=== PATIENT | male | born 1950 | race Caucasian/White ===

== ENCOUNTER 2016-10-10 10:31 | Observation (INO) ==
[2016-10-10] MEDS ORDERED: Aspirin 81 MG TAB.CHEW PO ONE (10:38)
--- NOTE | 2016-10-10 10:44 | Emergency Department Note ---
Disposition Clinical Impression: Chest pain Qualifiers: Chest pain type: unspecified Qualified Code(s): R07.9 - Chest pain, unspecified Disposition: Admitted As Inpatient Condition: Fair Referrals: Naresh Webb MD [Primary Care Provider] - Forms: ED Satisfaction Letter Time of Disposition: 11:38 Chest Pain HPI - General Chief Complaint: ED Chest Pain Stated Complaint: chest pain, dizziness Time Seen by Provider: 10/10/16 10:38 Source: patient, family Mode of arrival: ambulatory Limitations: no limitations Vital Signs Reviewed: Yes Nursing Notes Reviewed: Yes - History of Present Illness HPI Narrative: 66-year-old with a history of peripheral vascular disease who comes in complaining of chest pain began last night. Describes it as substernal with some radiation of the arm with some associated dizziness. Patient does have a history of cigarette smoking, positive family history, positive history of hypercholesterolemia. Pt complaint: chest pain Onset (ago): day(s) (12) Duration: constant Onset: during rest Pain Location: substernal, left chest Severity scale (1-10): 10 Quality: tightness, aching Pain Radiation: none Improves with: nothing Worsens with: nothing Associated symptoms: Denies: nausea, vomiting Treatments prior to arrival chest pain: none - Related Data Home Medications Medication Instructions Recorded Confirmed Albuterol Sulfate [Proair HFA] 2 puff IH Q6HR 04/08/15 07/01/16 Aspirin/Calcium Carbonate/Mag 325 mg PO DAILY 04/08/15 07/01/16 [Aspirin Buffered 325 mg Tab] Loratadine [Claritin] 10 mg PO DAILY 04/08/15 07/01/16 Simvastatin [Zocor] 40 mg PO HS 04/08/15 07/01/16 Percocet 10-325 mg Tablet 1 tab PO QID 10/07/15 07/01/16 BuPROPion SR (12 HR) [Wellbutrin 150 mg PO BID 07/01/16 07/01/16 SR] Naproxen [Naprosyn] 500 mg PO BID 07/01/16 07/01/16 Oxycodone HCl 15 mg PO QID 07/01/16 07/01/16 Potassium Chloride [K-Tab ER] 20 meq PO DAILY 07/01/16 07/01/16 Previous Rx's Medication Instructions Recorded Omeprazole [PriLOSEC] 20 mg PO DAILY #30 capsule. 07/01/16 Polyethylene Glycol 3350 [MiraLAX] 17 gm PO DAILY 14 Days 07/01/16 Allergies Allergy/AdvReac Type Severity Reaction Status Date / Time morphine Allergy See Verified 07/02/16 13:32 Comments duloxetine [From Cymbalta] AdvReac Hives Verified 04/08/15 21:13 Oxycodone [From OxyContin] AdvReac Itching Verified 04/08/15 21:13 tapentadol [From Nucynta] AdvReac Weakness Verified 04/08/15 21:13 Constitutional: Denies: fever, chills, weakness, weight change Eyes: Denies: eye pain, eye discharge, vision change ENT ED: Denies: ear pain, throat pain, dental pain, hearing loss, epistaxis, congestion, dysphagia Cardiovascular: Reports: chest pain. Denies: palpitations, dyspnea on exertion , edema, syncope Respiratory: Denies: cough, dyspnea, wheezes, hemoptysis, stridor Gastrointestinal: Denies: abdominal pain, nausea, vomiting, diarrhea, constipation, hematemesis, melena, hematochezia Genitourinary: Denies: urgency, dysuria, frequency, hematuria Musculoskeletal: Denies: back pain, neck pain, arthralgia, myalgia Integumentary: Denies: rash, abrasion, lesions Neurological: Reports: other (Dizziness). Denies: headache, weakness, numbness , paresthesias, confusion, abnormal gait, vertigo Psychiatric: Denies: anxiety, depression, suicidal thoughts, homicidal thoughts , auditory hallucinations, visual hallucinations Endocrine: Denies: fatigue Hematological/Lymphatic: Denies: easy bleeding, easy bruising Allergic/Immunologic: Denies: facial swelling, urticaria Chest Pain PMH - Past Medical History Medical history: Reports: asthma, COPD, hyperlipidemia, hypertension, other Surgical history: Reports: orthopedic, other Psychiatric history: Reports: depression - Social History Smoking Status: Current every day smoker Alcohol use: Reports: occasionally Drug use: Reports: none Physical Exam - General Limitations: no limitations General appearance: alert, in no apparent distress - Head Head exam: atraumatic, normocephalic, normal inspection - Eye Eye exam: Present: normal appearance, PERRL, EOMI - ENT ENT exam: normal exam, normal oropharynx, mucous membranes moist - Neck Neck exam: Present: normal inspection, full ROM, trachea midline - Chest Chest inspection: Present: normal inspection, symmetric chest wall rise - Respiratory Respiratory exam: Present: normal lung sounds bilaterally - Cardiovascular Cardiovascular exam: Present: regular rate, normal rhythm, normal heart sounds - Abdominal Exam Abdominal exam: Present: soft, Non-Tender. Absent: tenderness, distention, guarding, rebound, rigidity - Extremities Exam Extremities exam: Present: normal inspection, full ROM. Absent: tenderness, pedal edema - Expanded Lower Extremity Exam Neurovascular/Tendon exam: Absent: motor deficit, sensory deficit, tendon deficit Gait: not tested/not observed - Back Exam Back exam: Present: normal inspection, full ROM. Absent: tenderness - Neurological Exam Neurological exam: Present: alert, oriented X3 - Psychiatric Psychiatric exam: Present: normal affect, normal mood - Skin Skin exam: Present: warm, dry, intact, normal color Course - Reevaluation(s) Reevaluation #1: 66-year-old comes in complaining of chest pain with multiple risk factors and no recent workup. Workup here is negative will admit for rule out. Time: 14:28 - Consultations Consultation #1: Discussed with , admit. Time: 14:27 Vital Signs Temperature 97.5 F L 10/10/16 10:37 Pulse Rate 76 10/10/16 10:37 Respiratory Rate 22 10/10/16 10:37 Blood Pressure 157/98 10/10/16 10:37 O2 Sat by Pulse Oximetry 98 10/10/16 10:37 Temperature 97.5 F L 10/10/16 10:37 Pulse Rate 74 10/10/16 14:13 Respiratory Rate 18 10/10/16 14:13 Blood Pressure 130/79 10/10/16 14:13 O2 Sat by Pulse Oximetry 98 10/10/16 14:13 Oxygen Delivery Oxygen Delivery Room Air Chest Pain - Lab Data Lab results reviewed: Yes I reviewed the patient's lab results. Result diagrams: 10/10/16 10:42 10/10/16 10:42 Lab Results 10/10/16 10/10/16 10/10/16 Range/Units 10:42 10:42 10:42 WBC 6.7 (4.3-11.1) K/mcL RBC 4.57 (4.19-5.50) M/mcL Hgb 14.7 (12.9-16.9) g/dL Hct 43.5 (37.5-50.1) % MCV 95.2 (83.0-100.0) fL MCH 32.2 (28.0-33.3) pg MCHC 33.8 (31.6-35.5) g/dL RDW 13.1 (11.5-14.5) % Plt Count 229 (140-400) K/mcL MPV 9.6 (9.4-12.4) fL Immature Gran % 0.6 (0-4) % Seg Neutrophils % 57.5 % Lymphocytes % 26.8 % Monocytes % 9.9 % Eosinophils % 4.0 % Basophils % 1.2 % Neutrophils # 3.8 (1.6-8.9) K/mcL Lymphocytes # 1.8 (0.6-4.6) K/mcL Monocytes # 0.7 (0.0-1.3) K/mcL Eosinophils # 0.3 (0.0-0.6) K/mcL Basophils # 0.1 (0.0-0.2) K/mcL PT 11.0 (9.4-12.1) Seconds INR 1.0 APTT 30.7 (26.0-36.0) Seconds Sodium (136-145) mEq/L Potassium (3.5-4.5) mEq/L Chloride (98-109) mEq/L Carbon Dioxide (19-29) mEq/L BUN (8-26) mg/dL Creatinine (0.72-1.25) mg/dL Est GFR ( Amer) (> 60) Est GFR (Non-Af Amer) (> 60) BUN/Creatinine Ratio (6-26) Glucose (70-99) mg/dL Calculated Osmolality (280-300) Calcium (8.6-10.8) mg/dL Troponin I (0-0.03) ng/mL B-Natriuretic Peptide 34 (0-100) pg/mL 10/10/16 10/10/16 Range/Units 10:42 10:42 WBC (4.3-11.1) K/mcL RBC (4.19-5.50) M/mcL Hgb (12.9-16.9) g/dL Hct (37.5-50.1) % MCV (83.0-100.0) fL MCH (28.0-33.3) pg MCHC (31.6-35.5) g/dL RDW (11.5-14.5) % Plt Count (140-400) K/mcL MPV (9.4-12.4) fL Immature Gran % (0-4) % Seg Neutrophils % % Lymphocytes % % Monocytes % % Eosinophils % % Basophils % % Neutrophils # (1.6-8.9) K/mcL Lymphocytes # (0.6-4.6) K/mcL Monocytes # (0.0-1.3) K/mcL Eosinophils # (0.0-0.6) K/mcL Basophils # (0.0-0.2) K/mcL PT (9.4-12.1) Seconds INR APTT (26.0-36.0) Seconds Sodium 141 (136-145) mEq/L Potassium 4.5 (3.5-4.5) mEq/L Chloride 106 (98-109) mEq/L Carbon Dioxide 26 (19-29) mEq/L BUN 12 (8-26) mg/dL Creatinine 1.07 (0.72-1.25) mg/dL Est GFR ( Amer) > 60 (> 60) Est GFR (Non-Af Amer) > 60 (> 60) BUN/Creatinine Ratio 11 (6-26) Glucose 84 (70-99) mg/dL Calculated Osmolality 291 (280-300) Calcium 9.1 (8.6-10.8) mg/dL Troponin I 0.00 (0-0.03) ng/mL B-Natriuretic Peptide (0-100) pg/mL - Radiology Data Radiology results reviewed: Yes I reviewed the patient's radiology results. Chest X-Ray 10/10/16 10:38 IMPRESSION: 1. No active pulmonary disease. D/ / Tony Drummond MD / Tony Drummond MD Interpreting Provider: Tony Drummond MD - EKG Data EKG attestation: Yes I reviewed and interpreted this EKG. EKG shows normal: sinus rhythm Rate: normal Rhythm: NSR Interpretation: no acute changes Heart Score - Score History: Moderately Suspicious EKG: Normal Age: 45-65 Risk Factors: Equal/Greater than 3 risk factor or history of atherosclerotic disease Troponin: Less than normal limit HEART Score Total: 4
[2016-10-10 10:56] LABS: Basophils # 0.1 K/mcL (0.0-0.2); Basophils % 1.2 %; Eosinophils # 0.3 K/mcL (0.0-0.6); Hematocrit 43.5 % (37.5-50.1); Hemoglobin 14.7 g/dL (12.9-16.9); Immature Granulocytes % 0.6 % (0-4); Lymphocytes # 1.8 K/mcL (0.6-4.6); Lymphocytes % 26.8 %; Mean Corpuscular HGB Conc 33.8 g/dL (31.6-35.5); Mean Corpuscular Hemoglobin 32.2 pg (28.0-33.3); Mean Corpuscular Volume 95.2 fL (83.0-100.0); Mean Platelet Volume 9.6 fL (9.4-12.4); Monocytes # 0.7 K/mcL (0.0-1.3); Monocytes % 9.9 %; Neutrophils # 3.8 K/mcL (1.6-8.9); Platelet Count 229 K/mcL (140-400); Red Blood Count 4.57 M/mcL (4.19-5.50); Red Cell Distribution Width 13.1 % (11.5-14.5); Segmented Neutrophils % 57.5 %
[2016-10-10 11:06] LABS: Activated Partial Thrombo Time 30.7 Seconds (26.0-36.0)
[2016-10-10 11:07] LABS: BUN/Creatinine Ratio 11 (6-26); Blood Urea Nitrogen 12 mg/dL (8-26); Calcium 9.1 mg/dL (8.6-10.8); Carbon Dioxide 26 mEq/L (19-29); Chloride 106 mEq/L (98-109); Glucose 84 mg/dL (70-99); Osmolality,Calculated 291 (280-300); Potassium 4.5 mEq/L (3.5-4.5); Sodium 141 mEq/L (136-145); eGFR For African Americans > 60 (> 60); eGFR For Non-African Americans > 60 (> 60)
[2016-10-10] MEDS ORDERED: *HR* HYDROmorphone (PF) 1 MG/ML SYRINGE IVP ONE (12:10)
[2016-10-10] MEDS ORDERED: Ondansetron 4 MG/2 ML VIAL IVP ONE (12:11)
[2016-10-10] MEDS ORDERED: *HR* OxyCODONE Immed Rel 15 MG TABLET PO PRN (15:39)
[2016-10-10] MEDS ORDERED: Acetaminophen 325 MG TABLET PO PRN (15:52)
[2016-10-10] MEDS ORDERED: Naloxone 0.4 MG/ML INJ IVP PRN (15:52)
[2016-10-10] MEDS ORDERED: *HR* Morphine 2 MG/ML SYRINGE IVP PRN (15:52)
[2016-10-10] MEDS ORDERED: Ondansetron 4 MG/2 ML VIAL IVP PRN (15:52)
[2016-10-10] MEDS ORDERED: Albuterol 2.5 MG/3 ML NEBULIZER IH PRN (16:05)
[2016-10-10] MEDS ORDERED: Nitroglycerin 0.4 MG TAB.SUBL SL PRN (16:11)
--- NOTE | 2016-10-10 16:14 | Internal Med History&Physical ---
Date of Encounter: 10/10/16 Time of Encounter: 15:30 Internal Medicine - H&P: HPI Chief complaint: Chest pain, arm and neck pain x 2 days Admitted From: Emergency Dept Plans for Post Hospital Care: Home History of present illness: Mr. Jackson is a 66 year old male with a history of peripheral vascular disease, continuing tobacco abuse presents with substernal chest pain with radiation to the left side of neck, associated with numbness in the left upper arm that started yesternight. He reports associated dizziness. He has no prior cardiac history. He reports his last stress test was negative (10 years), and LHC was completed 2-3 years at [facility], he report it has showing singes single vessel disease (10%). No fever, chills or rigors. He reports worsening of chronic intermittent abdominal pain. He reports no other symptoms. He is FULL CODE as per discussion. He nominates his girlfriend as his NOK/POA, Mahsa Mayes. Family hx: mother DM, CAD, father: HTN, CAD. Vital Signs Temperature 97.5 F L 10/10/16 10:37 Pulse Rate 76 10/10/16 10:37 Respiratory Rate 22 10/10/16 10:37 Blood Pressure 157/98 10/10/16 10:37 O2 Sat by Pulse Oximetry 98 10/10/16 10:37 Temperature 97.5 F L 10/10/16 10:37 Pulse Rate 74 10/10/16 14:13 Respiratory Rate 18 10/10/16 14:13 Blood Pressure 130/79 10/10/16 14:13 O2 Sat by Pulse Oximetry 98 10/10/16 14:13 Not in distress, not ill, non-toxic looking, motor tics present Not pale, anicteric, afebrile, acyanotic. Moist mucosa. HEENT: No JVD, no cervical lymphadenopathy, Chest : CTAB, diminished generally, especially in the bases. Heart: RRR, HS1/2, no m/r/g. 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 Skin: No active skin lesion Extremities: No pedal edema, normal pedal pulses, no calf tenderness Lab Results 10/10/16 10/10/16 10/10/16 Range/Units 10:42 10:42 10:42 WBC 6.7 (4.3-11.1) K/mcL RBC 4.57 (4.19-5.50) M/mcL Hgb 14.7 (12.9-16.9) g/dL Hct 43.5 (37.5-50.1) % MCV 95.2 (83.0-100.0) fL MCH 32.2 (28.0-33.3) pg MCHC 33.8 (31.6-35.5) g/dL RDW 13.1 (11.5-14.5) % Plt Count 229 (140-400) K/mcL MPV 9.6 (9.4-12.4) fL Immature Gran % 0.6 (0-4) % Seg Neutrophils % 57.5 % Lymphocytes % 26.8 % Monocytes % 9.9 % Eosinophils % 4.0 % Basophils % 1.2 % Neutrophils # 3.8 (1.6-8.9) K/mcL Lymphocytes # 1.8 (0.6-4.6) K/mcL Monocytes # 0.7 (0.0-1.3) K/mcL Eosinophils # 0.3 (0.0-0.6) K/mcL Basophils # 0.1 (0.0-0.2) K/mcL PT 11.0 (9.4-12.1) Seconds INR 1.0 APTT 30.7 (26.0-36.0) Seconds Sodium (136-145) mEq/L Potassium (3.5-4.5) mEq/L Chloride (98-109) mEq/L Carbon Dioxide (19-29) mEq/L BUN (8-26) mg/dL Creatinine (0.72-1.25) mg/dL Est GFR ( Amer) (> 60) Est GFR (Non-Af Amer) (> 60) BUN/Creatinine Ratio (6-26) Glucose (70-99) mg/dL Calculated Osmolality (280-300) Calcium (8.6-10.8) mg/dL Troponin I (0-0.03) ng/mL B-Natriuretic Peptide 34 (0-100) pg/mL 10/10/16 10/10/16 Range/Units 10:42 10:42 WBC (4.3-11.1) K/mcL RBC (4.19-5.50) M/mcL Hgb (12.9-16.9) g/dL Hct (37.5-50.1) % MCV (83.0-100.0) fL MCH (28.0-33.3) pg MCHC (31.6-35.5) g/dL RDW (11.5-14.5) % Plt Count (140-400) K/mcL MPV (9.4-12.4) fL Immature Gran % (0-4) % Seg Neutrophils % % Lymphocytes % % Monocytes % % Eosinophils % % Basophils % % Neutrophils # (1.6-8.9) K/mcL Lymphocytes # (0.6-4.6) K/mcL Monocytes # (0.0-1.3) K/mcL Eosinophils # (0.0-0.6) K/mcL Basophils # (0.0-0.2) K/mcL PT (9.4-12.1) Seconds INR APTT (26.0-36.0) Seconds Sodium 141 (136-145) mEq/L Potassium 4.5 (3.5-4.5) mEq/L Chloride 106 (98-109) mEq/L Carbon Dioxide 26 (19-29) mEq/L BUN 12 (8-26) mg/dL Creatinine 1.07 (0.72-1.25) mg/dL Est GFR ( Amer) > 60 (> 60) Est GFR (Non-Af Amer) > 60 (> 60) BUN/Creatinine Ratio 11 (6-26) Glucose 84 (70-99) mg/dL Calculated Osmolality 291 (280-300) Calcium 9.1 (8.6-10.8) mg/dL Troponin I 0.00 (0-0.03) ng/mL B-Natriuretic Peptide (0-100) pg/mL Chest X-Ray 10/10/16 10:38 No active pulmonary disease. EKG: NSR. IMP Atypical chest pain Abdominal wall pain, non-specific, chronic. Chronic morbidities COPD HTN Degenerative spine disease PLAN Admit for chest pain rule out due to risk factor Stress test in the AM Morphine and Nitroglycerine for chest pain Serial EKG, cycle troponins. No indication for DVT prophylaxis. Smoking cessation discussed. I discussed my assessment with the patient, he verbalized understanding and is agreeable to admission. He is admitted for evaluation of chest pain considering his risk factors. Past Med Surg Social Fam HX - Past Medical History Medical history: asthma, COPD, hyperlipidemia, hypertension, other Psychiatric history: depression - Past Surgical History Surgical History: orthopedic, other - Social History Smoking Status: Current every day smoker Smokeless Tobacco Status: No Alcohol use: occasionally Drug use: none Internal Medicine - H&P: Meds Albuterol Sulfate [Proair HFA] 2 puff IH Q6HR 04/08/15 [History] Aspirin/Calcium Carbonate/Mag [Aspirin Buffered 325 mg Tab] 325 mg PO DAILY 05/15 [History] Loratadine [Claritin] 10 mg PO DAILY 04/08/15 [History] Simvastatin [Zocor] 40 mg PO HS 04/08/15 [History] BuPROPion SR (12 HR) [Wellbutrin SR] 150 mg PO BID 07/01/16 [History] Naproxen [Naprosyn] 500 mg PO BID 07/01/16 [History] Omeprazole [PriLOSEC] 20 mg PO DAILY #30 capsule. 07/01/16 [Rx] Oxycodone HCl 15 mg PO QID 07/01/16 [History] Polyethylene Glycol 3350 [MiraLAX] 17 gm PO DAILY 14 Days 07/01/16 [Rx] Potassium Chloride [K-Tab ER] 20 meq PO DAILY 07/01/16 [History] Allergies duloxetine [From Cymbalta] Allergy (Verified 10/10/16 14:48) Hives morphine Allergy (Verified 10/10/16 14:48) See Comments UNKNOWN REACTION- PATIENT UNSURE Oxycodone [From OxyContin] Allergy (Verified 10/10/16 14:48) Itching tapentadol [From Nucynta] Adverse Reaction (Verified 04/08/15 21:13) Weakness All Systems PM: A 10-system review of systems was performed and is negative for pertinent findings except as documented above in the HPI. - Constitutional Vitals: Temp Pulse Resp BP Pulse Ox 98.0 F 71 16 164/73 97 10/10/16 15:57 10/10/16 15:57 10/10/16 15:57 10/10/16 15:57 10/10/16 15:57 Internal Med - H&P Results - Labs CBC & Chem 7: 10/10/16 10:42 10/10/16 10:42
[2016-10-10] MEDS: BuPROPion SR (12 HR) 150 MG TABLET PO SCH (21:59)
[2016-10-11 05:19] LABS: Chol/HDL Ratio 3.8 (0-4.9)
[2016-10-11] MEDS ORDERED: Regadenoson 0.4 MG/5 ML SYRINGE IVP ONE (07:58)
[2016-10-11] MEDS ORDERED: Aspirin Enteric Coated 325 MG Tablet PO SCH (09:00)
[2016-10-11] MEDS ORDERED: Loratadine 10 MG TABLET PO SCH (09:00)
[2016-10-11] MEDS: BuPROPion SR (12 HR) 150 MG TABLET PO SCH (10:26)
--- NOTE | 2016-10-11 11:10 | Nuclear Medicine Stress Report ---
Regadenoson Nuclear Stress Name: MONIE CAMACHO Date of Study: 10/11/2016 Date: 1950 Ht: 70.0 in Medical Record#: [id number] Age: 66 Wt: 180.0 lb Gender: Male Order #: [id number] Location: [facility] Room: [facility] Supervising Provider: Renan Covarrubias CNP Reading Physician: Nyla Bui DO Ordering Physician: Zoë Bo CNP Primary Care Physician: Naresh Webb MD Stress Technologist: Yusra Roland, ORTHOTICS ASSISTANT, CCT, CPFT Stroke Coordinator: José Miguel Lewis Indications: Chest Pain Impression: Perfusion imaging was negative for ischemia or infarct. Inferior wall artifact. Pharmacologic ECG was negative for ischemia at the level of heart rate achieved. Patient described 8/10 chest burning prior to start of study, persisting unchanged during testing. Gated EF = 65%. History: Hypercholesteremia History of Smoking Stress Test Summary: Stress Test Type: Pharmacologic Regadenoson 0.4mg/5ml given IV Baseline Information: Initial Heart Rate: 74 Blood Pressure: 126/78 Stress Information: Stress Time: 4 min sec Test Terminated Due to (primary): As per protocol Maximum Blood Pressure: 114/60 Maximum Heart Rate: 109 Percent Maximum Heart Rate Achieved: 70 Double Product: [id number] METS Reached: 1 Symptoms: Shortness of breath Nuclear Summary: SPECT myocardial perfusion imaging using Tc99m Sestamibi given intravenously was performed at rest and following cardiac stress testing. The resting images were obtained following initial dose of 11.1 mCi. Following stress an additional dose of 35.9 mCi was given at peak exercise or 30 seconds post regadenoson infusion. Medication Given: Time Medication Dose Units Route Findings: Stress Note * Resting ECG demonstrated normal sinus rhythm with normal ECG findings. * Pharmacologic stress ECG is negative for ischemia at level of heart rate achieved. * No arrhythmias were noted during stress. * Patient described 8/10 chest burning prior to start of study. Symptoms persisted without change during the study. Hemodynamic responses * Normal hemodynamic responses to pharmacologic stress. Study Quality * Study quality was fair. Gated EF % * Gated EF = 65%. Left Ventricle * The left ventricle is not dilated. TID * No evidence of transient ischemic dilatation. Lung Uptake * There is no evidence of increase lung uptake. NORMALS * Normal wall motion. PERFUSION * There is a medium sized, mild-moderate fixed intensity perfusion defect involving the inferior wall. Wall motion is normal in this area. Findings are consistent with artifact. * Other segments demonstrate demonstrate normal rest and stress perfusion. Updated by Nyla Bui on 10/11/2016 11:03:46 AM electronically signed on 10/11/2016 11:05:55 AM with status of Final
[2016-10-11 12:36] VITALS: BP 138/77
--- NOTE | 2016-10-11 15:03 | Discharge Summary ---
Date of Encounter: 10/11/16 Time of Encounter: 13:30 - Discharge Diagnosis (1) Chest pain Priority: Primary Status: Acute Qualifiers: Chest pain type: other chest pain Qualified Code(s): R07.89 - Other chest pain; R07.8 - Other chest pain - Discharge Medications Home Medications: Albuterol Sulfate [Albuterol Inhaler] 2 puff IH Q6HR 04/08/15 [History] Aspirin/Calcium Carbonate/Mag [Aspirin Buffered 325 mg Tab] 325 mg PO DAILY 05/15 [History] Loratadine [Claritin] 10 mg PO DAILY 04/08/15 [History] Simvastatin [Zocor] 40 mg PO HS 04/08/15 [History] BuPROPion SR (12 HR) [Wellbutrin SR] 150 mg PO BID 07/01/16 [History] Naproxen [Naprosyn] 500 mg PO BID 07/01/16 [History] Omeprazole [PriLOSEC] 20 mg PO DAILY #30 capsule. 07/01/16 [Rx] Oxycodone HCl 15 mg PO QID 07/01/16 [History] Polyethylene Glycol 3350 [MiraLAX] 17 gm PO DAILY 14 Days 07/01/16 [Rx] Potassium Chloride [K-Tab ER] 20 meq PO DAILY 07/01/16 [History] GuaiFENesin Liq [Robitussin Liq] 200 mg GTUBE Q6HR 7 Days 10/11/16 [Rx] Allergies/Adverse Reactions: Allergies duloxetine [From Cymbalta] Allergy (Verified 10/10/16 14:48) Hives morphine Allergy (Verified 10/10/16 14:48) See Comments UNKNOWN REACTION- PATIENT UNSURE Oxycodone [From OxyContin] Allergy (Verified 10/10/16 14:48) Itching tapentadol [From Nucynta] Adverse Reaction (Verified 04/08/15 21:13) Weakness Procedures/tests Complete & Pending: Procedures Performed prior 72 hours Category Date Time Status NM rupesh perf SPECT multi [NM] Routine Exams 10/10/16 15:52 Taken ECG 12 lead ECG [ECG] AM 0600 Y 10/11/16 06:00 Ordered SP pharm nuclear stress Routine Y 10/10/16 15:51 Completed Date of admission: 10/10/16 14:45 Primary care physician: Naresh Webb MD Discharging clinician: Kasey Thomas Anticipated date of discharge: 10/11/16 - Patient Status Disposition: Home, Self-Care Condition: Fair Functional capacity at discharge: uses cane/walker - Discharge Instructions Follow Up With: Naresh Webb MD [Primary Care Provider] - - Diet and Activity Activity: increase activity as tolerated Diet: advance to your usual diet Interval History: Mr. Jackson is a 66 year old male with a history of peripheral vascular disease, continuing tobacco abuse presents with substernal chest pain with radiation to the left side of neck, associated with numbness in the left upper arm that started yesternight. He reports associated dizziness. He has no prior cardiac history. He reports his last stress test was negative (10 years), and LHC was completed 2-3 years at [facility], he report it has showing singes single vessel disease (10%). No fever, chills or rigors. He reports worsening of chronic intermittent abdominal pain. He reports no other symptoms. He is FULL CODE as per discussion. He nominates his girlfriend as his NOK/POA, Mahsa Mayes. Hospital course: Mr. Jackson is a 66 year old male admitted as chest pain. He was placed on cardiac monitoring. 3 sets of troponin negative, EKG unremarkable, chest x-ray unremarkable. Patient had stress test today which was negative, EF 65%. Today he has only minimal pain which is related to movement of his shoulder. He also has chest wall tenderness. Consider the chest pain is skeletomuscular pain. Pt will discharge home today. I saw and examined the patient today. He is awake, alert and oriented 3. Said that the pain is much less. Pain is related to the right shoulder movement. Patient has cervical spine surgery with limited mobility activity. On exam, he has tenderness on the front chest wall. Chest x-ray, EKG reviewed, unremarkable. His vitals are stable. Patient also has mild cough, will give him cough syrup. Patient is stable to discharge home and continue home medication. He will follow-up with PCP as outpatient. Time spent discussing smoking cessation with patient: 3 to 10 minutes - Time Spent with Patient Total time spent providing and/or coordinating discharge services: 40 minutes Greater than 30 minutes - Constitutional Vitals: Temp Pulse Resp BP Pulse Ox 97.3 F L 75 16 138/77 93 L 10/11/16 12:34 10/11/16 12:34 10/11/16 12:34 10/11/16 12:34 10/11/16 12:34 - Head Head exam: Present: atraumatic, normocephalic - Eye Eye exam: Present: PERRL, conjuntiva pink, sclera anicteric Pupils: Present: PERRL - Neck Neck exam general surgery: Present: supple, trachea midline. Absent: lymphadenopathy - Respiratory Respiratory exam: Present: chest wall tenderness, CTAB. Absent: accessory muscle use, rales, rhonchi, wheezes - Cardiovascular Cardiovascular exam: Present: RRR, +S1, +S2. Absent: diastolic murmur, gallop, rubs, systolic murmur - GI/Abdominal GI/Abdominal exam: Present: normal bowel sounds, soft, no peritoneal signs. Absent: distended, tenderness - Extremities Exam Extremities exam: Present: warm, radial pulses palpable and symetrical. Absent : calf tenderness, cyanotic, pedal edema - Neurological Exam Neurological exam: Present: CN II-XII intact, oriented X3. Absent: pronater drift, facial droop, speech deficit - Skin Skin exam: Present: dry, intact
--- NOTE | 2016-10-12 13:22 | Electrocardiograph Report ---
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
== END 2016-10-11 15:30 | disposition home or self-care (01) ==
LOC: 3BNU 10:31 → EMEROO 10:31 → SUATTDRO 14:45 → 3BNU 15:46
PROVIDERS: ADMIT Family Medicine; ATTEND Internal Medicine

== ENCOUNTER 2016-11-10 10:17 | Inpatient (IN) ==
[2016-11-10 11:01] LABS: Bilirubin,Urine Negative (Negative); Blood,Urine Negative (Negative); Clarity,Urine Clear (Clear); Color,Urine Yellow (Yellow); Glucose,Urine (UA) Normal (Normal); Ketones,Urine Negative (Negative); Leukocyte Esterase,Urine Negative (Negative); Nitrite,Urine Negative (Negative); Protein,Urine Negative (Neg-Trace); Specific Gravity,Urine 1.014 (1.010-1.025); Urobilinogen,Urine Normal (Normal)
[2016-11-10] MEDS ORDERED: *HR* FentaNYL (PF) 100 MCG/2 ML VIAL IVP ONE ×2 (11:36→14:21)
[2016-11-10] MEDS ORDERED: 0.9 % Sodium Chloride 1,000 ML IV SCH (11:45)
--- NOTE | 2016-11-10 11:46 | Emergency Department Note ---
Disposition Clinical Impression: Discitis of lumbar region Back pain Qualifiers: Back pain location: low back pain Chronicity: chronic Back pain laterality: unspecified Sciatica presence: with sciatica Sciatica laterality: sciatica of right side Qualified Code(s): M54.41 - Lumbago with sciatica, right side Disposition: Admitted As Inpatient Condition: Fair Time of Disposition: 15:21 Back Pain HPI - General Chief Complaint: ED Back Pain/Injury Stated Complaint: back pain, R side pain since yesterday Time Seen by Provider: 11/10/16 11:15 Source: patient Limitations: no limitations Nursing Notes Reviewed: Yes Vital Signs Reviewed: Yes - History of Present Illness HPI Narrative: Mr. Jackson is a 66-year-old male with a past medical history of chronic back pain, hypertension, and hyperlipidemia who presents with a 24-hour history of worsening low back pain. She states that the pain started while he was walking on Thursday. He describes the pain is predominantly located in the midline of his lumbar spine as well as his right flank. He describes the pain as "sharp" in nature that radiates down his right leg into his foot. He also admits to occasional radiation up into his thoracic spine and left shoulder blade. The pain is a 10/10. Nothing appears to help the pain as he takes oxycodone 15 mg QID for chronic pain, but this does not seem to help with this current episode. He states that walking exacerbates this back pain and causes the pain to radiate into his left foot. She denies any new numbness and tingling, any new bowel changes, fever, or chills. He does admit to burning with urination and he admits to numbness in his groin that has been going on for the past month. He also admits to weakness of his bilateral lower extremities. Pt Subjective Complaint: back pain Onset (ago): day(s) Duration: gradually worsening Similar Symptoms Previously: Yes Location: lumbar spine Pain Severity: severe Pain Scale: 10 Quality: sharp, aching Radiation: right leg Improves with: none Worsens with: none Associated symptoms: Reports: numbness, weakness, difficulty walking. Denies: abdominal pain - Related Data Home Medications Medication Instructions Recorded Confirmed Albuterol Sulfate [Albuterol 2 puff IH Q6HR PRN 04/08/15 11/10/16 Inhaler] Loratadine [Claritin] 10 mg PO DAILY 04/08/15 11/10/16 Simvastatin [Zocor] 40 mg PO HS 04/08/15 11/10/16 BuPROPion SR (12 HR) [Wellbutrin 150 mg PO BID 07/01/16 11/10/16 SR] Oxycodone HCl 15 mg PO QID PRN 07/01/16 11/10/16 Aspirin Enteric Coated [Aspirin EC] 325 mg PO DAILY 11/10/16 11/10/16 Furosemide [Lasix] 40 mg PO DAILY 11/10/16 11/10/16 Potassium Chloride [K-Tab ER] 20 meq PO DAILY 11/10/16 11/10/16 Previous Rx's Medication Instructions Recorded Omeprazole [PriLOSEC] 20 mg PO DAILY #30 capsule. 07/01/16 Allergies Allergy/AdvReac Type Severity Reaction Status Date / Time duloxetine [From Cymbalta] Allergy Hives Verified 11/10/16 10:20 morphine Allergy See Verified 11/10/16 10:20 Comments Oxycodone [From OxyContin] Allergy Itching Verified 11/10/16 10:20 tapentadol [From Nucynta] AdvReac Weakness Verified 11/10/16 10:20 All systems ED: reviewed and negative except as stated. Past Medical History - Past Medical History Attestation: Yes The following information was validated with the patient. Source: patient Medical history: Reports: asthma, COPD, hyperlipidemia, hypertension, other Surgical history: Reports: orthopedic, other Psychiatric history: Reports: depression - Social History Smoking Status: Current every day smoker Smokeless Tobacco Status: No Alcohol use: Reports: occasionally Drug use: Reports: none Physical Exam - General Limitations: no limitations General appearance: alert, in no apparent distress - Head Head exam: atraumatic, normocephalic, normal inspection - Eye Eye exam: Present: normal appearance, PERRL, EOMI - ENT ENT exam: normal exam, normal oropharynx, mucous membranes moist - Neck Neck exam: Present: normal inspection, full ROM, trachea midline - Chest Chest inspection: Present: normal inspection, symmetric chest wall rise - Respiratory Respiratory exam: Present: normal lung sounds bilaterally - Cardiovascular Cardiovascular exam: Present: regular rate, normal rhythm, normal heart sounds - Abdominal Exam Abdominal exam: Present: soft, Non-Tender. Absent: tenderness, distention, guarding, rebound, rigidity - Rectal Exam Rectal exam: Present: normal rectal tone - Extremities Exam Extremities exam: Present: normal inspection, full ROM. Absent: tenderness, pedal edema - Neurological Exam Neurological exam: Present: alert, oriented X3 - Psychiatric Psychiatric exam: Present: normal affect, normal mood - Skin Skin exam: Present: warm, dry, intact, normal color Course Course Narrative: Patient seen and examined. Severe back pain last night into today. New numbness in the genital region as well as weakness in his lower extremities. Also some pain that radiates into his chest. Cardiac workup initiated as well as MRI of the lumbar spine. - Reevaluation(s) Reevaluation #1: Patient's MRI shows possible discitis or osteomyelitis versus just severe degenerative disc disease. A CRP and sedimentation rate were ordered. These were also high. We will go ahead and start prophylactically treating with vancomycin and gentamicin. I spoke with spine surgeon Dr. Lam who states he will consult on the patient. I spoke with hospitalist Dr. Cline who has accepted patient for admission. Time: 15:20 Vital Signs Temperature 98.3 F 11/10/16 10:20 Pulse Rate 78 11/10/16 10:20 Respiratory Rate 15 11/10/16 10:20 Blood Pressure 137/66 11/10/16 10:20 O2 Sat by Pulse Oximetry 98 11/10/16 10:20 Temperature 98.0 F 11/10/16 17:34 Pulse Rate 75 11/10/16 17:34 Respiratory Rate 18 11/10/16 17:34 Blood Pressure 150/87 11/10/16 17:34 O2 Sat by Pulse Oximetry 97 11/10/16 17:34 Oxygen Delivery Oxygen Delivery Room Air Back Pain/Injury - Medical Records Medical records reviewed: Yes I reviewed the patient's medical records. - Lab Data Lab results reviewed: Yes I reviewed the patient's lab results. Result diagrams: 11/10/16 13:56 11/10/16 13:56 Lab Results 11/10/16 11/10/16 11/10/16 Range/Units 10:50 13:56 13:56 WBC 7.1 (4.3-11.1) K/mcL RBC 3.86 L (4.19-5.50) M/mcL Hgb 12.4 L D (12.9-16.9) g/dL Hct 36.4 L (37.5-50.1) % MCV 94.3 (83.0-100.0) fL MCH 32.1 (28.0-33.3) pg MCHC 34.1 (31.6-35.5) g/dL RDW 12.7 (11.5-14.5) % Plt Count 239 (140-400) K/mcL MPV 9.3 L (9.4-12.4) fL Immature Gran % 0.4 (0-4) % Seg Neutrophils % 61.8 % Lymphocytes % 24.5 % Monocytes % 10.1 % Eosinophils % 2.4 % Basophils % 0.8 % Neutrophils # 4.4 (1.6-8.9) K/mcL Lymphocytes # 1.7 (0.6-4.6) K/mcL Monocytes # 0.7 (0.0-1.3) K/mcL Eosinophils # 0.2 (0.0-0.6) K/mcL Basophils # 0.1 (0.0-0.2) K/mcL Immature Plt Fraction 2.7 (1.1-6.1) % ESR (0-10) mm/hr Sodium 139 (136-145) mEq/L Potassium 4.0 (3.5-4.5) mEq/L Chloride 110 H (98-109) mEq/L Carbon Dioxide 25 (19-29) mEq/L BUN 13 (8-26) mg/dL Creatinine 0.87 (0.72-1.25) mg/dL Est GFR ( Amer) > 60 (> 60) Est GFR (Non-Af Amer) > 60 (> 60) BUN/Creatinine Ratio 15 (6-26) Glucose 74 (70-99) mg/dL Calculated Osmolality 287 (280-300) Calcium 8.2 L (8.6-10.8) mg/dL Total Bilirubin 0.4 (0.2-1.2) mg/dL AST 16 (5-34) Units/L ALT 19 (0-55) Units/L Alkaline Phosphatase 87 (38-126) Units/L Troponin I (0-0.03) ng/mL C-Reactive Protein 17 H (Less than 5) mg/L Serum Total Protein 6.4 (6.0-8.3) g/dL Albumin 3.1 L (3.5-5.0) g/dL Globulin 3.3 (2.4-3.5) g/dL Albumin/Globulin Ratio 0.9 L (1.1-2.2) Urine Color Yellow (Yellow) Urine Clarity Clear (Clear) Urine pH 6.0 (5.0-8.0) pH Units Ur Specific [place] 1.014 (1.010-1.025) Urine Protein Negative (Neg-Trace) mg/dL Urine Glucose (UA) Normal (Normal) mg/dL Urine Ketones Negative (Negative) mg/dL Urine Blood Negative (Negative) Urine Nitrite Negative (Negative) Urine Bilirubin Negative (Negative) Urine Urobilinogen Normal (Normal) mg/dL Ur Leukocyte Esterase Negative (Negative) 11/10/16 11/10/16 Range/Units 13:56 13:56 WBC (4.3-11.1) K/mcL RBC (4.19-5.50) M/mcL Hgb (12.9-16.9) g/dL Hct (37.5-50.1) % MCV (83.0-100.0) fL MCH (28.0-33.3) pg MCHC (31.6-35.5) g/dL RDW (11.5-14.5) % Plt Count (140-400) K/mcL MPV (9.4-12.4) fL Immature Gran % (0-4) % Seg Neutrophils % % Lymphocytes % % Monocytes % % Eosinophils % % Basophils % % Neutrophils # (1.6-8.9) K/mcL Lymphocytes # (0.6-4.6) K/mcL Monocytes # (0.0-1.3) K/mcL Eosinophils # (0.0-0.6) K/mcL Basophils # (0.0-0.2) K/mcL Immature Plt Fraction (1.1-6.1) % ESR 30 H (0-10) mm/hr Sodium (136-145) mEq/L Potassium (3.5-4.5) mEq/L Chloride (98-109) mEq/L Carbon Dioxide (19-29) mEq/L BUN (8-26) mg/dL Creatinine (0.72-1.25) mg/dL Est GFR ( Amer) (> 60) Est GFR (Non-Af Amer) (> 60) BUN/Creatinine Ratio (6-26) Glucose (70-99) mg/dL Calculated Osmolality (280-300) Calcium (8.6-10.8) mg/dL Total Bilirubin (0.2-1.2) mg/dL AST (5-34) Units/L ALT (0-55) Units/L Alkaline Phosphatase (38-126) Units/L Troponin I 0.00 (0-0.03) ng/mL C-Reactive Protein (Less than 5) mg/L Serum Total Protein (6.0-8.3) g/dL Albumin (3.5-5.0) g/dL Globulin (2.4-3.5) g/dL Albumin/Globulin Ratio (1.1-2.2) Urine Color (Yellow) Urine Clarity (Clear) Urine pH (5.0-8.0) pH Units Ur Specific [place] (1.010-1.025) Urine Protein (Neg-Trace) mg/dL Urine Glucose (UA) (Normal) mg/dL Urine Ketones (Negative) mg/dL Urine Blood (Negative) Urine Nitrite (Negative) Urine Bilirubin (Negative) Urine Urobilinogen (Normal) mg/dL Ur Leukocyte Esterase (Negative) - Radiology Data Radiology results reviewed: Yes I reviewed the patient's radiology results. Lumbar Spine MRI 11/10/16 11:37 IMPRESSION: 1. There is fluid signal within the L1-L2 disc space with surrounding bone marrow edema along the inferior aspect of L1 and superior endplate of L2. There is relative preservation of the endplates. Overall, the findings are favored to represent advanced degenerative disease, however, early discitis, osteomyelitis could have a similar appearance. Correlation with inflammatory markers (ESR and CRP) may be helpful. 2. At L5-S1, there is diffuse disc bulge with superimposed left paracentral disc protrusion which impinges on the descending left S1 nerve root in the lateral recess. Disc bulge contactes the descending right S1 nerve root in the lateral recess. 3. At L4-5, there is severe bilateral neural foraminal stenosis with compression of the exiting L4 nerve roots. 4. Moderate bilateral L3-L4 and L5-S1 neural foraminal stenosis. D/ / 11/10/2016 14:06:30 Josselin Lezama MD / Belia Zapata Interpreting Provider: Josselin Lezama MD
--- NOTE | 2016-11-10 11:53 | Emergency Department Note ---
Disposition Clinical Impression: Discitis of lumbar region, Back pain Disposition: Admitted As Inpatient Condition: Fair Referrals: Naresh Webb MD [Primary Care Provider] - Forms: ED Satisfaction Letter General Adult HPI - General Chief complaint: ED Back Pain/Injury Stated complaint: back pain, R side pain since yesterday Time Seen by Provider: 11/10/16 11:15 Source: patient Limitations: no limitations Nursing Notes Reviewed: Yes Vital Signs Reviewed: Yes - History of Present Illness Pain Scale: 10 - Related Data Home Medications Medication Instructions Recorded Confirmed Albuterol Sulfate [Albuterol 2 puff IH Q6HR PRN 04/08/15 11/10/16 Inhaler] Loratadine [Claritin] 10 mg PO DAILY 04/08/15 11/10/16 Simvastatin [Zocor] 40 mg PO HS 04/08/15 11/10/16 BuPROPion SR (12 HR) [Wellbutrin 150 mg PO BID 07/01/16 11/10/16 SR] Oxycodone HCl 15 mg PO QID PRN 07/01/16 11/10/16 Aspirin Enteric Coated [Aspirin EC] 325 mg PO DAILY 11/10/16 11/10/16 Furosemide [Lasix] 40 mg PO DAILY 11/10/16 11/10/16 Potassium Chloride [K-Tab ER] 20 meq PO DAILY 11/10/16 11/10/16 Previous Rx's Medication Instructions Recorded Omeprazole [PriLOSEC] 20 mg PO DAILY #30 capsule. 07/01/16 Allergies Allergy/AdvReac Type Severity Reaction Status Date / Time duloxetine [From Cymbalta] Allergy Hives Verified 11/10/16 10:20 morphine Allergy See Verified 11/10/16 10:20 Comments Oxycodone [From OxyContin] Allergy Itching Verified 11/10/16 10:20 tapentadol [From Nucynta] AdvReac Weakness Verified 11/10/16 10:20 Past Medical History - Past Medical History Medical history: Reports: asthma, COPD, hyperlipidemia, hypertension, other Surgical history: Reports: orthopedic, other Psychiatric history: Reports: depression - Social History Smoking Status: Current every day smoker Smokeless Tobacco Status: No Alcohol use: Reports: occasionally Drug use: Reports: none Physical Exam - General Limitations: no limitations General appearance: alert, in no apparent distress Course Vital Signs Temperature 98.3 F 11/10/16 10:20 Pulse Rate 78 11/10/16 10:20 Respiratory Rate 15 11/10/16 10:20 Blood Pressure 137/66 11/10/16 10:20 O2 Sat by Pulse Oximetry 98 11/10/16 10:20 Temperature 98.3 F 11/10/16 10:20 Pulse Rate 75 11/10/16 13:47 Respiratory Rate 16 11/10/16 13:47 Blood Pressure 128/80 11/10/16 13:47 O2 Sat by Pulse Oximetry 99 11/10/16 13:47 Oxygen Delivery Oxygen Delivery Room Air Medical Decision Making - MDM Narrative Medical decision making narrative: I examined this patient and my medical decision-making was reviewed with the DIRECTOR PART/PA/Advanced Practice Nurse/Resident Physician. I agree with the documented findings, disposition and treatment plan as described except to the extent set forth below. Patient presents today and was seen by Dr. Parr and myself, I agree with her evaluation and management plan, supervised the care of the patient that stay. Patient presents today with worsening back pain he says had chronic history of low back pain with radiation down into his right leg. He said this seemed to get worse when he was ambulating and had a "" pop in his back . He has had no change in bowel or bladder habits but he says he has this chronic numbness in his groin area. He has had no problems of the aorta in the past to the CT and July which showed a normal abdomen. With no signs of aortic aneurysm or dissection. He has had good pulses in his groin behind his knees and his feet. He has no signs of cold foot or extremity. He does have a positive straight leg raise on the right side. We reviewed his CT scan from past and shows that he has multiple disc disease. We are going to do an MRI of his low back. He had a bedside ultrasound here which was done by Dr. Parr my supervision shows no signs of an aneurysm in his abdomen. We will try to make him comfortable, get an MRI, reassess and the disposition. He is in agreement with this plan. 1154 hrs.: Patient has good rectal tone here in the department. Waiting on his MRI and labs. Lumbar Spine MRI 11/10/16 11:37 IMPRESSION: 1. There is fluid signal within the L1-L2 disc space with surrounding bone marrow edema along the inferior aspect of L1 and superior endplate of L2. There is relative preservation of the endplates. Overall, the findings are favored to represent advanced degenerative disease, however, early discitis, osteomyelitis could have a similar appearance. Correlation with inflammatory markers (ESR and CRP) may be helpful. 2. At L5-S1, there is diffuse disc bulge with superimposed left paracentral disc protrusion which impinges on the descending left S1 nerve root in the lateral recess. Disc bulge contactes the descending right S1 nerve root in the lateral recess. 3. At L4-5, there is severe bilateral neural foraminal stenosis with compression of the exiting L4 nerve roots. 4. Moderate bilateral L3-L4 and L5-S1 neural foraminal stenosis. D/ / 11/10/2016 14:06:30 Josselin Lezama MD / Belia Zapata Interpreting Provider: Josselin Lezama MD 1430 hrs.: Speaking with spine surgery about the findings on his MRI and then waiting for his sedimentation rate and CRP to return. Blood cultures were added on also. Patient has no fever here and is more comfortable after pain medications. 1500 hrs.: Patient's CRP and sedimentation rate are both elevated. This could be just inflammation but it is concerning for discitis which was a possibility on the MRI. We have spoken to Dr. Lam about this he said he would see the patient and the hospital. Patient's pain is better here but still not resolved. They started him on IV antibiotics to cover discitis spoke with hospitalist and the spine surgery they will see the patient in the hospital. Patient's critical care time excluding any separately billable procedures is 40 minutes. - Lab Data Result diagrams: 11/10/16 13:56 11/10/16 13:56 Lab Results 11/10/16 11/10/16 11/10/16 Range/Units 10:50 13:56 13:56 WBC 7.1 (4.3-11.1) K/mcL RBC 3.86 L (4.19-5.50) M/mcL Hgb 12.4 L D (12.9-16.9) g/dL Hct 36.4 L (37.5-50.1) % MCV 94.3 (83.0-100.0) fL MCH 32.1 (28.0-33.3) pg MCHC 34.1 (31.6-35.5) g/dL RDW 12.7 (11.5-14.5) % Plt Count 239 (140-400) K/mcL MPV 9.3 L (9.4-12.4) fL Immature Gran % 0.4 (0-4) % Seg Neutrophils % 61.8 % Lymphocytes % 24.5 % Monocytes % 10.1 % Eosinophils % 2.4 % Basophils % 0.8 % Neutrophils # 4.4 (1.6-8.9) K/mcL Lymphocytes # 1.7 (0.6-4.6) K/mcL Monocytes # 0.7 (0.0-1.3) K/mcL Eosinophils # 0.2 (0.0-0.6) K/mcL Basophils # 0.1 (0.0-0.2) K/mcL Immature Plt Fraction 2.7 (1.1-6.1) % ESR (0-10) mm/hr Sodium 139 (136-145) mEq/L Potassium 4.0 (3.5-4.5) mEq/L Chloride 110 H (98-109) mEq/L Carbon Dioxide 25 (19-29) mEq/L BUN 13 (8-26) mg/dL Creatinine 0.87 (0.72-1.25) mg/dL Est GFR ( Amer) > 60 (> 60) Est GFR (Non-Af Amer) > 60 (> 60) BUN/Creatinine Ratio 15 (6-26) Glucose 74 (70-99) mg/dL Calculated Osmolality 287 (280-300) Calcium 8.2 L (8.6-10.8) mg/dL Total Bilirubin 0.4 (0.2-1.2) mg/dL AST 16 (5-34) Units/L ALT 19 (0-55) Units/L Alkaline Phosphatase 87 (38-126) Units/L Troponin I (0-0.03) ng/mL C-Reactive Protein 17 H (Less than 5) mg/L Serum Total Protein 6.4 (6.0-8.3) g/dL Albumin 3.1 L (3.5-5.0) g/dL Globulin 3.3 (2.4-3.5) g/dL Albumin/Globulin Ratio 0.9 L (1.1-2.2) Urine Color Yellow (Yellow) Urine Clarity Clear (Clear) Urine pH 6.0 (5.0-8.0) pH Units Ur Specific [place] 1.014 (1.010-1.025) Urine Protein Negative (Neg-Trace) mg/dL Urine Glucose (UA) Normal (Normal) mg/dL Urine Ketones Negative (Negative) mg/dL Urine Blood Negative (Negative) Urine Nitrite Negative (Negative) Urine Bilirubin Negative (Negative) Urine Urobilinogen Normal (Normal) mg/dL Ur Leukocyte Esterase Negative (Negative) 11/10/16 11/10/16 Range/Units 13:56 13:56 WBC (4.3-11.1) K/mcL RBC (4.19-5.50) M/mcL Hgb (12.9-16.9) g/dL Hct (37.5-50.1) % MCV (83.0-100.0) fL MCH (28.0-33.3) pg MCHC (31.6-35.5) g/dL RDW (11.5-14.5) % Plt Count (140-400) K/mcL MPV (9.4-12.4) fL Immature Gran % (0-4) % Seg Neutrophils % % Lymphocytes % % Monocytes % % Eosinophils % % Basophils % % Neutrophils # (1.6-8.9) K/mcL Lymphocytes # (0.6-4.6) K/mcL Monocytes # (0.0-1.3) K/mcL Eosinophils # (0.0-0.6) K/mcL Basophils # (0.0-0.2) K/mcL Immature Plt Fraction (1.1-6.1) % ESR 30 H (0-10) mm/hr Sodium (136-145) mEq/L Potassium (3.5-4.5) mEq/L Chloride (98-109) mEq/L Carbon Dioxide (19-29) mEq/L BUN (8-26) mg/dL Creatinine (0.72-1.25) mg/dL Est GFR ( Amer) (> 60) Est GFR (Non-Af Amer) (> 60) BUN/Creatinine Ratio (6-26) Glucose (70-99) mg/dL Calculated Osmolality (280-300) Calcium (8.6-10.8) mg/dL Total Bilirubin (0.2-1.2) mg/dL AST (5-34) Units/L ALT (0-55) Units/L Alkaline Phosphatase (38-126) Units/L Troponin I 0.00 (0-0.03) ng/mL C-Reactive Protein (Less than 5) mg/L Serum Total Protein (6.0-8.3) g/dL Albumin (3.5-5.0) g/dL Globulin (2.4-3.5) g/dL Albumin/Globulin Ratio (1.1-2.2) Urine Color (Yellow) Urine Clarity (Clear) Urine pH (5.0-8.0) pH Units Ur Specific [place] (1.010-1.025) Urine Protein (Neg-Trace) mg/dL Urine Glucose (UA) (Normal) mg/dL Urine Ketones (Negative) mg/dL Urine Blood (Negative) Urine Nitrite (Negative) Urine Bilirubin (Negative) Urine Urobilinogen (Normal) mg/dL Ur Leukocyte Esterase (Negative)
[2016-11-10 14:05] LABS: Basophils # 0.1 K/mcL (0.0-0.2); Basophils % 0.8 %; Eosinophils # 0.2 K/mcL (0.0-0.6); Eosinophils % 2.4 %; Hematocrit 36.4 % (37.5-50.1); Immature Granulocytes % 0.4 % (0-4); Immature Platelets 2.7 % (1.1-6.1); Lymphocytes # 1.7 K/mcL (0.6-4.6); Lymphocytes % 24.5 %; Mean Corpuscular HGB Conc 34.1 g/dL (31.6-35.5); Mean Corpuscular Hemoglobin 32.1 pg (28.0-33.3); Mean Corpuscular Volume 94.3 fL (83.0-100.0); Mean Platelet Volume 9.3 fL (9.4-12.4); Monocytes # 0.7 K/mcL (0.0-1.3); Monocytes % 10.1 %; Neutrophils # 4.4 K/mcL (1.6-8.9); Platelet Count 239 K/mcL (140-400); Red Blood Count 3.86 M/mcL (4.19-5.50); Red Cell Distribution Width 12.7 % (11.5-14.5); Segmented Neutrophils % 61.8 %
[2016-11-10 14:10] LABS: Hemoglobin 12.4 g/dL (12.9-16.9)
[2016-11-10] MEDS ORDERED: Ondansetron 4 MG/2 ML VIAL IVP ONE (14:21)
[2016-11-10 14:27] LABS: Alanine Aminotransferase 19 Units/L (0-55); Albumin 3.1 g/dL (3.5-5.0); Albumin/Globulin Ratio 0.9 (1.1-2.2); Alkaline Phosphatase 87 Units/L (38-126); Aspartate Amino Transferase 16 Units/L (5-34); BUN/Creatinine Ratio 15 (6-26); Bilirubin,Total 0.4 mg/dL (0.2-1.2); Blood Urea Nitrogen 13 mg/dL (8-26); Calcium 8.2 mg/dL (8.6-10.8); Carbon Dioxide 25 mEq/L (19-29); Chloride 110 mEq/L (98-109); Globulin 3.3 g/dL (2.4-3.5); Glucose 74 mg/dL (70-99); Osmolality,Calculated 287 (280-300); Sodium 139 mEq/L (136-145); Total Protein 6.4 g/dL (6.0-8.3); eGFR For African Americans > 60 (> 60); eGFR For Non-African Americans > 60 (> 60)
[2016-11-10 14:37] LABS: C-Reactive Protein 17 mg/L (Less than 5)
[2016-11-10] MEDS: Gentamicin 380 MG in 0.9 % Sodium Chloride 100 ML IVPB SCH (15:35)
[2016-11-10] MEDS: Vancomycin 1,250 MG in D5% in Water 250 ML IVPB SCH (15:35)
--- NOTE | 2016-11-10 17:01 | Internal Med History&Physical ---
Date of Encounter: 11/10/16 Time of Encounter: 16:54 Assessment and Plan (1) Osteomyelitis of lumbar spine Current visit: Yes Status: Acute MRI shows findings concerning for osteomyelitis versus discitis of the lumbar region. ESR and CRP are elevated. The patient has been afebrile. We will continue broad-spectrum antibiotic coverage with gentamicin and vancomycin and follow up blood cultures and sensitivities. Consult spinal surgery. (2) Degenerative disc disease, lumbar Current visit: Yes Status: Acute patient control with oxycodone immediate release and will OxyContin. We will use IV morphine for severe pain. He is at high risk for morbidity and complications due to advanced pathological process requiring IV pain control with opiates. (3) Degenerative disc disease, cervical Current visit: Yes Status: Acute we will obtain MRI of the C-spine to evaluate for spinal cord compression( (4) Degenerative disc disease, thoracic Current visit: Yes Status: Acute He reports bilateral lower extremities which could be caused by spinal cord compression in the thoracic area. We will obtain MRI of the thoracic spine to evaluate for the same. (5) COPD without exacerbation Current visit: Yes Status: Acute Inhaled albuterol as needed. (6) Essential hypertension Current visit: Yes Status: Acute Continue home meds. (7) DVT prophylaxis Current visit: Yes Status: Acute Subcutaneous Lovenox. He is immobile and at high risk for DVT and therefore Bishop requires prophylaxis. (8) Discitis of lumbar region Current visit: Yes Status: Acute IV antibiotics and consult to spinal surgery. (9) Ambulatory dysfunction Current visit: Yes Status: Acute PTOT consult. Internal Medicine - H&P: HPI Chief complaint: Back pain Admitted From: Emergency Dept Plans for Post Hospital Care: Home History of present illness: Mr. Jackson is a 66 year old male with past medical history significant for COPD and severe degenerative joint disease of the spine who presented to the hospital with back pain. He is a disorganized historian. He says that he has been having chronic low back pain and chronic neck pain for several years. Recently, over the last 3 days has been having severe, sharp low back pain radiating to the right hip and right lower extremity worse with movement and improved with rest and pain medication. He has been unable to ambulate however he states that he has has had difficulty ambulating for several weeks and mostly uses a wheelchair. He denies any associated fevers, chills, nausea, vomiting, diarrhea, night sweats, bowel and bladder incontinence, but reports some associated numbness in both lower extremities. In the emergency department he had an MRI done which showed findings consistent for advanced DJD and concerning for early discitis of osteomyelitis of the lumbar spine. He received vancomycin and gentamicin and was referred for admission. Past medical history significant for hypertension COPD and dyslipidemia Surgical history cervical spinal fusion Family history pertinent for diabetes and premature coronary artery disease in the patient's mother suffered with an NM at age 54. Social history the patient lives at home independently. He smokes 10 cigarettes a day. Denies alcohol and drug use. Past Med Surg Social Fam HX - Past Medical History Medical history: asthma, COPD, hyperlipidemia, hypertension, other Psychiatric history: depression - Past Surgical History Surgical History: orthopedic, other - Social History Smoking Status: Current every day smoker Smokeless Tobacco Status: No Alcohol use: occasionally Drug use: none - Family History Mother Living Status: Hx Family Cardiac Disorders: Yes Hx Family Endocrine Disorder: Yes Father Living Status: Hx Family Cardiac Disorders: Yes Hx Family Respiratory Disorders: Yes Hx Family Endocrine Disorder: Yes Internal Medicine - H&P: Meds Albuterol Sulfate [Albuterol Inhaler] 2 puff IH Q6HR PRN 04/08/15 [History] Loratadine [Claritin] 10 mg PO DAILY 04/08/15 [History] Simvastatin [Zocor] 40 mg PO HS 04/08/15 [History] BuPROPion SR (12 HR) [Wellbutrin SR] 150 mg PO BID 07/01/16 [History] Omeprazole [PriLOSEC] 20 mg PO DAILY #30 capsule. 07/01/16 [Rx] Oxycodone HCl 15 mg PO QID PRN 07/01/16 [History] Aspirin Enteric Coated [Aspirin EC] 325 mg PO DAILY 11/10/16 [History] Furosemide [Lasix] 40 mg PO DAILY 11/10/16 [History] Potassium Chloride [K-Tab ER] 20 meq PO DAILY 11/10/16 [History] Allergies duloxetine [From Cymbalta] Allergy (Verified 11/10/16 10:20) Hives morphine Allergy (Verified 11/10/16 10:20) See Comments UNKNOWN REACTION- PATIENT UNSURE Oxycodone [From OxyContin] Allergy (Verified 11/10/16 10:20) Itching tapentadol [From Nucynta] Adverse Reaction (Verified 11/10/16 10:20) Weakness All Systems PM: A 10-system review of systems was performed and is negative for pertinent findings except as documented above in the HPI. - Constitutional Vitals: Temp Pulse Resp BP Pulse Ox 98.3 F 75 16 135/78 99 11/10/16 10:20 11/10/16 13:47 11/10/16 15:39 11/10/16 15:39 11/10/16 13:47 - Neck Neck exam general surgery: Present: supple, trachea midline. Absent: lymphadenopathy Additional comments: C-spine postsurgical scar well-healed. - Respiratory Respiratory exam: Present: CTAB. Absent: accessory muscle use, rales, rhonchi, wheezes - Cardiovascular Cardiovascular exam: Present: RRR, +S1, +S2. Absent: diastolic murmur, gallop, rubs, systolic murmur - GI/Abdominal GI/Abdominal exam: Present: normal bowel sounds, soft, no peritoneal signs. Absent: distended, tenderness - Extremities Exam Extremities exam: Present: warm, radial pulses palpable and symetrical. Absent : calf tenderness, cyanotic, pedal edema - Neurological Exam Neurological exam: Present: alert, CN II-XII intact, oriented X3 Additional comments: Diminished muscle strength in both lower extremities more so in the proximal muscles. Muscle atrophy of the left calf and diminished DTR of the patellar site in the left compared to the right. Muscle strength is preserved and symmetrical in both upper extremities. DTRs are equal in the upper extremities. Gait was not assessed. - Skin Skin exam: Present: dry, intact Internal Med - H&P Results - Labs CBC & Chem 7: 11/10/16 13:56 11/10/16 13:56 Labs: Short CBC 11/10/16 Range/Units 13:56 WBC 7.1 (4.3-11.1) K/mcL Hgb 12.4 L D (12.9-16.9) g/dL Hct 36.4 L (37.5-50.1) % Plt Count 239 (140-400) K/mcL Neutrophils # 4.4 (1.6-8.9) K/mcL BMP 11/10/16 13:56 Sodium 139 Potassium 4.0 Chloride 110 H Carbon Dioxide 25 BUN 13 Creatinine 0.87 Glucose 74 Calcium 8.2 L Cardiac Enzymes 11/10/16 Range/Units 13:56 Troponin I 0.00 (0-0.03) ng/mL Liver Function 11/10/16 Range/Units 13:56 Total Bilirubin 0.4 (0.2-1.2) mg/dL AST 16 (5-34) Units/L ALT 19 (0-55) Units/L Alkaline Phosphatase 87 (38-126) Units/L Albumin 3.1 L (3.5-5.0) g/dL Urine 11/10/16 Range/Units 10:50 Urine Color Yellow (Yellow) Urine Clarity Clear (Clear) Urine pH 6.0 (5.0-8.0) pH Units Ur Specific Amma 1.014 (1.010-1.025) Urine Protein Negative (Neg-Trace) mg/dL Urine Glucose (UA) Normal (Normal) mg/dL - Impressions ITS Impressions Lumbar Spine MRI 11/10/16 11:37 IMPRESSION: 1. There is fluid signal within the L1-L2 disc space with surrounding bone marrow edema along the inferior aspect of L1 and superior endplate of L2. There is relative preservation of the endplates. Overall, the findings are favored to represent advanced degenerative disease, however, early discitis, osteomyelitis could have a similar appearance. Correlation with inflammatory markers (ESR and CRP) may be helpful. 2. At L5-S1, there is diffuse disc bulge with superimposed left paracentral disc protrusion which impinges on the descending left S1 nerve root in the lateral recess. Disc bulge contactes the descending right S1 nerve root in the lateral recess. 3. At L4-5, there is severe bilateral neural foraminal stenosis with compression of the exiting L4 nerve roots. 4. Moderate bilateral L3-L4 and L5-S1 neural foraminal stenosis. D/ / 11/10/2016 14:06:30 Josselin Lezama MD / Belia Zapata Interpreting Provider: Josselin Lezama MD
[2016-11-10] MEDS ORDERED: Ibuprofen 400 MG TABLET PO PRN (17:20)
[2016-11-10] MEDS ORDERED: Naloxone 0.4 MG/ML INJ IVP PRN (17:20)
[2016-11-10] MEDS ORDERED: Ondansetron 4 MG/2 ML VIAL IVP PRN (17:20)
[2016-11-10] MEDS ORDERED: *HR* Morphine 2 MG/ML SYRINGE IVP PRN (17:20)
[2016-11-10] MEDS ORDERED: Acetaminophen 325 MG TABLET PO PRN (17:20)
[2016-11-10] MEDS ORDERED: Vancomycin 1,250 MG in D5% in Water 250 ML IVPB SCH (18:00)
[2016-11-10] MEDS ORDERED: Gentamicin 80 MG in 0.9 % Sodium Chloride 100 ML IVPB SCH (18:00)
[2016-11-10] MEDS ORDERED: *HR* FentaNYL (PF) 100 MCG/2 ML VIAL IVP PRN (19:10)
[2016-11-10] MEDS: *HR* OxyCODONE Immed Rel 15 MG TABLET PO PRN (19:33)
[2016-11-10] MEDS: BuPROPion SR (12 HR) 150 MG TABLET PO SCH (22:06)
[2016-11-11 01:14] LABS: Basophils # 0.1 K/mcL (0.0-0.2); Basophils % 1.1 %; Eosinophils # 0.2 K/mcL (0.0-0.6); Eosinophils % 3.2 %; Hematocrit 35.5 % (37.5-50.1); Hemoglobin 12.2 g/dL (12.9-16.9); Immature Granulocytes % 0.6 % (0-4); Lymphocytes # 1.9 K/mcL (0.6-4.6); Mean Corpuscular HGB Conc 34.4 g/dL (31.6-35.5); Mean Corpuscular Hemoglobin 32.7 pg (28.0-33.3); Mean Corpuscular Volume 95.2 fL (83.0-100.0); Mean Platelet Volume 9.9 fL (9.4-12.4); Monocytes # 0.8 K/mcL (0.0-1.3); Monocytes % 10.5 %; Neutrophils # 4.3 K/mcL (1.6-8.9); Platelet Count 220 K/mcL (140-400); Red Blood Count 3.73 M/mcL (4.19-5.50); Red Cell Distribution Width 12.8 % (11.5-14.5); Segmented Neutrophils % 58.6 %
[2016-11-11 01:18] LABS: Prothrombin Time 10.9 Seconds (9.4-12.1)
[2016-11-11 01:21] LABS: Activated Partial Thrombo Time 30.1 Seconds (26.0-36.0)
[2016-11-11 01:32] LABS: BUN/Creatinine Ratio 14 (6-26); Blood Urea Nitrogen 14 mg/dL (8-26); Calcium 8.7 mg/dL (8.6-10.8); Carbon Dioxide 26 mEq/L (19-29); Chloride 106 mEq/L (98-109); Glucose 85 mg/dL (70-99); Osmolality,Calculated 286 (280-300); Sodium 138 mEq/L (136-145); eGFR For African Americans > 60 (> 60); eGFR For Non-African Americans > 60 (> 60)
[2016-11-11] MEDS: Vancomycin 1,250 MG in D5% in Water 250 ML IVPB SCH ×2 (04:03→16:25)
[2016-11-11] MEDS: *HR* OxyCODONE Immed Rel 15 MG TABLET PO PRN ×4 (04:08→23:11)
[2016-11-11] MEDS: *HR* Enoxaparin 40 MG/0.4 ML SYRINGE SQ SCH (05:40)
[2016-11-11] MEDS: Furosemide 40 MG TABLET PO SCH (07:36)
[2016-11-11] MEDS: Aspirin Enteric Coated 325 MG Tablet PO SCH (07:36)
[2016-11-11] MEDS: BuPROPion SR (12 HR) 150 MG TABLET PO SCH ×2 (07:37→19:53)
[2016-11-11] MEDS: Loratadine 10 MG TABLET PO SCH (07:37)
--- NOTE | 2016-11-11 12:29 | Internal Med Progress Note ---
Date of Encounter: 11/11/16 Time of Encounter: 12:26 - Assessment and plan (1) Discitis of lumbar region Current Visit: Yes Status: Acute Assessment and plan: Possible acute osteomyelitis/discitis L1 L2 Orthopedic spine surgery consulted CT-guided biopsy by interventional radiology has been ordered today Follow cultures Continue vancomycin day 2 MRI of the lumbar spine shows possible discitis between L1 and L2 and severe foraminal stenoses at L4 and L5 (2) Back pain Current Visit: Yes Status: Acute Assessment and plan: Chronic back pain secondary to severe degenerative disc disease MRI of the C-spine shows multi-level laminectomies with severe foraminal narrowing of C3/4, C5/6, C6/7 MRI of the thoracic spine does not show any acute abnormalities Qualifiers: Back pain location: low back pain Chronicity: chronic Back pain laterality: unspecified Sciatica presence: with sciatica Sciatica laterality : sciatica of right side Qualified Code(s): M54.41 - Lumbago with sciatica, right side; G89.29 - Other chronic pain (3) COPD without exacerbation Current Visit: Yes Status: Acute Assessment and plan: Continue inhalers as needed (4) Degenerative disc disease, cervical Current Visit: Yes Status: Acute (5) Degenerative disc disease, lumbar Current Visit: Yes Status: Acute (6) Degenerative disc disease, thoracic Current Visit: Yes Status: Acute (7) Essential hypertension Current Visit: Yes Status: Acute Assessment and plan: Stable (8) Osteomyelitis of lumbar spine Current Visit: Yes Status: Acute (9) Tobacco abuse Current Visit: Yes Status: Acute Assessment and plan: Smoking cessation counseling given for 5 minutes. Nicotine patch High risk for discitis - Time Spent With Patient Greater than 35 minutes - Subjective Interval history: the patient complains of pain in his entire back , denies fever, no CP or SOB, no abdominal pain or sydurina, COmplains of right leg pain that is chronic - Constitutional Vitals: Temp Pulse Resp BP Pulse Ox 97.8 F 81 16 153/82 96 11/11/16 11:26 11/11/16 11:26 11/11/16 11:26 11/11/16 11:26 11/11/16 11:26 - Head Head exam: Present: atraumatic, normocephalic - Eye Eye exam: Present: PERRL, conjuntiva pink, sclera anicteric Pupils: Present: PERRL - Neck Neck exam general surgery: Present: supple, trachea midline. Absent: lymphadenopathy - Respiratory Respiratory exam: Present: decreased breath sounds (Very diminished breath sounds), CTAB. Absent: accessory muscle use, rales, rhonchi, wheezes - Cardiovascular Cardiovascular exam: Present: RRR, +S1, +S2. Absent: diastolic murmur, gallop, rubs, systolic murmur - GI/Abdominal GI/Abdominal exam: Present: normal bowel sounds, soft, no peritoneal signs. Absent: distended, tenderness - Extremities Exam Extremities exam: Present: warm, radial pulses palpable and symetrical. Absent : calf tenderness, cyanotic, pedal edema Additional comments: Lower extremity weakness is bilateral coarse on the right lower extremity due to pain/back pain - Neurological Exam Neurological exam: Present: CN II-XII intact, oriented X3, no focal deficits. Absent: pronater drift, facial droop, speech deficit - Skin Skin exam: Present: dry, intact Internal Medicine: Result - Labs CBC & Chem 7: 11/11/16 00:54 11/11/16 00:54 Labs: Short CBC 11/11/16 Range/Units 00:54 WBC 7.3 (4.3-11.1) K/mcL Hgb 12.2 L (12.9-16.9) g/dL Hct 35.5 L (37.5-50.1) % Plt Count 220 (140-400) K/mcL Neutrophils # 4.3 (1.6-8.9) K/mcL BMP 11/11/16 00:54 Sodium 138 Potassium 4.0 Chloride 106 Carbon Dioxide 26 BUN 14 Creatinine 1.00 Glucose 85 Calcium 8.7 - ABG Interpretation ABG results: PT/INR, D-dimer PT 10.9 Seconds (9.4-12.1) 11/11/16 00:54 - Impressions Impressions Cervical Spine MRI 11/10/16 18:16 IMPRESSION: Stable postoperative changes including multilevel laminectomies, C3-4 ACDF and C4-5 solid interbody fusion. No acute fracture nor malalignment. Stable 13 mm segment C5-6 myelomalacia. Mild canal stenosis C3-4. Severe neural foraminal narrowing C3-4, C5-6 and C6-7. D/ / Giovanni Ramirez MD / Giovanni Ramirez MD Interpreting Provider: Giovanni Ramirez MD Thoracic Spine MRI 11/10/16 18:16 IMPRESSION: No acute fracture or malalignment. Stable degenerative change of the thoracic spine from December 11, 2008. D/ / Giovanni Ramirez MD / Giovanni Ramirez MD Interpreting Provider: Giovanni Ramirez MD Consult Discharge Plan - Plan Referrals: Naresh Webb MD [Primary Care Provider] - 11/25/16 2:00 pm
[2016-11-11] MEDS ORDERED: *HR* Midazolam HCl 2 MG/2 ML VIAL IV PRN (15:03)
[2016-11-11] MEDS ORDERED: *HR* FentaNYL (PF) 100 MCG/2 ML VIAL IV PRN (15:03)
--- NOTE | 2016-11-11 15:10 | Pre-Sedation Evaluation ---
Pre-sedation evaluation - Pre-sedation checklist Date of procedure: 11/11/16 Procedure: disc aspiration/biopsy Recent Vitals: Last Vital Signs Temp 97.8 F 11/11/16 11:26 Pulse 81 11/11/16 11:26 Resp 16 11/11/16 11:26 BP 153/82 11/11/16 11:26 Pulse Ox 96 11/11/16 11:26 Dietary Status: NPO 6 hours prior to procedure Airway Assessment: Patient can open mouth completely, TMJ function normal, Micrognathia (under-bite, receding chin) absent, Neck with adequate range of motion ASA Classification *see protocol: CLASS II-Mild systemic disease Plan of Care: Pt appropriate candidate for procedure/moderate/conscious sedation , Risks/benefits of procedure/sedation discussed w/ patient/family, If not NPO; Risk of intake outweiged by necessity to perform procedure
[2016-11-11] MEDS ORDERED: 0.9 % Sodium Chloride 500 ML ONE (15:13)
--- NOTE | 2016-11-11 15:47 | IR Procedure Note ---
Date of procedure: 11/11/16 Consent Obtained: Verbal consent, Written consent Timeout: Correct patient and procedure verified, Correct site verified, Time out performed, Skin prep completed Local anesthetic: Lidocaine 1% Indications: c/f L1-2 discitis/osteomyelitis Procedure Performed: L1-2 disc aspiration and bx Site/Technique: L1-2 Results/Findings: lavage and tissue bx for culture obtained Estimated blood loss (cc): 0 Complications: None; Tolerated procedure well Post Procedure Treatment Plan: bedrest x 1 hour
--- NOTE | 2016-11-11 15:47 | Electrocardiograph Report ---
[place] [id number] Test Date: 2016-11-10 Pat Name: Kervin Jackson Department: 103 Room: [facility] Gender: M [employer]: : 1950 Requested By: Carlito Guzman Order Number: [id number] Reading MD: Daisy Castaneda Measurements Intervals [place] Rate: 67 P: 79 [place]: 130 QRS: 33 QRSD: 91 T: 50 QT: 401 QTc: 416 Interpretive Statements SINUS RHYTHM Electronically Signed On 11-11-2016 15:46:05 EDT by Daisy Castaneda
[2016-11-11] MEDS: Gentamicin 380 MG in 0.9 % Sodium Chloride 100 ML IVPB SCH (18:20)
[2016-11-12 02:01] LABS: Hematocrit 36.4 % (37.5-50.1); Hemoglobin 12.3 g/dL (12.9-16.9); Mean Corpuscular HGB Conc 33.8 g/dL (31.6-35.5); Mean Corpuscular Hemoglobin 32.8 pg (28.0-33.3); Mean Corpuscular Volume 97.1 fL (83.0-100.0); Mean Platelet Volume 9.6 fL (9.4-12.4); Platelet Count 218 K/mcL (140-400); Red Blood Count 3.75 M/mcL (4.19-5.50); Red Cell Distribution Width 12.7 % (11.5-14.5)
[2016-11-12 02:19] LABS: BUN/Creatinine Ratio 14 (6-26); Blood Urea Nitrogen 15 mg/dL (8-26); Calcium 8.5 mg/dL (8.6-10.8); Carbon Dioxide 28 mEq/L (19-29); Chloride 104 mEq/L (98-109); Glucose 91 mg/dL (70-99); Osmolality,Calculated 288 (280-300); Potassium 4.2 mEq/L (3.5-4.5); Sodium 139 mEq/L (136-145); eGFR For African Americans > 60 (> 60); eGFR For Non-African Americans > 60 (> 60)
[2016-11-12] MEDS: Vancomycin 1,250 MG in D5% in Water 250 ML IVPB SCH ×2 (03:13→14:46)
[2016-11-12] MEDS: *HR* Enoxaparin 40 MG/0.4 ML SYRINGE SQ SCH (05:14)
[2016-11-12] MEDS: *HR* OxyCODONE Immed Rel 15 MG TABLET PO PRN ×3 (06:00→18:11)
[2016-11-12] MEDS: BuPROPion SR (12 HR) 150 MG TABLET PO SCH ×2 (07:26→22:26)
[2016-11-12] MEDS: Loratadine 10 MG TABLET PO SCH (07:26)
[2016-11-12] MEDS: Aspirin Enteric Coated 325 MG Tablet PO SCH (07:26)
[2016-11-12] MEDS: Furosemide 40 MG TABLET PO SCH (07:26)
--- NOTE | 2016-11-12 10:42 | Spinal Consult Note ---
Date of Encounter: 11/11/16 Time of Encounter: 15:30 Assessment and Plan (1) Discitis of lumbar region Current Visit: Yes Status: Acute On exam he is afebrile vital signs stable. He appears somewhat uncomfortable in bed. He is neurovascularly intact with regard to his bilateral lower extremities. He has a negative straight leg raise. His hips move symmetrically. There is no clonus. MRI of the lumbar spine reveals multilevel degenerative changes. There is high fluid signal on T2-weighted images within the L1-L2 disc space. There are also some endplate reactive changes in the adjacent vertebral bodies at this level. This is concerning for discitis. Notable laboratory studies reveal elevated ESR, and CRP. Assessment: 1) discitis L1-L2 2 s/p cervical fusion Plan: The patient has already been placed on empiric antibiotic therapy. Since we do not have a bacterial source we are going to obtain blood cultures as well as obtain a CT guided biopsy of L1-L2 to attempt to identify a causative organism. If an isolate is identified then antibiotics could be tailored to the appropriate organism. He will require 6 weeks of antibiotic therapy and therefore will need PICC line placement after confirmation of clearance of any bacteremia. He will require serial CRP, ESR, and CBC with differential at least weekly to evaluate response to treatment. Consideration for referral to infectious disease on an outpatient basis should be entertained. There are no indications for urgent surgical intervention such as any evidence for epidural abscess. History of Present Illness Chief complaint: back pain HPI: Mr. Jackson is a 66 year old male With a history of cervical fusion who complains of several days history of worsening and severe back pain. It limited his ability to ambulate. Due to his symptoms he was evaluated in the emergency department and workup revealed evidence of possible discitis. The patient was admitted via the hospitalist service for definitive management. He denies fevers chills or significant radicular symptoms. Past Med Surg Social Fam HX - Past Medical History Medical history: asthma, COPD, hyperlipidemia, hypertension, other Psychiatric history: depression - Past Surgical History Surgical History: orthopedic, other - Social History Smoking Status: Current every day smoker Smokeless Tobacco Status: No Alcohol use: occasionally Drug use: none - Family History Mother Living Status: Hx Family Cardiac Disorders: Yes Hx Family Endocrine Disorder: Yes Father Living Status: Hx Family Cardiac Disorders: Yes Hx Family Respiratory Disorders: Yes Hx Family Endocrine Disorder: Yes Medications and Allergies Albuterol Sulfate [Albuterol Inhaler] 2 puff IH Q6HR PRN 04/08/15 [History] Loratadine [Claritin] 10 mg PO DAILY 04/08/15 [History] Simvastatin [Zocor] 40 mg PO HS 04/08/15 [History] BuPROPion SR (12 HR) [Wellbutrin SR] 150 mg PO BID 07/01/16 [History] Omeprazole [PriLOSEC] 20 mg PO DAILY #30 capsule. 07/01/16 [Rx] Oxycodone HCl 15 mg PO QID PRN 07/01/16 [History] Aspirin Enteric Coated [Aspirin EC] 325 mg PO DAILY 11/10/16 [History] Furosemide [Lasix] 40 mg PO DAILY 11/10/16 [History] Potassium Chloride [K-Tab ER] 20 meq PO DAILY 11/10/16 [History] Allergies duloxetine [From Cymbalta] Allergy (Verified 11/10/16 10:20) Hives morphine Allergy (Verified 11/10/16 10:20) See Comments UNKNOWN REACTION- PATIENT UNSURE Oxycodone [From OxyContin] Allergy (Verified 11/11/16 18:49) Itching tapentadol [From Nucynta] Adverse Reaction (Verified 11/10/16 10:20) Weakness Results - Labs Result Diagrams: 11/12/16 01:46 11/12/16 01:46 Labs: Abnormal lab results RBC 3.75 M/mcL (4.19-5.50) L 11/12/16 01:46 Hgb 12.3 g/dL (12.9-16.9) L 11/12/16 01:46 Hct 36.4 % (37.5-50.1) L 11/12/16 01:46 ESR 30 mm/hr (0-10) H 11/10/16 13:56 Calcium 8.5 mg/dL (8.6-10.8) L 11/12/16 01:46 C-Reactive Protein 17 mg/L (Less than 5) H 11/10/16 13:56 Albumin 3.1 g/dL (3.5-5.0) L 11/10/16 13:56 Albumin/Globulin Ratio 0.9 (1.1-2.2) L 11/10/16 13:56 H & H 11/12/16 Range/Units 01:46 Hgb 12.3 L (12.9-16.9) g/dL Hct 36.4 L (37.5-50.1) % All other labs normal. Consult Discharge Plan - Plan Referrals: Naresh Webb MD [Primary Care Provider] - 11/25/16 2:00 pm
[2016-11-12] MEDS: Gentamicin 380 MG in 0.9 % Sodium Chloride 100 ML IVPB SCH (14:46)
--- NOTE | 2016-11-12 16:21 | Internal Med Progress Note ---
Date of Encounter: 11/12/16 Time of Encounter: 16:19 - Assessment and plan (1) Discitis of lumbar region Current Visit: Yes Status: Acute Assessment and plan: Possible acute osteomyelitis/discitis L1 L2 Orthopedic spine surgery consulted CT-guided biopsy by interventional radiology completed, biopsy culture and blood cultures pending Will require a Picc line and 6 weks of ABX per Dr Lam Continue vancomycin day 3 Will require serial CRP, ESR, and CBC with differential at least weekly to evaluate response to treatment. MRI of the lumbar spine shows possible discitis between L1 and L2 and severe foraminal stenoses at L4 and L5 (2) Back pain Current Visit: Yes Status: Acute Assessment and plan: Chronic back pain secondary to severe degenerative disc disease MRI of the C-spine shows multi-level laminectomies with severe foraminal narrowing of C3/4, C5/6, C6/7 MRI of the thoracic spine does not show any acute abnormalities Qualifiers: Back pain location: low back pain Chronicity: chronic Back pain laterality: unspecified Sciatica presence: with sciatica Sciatica laterality : sciatica of right side Qualified Code(s): M54.41 - Lumbago with sciatica, right side; G89.29 - Other chronic pain (3) COPD without exacerbation Current Visit: Yes Status: Acute Assessment and plan: Continue inhalers as needed (4) Degenerative disc disease, cervical Current Visit: Yes Status: Acute (5) Degenerative disc disease, lumbar Current Visit: Yes Status: Acute (6) Degenerative disc disease, thoracic Current Visit: Yes Status: Acute (7) Essential hypertension Current Visit: Yes Status: Acute Assessment and plan: Stable (8) Osteomyelitis of lumbar spine Current Visit: Yes Status: Acute (9) Tobacco abuse Current Visit: Yes Status: Acute Assessment and plan: Smoking cessation counseling given for 5 minutes. Nicotine patch High risk due to discitis - Subjective Interval history: Feels sore after having the biopsy. Complains of pain in his entire back , denies fever, no CP or SOB, no abdominal pain or sydurina, COmplains of right leg pain that is chronic - Constitutional Vitals: Temp Pulse Resp BP Pulse Ox 98.3 F 76 18 126/72 98 11/12/16 14:53 11/12/16 14:53 11/12/16 14:53 11/12/16 14:53 11/12/16 14:53 General appearance: Present: A&O X 3 - Head Head exam: Present: atraumatic, normocephalic - Eye Eye exam: Present: PERRL, conjuntiva pink, sclera anicteric Pupils: Present: PERRL - Neck Neck exam general surgery: Present: supple, trachea midline. Absent: lymphadenopathy - Respiratory Respiratory exam: Present: CTAB. Absent: accessory muscle use, rales, rhonchi, wheezes - Cardiovascular Cardiovascular exam: Present: RRR, +S1, +S2. Absent: diastolic murmur, gallop, rubs, systolic murmur - GI/Abdominal GI/Abdominal exam: Present: normal bowel sounds, soft, no peritoneal signs. Absent: distended, tenderness - Extremities Exam Extremities exam: Present: warm, radial pulses palpable and symetrical. Absent : calf tenderness, cyanotic, pedal edema Additional comments: Lower extremity weakness is bilateral coarse on the right lower extremity due to pain/back pain - Neurological Exam Neurological exam: Present: CN II-XII intact, oriented X3, no focal deficits. Absent: pronater drift, facial droop, speech deficit - Skin Skin exam: Present: dry, intact Internal Medicine: Result - Labs CBC & Chem 7: 11/12/16 01:46 11/12/16 01:46 Labs: Short CBC 11/12/16 Range/Units 01:46 WBC 6.1 (4.3-11.1) K/mcL Hgb 12.3 L (12.9-16.9) g/dL Hct 36.4 L (37.5-50.1) % Plt Count 218 (140-400) K/mcL [facility] 11/12/16 01:46 Sodium 139 Potassium 4.2 Chloride 104 Carbon Dioxide 28 BUN 15 Creatinine 1.05 Glucose 91 Calcium 8.5 L - ABG Interpretation ABG results: PT/INR, D-dimer PT 10.9 Seconds (9.4-12.1) 11/11/16 00:54 - Impressions Impressions Biopsy CT 11/11/16 12:09 IMPRESSION: Successful CT guided aspiration and tissue biopsy for culture of the L1-2 disc. D/ / 11/11/2016 16:36:37 Scout Dior MD / rosamaria Interpreting Provider: Scout Dior MD Consult Discharge Plan - Plan Referrals: Naresh Webb MD [Primary Care Provider] - 11/25/16 2:00 pm
[2016-11-12] MEDS ORDERED: Lidocaine -MPF 1% 5 ML AMPUL INFILT ONE (16:43)
[2016-11-13] MEDS: Vancomycin 1,250 MG in D5% in Water 250 ML IVPB SCH ×2 (03:30→14:43)
[2016-11-13] MEDS: *HR* OxyCODONE Immed Rel 15 MG TABLET PO PRN ×3 (03:55→18:06)
[2016-11-13] MEDS: *HR* Enoxaparin 40 MG/0.4 ML SYRINGE SQ SCH (06:02)
[2016-11-13] MEDS ORDERED: MOM Conc 10 ML UD.LIQ PO ONE (06:11)
[2016-11-13 06:42] LABS: BUN/Creatinine Ratio 19 (6-26); Blood Urea Nitrogen 19 mg/dL (8-26); Calcium 8.6 mg/dL (8.6-10.8); Carbon Dioxide 28 mEq/L (19-29); Chloride 104 mEq/L (98-109); Glucose 96 mg/dL (70-99); Osmolality,Calculated 286 (280-300); Sodium 137 mEq/L (136-145); eGFR For African Americans > 60 (> 60); eGFR For Non-African Americans > 60 (> 60)
[2016-11-13] MEDS: Furosemide 40 MG TABLET PO SCH (10:45)
[2016-11-13] MEDS: Loratadine 10 MG TABLET PO SCH (10:45)
[2016-11-13] MEDS: BuPROPion SR (12 HR) 150 MG TABLET PO SCH ×2 (10:45→22:22)
[2016-11-13] MEDS: Aspirin Enteric Coated 325 MG Tablet PO SCH (10:45)
--- NOTE | 2016-11-13 13:18 | Spine Progress Note ---
Date of Encounter: 11/13/16 Time of Encounter: 13:16 - Assessment and Plan (1) Discitis of lumbar region Current Visit: Yes Status: Acute On exam he is afebrile vital signs stable. He appears somewhat uncomfortable in bed. He is neurovascularly intact with regard to his bilateral lower extremities. He has a negative straight leg raise. His hips move symmetrically. There is no clonus. MRI of the lumbar spine reveals multilevel degenerative changes. There is high fluid signal on T2-weighted images within the L1-L2 disc space. There are also some endplate reactive changes in the adjacent vertebral bodies at this level. This is concerning for discitis. Notable laboratory studies reveal elevated ESR, and CRP. Assessment: 1) discitis L1-L2 2 s/p cervical fusion Plan: The patient has already been placed on empiric antibiotic therapy. Since we do not have a bacterial source we are going to obtain blood cultures as well as obtain a CT guided biopsy of L1-L2 to attempt to identify a causative organism. If an isolate is identified then antibiotics could be tailored to the appropriate organism. He will require 6 weeks of antibiotic therapy and therefore will need PICC line placement after confirmation of clearance of any bacteremia. He will require serial CRP, ESR, and CBC with differential at least weekly to evaluate response to treatment. Consideration for referral to infectious disease on an outpatient basis should be entertained. There are no indications for urgent surgical intervention such as any evidence for epidural abscess. Subjective Principal diagnosis: Discitis Interval history: Patient is clinically stable. Afebrile vital signs stable. Blood cultures are negative. CT-guided biopsy of disc space negative loss far. We will continue empiric antibiotic therapy for 6 weeks unless organism is identified. Suggest follow-up with infectious disease with weekly labs to assess response to treatment. Follow-up in my office in 3 months. PICC line placed. Follow-up if further questions or concerns but will sign off. Objective Vital signs: Vital Signs Temp Pulse Resp BP Pulse Ox 11/13/16 11:14 97.9 F 76 18 126/68 11/13/16 10:14 98.1 F 81 16 129/74 98 11/13/16 00:00 98.4 F 73 17 125/66 97 11/12/16 20:00 98.8 F 76 17 127/68 97 11/12/16 19:00 97 11/12/16 14:53 98.3 F 76 18 126/72 98 Intake and Output 11/12/16 11/13/16 11/13/16 23:59 07:59 15:59 Intake Total 1450 / 1450 250 / 250 Output Total 450 / 450 Balance 1000 / 1000 250 / 250 Intake: IV Fluids 250 / 250 250 / 250 Vancocin 1,250 MG In 250 / 250 250 / 250 Dextrose 5% 250 ML @ 167 mls/hr IVPB Q12H JACQUI Rx#: [id number] Oral 1200 / 1200 Output: Urine 450 / 450 Other: # Voids 1 - Labs CBC & BMP: 11/12/16 01:46 11/13/16 05:42 Labs: Abnormal lab results RBC 3.75 M/mcL (4.19-5.50) L 11/12/16 01:46 Hgb 12.3 g/dL (12.9-16.9) L 11/12/16 01:46 Hct 36.4 % (37.5-50.1) L 11/12/16 01:46 ESR 30 mm/hr (0-10) H 11/10/16 13:56 POC Glucose 93 (58-89) H 11/12/16 07:22 C-Reactive Protein 17 mg/L (Less than 5) H 11/10/16 13:56 Albumin 3.1 g/dL (3.5-5.0) L 11/10/16 13:56 Albumin/Globulin Ratio 0.9 (1.1-2.2) L 11/10/16 13:56 Consult Discharge Plan - Plan Referrals: Naresh Webb MD [Primary Care Provider] - 11/25/16 2:00 pm
[2016-11-13] MEDS: Gentamicin 380 MG in 0.9 % Sodium Chloride 100 ML IVPB SCH (14:44)
--- NOTE | 2016-11-13 16:50 | Internal Med Progress Note ---
Date of Encounter: 11/13/16 Time of Encounter: 16:48 - Assessment and plan (1) Discitis of lumbar region Current Visit: Yes Status: Acute Assessment and plan: Possible acute osteomyelitis/discitis L1 L2 Laboratory says that the final culture most likely will be available tomorrow, no growth so far Orthopedic spine surgery consulted CT-guided biopsy by interventional radiology completed, biopsy culture and blood cultures pending Picc line and 6 weks of ABX per Dr Lam Continue vancomycin day 4 Will require serial CRP, ESR, and CBC with differential at least weekly to evaluate response to treatment. MRI of the lumbar spine shows possible discitis between L1 and L2 and severe foraminal stenoses at L4 and L5 (2) Back pain Current Visit: Yes Status: Acute Assessment and plan: Chronic back pain secondary to severe degenerative disc disease MRI of the C-spine shows multi-level laminectomies with severe foraminal narrowing of C3/4, C5/6, C6/7 MRI of the thoracic spine does not show any acute abnormalities Qualifiers: Back pain location: low back pain Chronicity: chronic Back pain laterality: unspecified Sciatica presence: with sciatica Sciatica laterality : sciatica of right side Qualified Code(s): M54.41 - Lumbago with sciatica, right side; G89.29 - Other chronic pain (3) COPD without exacerbation Current Visit: Yes Status: Acute Assessment and plan: Continue inhalers as needed (4) Degenerative disc disease, cervical Current Visit: Yes Status: Acute (5) Degenerative disc disease, lumbar Current Visit: Yes Status: Acute (6) Degenerative disc disease, thoracic Current Visit: Yes Status: Acute (7) Essential hypertension Current Visit: Yes Status: Acute Assessment and plan: Stable (8) Osteomyelitis of lumbar spine Current Visit: Yes Status: Acute (9) Tobacco abuse Current Visit: Yes Status: Acute Assessment and plan: Smoking cessation counseling given for 5 minutes. Nicotine patch High risk due to discitis - Time Spent With Patient Greater than 35 minutes - Subjective Interval history: Complains of persistent pain in his entire back , denies fever, no CP or SOB, no abdominal pain or sydurina, COmplains of right leg pain that is chronic - Constitutional Vitals: Temp Pulse Resp BP Pulse Ox 97.9 F 76 18 126/68 98 11/13/16 11:14 11/13/16 11:14 11/13/16 11:14 11/13/16 11:14 11/13/16 10:14 General appearance: Present: A&O X 3 - Head Head exam: Present: atraumatic, normocephalic - Eye Eye exam: Present: PERRL, conjuntiva pink, sclera anicteric Pupils: Present: PERRL - Neck Neck exam general surgery: Present: supple, trachea midline. Absent: lymphadenopathy - Respiratory Respiratory exam: Present: CTAB. Absent: accessory muscle use, rales, rhonchi, wheezes - Cardiovascular Cardiovascular exam: Present: RRR, +S1, +S2. Absent: diastolic murmur, gallop, rubs, systolic murmur - GI/Abdominal GI/Abdominal exam: Present: normal bowel sounds, soft, no peritoneal signs. Absent: distended, tenderness - Extremities Exam Extremities exam: Present: warm, radial pulses palpable and symetrical. Absent : calf tenderness, cyanotic, pedal edema Additional comments: Right upper extremity PICC line - Neurological Exam Neurological exam: Present: CN II-XII intact, oriented X3, no focal deficits. Absent: pronater drift, facial droop, speech deficit Additional comments: Generalized weakness - Skin Skin exam: Present: dry, intact Internal Medicine: Result - Labs CBC & Chem 7: 11/12/16 01:46 11/13/16 05:42 Labs: BMP 11/13/16 05:42 Sodium 137 Potassium 4.0 Chloride 104 Carbon Dioxide 28 BUN 19 Creatinine 1.01 Glucose 96 Calcium 8.6 - ABG Interpretation ABG results: PT/INR, D-dimer PT 10.9 Seconds (9.4-12.1) 11/11/16 00:54 Consult Discharge Plan - Plan Referrals: Naresh Webb MD [Primary Care Provider] - 11/25/16 2:00 pm
[2016-11-14] MEDS: *HR* OxyCODONE Immed Rel 15 MG TABLET PO PRN ×3 (01:04→14:47)
[2016-11-14] MEDS: Vancomycin 1,250 MG in D5% in Water 250 ML IVPB SCH ×3 (03:44→15:58)
[2016-11-14] MEDS: *HR* Enoxaparin 40 MG/0.4 ML SYRINGE SQ SCH (06:43)
[2016-11-14] MEDS: Loratadine 10 MG TABLET PO SCH (08:38)
[2016-11-14] MEDS: Aspirin Enteric Coated 325 MG Tablet PO SCH (08:38)
[2016-11-14] MEDS: BuPROPion SR (12 HR) 150 MG TABLET PO SCH (08:38)
[2016-11-14] MEDS: Furosemide 40 MG TABLET PO SCH (08:38)
--- NOTE | 2016-11-14 12:38 | Discharge Summary ---
Date of Encounter: 11/14/16 Time of Encounter: 12:36 - Discharge Diagnosis (1) Discitis of lumbar region Priority: Primary Status: Acute Comments: Possible acute osteomyelitis/discitis L1 L2 (2) Back pain Priority: Secondary Status: Acute Comments: Chronic back pain secondary to severe degenerative disc disease Qualifiers: Back pain location: low back pain Chronicity: chronic Back pain laterality: unspecified Sciatica presence: with sciatica Sciatica laterality : sciatica of right side Qualified Code(s): M54.41 - Lumbago with sciatica, right side; G89.29 - Other chronic pain (3) COPD without exacerbation Priority: Secondary Status: Acute (4) Degenerative disc disease, cervical Priority: Secondary Status: Acute (5) Degenerative disc disease, lumbar Priority: Secondary Status: Acute (6) Degenerative disc disease, thoracic Priority: Secondary Status: Acute (7) Essential hypertension Priority: Secondary Status: Acute (8) Osteomyelitis of lumbar spine Priority: Primary Status: Acute (9) Tobacco abuse Priority: Secondary Status: Acute - Discharge Medications Prescriptions: Vancomycin [Vancocin] 1,000 mg IV Q12HR 37 Days Oxycodone HCl 15 mg PO QID PRN #30 tablet PRN Reason: Pain Home Medications: Albuterol Sulfate [Albuterol Inhaler] 2 puff IH Q6HR PRN 04/08/15 [History] Loratadine [Claritin] 10 mg PO DAILY 04/08/15 [History] Simvastatin [Zocor] 40 mg PO HS 04/08/15 [History] BuPROPion SR (12 HR) [Wellbutrin SR] 150 mg PO BID 07/01/16 [History] Omeprazole [PriLOSEC] 20 mg PO DAILY #30 capsule. 07/01/16 [Rx] Aspirin Enteric Coated [Aspirin EC] 325 mg PO DAILY 11/10/16 [History] Furosemide [Lasix] 40 mg PO DAILY 11/10/16 [History] Potassium Chloride [K-Tab ER] 20 meq PO DAILY 11/10/16 [History] Oxycodone HCl 15 mg PO QID PRN #30 tablet 11/14/16 [Rx] Vancomycin [Vancocin] 1,000 mg IV Q12HR 37 Days 11/14/16 [Rx] Allergies/Adverse Reactions: Allergies duloxetine [From Cymbalta] Allergy (Verified 11/10/16 10:20) Hives morphine Allergy (Verified 11/10/16 10:20) See Comments UNKNOWN REACTION- PATIENT UNSURE Oxycodone [From OxyContin] Adverse Reaction (Verified 11/14/16 08:40) Itching tapentadol [From Nucynta] Adverse Reaction (Verified 11/10/16 10:20) Weakness Procedures/tests Complete & Pending: Procedures Performed prior 72 hours Category Date Time Status CT guided biopsy [CT] Routine Cat Scan 11/11/16 12:09 Completed Date of admission: 11/10/16 15:22 Primary care physician: Naresh Webb MD Consults: 11/10/16 17:23 Consult to Occupational Therapy [CONS] Routine Comment: Evaluate, develop and implement POC Consult to Physical Therapy [CONS] Routine Comment: Evaluate, develop and implement POC 11/11/16 12:05 Consult to Interventional Radiology [CONS] Routine Consulting Provider: Radiology Interventional Cols Reason for Consult: ct guided biopsy of L1 and L2 send fluid for culture and gram stain Call Completed: No 11/12/16 10:26 Consult to [employer] [CONS] Routine Reason for SW Consult: discharge planning 11/12/16 16:43 Consult to Invasive Line Access Team [CONS] Routine Reason for Consult: Picc Line Insertion Line Type: PICC PICC line indications: buttermaker Med/Antibiotic - Patient Status Disposition: Home Health Service Condition: Fair Overall status at discharge: patient is progressing back to baseline - Discharge Instructions Follow Up With: Naresh Webb MD [Primary Care Provider] - 11/25/16 2:00 pm Additional Instructions: Follow with primary care physician within the next [address] Lam within the next 3 weeks. May follow with infectious diseases service within the next 1 to 2 weeks. Continue vancomycin IV for 37 more days to complete a total of 6 weeks. - Diet and Activity Activity: as per physical therapy, increase activity as tolerated Diet: low fat, low cholesterol Hospital course: Mr. Jackson is a 66 year old male with past medical history significant for COPD not oxygen dependent and severe degenerative joint disease of the spine who presented to the hospital with back pain. He is a disorganized historian. He said that he was having chronic low back pain and chronic neck pain for several years. Recently, over the last 3 days or to admission has was having severe, sharp low back pain radiating to the right hip and right lower extremity worse with movement and improved with rest and pain medication. Was unable to ambulate however he states that he has has had difficulty ambulating for several weeks and mostly uses a wheelchair. He denied any associated fevers, chills, nausea, vomiting, diarrhea, night sweats, bowel and bladder incontinence , but reports some associated numbness in both lower extremities. In the emergency department he had an MRI done which showed findings consistent for advanced DJD and concerning for early acute discitis L1-L2 / osteomyelitis of the lumbar spine. He received vancomycin and gentamicin and was referred for admission. MRI of the lumbar spine showed possible discitis between L1 and L2 and severe foraminal stenoses at L4 and L5 Orthopedic spine surgery Following CT-guided biopsy by interventional radiology completed, biopsy culture and blood cultures showed no growth MRI of the C-spine shows multi-level laminectomies with severe foraminal narrowing of C3/4, C5/6, C6/7 MRI of the thoracic spine does not show any acute abnormalities Picc line and [address] weks of ABX per Dr Lam Continue vancomycin day 5, discontinue gentamicin Will require serial CRP, ESR, and CBC with differential at least weekly to evaluate response to treatment. Time spent discussing smoking cessation with patient: 3 to 10 minutes - Time Spent with Patient Total time spent providing and/or coordinating discharge services: Greater than 30 minutes (40 min) - Constitutional Vitals: Temp Pulse Resp BP Pulse Ox 98.2 F 80 16 125/71 96 11/14/16 11:38 11/14/16 11:38 11/14/16 11:38 11/14/16 11:38 11/14/16 11:38 General appearance: Present: A&O X 3 - Head Head exam: Present: atraumatic, normocephalic - Eye Eye exam: Present: PERRL, conjuntiva pink, sclera anicteric Pupils: Present: PERRL - Neck Neck exam general surgery: Present: supple, trachea midline. Absent: lymphadenopathy - Respiratory Respiratory exam: Present: decreased breath sounds, CTAB. Absent: accessory muscle use, rales, rhonchi, wheezes - Cardiovascular Cardiovascular exam: Present: RRR, +S1, +S2. Absent: diastolic murmur, gallop, rubs, systolic murmur - GI/Abdominal GI/Abdominal exam: Present: normal bowel sounds, soft, no peritoneal signs. Absent: distended, tenderness - Extremities Exam Extremities exam: Present: warm, radial pulses palpable and symetrical. Absent : calf tenderness, cyanotic, pedal edema Additional comments: Utilize weakness mainly in both lower extremities, neck spastic muscles - Neurological Exam Neurological exam: Present: CN II-XII intact, oriented X3, no focal deficits. Absent: pronater drift, facial droop, speech deficit - Skin Skin exam: Present: dry, intact
--- NOTE | 2016-11-14 12:56 | Physician Discharge Referral ---
Home Health/Hosp Referral Info Transfer to: Home Health Provider in Charge Post Discharge: PCP - Diagnosis (1) Discitis of lumbar region Status: Acute (2) Back pain Status: Acute (3) COPD without exacerbation Status: Acute (4) Degenerative disc disease, cervical Status: Acute (5) Degenerative disc disease, lumbar Status: Acute (6) Degenerative disc disease, thoracic Status: Acute (7) Essential hypertension Status: Acute (8) Osteomyelitis of lumbar spine Status: Acute (9) Tobacco abuse Status: Acute - Respiratory Orders Smoking Cessation: Smoking cessation has been advised. For more information, call the [place] Tobacco Quit Line at 3-076-YTTZ-NOW. - Diet/Nutrition Diet/Nutrition Orders: No Added Salt (SERA) - Services Needed Following services are medically necessary services: Nursing, Home Health Aide, Physical Therapy Home Care Orders: Follow with primary care physician within the next [address] Lam within the next 3 weeks. May follow with infectious diseases service within the next 1 to 2 weeks. Continue vancomycin IV for 37 more days to complete a total of 6 weeks - Transfer Medications Prescriptions: Vancomycin [Vancocin] 1,000 mg IV Q12HR 37 Days Oxycodone HCl 15 mg PO QID PRN #30 tablet PRN Reason: Pain Home Medications: Albuterol Sulfate [Albuterol Inhaler] 2 puff IH Q6HR PRN 04/08/15 [History] Loratadine [Claritin] 10 mg PO DAILY 04/08/15 [History] Simvastatin [Zocor] 40 mg PO HS 04/08/15 [History] BuPROPion SR (12 HR) [Wellbutrin SR] 150 mg PO BID 07/01/16 [History] Omeprazole [PriLOSEC] 20 mg PO DAILY #30 capsule. 07/01/16 [Rx] Aspirin Enteric Coated [Aspirin EC] 325 mg PO DAILY 11/10/16 [History] Furosemide [Lasix] 40 mg PO DAILY 11/10/16 [History] Potassium Chloride [K-Tab ER] 20 meq PO DAILY 11/10/16 [History] Oxycodone HCl 15 mg PO QID PRN #30 tablet 11/14/16 [Rx] Vancomycin [Vancocin] 1,000 mg IV Q12HR 37 Days 11/14/16 [Rx] Allergies/Adverse Reactions: Allergies duloxetine [From Cymbalta] Allergy (Verified 11/10/16 10:20) Hives morphine Allergy (Verified 11/10/16 10:20) See Comments UNKNOWN REACTION- PATIENT UNSURE Oxycodone [From OxyContin] Adverse Reaction (Verified 11/14/16 08:40) Itching tapentadol [From Nucynta] Adverse Reaction (Verified 11/10/16 10:20) Weakness Certification: Further, I certify that my clinical findings support that this patient is homebound (i.e. absences from home require considerable and taxing effort and are for medical reasons or jew services or infrequently or short duration when for other reasons) because: Homebound Reason: Patient requires assistance of a person or device to safely leave home Attestation: My signature below is to certify that this patient is under my care and that I, or nurse practitioner, or a physician's shipping assistant working with me, has a face-to -face encounter with this patient.
[2016-11-14] MEDS: Gentamicin 380 MG in 0.9 % Sodium Chloride 100 ML IVPB SCH (14:48)
[2016-11-14 15:47] VITALS: BP 134/68
[2016-11-14] MEDS ORDERED: Aminoglycoside Consult 1 EACH MC ONE (17:42)
== END 2016-11-14 17:43 | disposition home health service (06) | DRG 347 ==
LOC: 3NENU 10:17 → EMEROO 10:17 → 3NENU 16:52 → SUATTDRO 17:49
PROVIDERS: ADMIT Family Medicine; ATTEND Internal Medicine

== ENCOUNTER 2017-10-10 13:14 | Inpatient (IN) ==
--- NOTE | 2017-10-10 13:35 | Emergency Department Note ---
Disposition Clinical Impression: Acute exacerbation of chronic obstructive airways disease Disposition: Admitted As Inpatient Condition: Fair Forms: ED Satisfaction Letter Time of Disposition: 16:12 SOB HPI - General Chief Complaint: ED Shortness of Breath/Dyspnea Stated Complaint: VLADIMIR Time Seen by Provider: 10/10/17 13:25 Source: patient, EMS Mode of arrival: ambulatory Limitations: no limitations Nursing Notes Reviewed: Yes Vital Signs Reviewed: Yes - History of Present Illness 67-year-old whose had cough and shortness of breath for the last couple of days quit smoking yesterday was seen at the urgent care and diagnosed with pneumonia comes in because of increasing shortness of breath. Pt Subjective Complaint: shortness of breath, "asthma attack" Onset (ago): day(s) Context: recent illness Severity: moderate Consistency/Duration: constant Improves with: nothing Worsens with: exertion Known history of: COPD Associated symptoms: Reports: cough, wheezing Treatment prior to arrival: other (And a biotics) Cough present: Yes Cough Description: Involuntary Cough Frequency: Intermittent - Related Data Home Medications Medication Instructions Recorded Confirmed Albuterol Sulfate [Albuterol 2 puff IH Q6HR PRN 04/08/15 09/10/17 Inhaler] Simvastatin [Zocor] 40 mg PO HS 04/08/15 09/10/17 BuPROPion SR (12 HR) [Wellbutrin 150 mg PO BID 07/01/16 09/10/17 SR] Aspirin Enteric Coated [Aspirin EC] 325 mg PO DAILY 11/10/16 09/10/17 Furosemide [Lasix] 40 mg PO DAILY 11/10/16 09/10/17 Potassium Chloride [K-Tab ER] 20 meq PO DAILY 11/10/16 09/10/17 Loratadine [Claritin] 10 mg PO DAILY 07/16/17 09/10/17 Meloxicam [Mobic] 15 mg PO DAILY 07/16/17 09/10/17 Cyclobenzaprine [Flexeril] 10 mg PO TID PRN 09/10/17 09/10/17 Omeprazole [PriLOSEC] 20 mg PO DAILY 09/10/17 09/10/17 Previous Rx's Medication Instructions Recorded Oxycodone HCl 15 mg PO QID PRN #30 tablet 11/14/16 predniSONE [PredniSONE] 40 mg PO DAILY #10 tablet 09/10/17 Allergies Allergy/AdvReac Type Severity Reaction Status Date / Time duloxetine [From Cymbalta] Allergy Hives Verified 07/16/17 09:21 morphine Allergy See Verified 07/16/17 09:21 Comments diphenhydramine AdvReac Dizziness Verified 09/10/17 09:38 [From Benadryl] gabapentin AdvReac Confusion Verified 09/10/17 09:38 Oxycodone [From OxyContin] AdvReac Itching Verified 07/16/17 09:21 tapentadol [From Nucynta] AdvReac Weakness Verified 07/16/17 09:21 All systems ED: reviewed and negative except as stated. Constitutional: Denies: fever, chills, weakness, weight change Eyes: Denies: eye pain, eye discharge, vision change ENT ED: Denies: ear pain, throat pain, dental pain, hearing loss, epistaxis, congestion, dysphagia Cardiovascular: Denies: chest pain, palpitations, dyspnea on exertion, edema, syncope Respiratory: Denies: cough, dyspnea, wheezes, hemoptysis, stridor Gastrointestinal: Reports: abdominal pain. Denies: nausea, vomiting, diarrhea, constipation, hematemesis, melena, hematochezia Genitourinary: Denies: urgency, dysuria, frequency, hematuria Musculoskeletal: Denies: back pain, neck pain, arthralgia, myalgia Integumentary: Denies: rash, abrasion, lesions Neurological: Denies: headache, weakness, numbness, paresthesias, confusion, abnormal gait, vertigo Psychiatric: Denies: anxiety, depression, suicidal thoughts, homicidal thoughts , auditory hallucinations, visual hallucinations Endocrine: Denies: fatigue Hematological/Lymphatic: Denies: easy bleeding, easy bruising Allergic/Immunologic: Denies: facial swelling, urticaria Past Medical History - Past Medical History Medical history: Reports: asthma, COPD, hyperlipidemia, hypertension, other Surgical history: Reports: orthopedic, other (Multiple cervical laminectomies) Psychiatric history: Reports: depression - Social History Smoking Status: Current every day smoker Smokeless Tobacco Status: No Alcohol use: Reports: occasionally Drug use: Reports: none Physical Exam - General Limitations: no limitations General appearance: alert, in no apparent distress - Head Head exam: atraumatic, normocephalic, normal inspection - Eye Eye exam: Present: normal appearance, PERRL, EOMI - ENT ENT exam: normal exam, normal oropharynx, mucous membranes moist - Neck Neck exam: Present: normal inspection, full ROM, trachea midline - Chest Chest inspection: Present: normal inspection, symmetric chest wall rise - Respiratory Respiratory exam: Present: wheezes, accessory muscle use, prolonged expiratory phase - Cardiovascular Cardiovascular exam: Present: regular rate, normal rhythm, normal heart sounds - Abdominal Exam Abdominal exam: Present: soft, Non-Tender. Absent: tenderness, distention, guarding, rebound, rigidity - Extremities Exam Extremities exam: Present: normal inspection, full ROM. Absent: tenderness, pedal edema - Expanded Lower Extremity Exam Neurovascular/Tendon exam: Absent: motor deficit, sensory deficit, tendon deficit Gait: observed and normal - Back Exam Back exam: Present: normal inspection, full ROM. Absent: tenderness - Neurological Exam Neurological exam: Present: alert, oriented X3 - Psychiatric Psychiatric exam: Present: normal affect, normal mood - Skin Skin exam: Present: warm, dry, intact, normal color Course - Reevaluation(s) Reevaluation #1: 67-year-old male who comes in complaining of increasing shortness of breath was told he had pneumonia. X-ray here was negative for pneumonia he does have an exacerbation of COPD. Time: 16:12 - Consultations Consultation #1: Discussed with Dr. White, admit. Time: 16:13 Vital Signs Temperature 97.4 F L 10/10/17 13:19 Pulse Rate 89 10/10/17 13:19 Respiratory Rate 22 10/10/17 13:19 Blood Pressure 145/101 10/10/17 13:19 O2 Sat by Pulse Oximetry 98 10/10/17 13:19 Temperature 97.4 F L 10/10/17 13:19 Pulse Rate 93 10/10/17 13:51 Respiratory Rate 16 10/10/17 14:16 Blood Pressure 127/87 10/10/17 14:16 O2 Sat by Pulse Oximetry 98 10/10/17 14:16 Oxygen Delivery Oxygen Delivery Room Air Shortness of Breath/Dyspnea - Lab Data Result diagrams: 10/10/17 13:35 10/10/17 13:35 Lab Results 10/10/17 10/10/17 10/10/17 Range/Units 13:35 13:35 13:35 WBC 14.2 H (4.3-11.1) K/mcL RBC 4.22 (4.19-5.50) M/mcL Hgb 13.1 (12.9-16.9) g/dL Hct 37.9 (37.5-50.1) % MCV 89.8 (83.0-100.0) fL MCH 31.0 (28.0-33.3) pg MCHC 34.6 (31.6-35.5) g/dL RDW 13.5 (11.5-14.5) % Plt Count 299 (140-400) K/mcL MPV 9.0 L (9.4-12.4) fL Immature Gran % 0.8 (0-4) % Seg Neutrophils % 78.2 % Lymphocytes % 13.6 % Monocytes % 7.3 % Eosinophils % 0.0 % Basophils % 0.1 % Neutrophils # 11.1 H (1.6-8.9) K/mcL Lymphocytes # 1.9 (0.6-4.6) K/mcL Monocytes # 1.0 (0.0-1.3) K/mcL Eosinophils # 0.0 (0.0-0.6) K/mcL Basophils # 0.0 (0.0-0.2) K/mcL Sodium 137 (136-145) mEq/L Potassium 4.4 (3.5-5.1) mEq/L Chloride 109 H (98-107) mEq/L Carbon Dioxide 23 (23-29) mEq/L BUN 20 (8-23) mg/dL Creatinine 1.12 (0.70-1.30) mg/dL Est GFR ( Amer) > 60 (> 60) Est GFR (Non-Af Amer) > 60 (> 60) BUN/Creatinine Ratio 18 (6-26) Glucose 78 (70-105) mg/dL Calculated Osmolality 285 (280-300) Lactic Acid 0.7 (0.5-2.2) mmol/L Calcium 8.7 (8.6-10.3) mg/dL Troponin I (< 0.04) ng/mL B-Natriuretic Peptide (Less than 100) pg/mL 10/10/17 10/10/17 Range/Units 13:35 13:35 WBC (4.3-11.1) K/mcL RBC (4.19-5.50) M/mcL Hgb (12.9-16.9) g/dL Hct (37.5-50.1) % MCV (83.0-100.0) fL MCH (28.0-33.3) pg MCHC (31.6-35.5) g/dL RDW (11.5-14.5) % Plt Count (140-400) K/mcL MPV (9.4-12.4) fL Immature Gran % (0-4) % Seg Neutrophils % % Lymphocytes % % Monocytes % % Eosinophils % % Basophils % % Neutrophils # (1.6-8.9) K/mcL Lymphocytes # (0.6-4.6) K/mcL Monocytes # (0.0-1.3) K/mcL Eosinophils # (0.0-0.6) K/mcL Basophils # (0.0-0.2) K/mcL Sodium (136-145) mEq/L Potassium (3.5-5.1) mEq/L Chloride (98-107) mEq/L Carbon Dioxide (23-29) mEq/L BUN (8-23) mg/dL Creatinine (0.70-1.30) mg/dL Est GFR ( Amer) (> 60) Est GFR (Non-Af Amer) (> 60) BUN/Creatinine Ratio (6-26) Glucose (70-105) mg/dL Calculated Osmolality (280-300) Lactic Acid (0.5-2.2) mmol/L Calcium (8.6-10.3) mg/dL Troponin I < 0.03 (< 0.04) ng/mL B-Natriuretic Peptide 32 (Less than 100) pg/mL - EKG Data EKG attestation: Yes I reviewed and interpreted this EKG. EKG shows normal: Reports: sinus rhythm Rate: Reports: normal Rhythm: Reports: NSR Interpretation: Reports: nonspecific ST-T wave changes
[2017-10-10 13:47] LABS: Basophils % 0.1 %; Hematocrit 37.9 % (37.5-50.1); Hemoglobin 13.1 g/dL (12.9-16.9); Immature Granulocytes % 0.8 % (0-4); Lymphocytes # 1.9 K/mcL (0.6-4.6); Lymphocytes % 13.6 %; Mean Corpuscular HGB Conc 34.6 g/dL (31.6-35.5); Mean Corpuscular Volume 89.8 fL (83.0-100.0); Monocytes % 7.3 %; Neutrophils # 11.1 K/mcL (1.6-8.9); Platelet Count 299 K/mcL (140-400); Red Blood Count 4.22 M/mcL (4.19-5.50); Red Cell Distribution Width 13.5 % (11.5-14.5); Segmented Neutrophils % 78.2 %
[2017-10-10 13:59] LABS: Calcium 8.7 mg/dL (8.6-10.3); Carbon Dioxide 23 mEq/L (23-29); Chloride 109 mEq/L (98-107); Potassium 4.4 mEq/L (3.5-5.1); Sodium 137 mEq/L (136-145)
[2017-10-10 14:05] LABS: BUN/Creatinine Ratio 18 (6-26); Blood Urea Nitrogen 20 mg/dL (8-23); Glucose 78 mg/dL (70-105); Osmolality,Calculated 285 (280-300); eGFR For African Americans > 60 (> 60); eGFR For Non-African Americans > 60 (> 60)
[2017-10-10] MEDS ORDERED: Ipratropium/Albuterol Neb 3 ML IH ONE (14:09)
--- NOTE | 2017-10-10 16:51 | Internal Med History&Physical ---
Date of Encounter: 10/10/17 Time of Encounter: 16:20 Assessment and Plan (1) Acute exacerbation of chronic obstructive airways disease Current visit: Yes Status: Acute Continue Short-acting bronchodilator Add Spiriva Add Symbicort Continue SoluMedrol (2) Community acquired bacterial pneumonia Current visit: Yes Status: Acute Levaquin started Blood cultures pending Breathing treatments as needed (3) Tobacco abuse Current visit: No Status: Acute He states he's quit as of yesterday Nicotine patch Internal Medicine - H&P: HPI Chief complaint: SOB and productive cough Admitted From: Emergency Dept Plans for Post Hospital Care: Home History of present illness: 67-year-old COPD patient who presents with history of worsening sob and productive cought for past week. He was seen at the local urgent care last night and given an Abx for suspected PNA. Today his CXR does not show an infiltrate or other acute disease. He is afebrile but has a leukocytosis. He's breathing comfortably on RA at rest but becomes sob with even minimal exertion. His cough has become worse. He was started on steroids and given Levaquin, Spiriva and Symbacort. Past Med Surg Social Fam HX - Past Medical History Medical history: asthma, COPD, hyperlipidemia, hypertension, other Psychiatric history: depression - Past Surgical History Surgical History: orthopedic, other (Multiple cervical laminectomies) - Social History Smoking Status: Current every day smoker Smokeless Tobacco Status: No Alcohol use: occasionally Drug use: none - Family History Mother Living Status: Hx Family Cardiac Disorders: Yes Hx Family Endocrine Disorder: Yes Father Living Status: Hx Family Cardiac Disorders: Yes Hx Family Respiratory Disorders: Yes Hx Family Endocrine Disorder: Yes Internal Medicine - H&P: Meds Albuterol Sulfate [Albuterol Inhaler] 2 puff IH Q6HR PRN 04/08/15 [History] Simvastatin [Zocor] 40 mg PO HS 04/08/15 [History] BuPROPion SR (12 HR) [Wellbutrin SR] 150 mg PO BID 07/01/16 [History] Aspirin Enteric Coated [Aspirin EC] 325 mg PO DAILY 11/10/16 [History] Furosemide [Lasix] 40 mg PO DAILY 11/10/16 [History] Potassium Chloride [K-Tab ER] 20 meq PO DAILY 11/10/16 [History] Oxycodone HCl 15 mg PO QID PRN #30 tablet 11/14/16 [Rx] Loratadine [Claritin] 10 mg PO DAILY 07/16/17 [History] Meloxicam [Mobic] 15 mg PO DAILY 07/16/17 [History] Cyclobenzaprine [Flexeril] 10 mg PO TID PRN 09/10/17 [History] Omeprazole [PriLOSEC] 20 mg PO DAILY 09/10/17 [History] 3 Allergy/AdvReac Type Severity Reaction Status Date / Time duloxetine [From Cymbalta] Allergy Hives Verified 07/16/17 09:21 morphine Allergy See Verified 07/16/17 09:21 Comments diphenhydramine AdvReac Dizziness Verified 09/10/17 09:38 [From Benadryl] gabapentin AdvReac Confusion Verified 09/10/17 09:38 Oxycodone [From OxyContin] AdvReac Itching Verified 07/16/17 09:21 tapentadol [From Nucynta] AdvReac Weakness Verified 07/16/17 09:21 All Systems PM: A 10-system review of systems was performed and is negative for pertinent findings except as documented above in the HPI. - Constitutional Constitutional: no fever(s), no weakness, no weight gain - EENT Eyes: no blurry vision, no diplopia, no discharge, no itchy eyes, no loss of vision, no photophobia Ears: no ear discharge, no other Nose, mouth and throat: no dry mouth, no dysphagia, no neck pain, no other - Cardiovascular Cardiovascular ROS IM: dyspnea, dyspnea on exertion, no chest pain, no diaphoresis, no irregular heart rhythm, no palpitations - Respiratory Respiratory: dyspnea on exertion, wheezing, other, no hemoptysis - Gastrointestinal Gastrointestinal: no abdominal pain, no bloating, no diarrhea, no hematochezia, no melena - Genitourinary Genitourinary ROS male: no difficulty urinating, no dysuria, no flank pain, no urinary frequency, no urinary hesitancy - Musculoskeletal Musculoskeletal ROS IM: no muscle weakness, no neck pain, no stiffness - Integumentary Integumentary IM: no rash, no jaundice - Neurological Neurological ROS: no abnormal hearing, no abnormal speech, no confusion, no disequilibrium, no frequent falls, no loss of vision, no restless legs, no tingling - Psychiatric Psychiatric: no behavioral changes, no confusion, no homicidal ideation, no paranoia, no suicidal ideation - Constitutional Vitals: Temp Pulse Resp BP Pulse Ox 97.4 F L 93 16 127/87 98 10/10/17 13:19 10/10/17 13:51 10/10/17 14:16 10/10/17 14:16 10/10/17 14:16 General appearance: Present: mild distress, A&O X 3 - Head Head exam: Present: atraumatic, normocephalic - Expanded Head Exam Head exam expanded: Absent: contusion, hematoma, laceration, tenderness of temporal artery - Eye Eye exam: Present: EOMI, PERRL. Absent: conjuntiva pink, sclera anicteric - ENT ENT exam: Present: mucous membranes dry, normal exam - Neck Neck exam general surgery: Present: full ROM, normal inspection, supple, trachea midline. Absent: tenderness, nuchal rigidity - Respiratory Respiratory exam: Present: wheezes - Cardiovascular Cardiovascular exam: Present: RRR, +S1, +S2 - GI/Abdominal GI/Abdominal exam: Present: distended, firm, normal bowel sounds. Absent: guarding, no peritoneal signs - Skin Skin exam: Present: dry, warm. Absent: rash Internal Med - H&P Results - Labs CBC & Chem 7: 10/10/17 13:35 10/10/17 13:35 Labs: Short CBC 10/10/17 Range/Units 13:35 WBC 14.2 H (4.3-11.1) K/mcL Hgb 13.1 (12.9-16.9) g/dL Hct 37.9 (37.5-50.1) % Plt Count 299 (140-400) K/mcL Neutrophils # 11.1 H (1.6-8.9) K/mcL BMP 10/10/17 13:35 Sodium 137 Potassium 4.4 Chloride 109 H Carbon Dioxide 23 BUN 20 Creatinine 1.12 Glucose 78 Calcium 8.7 Cardiac Enzymes 10/10/17 Range/Units 13:35 Troponin I < 0.03 (< 0.04) ng/mL - Impressions ITS Impressions Chest X-Ray 10/10/17 13:25 IMPRESSION: No acute cardiopulmonary process. D/ / 10/10/2017 13:59:23 Gerardo Lopez MD / ace Interpreting Provider: Gerardo Lopez MD Head CT 10/10/17 14:23 IMPRESSION: No acute intracranial abnormality. Mild bilateral mastoid air cell disease. D/ / Leonora Hines Cha, MD / Leonora Hines Cha, MD Interpreting Provider: Leonora Hines Cha, MD
[2017-10-10] MEDS ORDERED: Ipratropium/Albuterol Neb 3 ML IH PRN (17:08)
[2017-10-10] MEDS ORDERED: *HR* Heparin 5,000 UNIT/ML VIAL SQ ONE (17:19)
[2017-10-10] MEDS: methylPREDNISolone 125 MG/2 ML VIAL IVP SCH ×2 (18:51→23:16)
[2017-10-10] MEDS: Levofloxacin 750 MG/150 ML 750 MG/150 ML BAG IVPB SCH (18:51)
[2017-10-10] MEDS: *HR* OxyCODONE Immed Rel 15 MG TABLET PO PRN (20:43)
[2017-10-10] MEDS: BuPROPion SR (12 HR) 150 MG TABLET PO SCH (20:43)
[2017-10-10] MEDS: *HR* Heparin 5,000 UNIT/ML VIAL SQ SCH (20:44)
[2017-10-10] MEDS: Budesonide/Formoterol 160/4.5 MDI IH SCH (22:16)
[2017-10-11] MEDS: methylPREDNISolone 125 MG/2 ML VIAL IVP SCH ×3 (05:27→17:16)
[2017-10-11] MEDS: *HR* Heparin 5,000 UNIT/ML VIAL SQ SCH ×3 (05:27→20:24)
[2017-10-11] MEDS: Budesonide/Formoterol 160/4.5 MDI IH SCH ×2 (07:48→21:04)
[2017-10-11] MEDS: Tiotropium 18 MCG inhalation IH SCH (07:49)
[2017-10-11] MEDS: BuPROPion SR (12 HR) 150 MG TABLET PO SCH ×2 (08:20→20:24)
[2017-10-11] MEDS: Aspirin Enteric Coated 325 MG Tablet PO SCH (08:21)
[2017-10-11] MEDS: Furosemide 40 MG TABLET PO SCH (08:21)
[2017-10-11] MEDS: Loratadine 10 MG TABLET PO SCH (08:21)
[2017-10-11] MEDS: *HR* OxyCODONE Immed Rel 15 MG TABLET PO PRN ×3 (08:25→20:31)
--- NOTE | 2017-10-11 13:55 | Internal Med Progress Note ---
Date of Encounter: 10/11/17 Time of Encounter: 13:54 - Assessment and plan (1) Acute exacerbation of chronic obstructive airways disease Current Visit: Yes Status: Acute Assessment and plan: presented with orders of breath. Was reportedly diagnosed with pneumonia 2 days ago at urgent care; treated with ATB and steroid. Presented with worsening shortness of breath. No evidence of pneumonia on CXR. Suspect acute COPD exacerbation with scant wheezing and diminished lung sounds. Chest CTA pending to rule out pulmonary embolism as he was tachycardic and appears dyspneic on exam. Continue IV Levaquin, steroids, breathing treatments (2) Essential hypertension Current Visit: No Status: Acute Assessment and plan: per hx. BP controlled. Cont home BP medication. Monitor BP and titrate PRN (3) Discitis of lumbar region Current Visit: No Status: Acute Assessment and plan: per hx. continue with home pain medication. (4) DVT prophylaxis Current Visit: No Status: Acute Assessment and plan: heparin - Subjective Interval history: Seen and examined at bedside. Patient is new to me, information obtained from chart review and patient report. Says he feels a little better, still with shortness of breath but overall improved. No chest pain. Has a nonproductive cough. - Constitutional Vitals: Temp Pulse Resp BP Pulse Ox 97.4 F L 107 17 124/65 96 10/11/17 11:46 10/11/17 11:46 10/11/17 11:46 10/11/17 11:46 10/11/17 11:46 General appearance: Present: A&O X 3 - Head Head exam: Present: atraumatic, normocephalic - Eye Eye exam: Present: PERRL, conjuntiva pink, sclera anicteric Pupils: Present: PERRL - Neck Neck exam general surgery: Present: supple, trachea midline. Absent: lymphadenopathy - Respiratory Respiratory exam: Present: CTAB. Absent: accessory muscle use, rales, rhonchi, wheezes - Cardiovascular Cardiovascular exam: Present: RRR, +S1, +S2. Absent: diastolic murmur, gallop, rubs, systolic murmur - GI/Abdominal GI/Abdominal exam: Present: normal bowel sounds, soft, no peritoneal signs. Absent: distended, tenderness - Extremities Exam Extremities exam: Present: warm, radial pulses palpable and symmetrical. Absent : calf tenderness, cyanotic, pedal edema - Neurological Exam Neurological exam: Present: CN II-XII intact, oriented X3, no focal deficits. Absent: pronater drift, facial droop, speech deficit - Skin Skin exam: Present: dry, intact Internal Medicine: Result - Labs CBC & Chem 7: 10/10/17 13:35 10/10/17 13:35 Consult Discharge Plan - Plan Referrals: Naresh Webb MD [Primary Care Provider] -
[2017-10-11 16:12] LABS: Adenovirus Not Detected (Not Detect); Bordetella Pertussis Not Detected (Not Detect); Chlamydophila pneumoniae Not Detected (Not Detect); Coronavirus 229E Not Detected (Not Detect); Coronavirus HKU1 Not Detected (Not Detect); Coronavirus NL63 Not Detected (Not Detect); Coronavirus OC43 Not Detected (Not Detect); Human Metapneumovirus Not Detected (Not Detect); Human Rhinovirus/Enterovirus Not Detected (Not Detect); Influenza A Subtype 2009 H1 Not Detected (Not Detect); Influenza A Untypeable Not Detected (Not Detect); Influenza B Not Detected (Not Detect); Mycoplasma pneumoniae Not Detected (Not Detect); Parainfluenza Virus 1 Not Detected (Not Detect); Parainfluenza Virus 2 Not Detected (Not Detect); Parainfluenza Virus 3 Not Detected (Not Detect); Parainfluenza Virus 4 Not Detected (Not Detect); Respiratory Syncytial Virus Not Detected (Not Detect)
[2017-10-11] MEDS: Levofloxacin 750 MG/150 ML 750 MG/150 ML BAG IVPB SCH (17:17)
[2017-10-12] MEDS: methylPREDNISolone 125 MG/2 ML VIAL IVP SCH ×3 (00:53→12:31)
[2017-10-12] MEDS: *HR* OxyCODONE Immed Rel 15 MG TABLET PO PRN ×2 (00:55→10:26)
[2017-10-12] MEDS: *HR* Heparin 5,000 UNIT/ML VIAL SQ SCH (05:32)
--- NOTE | 2017-10-12 07:40 | Electrocardiograph Report ---
[place] [id number] Test Date: 2017-10-10 Pat Name: Kervin Jackson Department: 103 Room: 3B24 Gender: M Hearing Therapist: : 1950 Requested By: Harshad Macedo Order Number: [id number] Reading MD: Ulysses Delarosa MD Measurements Intervals [place] Rate: 90 P: 71 TX: 154 QRS: 10 QRSD: 80 T: 69 QT: 357 QTc: 405 Interpretive Statements SINUS RHYTHM BASELINE ARTIFACT Electronically Signed On 10-12-2017 7:39:16 EST by Ulysses Delarosa MD
[2017-10-12] MEDS: Aspirin Enteric Coated 325 MG Tablet PO SCH (08:12)
[2017-10-12] MEDS: Loratadine 10 MG TABLET PO SCH (08:12)
[2017-10-12] MEDS: Furosemide 40 MG TABLET PO SCH (08:12)
[2017-10-12] MEDS: BuPROPion SR (12 HR) 150 MG TABLET PO SCH (08:12)
[2017-10-12] MEDS: Tiotropium 18 MCG inhalation IH SCH (08:25)
[2017-10-12] MEDS: Budesonide/Formoterol 160/4.5 MDI IH SCH (08:35)
[2017-10-12 11:51] VITALS: BP 154/78
--- NOTE | 2017-10-12 11:59 | Discharge Summary ---
Date of Encounter: 10/12/17 Time of Encounter: 11:54 - Discharge Diagnosis (1) Acute exacerbation of chronic obstructive airways disease Priority: Primary Status: Acute Comments: diagnosed with pneumonia 2 days ago at urgent care; treated with ATB and steroid. Presented with worsening shortness of breath. WBC 14K (received outpatient steroid injection). No evidence of pneumonia on CXR. Chest CTA negative for pulmonary embolism. Breast 3 PCR, urinary antigens negative. Suspect acute COPD exacerbation with scant wheezing and diminished lung sounds with possible component of pneumonia despite lack of radiographic evidence. Discharge home on Levaquin and steroid burst. Cont home inhaler. Recommend follow-up with PCP within 1-2 weeks. (2) Essential hypertension Priority: Primary Status: Acute Comments: per hx. BP controlled. Cont home BP medication. (3) Discitis of lumbar region Priority: Primary Status: Acute Comments: per hx. continue with home pain medication - Discharge Medications Prescriptions: levoFLOXacin [Levaquin] 750 mg PO DAILY #5 tablet predniSONE [PredniSONE] 40 mg PO DAILY #10 tablet Home Medications: Albuterol Sulfate [Albuterol Inhaler] 2 puff IH Q6HR PRN 04/08/15 [History] Simvastatin [Zocor] 40 mg PO HS 04/08/15 [History] BuPROPion SR (12 HR) [Wellbutrin SR] 150 mg PO BID 07/01/16 [History] Aspirin Enteric Coated [Aspirin EC] 325 mg PO DAILY 11/10/16 [History] Furosemide [Lasix] 40 mg PO DAILY 11/10/16 [History] Potassium Chloride [K-Tab ER] 20 meq PO DAILY 11/10/16 [History] Oxycodone HCl 15 mg PO QID PRN #30 tablet 11/14/16 [Rx] Loratadine [Claritin] 10 mg PO DAILY 07/16/17 [History] Meloxicam [Mobic] 15 mg PO DAILY 07/16/17 [History] Cyclobenzaprine [Flexeril] 10 mg PO TID PRN 09/10/17 [History] Omeprazole [PriLOSEC] 20 mg PO DAILY 09/10/17 [History] levoFLOXacin [Levaquin] 750 mg PO DAILY #5 tablet 10/12/17 [Rx] predniSONE [PredniSONE] 40 mg PO DAILY #10 tablet 10/12/17 [Rx] Allergies/Adverse Reactions: 3 Allergy/AdvReac Type Severity Reaction Status Date / Time duloxetine [From Cymbalta] Allergy Hives Verified 07/16/17 09:21 morphine Allergy See Verified 07/16/17 09:21 Comments diphenhydramine AdvReac Dizziness Verified 09/10/17 09:38 [From Benadryl] gabapentin AdvReac Confusion Verified 09/10/17 09:38 Oxycodone [From OxyContin] AdvReac Itching Verified 07/16/17 09:21 tapentadol [From Nucynta] AdvReac Weakness Verified 07/16/17 09:21 Procedures/tests Complete & Pending: Procedures Performed prior 72 hours Category Date Time Status CTA chest [CT angio chest] [CT] Routine Cat Scan 10/11/17 14:03 Completed Date of admission: 10/10/17 17:16 Primary care physician: Naresh Webb MD Discharging clinician: Arielle Alarcon Anticipated date of discharge: 10/12/17 - Patient Status Disposition: Home, Self-Care Condition: Good Functional capacity at discharge: independent ambulation Overall status at discharge: patient is progressing back to baseline - Discharge Instructions Instructions: Chronic Obstructive Pulmonary Disease (DC), Levofloxacin (By mouth), Prednisone (By mouth) Follow Up With: Naresh Webb MD [Primary Care Provider] - (Clinic is closed due to inclimate weather. Please make an appointment with your Primary Care Provider within a week. Thank You. ) - Diet and Activity Activity: increase activity as tolerated Diet: advance to your usual diet Interval History: Seen and examined at bedside. Sitting up in chair, says he feels much better like discharge home today. Shortness of breath and a intermittent cough but overall significantly improved. Continue to encourage smoking cessation. Denies chest pain, no fevers or chills. Hospital course: See assessment and plan for hospital course. - Time Spent with Patient Total time spent providing and/or coordinating discharge services: - Constitutional Vitals: Temp Pulse Resp BP Pulse Ox 98.0 F 111 16 154/78 95 10/12/17 11:50 10/12/17 11:50 10/12/17 11:50 10/12/17 11:50 10/12/17 11:50 General appearance: Present: A&O X 3 - Head Head exam: Present: atraumatic, normocephalic - Eye Eye exam: Present: PERRL, conjuntiva pink, sclera anicteric Pupils: Present: PERRL - Neck Neck exam general surgery: Present: supple, trachea midline. Absent: lymphadenopathy - Respiratory Respiratory exam: Present: CTAB, wheezes (Cannot wheezing, improved from yesterday's exam). Absent: accessory muscle use, rales, rhonchi - Cardiovascular Cardiovascular exam: Present: RRR, +S1, +S2. Absent: diastolic murmur, gallop, rubs, systolic murmur - GI/Abdominal GI/Abdominal exam: Present: normal bowel sounds, soft, no peritoneal signs. Absent: distended, tenderness - Extremities Exam Extremities exam: Present: warm, radial pulses palpable and symmetrical. Absent : calf tenderness, cyanotic, pedal edema - Neurological Exam Neurological exam: Present: CN II-XII intact, oriented X3, no focal deficits. Absent: pronater drift, facial droop, speech deficit - Skin Skin exam: Present: dry, intact
== END 2017-10-12 13:28 | disposition home or self-care (01) | DRG 140 ==
LOC: EMEROO 13:14 → 3BNU 13:14
PROVIDERS: ADMIT Internal Medicine; ATTEND Registered Nurse

== ENCOUNTER 2018-06-13 11:40 | Inpatient (IN) ==
[2018-06-13] MEDS ORDERED: Ipratropium/Albuterol Neb 3 ML IH ONE (11:55)
[2018-06-13] MEDS ORDERED: predniSONE 20 MG TABLET PO ONE (11:55)
[2018-06-13] MEDS ORDERED: Aspirin 325 MG TABLET PO ONE (11:56)
--- NOTE | 2018-06-13 11:57 | Emergency Department Note ---
Disposition Clinical Impression: Multifocal pneumonia Disposition: Admitted As Inpatient Condition: Fair Referrals: Naresh Webb MD [Primary Care Provider] - Forms: ED Satisfaction Letter Time of Disposition: 14:45 General Adult HPI - General Chief complaint: ED Shortness of Breath/Dyspnea Stated complaint: VLADIMIR Time Seen by Provider: 06/13/18 11:49 Nursing Notes Reviewed: Yes Vital Signs Reviewed: Yes - History of Present Illness HPI Narrative: 68-year-old male past medical history of COPD, quit smoking 2 days ago, presents emergency department for 2 days of shortness of breath, cough, sputum production. No fevers. Reporting chest tightness as well. States that he just cannot get any air in and out. Patient feels like he is very anxious. Denies any recent travel, unilateral leg swelling. Reports having one provoked DVT after neck surgery in the s. Patient with no history of coronary artery disease. Pain Scale: 9 - Related Data Home Medications Medication Instructions Recorded Confirmed Albuterol Sulfate [Albuterol 2 puff IH Q6HR PRN 04/08/15 10/10/17 Inhaler] Simvastatin [Zocor] 40 mg PO HS 04/08/15 10/10/17 BuPROPion SR (12 HR) [Wellbutrin 150 mg PO BID 07/01/16 10/10/17 SR] Aspirin Enteric Coated [Aspirin EC] 325 mg PO DAILY 11/10/16 10/10/17 Furosemide [Lasix] 40 mg PO DAILY 11/10/16 10/10/17 Potassium Chloride [K-Tab ER] 20 meq PO DAILY 11/10/16 10/10/17 Loratadine [Claritin] 10 mg PO DAILY 07/16/17 10/10/17 Meloxicam [Mobic] 15 mg PO DAILY 07/16/17 10/10/17 Cyclobenzaprine [Flexeril] 10 mg PO TID PRN 09/10/17 10/10/17 Omeprazole [PriLOSEC] 20 mg PO DAILY 09/10/17 10/10/17 Previous Rx's Medication Instructions Recorded Oxycodone HCl 15 mg PO QID PRN #30 tablet 11/14/16 levoFLOXacin [Levaquin] 750 mg PO DAILY #5 tablet 10/12/17 predniSONE [PredniSONE] 40 mg PO DAILY #10 tablet 10/12/17 Allergies Allergy/AdvReac Type Severity Reaction Status Date / Time duloxetine [From Cymbalta] Allergy Hives Verified 06/13/18 11:44 morphine Allergy See Verified 06/13/18 11:44 Comments diphenhydramine AdvReac Dizziness Verified 06/13/18 11:44 [From Benadryl] gabapentin AdvReac Confusion Verified 06/13/18 11:44 Oxycodone [From OxyContin] AdvReac Itching Verified 06/13/18 11:44 tapentadol [From Nucynta] AdvReac Weakness Verified 06/13/18 11:44 All systems ED: reviewed and negative except as stated. Review of Systems: As Per HPI Constitutional: Denies: fever Cardiovascular: Reports: chest pain Respiratory: Reports: cough, dyspnea, wheezes, sputum production Gastrointestinal: Denies: nausea, vomiting Genitourinary: Denies: dysuria Musculoskeletal: Denies: back pain Past Medical History - Past Medical History Medical history: Reports: asthma, COPD, hyperlipidemia, hypertension, other Surgical history: Reports: orthopedic, other Psychiatric history: Reports: depression - Social History Smoking Status: Current some day smoker Smokeless Tobacco Status: No Alcohol use: Reports: occasionally Drug use: Reports: none Physical Exam - General Limitations: no limitations General appearance: alert, anxious, in distress (Respiratory) - Head Head exam: normocephalic - Eye Eye exam: Present: EOMI - ENT ENT exam: normal oropharynx, mucous membranes moist - Neck Neck exam: Present: trachea midline - Chest Chest inspection: Present: symmetric chest wall rise - Respiratory Respiratory exam: Present: respiratory distress, wheezes (Tight wheezes throughout), prolonged expiratory phase - Cardiovascular Cardiovascular exam: Present: normal rhythm, tachycardia, normal heart sounds - Abdominal Exam Abdominal exam: Present: soft, Non-Tender. Absent: distention, guarding, rebound, rigidity - Extremities Exam Extremities exam: Present: normal capillary refill - Back Exam Back exam: Present: full ROM - Neurological Exam Neurological exam: Present: alert, oriented X3 - Psychiatric Psychiatric exam: Present: anxious - Skin Skin exam: Present: warm, dry, intact, normal color. Absent: rash Course Vital Signs Temperature 98.5 F 06/13/18 11:41 Pulse Rate 113 06/13/18 11:41 Respiratory Rate 25 06/13/18 11:41 O2 Sat by Pulse Oximetry 94 06/13/18 11:41 Temperature 98.5 F 06/13/18 12:07 Pulse Rate 113 06/13/18 12:07 Respiratory Rate 19 06/13/18 13:02 Blood Pressure 137/105 06/13/18 12:07 O2 Sat by Pulse Oximetry 96 06/13/18 13:02 Oxygen Delivery Oxygen Delivery Room Air Medical Decision Making - MDM Narrative Medical decision making narrative: 68-year-old male presents emergency Department very anxious, tachycardic, feeling as if he cannot move air. Patient states he felt like this last time he had a COPD exacerbation. At this time, we will obtain EKG, chest x-ray, given DuoNeb's, steroids, monitor patient to see how he responds. Patient was so anxious after given a milligram of Ativan, DuoNeb's, but he had increased aeration. We place patient on BiPAP and he appeared significantly more comfortable with it. Heart rate reduced and 90 from the 110s. EKG did not reveal any ischemic ST changes. Troponin was negative. Patient had a leukocytosis of 17.4. We obtained CTA as it was concern for possibility of pulmonary embolus as patient was tachycardic at 94% on room air. CTA of the chest reveals multifocal airspace disease predominantly in the right middle lobe as well as the right lower lobe and left lower lobe. Patient was given Levaquin. Patient has mildly elevated lactic acid. He was also given 2 L of fluid here in the emergency department. Patient admitted to the hospitalist. She agreed to accept the patient for admission. Additional 500 mL was ordered to meet the 30 mL/kg bolus. Chest X-Ray 06/13/18 11:55 IMPRESSION: No acute process. D/ / Will Rico MD / Will Rico MD Interpreting Provider: Will Rico MD Chest CTA 06/13/18 12:41 IMPRESSION: No evidence of pulmonary embolism. Multifocal airspace disease predominantly in the right middle lobe but also in the right lower lobe and left lower lobe suggesting multifocal pneumonia. Ground-glass nodules in the right lower lobe likely representing infectious/inflammatory nodules related to the multifocal pneumonia. Recommend follow-up to resolution. D/ / 06/13/2018 14:05:19 Will Rico MD / cam Interpreting Provider: Will Rico MD Vital Signs Temperature 98.5 F 06/13/18 11:41 Pulse Rate 113 06/13/18 11:41 Respiratory Rate 25 06/13/18 11:41 O2 Sat by Pulse Oximetry 94 06/13/18 11:41 Temperature 98.5 F 06/13/18 12:07 Pulse Rate 113 06/13/18 12:07 Respiratory Rate 19 06/13/18 13:02 Blood Pressure 137/105 06/13/18 12:07 O2 Sat by Pulse Oximetry 96 06/13/18 13:02 Oxygen Delivery Oxygen Delivery Room Air - Lab Data Result diagrams: 06/13/18 12:03 06/13/18 12:03 Lab Results 06/13/18 06/13/18 06/13/18 Range/Units 12:03 12:03 12:03 WBC 17.4 H (4.3-11.1) K/mcL RBC 4.43 (4.19-5.50) M/mcL Hgb 14.0 (12.9-16.9) g/dL Hct 42.1 (37.5-50.1) % MCV 95.0 (83.0-100.0) fL MCH 31.6 (28.0-33.3) pg MCHC 33.3 (31.6-35.5) g/dL RDW 12.9 (11.5-14.5) % Plt Count 283 (140-400) K/mcL MPV 9.2 L (9.4-12.4) fL Immature Gran % 0.7 (0-4) % Seg Neutrophils % 75.3 % Lymphocytes % 13.9 % Monocytes % 8.6 % Eosinophils % 1.0 % Basophils % 0.5 % Neutrophils # 13.1 H (1.6-8.9) K/mcL Lymphocytes # 2.4 (0.6-4.6) K/mcL Monocytes # 1.5 H (0.0-1.3) K/mcL Eosinophils # 0.2 (0.0-0.6) K/mcL Basophils # 0.1 (0.0-0.2) K/mcL Immature Plt Fraction 3.0 (1.1-6.1) % Sodium 139 (136-145) mEq/L Potassium 4.6 (3.5-5.1) mEq/L Chloride 104 (98-107) mEq/L Carbon Dioxide 25 (23-29) mEq/L BUN 14 (8-23) mg/dL Creatinine 1.32 H (0.70-1.30) mg/dL Est GFR ( Amer) > 60 (> 60) Est GFR (Non-Af Amer) 54 L (> 60) BUN/Creatinine Ratio 11 (6-26) Glucose 66 L (70-105) mg/dL Calculated Osmolality 287 (280-300) Lactic Acid 2.9 H (0.5-2.2) mmol/L Calcium 9.4 (8.6-10.3) mg/dL Troponin I < 0.03 (< 0.04) ng/mL B-Natriuretic Peptide (Less than 100) pg/mL 06/13/18 Range/Units 12:03 WBC (4.3-11.1) K/mcL RBC (4.19-5.50) M/mcL Hgb (12.9-16.9) g/dL Hct (37.5-50.1) % MCV (83.0-100.0) fL MCH (28.0-33.3) pg MCHC (31.6-35.5) g/dL RDW (11.5-14.5) % Plt Count (140-400) K/mcL MPV (9.4-12.4) fL Immature Gran % (0-4) % Seg Neutrophils % % Lymphocytes % % Monocytes % % Eosinophils % % Basophils % % Neutrophils # (1.6-8.9) K/mcL Lymphocytes # (0.6-4.6) K/mcL Monocytes # (0.0-1.3) K/mcL Eosinophils # (0.0-0.6) K/mcL Basophils # (0.0-0.2) K/mcL Immature Plt Fraction (1.1-6.1) % Sodium (136-145) mEq/L Potassium (3.5-5.1) mEq/L Chloride (98-107) mEq/L Carbon Dioxide (23-29) mEq/L BUN (8-23) mg/dL Creatinine (0.70-1.30) mg/dL Est GFR ( Amer) (> 60) Est GFR (Non-Af Amer) (> 60) BUN/Creatinine Ratio (6-26) Glucose (70-105) mg/dL Calculated Osmolality (280-300) Lactic Acid (0.5-2.2) mmol/L Calcium (8.6-10.3) mg/dL Troponin I (< 0.04) ng/mL B-Natriuretic Peptide 43 (Less than 100) pg/mL - EKG Data EKG #1 EKG attestation: Yes I reviewed and interpreted this EKG. EKG results narrative: 11:55 Heart rate 101 bpm, RI interval 135 ms, QRS duration 89 ms, QT 341 ms, normal axis. Sinus tachycardia with a ventricular rate of 101 bpm. No changes from previous EKG. Attestation Statement - Attestation Attestation: I, Anthony Hernandez DO, examined this patient [id number] and my medical decision-making was reviewed with Dr. Jimmy Velez, Resident Physician. I agree with the documented findings, disposition and treatment plan as described except to the extent set forth below. Please see my progress notes for details.
[2018-06-13] MEDS ORDERED: *HR* LORazepam 2 MG/ML VIAL IVP ONE (12:13)
[2018-06-13] MEDS ORDERED: 0.9 % Sodium Chloride 1,000 ML IVC ONE (12:14)
[2018-06-13 12:15] LABS: Basophils # 0.1 K/mcL (0.0-0.2); Basophils % 0.5 %; Eosinophils # 0.2 K/mcL (0.0-0.6); Hematocrit 42.1 % (37.5-50.1); Immature Granulocytes % 0.7 % (0-4); Lymphocytes # 2.4 K/mcL (0.6-4.6); Lymphocytes % 13.9 %; Mean Corpuscular HGB Conc 33.3 g/dL (31.6-35.5); Mean Corpuscular Hemoglobin 31.6 pg (28.0-33.3); Mean Platelet Volume 9.2 fL (9.4-12.4); Monocytes # 1.5 K/mcL (0.0-1.3); Monocytes % 8.6 %; Neutrophils # 13.1 K/mcL (1.6-8.9); Platelet Count 283 K/mcL (140-400); Red Blood Count 4.43 M/mcL (4.19-5.50); Red Cell Distribution Width 12.9 % (11.5-14.5); Segmented Neutrophils % 75.3 %
[2018-06-13 12:36] LABS: BUN/Creatinine Ratio 11 (6-26); Blood Urea Nitrogen 14 mg/dL (8-23); Calcium 9.4 mg/dL (8.6-10.3); Carbon Dioxide 25 mEq/L (23-29); Chloride 104 mEq/L (98-107); Glucose 66 mg/dL (70-105); Osmolality,Calculated 287 (280-300); Potassium 4.6 mEq/L (3.5-5.1); Sodium 139 mEq/L (136-145); Troponin I < 0.03 ng/mL (< 0.04); eGFR For Non-African Americans 54 (> 60)
[2018-06-13] MEDS ORDERED: Levofloxacin 750 MG/150 ML 750 MG/150 ML BAG IVPB ONE (12:37)
[2018-06-13] MEDS ORDERED: Isovue-370 500 ML INFUS..BTL IV ONE (12:41)
--- NOTE | 2018-06-13 13:05 | Emergency Department Note ---
Disposition Clinical Impression: Community acquired pneumonia, Acute exacerbation of chronic obstructive airways disease, SOB (shortness of breath) Disposition: Admitted As Inpatient Condition: Fair Referrals: Naresh Webb MD [Primary Care Provider] - Forms: ED Satisfaction Letter Time of Disposition: 14:13 General Adult HPI - General Chief complaint: ED Shortness of Breath/Dyspnea Stated complaint: VLADIMIR Time Seen by Provider: 06/13/18 11:49 Source: patient Limitations: no limitations - History of Present Illness Pain Scale: 9 - Related Data Home Medications Medication Instructions Recorded Confirmed Albuterol Sulfate [Albuterol 2 puff IH Q6HR PRN 04/08/15 10/10/17 Inhaler] Simvastatin [Zocor] 40 mg PO HS 04/08/15 10/10/17 BuPROPion SR (12 HR) [Wellbutrin 150 mg PO BID 07/01/16 10/10/17 SR] Aspirin Enteric Coated [Aspirin EC] 325 mg PO DAILY 11/10/16 10/10/17 Furosemide [Lasix] 40 mg PO DAILY 11/10/16 10/10/17 Potassium Chloride [K-Tab ER] 20 meq PO DAILY 11/10/16 10/10/17 Loratadine [Claritin] 10 mg PO DAILY 07/16/17 10/10/17 Meloxicam [Mobic] 15 mg PO DAILY 07/16/17 10/10/17 Cyclobenzaprine [Flexeril] 10 mg PO TID PRN 09/10/17 10/10/17 Omeprazole [PriLOSEC] 20 mg PO DAILY 09/10/17 10/10/17 Previous Rx's Medication Instructions Recorded Oxycodone HCl 15 mg PO QID PRN #30 tablet 11/14/16 levoFLOXacin [Levaquin] 750 mg PO DAILY #5 tablet 10/12/17 predniSONE [PredniSONE] 40 mg PO DAILY #10 tablet 10/12/17 Allergies Allergy/AdvReac Type Severity Reaction Status Date / Time duloxetine [From Cymbalta] Allergy Hives Verified 06/13/18 11:44 morphine Allergy See Verified 06/13/18 11:44 Comments diphenhydramine AdvReac Dizziness Verified 06/13/18 11:44 [From Benadryl] gabapentin AdvReac Confusion Verified 06/13/18 11:44 Oxycodone [From OxyContin] AdvReac Itching Verified 06/13/18 11:44 tapentadol [From Nucynta] AdvReac Weakness Verified 06/13/18 11:44 Constitutional: Denies: fever Cardiovascular: Reports: chest pain Respiratory: Reports: cough, dyspnea, wheezes, sputum production Gastrointestinal: Denies: nausea, vomiting Genitourinary: Denies: dysuria Musculoskeletal: Denies: back pain Past Medical History - Past Medical History Medical history: Reports: asthma, COPD, hyperlipidemia, hypertension, other Surgical history: Reports: orthopedic, other Psychiatric history: Reports: depression - Social History Smoking Status: Current some day smoker Smokeless Tobacco Status: No Alcohol use: Reports: occasionally Drug use: Reports: none Physical Exam - General Limitations: no limitations General appearance: alert, anxious, in distress (Respiratory) Course Vital Signs Temperature 98.5 F 06/13/18 11:41 Pulse Rate 113 06/13/18 11:41 Respiratory Rate 25 06/13/18 11:41 O2 Sat by Pulse Oximetry 94 06/13/18 11:41 Temperature 98.5 F 06/13/18 12:07 Pulse Rate 113 06/13/18 12:07 Respiratory Rate 19 06/13/18 13:02 Blood Pressure 137/105 06/13/18 12:07 O2 Sat by Pulse Oximetry 96 06/13/18 13:02 Oxygen Delivery Oxygen Delivery Room Air Medical Decision Making - Lab Data Result diagrams: 06/13/18 12:03 06/13/18 12:03 Lab Results 06/13/18 06/13/18 06/13/18 Range/Units 12:03 12:03 12:03 WBC 17.4 H (4.3-11.1) K/mcL RBC 4.43 (4.19-5.50) M/mcL Hgb 14.0 (12.9-16.9) g/dL Hct 42.1 (37.5-50.1) % MCV 95.0 (83.0-100.0) fL MCH 31.6 (28.0-33.3) pg MCHC 33.3 (31.6-35.5) g/dL RDW 12.9 (11.5-14.5) % Plt Count 283 (140-400) K/mcL MPV 9.2 L (9.4-12.4) fL Immature Gran % 0.7 (0-4) % Seg Neutrophils % 75.3 % Lymphocytes % 13.9 % Monocytes % 8.6 % Eosinophils % 1.0 % Basophils % 0.5 % Neutrophils # 13.1 H (1.6-8.9) K/mcL Lymphocytes # 2.4 (0.6-4.6) K/mcL Monocytes # 1.5 H (0.0-1.3) K/mcL Eosinophils # 0.2 (0.0-0.6) K/mcL Basophils # 0.1 (0.0-0.2) K/mcL Immature Plt Fraction 3.0 (1.1-6.1) % Sodium 139 (136-145) mEq/L Potassium 4.6 (3.5-5.1) mEq/L Chloride 104 (98-107) mEq/L Carbon Dioxide 25 (23-29) mEq/L BUN 14 (8-23) mg/dL Creatinine 1.32 H (0.70-1.30) mg/dL Est GFR ( Amer) > 60 (> 60) Est GFR (Non-Af Amer) 54 L (> 60) BUN/Creatinine Ratio 11 (6-26) Glucose 66 L (70-105) mg/dL Calculated Osmolality 287 (280-300) Lactic Acid 2.9 H (0.5-2.2) mmol/L Calcium 9.4 (8.6-10.3) mg/dL Troponin I < 0.03 (< 0.04) ng/mL B-Natriuretic Peptide (Less than 100) pg/mL 06/13/18 Range/Units 12:03 WBC (4.3-11.1) K/mcL RBC (4.19-5.50) M/mcL Hgb (12.9-16.9) g/dL Hct (37.5-50.1) % MCV (83.0-100.0) fL MCH (28.0-33.3) pg MCHC (31.6-35.5) g/dL RDW (11.5-14.5) % Plt Count (140-400) K/mcL MPV (9.4-12.4) fL Immature Gran % (0-4) % Seg Neutrophils % % Lymphocytes % % Monocytes % % Eosinophils % % Basophils % % Neutrophils # (1.6-8.9) K/mcL Lymphocytes # (0.6-4.6) K/mcL Monocytes # (0.0-1.3) K/mcL Eosinophils # (0.0-0.6) K/mcL Basophils # (0.0-0.2) K/mcL Immature Plt Fraction (1.1-6.1) % Sodium (136-145) mEq/L Potassium (3.5-5.1) mEq/L Chloride (98-107) mEq/L Carbon Dioxide (23-29) mEq/L BUN (8-23) mg/dL Creatinine (0.70-1.30) mg/dL Est GFR ( Amer) (> 60) Est GFR (Non-Af Amer) (> 60) BUN/Creatinine Ratio (6-26) Glucose (70-105) mg/dL Calculated Osmolality (280-300) Lactic Acid (0.5-2.2) mmol/L Calcium (8.6-10.3) mg/dL Troponin I (< 0.04) ng/mL B-Natriuretic Peptide 43 (Less than 100) pg/mL Attestation Statement - Attestation Attestation: I, Anthony Hernandez DO, examined this patient [id number] and my medical decision-making was reviewed with Dr. Jimmy Velez, Resident Physician. I agree with the documented findings, disposition and treatment plan as described except to the extent set forth below. Please see my progress notes for details. 68-year-old male presents to the emergency room with significant increased work of breathing shortness of breath. He does have a history of COPD exacerbation. On initial triage she was sweating diaphoretic and very uncomfortable. He denied any chest pain fevers chills nausea vomiting or diarrhea. No headache no vision change. He has not started any new medications. He has not traveled outside the country. He denies any falls trauma or injury. On physical exam his lungs are significantly diminished with very little air movement bilaterally. He is using accessory muscles and point very hard to get air in and out. His vital signs show a tachycardia as pulse ox has remained to be stable initially. She does not use oxygen at home typically based on the description the presentation but he is concerning at this point for COPD flareup and possible infectious etiology. His physical exam otherwise is unremarkable except for the long evaluation his abdomen is soft nontender nondistended is no pitting edema swelling or irritation to the extremities. Neurologically is completely intact. EKG CBC chemistry troponin and BNP chest x -ray will be added on at this point. Breathing treatments and steroids will be started then disposition will be determined. Patient otherwise clinical stable but does require further intervention at this time for symptomatically control. See detailed documentation of the physical exam, medical intervention, medical decision-making disposition the resident physician's note. [address] angiography confirms right middle lobe pneumonia. Patient's breathing symptoms have responded appropriately to the being treatments as well as BiPAP. Patient is much less labored at this time the room. He will be admitted for COPD exacerbation with pneumonia. Antibiotics blood cultures and lactic acid have been ordered. The hospitalist Dr. Santiago reviewed the case and no other recommendations or concerns at this time. Patient is otherwise currently stable feeling much better after the symptomatic control has been established.
[2018-06-13] MEDS ORDERED: methylPREDNISolone 125 MG/2 ML VIAL IVP ONE (14:21)
[2018-06-13] MEDS ORDERED: Bisacodyl 10 MG RECTAL SUPPOSITORY RC PRN (14:21)
[2018-06-13] MEDS: Levalbuterol Neb 0.63 MG/3 ML IH SCH ×2 (15:50→20:44)
[2018-06-13] MEDS: Ipratropium Neb 0.5 MG NEBULIZER IH SCH ×2 (15:50→20:44)
[2018-06-13] MEDS ORDERED: MethylPREDNISolone 40 MG/ML VIAL IVP SCH (16:00)
[2018-06-13] MEDS: cefTRIAXone 2,000 MG in Water for inj. (sterile) 20 ML 20 ML IVP SCH (16:14)
[2018-06-13] MEDS ORDERED: Acetaminophen 325 MG TABLET PO PRN (16:48)
[2018-06-13] MEDS ORDERED: Naloxone 0.4 MG/ML INJ IVP PRN (16:48)
--- NOTE | 2018-06-13 17:16 | Internal Med History&Physical ---
<Margarita Walton - Last Filed: 06/13/18 17:45> Date of Encounter: 06/13/18 Time of Encounter: 17:06 Internal Medicine - H&P: HPI Chief complaint: SOB Admitted From: Emergency Dept Plans for Post Hospital Care: Home History of present illness: Mr. Jackson is a 68 year old male past medical history of COPD hyperlipidemia hypertension presented with increased shortness of breath. According to records upon presentation to the ER the patient was diaphoretic with no chest pain nausea vomiting he was in respiratory distress with accessory muscle use tachycardic. He was placed on BiPAP chest x-ray was obtained which did not show any acute process CT A confirms right middle lobe pneumonia. CBC with elevated white count 17 chemistry show MADYSON. He was given IV fluids with almost IV Solu-Medrol and breathing treatments blood cultures have been drawn as well as Legionella and strep pneumonia respiratory infectious panel Currently patient appears to be in mild respiratory distress. He has difficulty answering questions due to conversational dyspnea he is requiring BiPAP sats 96- mild accessory muscle use lung sounds are diminished throughout. He has been admitted for further workup and management of pneumonia/COPD exacerbation Past Med Surg Social Fam HX - Past Medical History Medical history: asthma, COPD, hyperlipidemia, hypertension, other Additional medical history: RLS Psychiatric history: depression - Past Surgical History Surgical History: orthopedic, other Additional surgical history: neck surgery - Social History Smoking Status: Current some day smoker Packs per day: 0.5 Smokeless Tobacco Status: No Alcohol use: occasionally Drug use: none - Family History Mother Living Status: Age at : 54 Cause of : SURGICAL COMPLICATIONS Hx Family Cardiac Disorders: Yes Hx Family Respiratory Disorders: Yes Hx Family Cancer: No Hx Family Endocrine Disorder: Yes Hx Family Medical Disorders: Yes Father Living Status: Hx Family Cardiac Disorders: Yes Hx Family Respiratory Disorders: Yes Hx Family Endocrine Disorder: Yes Internal Medicine - H&P: Meds BuPROPion SR (12 HR) [Wellbutrin SR] 150 mg PO BID 07/01/16 [History] Aspirin Enteric Coated [Aspirin EC] 325 mg PO DAILY 11/10/16 [History] Furosemide [Lasix] 40 mg PO DAILY 11/10/16 [History] Potassium Chloride [K-Tab ER] 20 meq PO DAILY 11/10/16 [History] Loratadine [Claritin] 10 mg PO DAILY 07/16/17 [History] Meloxicam [Mobic] 15 mg PO DAILY 07/16/17 [History] Cyclobenzaprine [Flexeril] 10 mg PO TID 09/10/17 [History] Omeprazole [PriLOSEC] 20 mg PO DAILY 09/10/17 [History] Albuterol Neb [Proventil Neb] 2.5 mg IH TID 06/13/18 [History] Albuterol Sulfate [Ventolin Hfa] 2 puff IH Q6H PRN 06/13/18 [History] Oxycodone HCl 15 mg PO QID 06/13/18 [History] Simvastatin [Zocor] 40 mg PO DAILY 06/13/18 [History] Tizanidine HCl [Zanaflex] 4 mg PO TID 06/13/18 [History] 3 Allergy/AdvReac Type Severity Reaction Status Date / Time duloxetine [From Cymbalta] Allergy Hives Verified 06/13/18 11:44 morphine Allergy See Verified 06/13/18 11:44 Comments diphenhydramine AdvReac Dizziness Verified 06/13/18 11:44 [From Benadryl] gabapentin AdvReac Confusion Verified 06/13/18 11:44 Oxycodone [From OxyContin] AdvReac Itching Verified 06/13/18 11:44 tapentadol [From Nucynta] AdvReac Weakness Verified 06/13/18 11:44 All Systems PM: A 10-system review of systems was performed and is negative for pertinent findings except as documented above in the HPI. - Constitutional Constitutional: no chills, no fever(s), no night sweats - EENT Eyes: no change in vision, no discharge, no pain, no photophobia Ears: no ear discharge, no ear pain, no tinnitus Nose, mouth and throat: no dysphagia, no nasal discharge, no neck pain, no sore throat - Cardiovascular Cardiovascular ROS IM: no chest pain, no diaphoresis, no dyspnea, no lightheadedness, no palpitations, no syncope - Respiratory Respiratory: cough, dyspnea - Gastrointestinal Gastrointestinal: no abdominal pain, no diarrhea, no hematemesis, no hematochezia, no melena, no nausea, no vomiting - Musculoskeletal Musculoskeletal ROS IM: no numbness, no tingling - Integumentary Integumentary IM: no rash, no unusual bruising - Neurological Neurological ROS: no confusion, no convulsions, no focal weakness, no numbness, no tingling, no tremor(s) - Hematologic/Lymphatic Hematologic/Lymphatic: no easy bruising - Constitutional Vitals: Temp Pulse Resp BP Pulse Ox 98.5 F 85 20 156/92 94 06/13/18 12:07 06/13/18 16:06 06/13/18 16:06 06/13/18 16:06 06/13/18 16:06 General appearance: Present: A&O X 3 Exam: See below - Head Head exam: Present: atraumatic, normocephalic - Eye Eye exam: Present: PERRL, conjuntiva pink, sclera anicteric Pupils: Present: PERRL - Neck Neck exam general surgery: Present: supple, trachea midline. Absent: lymphadenopathy - Respiratory Respiratory exam: Present: decreased breath sounds. Absent: accessory muscle use, rales, rhonchi, wheezes - Cardiovascular Cardiovascular exam: Present: RRR, +S1, +S2. Absent: diastolic murmur, gallop, rubs, systolic murmur - GI/Abdominal GI/Abdominal exam: Present: normal bowel sounds, soft, no peritoneal signs. Absent: distended, tenderness - Extremities Exam Extremities exam: Present: warm, radial pulses palpable and symmetrical. Absent : calf tenderness, cyanotic, pedal edema - Neurological Exam Neurological exam: Present: CN II-XII intact, oriented X3, no focal deficits. Absent: pronater drift, facial droop, speech deficit - Skin Skin exam: Present: dry, intact Internal Med - H&P Results - Labs CBC & Chem 7: 06/13/18 12:03 06/13/18 12:03 - Diagnostic Studies Other Images Additional comments: Chest X-Ray 06/13/18 11:55 IMPRESSION: No acute process. D/ / Will Rico MD / Will Rico MD Interpreting Provider: Will Rico MD Chest CTA 06/13/18 12:41 IMPRESSION: No evidence of pulmonary embolism. Multifocal airspace disease predominantly in the right middle lobe but also in the right lower lobe and left lower lobe suggesting multifocal pneumonia. Ground-glass nodules in the right lower lobe likely representing infectious/inflammatory nodules related to the multifocal pneumonia. Recommend follow-up to resolution. D/ / 06/13/2018 14:05:19 Will Rico MD / cam Interpreting Provider: Will Rico MD - Assessment and plan (1) Respiratory failure, [id number] Current Visit: Yes Status: Acute Assessment and plan: 1 patient presented with respiratory distress utilizing accessory muscles oxygen saturations 94% on room -requiring BiPAP support most likely secondary to pneumonia as well as COPD exacerbation. We will continue with BiPAP and titrate oxygen to maintain SPO2 greater than 90% Qualifiers: Respiratory failure complication: unspecified whether with hypoxia or hypercapnia Qualified Code(s): J96.20 - Acute and chronic respiratory failure , unspecified whether with hypoxia or hypercapnia (2) Acute exacerbation of chronic obstructive airways disease Current Visit: Yes Status: Acute Assessment and plan: 1 history of COPD continue with oxygen currently on BiPAP titrated to maintain SPO2 greater than 90% Continue with Solu-Medrol 60 mg every 8 Continue with Rocephin IV Continue with bronchodilators Continuous pulse ox as well as cardiac monitoring (3) Multifocal pneumonia Current Visit: Yes Status: Acute Assessment and plan: Patient has been experiencing diaphoresis shortness of breath and cough. Chest x-ray with no acute process CT A shows multifocal airspace disease predominantly in the right middle lobe but also in the right lower lobe and left lower lobes suggesting multifocal pneumonia. Cultures have been obtained will obtain sputum culture Legionella as well as strep pneumoniae antigen Respiratory panel Continue with oxygen titrated maintain SaO2 greater than 88 presently on BiPAP Continue with Rocephin Continue with breathing treatments Continue steroids Patient states that he has recently received his influenza and pneumonia shot in May (4) SIRS (systemic inflammatory response syndrome) Current Visit: Yes Status: Acute Assessment and plan: 1 patient is made to criteria answers heart rate greater than 19 white count greater than 12,000. Blood cultures have been obtained and was given IV fluids in the ER will obtain sputum culture Continuous cardiac monitoring Continue antibiotics Rocephin Monitor intake and output (5) MADYSON (acute kidney injury) Current Visit: Yes Status: Acute Assessment and plan: 1 creatinine 1.3 to presentation appears his baseline is around 1-GFR 54 on presentation greater than 60 mL baseline. Suspect related to infectious process as well as decreased oral intake-and Lasix patient was given IV fluid in the ER. We will avoid nephrotoxins monitor intake and output daily weights (6) HTN (hypertension) Current Visit: Yes Status: Acute Assessment and plan: History of hypertension currently holding Lasix due to MADYSON -we will monitor blood pressure hydralazine as needed Qualifiers: Hypertension type: essential hypertension Qualified Code(s): I10 - Essential (primary) hypertension (7) DVT prophylaxis Current Visit: Yes Status: Acute Assessment and plan: Heparin subcutaneous - Time Spent With Patient Total time spent is greater than 50% in coordination of care (as documented) at patient's floor/unit and/or counseling patient: <Stefania Andrew - Last Filed: 06/14/18 08:27> Date of Encounter: 06/14/18 Internal Medicine - H&P: HPI History of present illness: Mr. Jackson is a 68 year old male All Systems PM: A 10-system review of systems was performed and is negative for pertinent findings except as documented above in the HPI. - Constitutional Vitals: Temp Pulse Resp BP Pulse Ox 97.5 F L 102 18 143/68 98 06/14/18 06:59 06/14/18 06:59 06/14/18 07:46 06/14/18 06:59 06/14/18 07:46 Internal Med - H&P Results - Labs CBC & Chem 7: 06/14/18 05:12 06/14/18 05:12 Labs: Short CBC 06/14/18 Range/Units 05:12 WBC 11.2 H (4.3-11.1) K/mcL Hgb 12.8 L (12.9-16.9) g/dL Hct 38.4 (37.5-50.1) % Plt Count 237 (140-400) K/mcL Neutrophils # 10.0 H (1.6-8.9) K/mcL BMP 06/14/18 05:12 Sodium 137 Potassium 4.6 Chloride 106 Carbon Dioxide 25 BUN 17 Creatinine 1.19 Glucose 145 H Calcium 9.3 - Assessment and plan (1) Acute exacerbation of chronic obstructive airways disease Current Visit: Yes Status: Acute (2) Multifocal pneumonia Current Visit: Yes Status: Acute (3) Respiratory failure, [id number] Current Visit: Yes Status: Acute Qualifiers: Respiratory failure complication: unspecified whether with hypoxia or hypercapnia Qualified Code(s): J96.20 - Acute and chronic respiratory failure , unspecified whether with hypoxia or hypercapnia (4) SIRS (systemic inflammatory response syndrome) Current Visit: Yes Status: Acute (5) MADYSON (acute kidney injury) Current Visit: Yes Status: Acute (6) HTN (hypertension) Current Visit: Yes Status: Acute Qualifiers: Hypertension type: essential hypertension Qualified Code(s): I10 - Essential (primary) hypertension (7) DVT prophylaxis Current Visit: Yes Status: Acute - Time Spent With Patient Total time spent is greater than 50% in coordination of care (as documented) at patient's floor/unit and/or counseling patient: - Attending Attestation I have personally performed a face to face evaluation on this patient. I have reviewed and agree with the care plan. History and Exam by me shows: 68-year-old male with history of COPD and tobacco use presented to the emergency department with complaint of shortness of breath. As per patient and at bedside he is recently quit smoking 2 days prior to presentation to the emergency department. He reports that his shortness of breath is accompanied by cough with productive sputum, denies any blood. He does report history of blood clot before post surgery in the 90s. He was treated with steroids, BiPAP and antibiotics while in the ED with significant improvement in his respiratory status. CT angiogram of the chest performed in the ED was negative for PE but did show evidence of pneumonia Vital signs reviewed, blood pressure stable, tachypneic respiratory rate is 22, rate 90 Saturating 96% on BiPAP General: Patient is alert, oriented, mild distress, speaks in 4 word sentences Head: atraumatic, normocephalic, Eye: normal appearance, PERRL, no scleral icterus, no conjunctival injection ENT: mucous membranes moist, normal external ear exam Neck: normal inspection, trachea midline, full ROM, no carotid bruits Chest: normal inspection, symmetric chest rise Respiratory: Tachypneic, respiratory rate 22, decreased breath sounds in the posterior lung álvarez with diffuse wheezing in the anterior chest Cardiovascular: Regular rate and rhythm s1 and s2 No clicks, rubs, gallops, or murmors. Abdomen: Bowel sounds present normoactive x-4 quadrants. Abdomen is soft, ve distended. no Epigastric tenderness. No guarding or rebound. No organomegaly noted, obese musculoskeletal: Spontaneously moving all extremities. no edema, no calf tenderness Skin: warm, dry, intact. Neuro: Alert and oriented x4. Sensation light touch intact. Cranial nerves 2- 12 is intact. Not aphasic, no focal deficit Psych: Patient's affect is normal CTPA: IMPRESSION: No evidence of pulmonary embolism. Multifocal airspace disease predominantly in the right middle lobe but also in the right lower lobe and left lower lobe suggesting multifocal pneumonia. Ground-glass nodules in the right lower lobe likely representing infectious/inflammatory nodules related to the multifocal pneumonia. Recommend follow-up to resolution. A/P Acute on chronic respiratory failure with hypoxia secondary to multifocal pneumonia Sepsis secondary to above, heart rate greater than 90 and white count greater than 12,000 Ruled out pulmonary embolism History of tobacco use, quit 2 days prior to presentation Legionella as well as strep pneumoniae antigen Respiratory panel Continue with oxygen titrated maintain SaO2 greater than 88 presently on BiPAP Received Levaquin in the ED add ceftriaxone Will give Solu-Medrol 125 mg once as he still wheezing and received oral steroids in the ED Started on Solu-Medrol 40 mg every 8 hours Continue breathing treatments was counseled extensively on smoking cessation rest of the management as documented by Margarita Walton CNP.
[2018-06-13] MEDS: *HR* OxyCODONE Immed Rel 15 MG TABLET PO SCH ×2 (19:01→21:40)
[2018-06-13] MEDS: *HR* Heparin 5,000 UNIT/ML VIAL SQ SCH (19:02)
[2018-06-13 20:17] LABS: Adenovirus Not Detected (Not Detect); Bordetella Pertussis Not Detected (Not Detect); Chlamydophila pneumoniae Not Detected (Not Detect); Coronavirus 229E Not Detected (Not Detect); Coronavirus HKU1 Not Detected (Not Detect); Coronavirus NL63 Not Detected (Not Detect); Coronavirus OC43 Not Detected (Not Detect); Human Metapneumovirus Not Detected (Not Detect); Human Rhinovirus/Enterovirus Not Detected (Not Detect); Influenza A Subtype 2009 H1 Not Detected (Not Detect); Influenza A Untypeable Not Detected (Not Detect); Influenza B Not Detected (Not Detect); Mycoplasma pneumoniae Not Detected (Not Detect); Parainfluenza Virus 1 Not Detected (Not Detect); Parainfluenza Virus 2 Not Detected (Not Detect); Parainfluenza Virus 3 Not Detected (Not Detect); Parainfluenza Virus 4 Not Detected (Not Detect); Respiratory Syncytial Virus Not Detected (Not Detect)
[2018-06-13] MEDS: Ipratropium/Albuterol Neb 3 ML IH SCH (21:02)
[2018-06-13] MEDS: tiZANidine 4 MG TABLET PO SCH (21:39)
[2018-06-13] MEDS: BuPROPion SR (12 HR) 150 MG TABLET PO SCH (21:39)
[2018-06-14] MEDS: Levalbuterol Neb 0.63 MG/3 ML IH SCH ×7 (00:03→23:45)
[2018-06-14] MEDS: Ipratropium Neb 0.5 MG NEBULIZER IH SCH ×7 (00:03→23:45)
[2018-06-14] MEDS: Ipratropium/Albuterol Neb 3 ML IH SCH ×2 (00:04→04:01)
[2018-06-14] MEDS: MethylPREDNISolone 40 MG/ML VIAL IVP SCH ×3 (00:40→16:49)
[2018-06-14 05:27] LABS: Basophils % 0.1 %; Hematocrit 38.4 % (37.5-50.1); Hemoglobin 12.8 g/dL (12.9-16.9); Immature Granulocytes % 0.6 % (0-4); Lymphocytes # 0.9 K/mcL (0.6-4.6); Lymphocytes % 7.9 %; Mean Corpuscular HGB Conc 33.3 g/dL (31.6-35.5); Mean Corpuscular Hemoglobin 31.8 pg (28.0-33.3); Mean Corpuscular Volume 95.3 fL (83.0-100.0); Mean Platelet Volume 9.5 fL (9.4-12.4); Monocytes # 0.3 K/mcL (0.0-1.3); Monocytes % 2.5 %; Platelet Count 237 K/mcL (140-400); Red Blood Count 4.03 M/mcL (4.19-5.50); Red Cell Distribution Width 12.9 % (11.5-14.5); Segmented Neutrophils % 88.9 %
[2018-06-14 05:47] LABS: BUN/Creatinine Ratio 14 (6-26); Blood Urea Nitrogen 17 mg/dL (8-23); Calcium 9.3 mg/dL (8.6-10.3); Carbon Dioxide 25 mEq/L (23-29); Chloride 106 mEq/L (98-107); Glucose 145 mg/dL (70-105); Magnesium 2.4 mg/dL (1.6-2.6); Osmolality,Calculated 288 (280-300); Potassium 4.6 mEq/L (3.5-5.1); Sodium 137 mEq/L (136-145); eGFR For Non-African Americans > 60 (> 60)
[2018-06-14] MEDS: *HR* Heparin 5,000 UNIT/ML VIAL SQ SCH ×2 (05:48→16:48)
[2018-06-14] MEDS: BuPROPion SR (12 HR) 150 MG TABLET PO SCH ×2 (09:33→21:06)
[2018-06-14] MEDS: Aspirin Enteric Coated 325 MG Tablet PO SCH (09:34)
[2018-06-14] MEDS: Loratadine 10 MG TABLET PO SCH (09:34)
[2018-06-14] MEDS: tiZANidine 4 MG TABLET PO SCH ×3 (09:34→21:06)
[2018-06-14] MEDS: *HR* OxyCODONE Immed Rel 15 MG TABLET PO SCH ×4 (09:34→21:06)
--- NOTE | 2018-06-14 10:08 | Internal Med Progress Note ---
Hospitalist Progress Note - Encounter Date of Encounter: 06/14/18 Time of Encounter: 10:08 - Subjective Interval History: Patient seen and examined at bedside. He is off BiPAP and is requiring nasal cannula at high flow Continues to experience some conversational dyspnea however does not appear to be using accessory muscles. He feels that his breathing has improved some, is at bedside states that his color is much better - Exam Vitals: Temp Pulse Resp BP Pulse Ox 97.5 F L 102 18 143/68 98 06/14/18 06:59 06/14/18 06:59 06/14/18 07:46 06/14/18 06:59 06/14/18 07:46 Exam: Gen. appearance alert and oriented 3 pleasant and cooperative Head exam atraumatic and normocephalic Eyes exam PERRLA conjunctiva are pink sclerae anicteric Neck supple trachea midline no lymphadenopathy Respiratory diminished breath sounds clear no accessory muscle use rales rhonchi or wheezes he does have conversational dyspnea Cardiovascular regular rate and rhythm S1-S2 no murmurs rubs or clicks gallops noted GI/abdominal normal bowel sounds soft no peritoneal signs no distention or tenderness Extremities exam extremities are warm radial pulses palpable and symmetrical no calf tenderness no cyanosis no pedal edema Neurological exam cranial nerves II through XII are intact oriented 3 following simple commands noted focal deficits no pronator drift no facial droop no speech deficits Skin dry and intact no open wounds - Assessment and Plan (1) Respiratory failure, [id number] Current Visit: Yes Status: Acute Assessment and Plan: 1 patient presented with respiratory distress utilizing accessory muscles oxygen saturations 94% on room -requiring BiPAP support most likely secondary to pneumonia as well as COPD exacerbation. We will continue with BiPAP and titrate oxygen to maintain SPO2 greater than 90% 06/14 This is multifactorial secondary to pneumonia/ COPD exacerbation Does not appear to be in any respiratory distress he does experience some conversational dyspnea he is on 4 L oxygen nasal cannula. Lungs sounds clear diminished. Continue to titrate oxygen maintaining SPO2 greater than 90%. Patient does not require oxygen at home however he may need a 6 minute walk test to see if he qualifies for home oxygen prior to discharge Continue with bronchodilators Continue Solu-Medrol will attempt to titrate down tomorrow (2) Acute exacerbation of chronic obstructive airways disease Current Visit: Yes Status: Acute Assessment and Plan: 1 history of COPD continue with oxygen currently on BiPAP titrated to maintain SPO2 greater than 90% Continue with Solu-Medrol 60 mg every 8 Continue with Rocephin IV Continue with bronchodilators Continuous pulse ox as well as cardiac monitoring 06/14 Does not appear to be in any respiratory distress he does experience some conversational dyspnea he is on 4 L flow oxygen nasal cannula. Lungs sounds clear diminished. Continue to titrate oxygen maintaining SPO2 greater than 90% . Patient does not require oxygen at home however he may need a 6 minute walk test to see if he qualifies for home oxygen prior to discharge Continue with bronchodilators Continue Solu-Medrol 60 mg every 8 will attempt to titrate down tomorrow Continuous pulse ox Continue with Rocephin IV Respiratory panel negative (3) Multifocal pneumonia Current Visit: Yes Status: Acute Assessment and Plan: Patient has been experiencing diaphoresis shortness of breath and cough. Chest x-ray with no acute process CT A shows multifocal airspace disease predominantly in the right middle lobe but also in the right lower lobe and left lower lobes suggesting multifocal pneumonia. Cultures have been obtained will obtain sputum culture Legionella as well as strep pneumoniae antigen Respiratory panel Continue with oxygen titrated maintain SaO2 greater than 88 presently on BiPAP Continue with Rocephin Continue with breathing treatments Continue steroids Patient states that he has recently received his influenza and pneumonia shot in May 10 Continue with bronchodilators Continue Solu-Medrol 60 mg every 8 will attempt to titrate down tomorrow Continuous pulse ox Continue with Rocephin IV Sputum culture sent awaiting results Blood cultures have been obtained (4) SIRS (systemic inflammatory response syndrome) Current Visit: Yes Status: Acute Assessment and Plan: 1 patient is made to criteria answers heart rate greater than 19 white count greater than 12,000. Blood cultures have been obtained and was given IV fluids in the ER will obtain sputum culture Continuous cardiac monitoring Continue antibiotics Rocephin Monitor intake and output 06/14 White count is trending down continue with antibiotics Rocephin He is a tachycardic will give IV fluid 0.9 normal saline 1 L monitor Monitor intake and output Continues chronic monitoring (5) MADYSON (acute kidney injury) Current Visit: Yes Status: Acute Assessment and Plan: 1 creatinine 1.3 to presentation appears his baseline is around 1-GFR 54 on presentation greater than 60 mL baseline. Suspect related to infectious process as well as decreased oral intake-and Lasix patient was given IV fluid in the ER. We will avoid nephrotoxins monitor intake and output daily weights 06/14 Improved he is back to baseline continue to hold Lasix for now We will give 1 L IV fluid Monitor intake and output daily weights (6) HTN (hypertension) Current Visit: Yes Status: Acute Assessment and Plan: History of hypertension currently holding Lasix due to MADYSON -we will monitor blood pressure hydralazine as needed 06/14 Systolic 120s to 150s diastolics 60s to 70s will continue to monitor O Lasix for now hydralazine as needed (7) DVT prophylaxis Current Visit: Yes Status: Acute Assessment and Plan: Heparin subcutaneous - Time Spent with Patient Total time spent is greater than 50% in coordination of care (as documented) at patient's floor/unit and/or counseling patient: Internal Medicine: Result - Labs CBC & Chem 7: 06/14/18 05:12 06/14/18 05:12 Labs: Short CBC 06/14/18 Range/Units 05:12 WBC 11.2 H (4.3-11.1) K/mcL Hgb 12.8 L (12.9-16.9) g/dL Hct 38.4 (37.5-50.1) % Plt Count 237 (140-400) K/mcL Neutrophils # 10.0 H (1.6-8.9) K/mcL BMP 06/14/18 05:12 Sodium 137 Potassium 4.6 Chloride 106 Carbon Dioxide 25 BUN 17 Creatinine 1.19 Glucose 145 H Calcium 9.3 Consult Discharge Plan - Plan Referrals: Naresh Webb MD [Primary Care Provider] - (1) Respiratory failure, [id number] Qualifiers: Respiratory failure complication: unspecified whether with hypoxia or hypercapnia Qualified Code(s): J96.20 - Acute and chronic respiratory failure, unspecified whether with hypoxia or hypercapnia (6) HTN (hypertension) Qualifiers: Hypertension type: essential hypertension Qualified Code(s): I10 - Essential (primary) hypertension
[2018-06-14] MEDS ORDERED: Menthol 9.1 MG LOZENGE PO PRN (11:02)
--- NOTE | 2018-06-14 11:16 | Electrocardiograph Report ---
[place] [id number] Test Date: 2018-06-13 Pat Name: Kervin Jackson Department: EXAM7 Room: 2NE33 Gender: M Vp Respiratory: : 1950 Requested By: Jimmy Velez Order Number: [id number] Reading MD: Nyla Bui Measurements Intervals Lando Rate: 101 P: 76 GA: 135 QRS: 8 QRSD: 89 T: 79 QT: 341 QTc: 442 Interpretive Statements Sinus tachycardia Anteroseptal infarct, age indeterminate Electronically Signed On 06-14-2018 11:14:54 EDT by Nyla Bui
[2018-06-14] MEDS: cefTRIAXone 2,000 MG in Water for inj. (sterile) 20 ML 20 ML IVP SCH (14:57)
[2018-06-15] MEDS: MethylPREDNISolone 40 MG/ML VIAL IVP SCH ×3 (00:03→18:32)
[2018-06-15] MEDS: Levalbuterol Neb 0.63 MG/3 ML IH SCH ×6 (04:00→23:59)
[2018-06-15] MEDS: Ipratropium Neb 0.5 MG NEBULIZER IH SCH ×6 (04:00→23:59)
[2018-06-15 04:52] LABS: Basophils % 0.1 %; Hematocrit 37.4 % (37.5-50.1); Hemoglobin 12.5 g/dL (12.9-16.9); Immature Granulocytes % 1.2 % (0-4); Lymphocytes % 5.7 %; Mean Corpuscular HGB Conc 33.4 g/dL (31.6-35.5); Mean Corpuscular Hemoglobin 32.4 pg (28.0-33.3); Mean Corpuscular Volume 96.9 fL (83.0-100.0); Mean Platelet Volume 9.5 fL (9.4-12.4); Monocytes # 0.5 K/mcL (0.0-1.3); Monocytes % 3.2 %; Neutrophils # 15.2 K/mcL (1.6-8.9); Platelet Count 265 K/mcL (140-400); Red Blood Count 3.86 M/mcL (4.19-5.50); Red Cell Distribution Width 13.2 % (11.5-14.5); Segmented Neutrophils % 89.8 %
[2018-06-15 05:08] LABS: BUN/Creatinine Ratio 22 (6-26); Blood Urea Nitrogen 28 mg/dL (8-23); Calcium 8.9 mg/dL (8.6-10.3); Carbon Dioxide 22 mEq/L (23-29); Chloride 105 mEq/L (98-107); Glucose 179 mg/dL (70-105); Osmolality,Calculated 294 (280-300); Potassium 4.1 mEq/L (3.5-5.1); Sodium 137 mEq/L (136-145); eGFR For Non-African Americans 58 (> 60)
[2018-06-15] MEDS: *HR* Heparin 5,000 UNIT/ML VIAL SQ SCH ×2 (05:40→18:32)
--- NOTE | 2018-06-15 09:14 | Internal Med Progress Note ---
<Danelle Patel - Last Filed: 06/15/18 12:45> Hospitalist Progress Note - Encounter Date of Encounter: 06/15/18 - Exam Vitals: Temp Pulse Resp BP Pulse Ox 97.7 F 96 17 155/73 95 06/15/18 10:20 06/15/18 10:20 06/15/18 10:20 06/15/18 10:20 06/15/18 10:20 - Assessment and Plan (1) Acute exacerbation of chronic obstructive airways disease Current Visit: Yes Status: Acute (2) Multifocal pneumonia Current Visit: Yes Status: Acute (3) Respiratory failure, [id number] Current Visit: Yes Status: Acute (4) SIRS (systemic inflammatory response syndrome) Current Visit: Yes Status: Acute (5) MADYSON (acute kidney injury) Current Visit: Yes Status: Acute (6) HTN (hypertension) Current Visit: Yes Status: Acute (7) DVT prophylaxis Current Visit: Yes Status: Acute - Time Spent with Patient Total time spent is greater than 50% in coordination of care (as documented) at patient's floor/unit and/or counseling patient: Internal Medicine: Result - Labs CBC & Chem 7: 06/15/18 04:30 06/15/18 04:30 Labs: Short CBC 06/15/18 Range/Units 04:30 WBC 16.9 H D (4.3-11.1) K/mcL Hgb 12.5 L (12.9-16.9) g/dL Hct 37.4 L (37.5-50.1) % Plt Count 265 (140-400) K/mcL Neutrophils # 15.2 H (1.6-8.9) K/mcL BMP 06/15/18 04:30 Sodium 137 Potassium 4.1 Chloride 105 Carbon Dioxide 22 L BUN 28 H Creatinine 1.25 Glucose 179 H Calcium 8.9 Consult Discharge Plan - Plan Referrals: Naresh Webb MD [Primary Care Provider] - 06/21/18 3:30 pm - Attending Attestation I examined this patient and my medical decision-making was reviewed with the Resident Physician Dr Almanzar. I agree with the documented findings, disposition and treatment plan as described except to the extent set forth below/addl details below. Mr Jackson was admitted with multifocal pna identified on CTA chest and acute resp failure as evidenced by need for O2 without home use. He has addl hx copd and htn. Awake, alert, cont to feel sob with any exertion on o2 nc. + chest tightness with coughing episodes. sometimes dry hacking coughing fits, sometimes green sputum. Denies fevers or chills. Feels like work of breathing has improved by small amount today. gen- alert, awake,appears stated age eyes- pupils equal round cv- reg rate and rhythm, normal s1,s2, no murmurs appreciated, no le edema, no jvd lungs- ctabl, no wheezing, rhonchi or crackles but diminsihed throughout all lung álvarez, no accessory muscle use currently, normal resp effort on o2 nc abd- soft, non tender, non distended, + bs neuro- AAOx3 H&P notes acute on chronic resp failure, as pt is not on O2 at home this diagnosis is changed to Acute REsp FAilure. Acute Resp Failure 2/2 Pna + COPD Exacerbation bipap prn, treatment as below -may require 6 min walk prior to dc to assess for home o2 need Multifocal Pna as identified on CTA chest COPD EXacerbation CTA shows multifocal airspace disease predominantly in the right middle lobe but also in the right lower lobe and left lower lobes suggesting multifocal pneumonia -broaden abx to rocphein + azithro, cont IV steroids q 8h, nebs prn and standing -sputum cx with gpc, rvp neg, legionella/strep neg MADYSON, resolved with IVF and holding of home lasix 40 mg po daily HTN, no home meds documented, BP variable thus far this admission -currently 110s-150s sbp/60-70s -cont to monitor -prn hydralazine -will require outpt fu for further management upon dc <Medina Almanzar - Last Filed: 06/15/18 16:55> Hospitalist Progress Note - Encounter Date of Encounter: 06/15/18 Time of Encounter: 09:00 - Subjective Interval History: Patient seen and examined. No acute events overnight. Patient is sitting comfortably in bed. Patient states he feels so-so. States that hes having hard time bringing up mucus. States cough is worse. Admits some shortness of breath. Complains of constant lightheadedness for past few days. Denies falling. Denies diplopia. States he hasnt made bowel movement in 3 days. Denies chest pain. Denies abdominal pain. Denies nausea/vomiting. Denies swelling. - Exam Vitals: Temp Pulse Resp BP Pulse Ox 97.3 F L 93 17 122/70 96 06/14/18 21:06 06/15/18 06:58 06/15/18 06:58 06/15/18 06:58 06/15/18 06:58 Exam: General: Normal body habitus. Alert and oriented x3. No acute distress. Head: atraumatic, normocephalic. Eye: pupils equal and round. Sclera anicteric. EOMI. Mouth: oral mucosa moist. Normal oropharynx. Neck: supple. Trachea midline. Lungs: CTAB. Decreased breath sounds. No rhonchi, rales, or wheezing. Moderate respiratory distress with accessory muscle use after bout of coughing. Cardiovascular: Normal S1 & S2. No rubs or gallops. No JVD. Pulse regular. Abdomen: Normal bowel sounds. Nontender. No guarding, no rigidity, no rebound. Extremities: No joint swelling, edema, or clubbing. Nontender. Skin: warm, dry, and intact. - Assessment and Plan (1) Respiratory failure, [id number] Current Visit: Yes Status: Acute Assessment and Plan: Patient presented with respiratory distress utilizing accessory muscles. Oxygen saturations 94% on room air. Required BiPAP support. History of COPD, not on home oxygen. Likely secondary to pneumonia as well as COPD exacerbation. On 3L oxygen nasal cannula. Continue to titrate as tolerated. Patient does not require oxygen at home however he may need a 6 minute walk test to see if he qualifies for home oxygen prior to discharge. Continuous pulse ox as well as cardiac monitoring Continue bronchodilators. Continue IV steroids. (2) Acute exacerbation of chronic obstructive airways disease Current Visit: Yes Status: Acute Assessment and Plan: History of COPD, not on home oxygen. See above. (3) Multifocal pneumonia Current Visit: Yes Status: Acute Assessment and Plan: Patient has been experiencing diaphoresis, shortness of breath, and cough. Patient states that he has recently received his influenza and pneumonia shot in May. Legionella and Strep pneumonia antigens were negative. Respiratory panel was negative. Blood cultures drawn 06/13 x2 sets are NGTD. Sputum gram stain showed many gram positive cocci. Sputum culture is NGTD. CXR was negative. CTA showed multifocal airspace disease predominantly in the right middle lobe but also in the right lower lobe and left lower lobes suggesting multifocal pneumonia. No PE. On 3L oxygen nasal cannula. Titrate down as tolerated to maintain SaO2 greater than 88. Continue with breathing treatments. Continue steroids. Day 3 of Rocephin. Start azithromycin. (4) SIRS (systemic inflammatory response syndrome) Current Visit: Yes Status: Resolved Assessment and Plan: Met 3 SIRS criteria with tachycardia, tachypnea and leukocytosis. Source: multifocal pneumonia. Blood cultures drawn 06/13 x2 sets are NGTD. Sputum gram stain showed many gram positive cocci. Sputum culture is NGTD. Resolved. Continuous cardiac monitoring. Continue antibiotics as above. Monitor intake and output. (5) MADYSON (acute kidney injury) Current Visit: Yes Status: Resolved Assessment and Plan: On admission, creatinine elevated at 1.32. Suspect related to infectious process, decreased oral intake, and Lasix. Patient was given IV fluids. Resolved. Avoid nephrotoxins. Monitor intake and output. Daily weights. (6) HTN (hypertension) Current Visit: Yes Status: Chronic Assessment and Plan: History of hypertension. Holding Lasix due to MADYSON. Monitor blood pressure. Hydralazine as needed. (7) DVT prophylaxis Current Visit: Yes Status: Acute Assessment and Plan: Heparin subcutaneous - Time Spent with Patient Total time spent is greater than 50% in coordination of care (as documented) at patient's floor/unit and/or counseling patient: Internal Medicine: Result - Labs CBC & Chem 7: 06/15/18 04:30 06/15/18 04:30 Labs: Short CBC 06/15/18 Range/Units 04:30 WBC 16.9 H D (4.3-11.1) K/mcL Hgb 12.5 L (12.9-16.9) g/dL Hct 37.4 L (37.5-50.1) % Plt Count 265 (140-400) K/mcL Neutrophils # 15.2 H (1.6-8.9) K/mcL BMP 06/15/18 04:30 Sodium 137 Potassium 4.1 Chloride 105 Carbon Dioxide 22 L BUN 28 H Creatinine 1.25 Glucose 179 H Calcium 8.9 <Danelle Patel - Last Filed: 06/15/18 12:45> (3) Respiratory failure, [id number] Qualifiers: Respiratory failure complication: unspecified whether with hypoxia or hypercapnia Qualified Code(s): J96.20 - Acute and chronic respiratory failure, unspecified whether with hypoxia or hypercapnia (6) HTN (hypertension) Qualifiers: Hypertension type: essential hypertension Qualified Code(s): I10 - Essential (primary) hypertension <Medina Almanzar - Last Filed: 06/15/18 16:55> (1) Respiratory failure, [id number] Qualifiers: Respiratory failure complication: unspecified whether with hypoxia or hypercapnia Qualified Code(s): J96.20 - Acute and chronic respiratory failure, unspecified whether with hypoxia or hypercapnia (6) HTN (hypertension) Qualifiers: Hypertension type: essential hypertension Qualified Code(s): I10 - Essential (primary) hypertension
[2018-06-15] MEDS: Loratadine 10 MG TABLET PO SCH (09:57)
[2018-06-15] MEDS: BuPROPion SR (12 HR) 150 MG TABLET PO SCH ×2 (09:57→21:40)
[2018-06-15] MEDS: Aspirin Enteric Coated 325 MG Tablet PO SCH (09:57)
[2018-06-15] MEDS: tiZANidine 4 MG TABLET PO SCH ×3 (09:57→21:40)
[2018-06-15] MEDS: *HR* OxyCODONE Immed Rel 15 MG TABLET PO SCH ×4 (10:14→21:40)
[2018-06-15] MEDS ORDERED: Albuterol 2.5 MG/3 ML NEBULIZER IH PRN (11:50)
[2018-06-15] MEDS ORDERED: Azithromycin 500 MG in D5% in Water 250 ML IVPB ONE (12:56)
[2018-06-15] MEDS: cefTRIAXone 2,000 MG in Water for inj. (sterile) 20 ML 20 ML IVP SCH (14:08)
[2018-06-16] MEDS: MethylPREDNISolone 40 MG/ML VIAL IVP SCH ×3 (00:11→15:49)
[2018-06-16] MEDS: Ipratropium Neb 0.5 MG NEBULIZER IH SCH ×6 (04:14→23:44)
[2018-06-16] MEDS: Levalbuterol Neb 0.63 MG/3 ML IH SCH ×6 (04:14→23:44)
[2018-06-16 04:22] LABS: Basophils % 0.2 %; Hematocrit 36.6 % (37.5-50.1); Hemoglobin 12.3 g/dL (12.9-16.9); Immature Granulocytes % 2.8 % (0-4); Lymphocytes # 0.8 K/mcL (0.6-4.6); Lymphocytes % 5.2 %; Mean Corpuscular HGB Conc 33.6 g/dL (31.6-35.5); Mean Corpuscular Hemoglobin 32.3 pg (28.0-33.3); Mean Corpuscular Volume 96.1 fL (83.0-100.0); Mean Platelet Volume 9.5 fL (9.4-12.4); Monocytes # 0.6 K/mcL (0.0-1.3); Monocytes % 3.9 %; Neutrophils # 12.9 K/mcL (1.6-8.9); Platelet Count 279 K/mcL (140-400); Red Blood Count 3.81 M/mcL (4.19-5.50); Red Cell Distribution Width 13.3 % (11.5-14.5); Segmented Neutrophils % 87.9 %
[2018-06-16 04:41] LABS: BUN/Creatinine Ratio 28 (6-26); Blood Urea Nitrogen 26 mg/dL (8-23); Calcium 9.2 mg/dL (8.6-10.3); Carbon Dioxide 26 mEq/L (23-29); Chloride 106 mEq/L (98-107); Glucose 163 mg/dL (70-105); Osmolality,Calculated 300 (280-300); Potassium 4.4 mEq/L (3.5-5.1); Sodium 141 mEq/L (136-145); eGFR For Non-African Americans > 60 (> 60)
[2018-06-16] MEDS: *HR* Heparin 5,000 UNIT/ML VIAL SQ SCH ×2 (06:18→17:31)
--- NOTE | 2018-06-16 08:45 | Internal Med Progress Note ---
<Danelle Patel - Last Filed: 06/16/18 10:25> Hospitalist Progress Note - Encounter Date of Encounter: 06/16/18 - Exam Vitals: Temp Pulse Resp BP Pulse Ox 97.7 F 97 19 158/90 96 06/16/18 07:26 06/16/18 07:26 06/16/18 07:26 06/16/18 07:26 06/16/18 07:26 - Assessment and Plan (1) Acute exacerbation of chronic obstructive airways disease Current Visit: Yes Status: Acute (2) Multifocal pneumonia Current Visit: Yes Status: Acute (3) Respiratory failure, [id number] Current Visit: Yes Status: Acute (4) SIRS (systemic inflammatory response syndrome) Current Visit: Yes Status: Resolved (5) MADYSON (acute kidney injury) Current Visit: Yes Status: Resolved (6) HTN (hypertension) Current Visit: Yes Status: Chronic (7) DVT prophylaxis Current Visit: Yes Status: Acute - Time Spent with Patient Total time spent is greater than 50% in coordination of care (as documented) at patient's floor/unit and/or counseling patient: Internal Medicine: Result - Labs CBC & Chem 7: 06/16/18 04:01 06/16/18 04:01 Labs: Short CBC 06/16/18 Range/Units 04:01 WBC 14.7 H (4.3-11.1) K/mcL Hgb 12.3 L (12.9-16.9) g/dL Hct 36.6 L (37.5-50.1) % Plt Count 279 (140-400) K/mcL Neutrophils # 12.9 H (1.6-8.9) K/mcL BMP 06/16/18 04:01 Sodium 141 Potassium 4.4 Chloride 106 Carbon Dioxide 26 BUN 26 H Creatinine 0.92 Glucose 163 H Calcium 9.2 Consult Discharge Plan - Plan Referrals: Naresh Webb MD [Primary Care Provider] - 06/21/18 3:30 pm - Attending Attestation I examined this patient and my medical decision-making was reviewed with the Resident Physician Dr Almanzar. I agree with the documented findings, disposition and treatment plan as described except to the extent set forth below/addl details below. Mr Jackson was admitted with multifocal pna identified on CTA chest and acute resp failure as evidenced by need for O2 without home use. He has addl hx copd and htn. O2 requirement decreasing to now 2.5-3L NC, wbc now downtrending, afebrile. Awake, alert, sob is improving. Easier to take breaths in. cont with dry hacking cough, + wheezing. denies fevers, chills, le edema, orthopnea, nausea or emesis. gen- alert, awake,appears stated age cv- reg rate and rhythm, normal s1,s2, no murmurs appreciated, no le edema lungs- ctabl, no wheezing, rhonchi or crackles but diminsihed throughout posterior álvarez, improved aeration anterior álvarez, no accessory muscle use currently, normal resp effort on o2 nc abd- soft, non tender, non distended, + bs neuro- AAOx3 Acute Resp Failure 2/2 Pna + COPD Exacerbation bipap prn, treatment as below -may require 6 min walk prior to dc to assess for home o2 need Multifocal Pna as identified on CTA chest COPD EXacerbation CTA shows multifocal airspace disease predominantly in the right middle lobe but also in the right lower lobe and left lower lobes suggesting multifocal pneumonia -rocphein + azithro, cont IV steroids nebs prn and standing -sputum cx with gpc, rvp neg, legionella/strep neg MADYSON, resolved with IVF and holding of home lasix 40 mg po daily HTN,only on lasix for bp at home, BP variable thus far this admission no hx of CHF -currently 150s/80-90s -cont to monitor -prn hydralazine -will require outpt fu for further management upon dc -will monitor for consistently high bps and add antihypertensive as needed <Medina Almanzar - Last Filed: 06/16/18 11:46> Hospitalist Progress Note - Encounter Date of Encounter: 06/16/18 Time of Encounter: 08:30 - Subjective Interval History: Patient seen and examined. No acute events overnight. Patient is sitting comfortably in bed with family at bedside. Patient states he feels ok. States his breathing is better. States cough is unchanged and still having hard time bringing up mucus. Denies any other complaints. Denies chest pain. Denies abdominal pain. Denies nausea/vomiting. Denies swelling. - Exam Vitals: Temp Pulse Resp BP Pulse Ox 97.7 F 97 19 158/90 96 06/16/18 07:26 06/16/18 07:26 06/16/18 07:26 06/16/18 07:26 06/16/18 07:26 Exam: General: Normal body habitus. Alert and oriented x3. No acute distress. Head: atraumatic, normocephalic. Eye: pupils equal and round. Sclera anicteric. EOMI. Mouth: oral mucosa moist. Normal oropharynx. Neck: supple. Trachea midline. Lungs: CTAB. No rhonchi, rales, or wheezing. No respiratory distress. Dry cough. Cardiovascular: Normal S1 & S2. No rubs or gallops. No JVD. Pulse regular. Abdomen: Normal bowel sounds. Nontender. No guarding, no rigidity, no rebound. Extremities: No joint swelling, edema, or clubbing. Nontender. Skin: warm, dry, and intact. - Assessment and Plan (1) Respiratory failure, [id number] Current Visit: Yes Status: Acute Assessment and Plan: Patient presented with respiratory distress utilizing accessory muscles. Oxygen saturations 94% on room air. Required BiPAP support. History of COPD, not on home oxygen. Likely secondary to pneumonia as well as COPD exacerbation. Improving. Down to 2.5L oxygen nasal cannula. Continue to titrate as tolerated. Patient does not require oxygen at home however he may need a 6 minute walk test to see if he qualifies for home oxygen prior to discharge. Continuous pulse ox as well as cardiac monitoring Continue bronchodilators. Continue IV steroids. Will titrate down today from 60mg q8h to 40mg q8h. (2) Acute exacerbation of chronic obstructive airways disease Current Visit: Yes Status: Acute Assessment and Plan: History of COPD, not on home oxygen. See above. (3) Multifocal pneumonia Current Visit: Yes Status: Acute Assessment and Plan: Patient has been experiencing diaphoresis, shortness of breath, and cough. Patient states that he has recently received his influenza and pneumonia shot in May. Legionella and Strep pneumonia antigens were negative. Respiratory panel was negative. Blood cultures drawn 06/13 x2 sets are NGTD. Sputum culture showed normal respiratory merry. CXR was negative. CTA showed multifocal airspace disease predominantly in the right middle lobe but also in the right lower lobe and left lower lobes suggesting multifocal pneumonia. No PE. Down to 2.5L oxygen nasal cannula. Titrate down as tolerated to maintain SaO2 greater than 88. Continue with breathing treatments. Continue steroids. Day 4 of Rocephin. Day 2 of azithromycin. (4) SIRS (systemic inflammatory response syndrome) Current Visit: Yes Status: Resolved Assessment and Plan: Met 3 SIRS criteria with tachycardia, tachypnea and leukocytosis. Source: multifocal pneumonia. Blood cultures drawn 06/13 x2 sets are NGTD. Sputum culture showed normal respiratory merry. Resolved. Continuous cardiac monitoring. Continue antibiotics as above. Monitor intake and output. (5) MADYSON (acute kidney injury) Current Visit: Yes Status: Resolved Assessment and Plan: On admission, creatinine elevated at 1.32. Suspect related to infectious process, decreased oral intake, and Lasix. Patient was given IV fluids. Resolved. Avoid nephrotoxins. Monitor intake and output. Daily weights. (6) HTN (hypertension) Current Visit: Yes Status: Chronic Assessment and Plan: History of hypertension. Held Lasix due to MADYSON. Resume Lasix as MADYSON is resolved. Monitor blood pressure. Hydralazine as needed. (7) DVT prophylaxis Current Visit: Yes Status: Acute Assessment and Plan: Heparin subcutaneous - Time Spent with Patient Total time spent is greater than 50% in coordination of care (as documented) at patient's floor/unit and/or counseling patient: Internal Medicine: Result - Labs CBC & Chem 7: 06/16/18 04:01 06/16/18 04:01 Labs: Short CBC 06/16/18 Range/Units 04:01 WBC 14.7 H (4.3-11.1) K/mcL Hgb 12.3 L (12.9-16.9) g/dL Hct 36.6 L (37.5-50.1) % Plt Count 279 (140-400) K/mcL Neutrophils # 12.9 H (1.6-8.9) K/mcL BMP 06/16/18 04:01 Sodium 141 Potassium 4.4 Chloride 106 Carbon Dioxide 26 BUN 26 H Creatinine 0.92 Glucose 163 H Calcium 9.2 <Danelle Patel - Last Filed: 06/16/18 10:25> (3) Respiratory failure, [id number] Qualifiers: Respiratory failure complication: unspecified whether with hypoxia or hypercapnia Qualified Code(s): J96.20 - Acute and chronic respiratory failure, unspecified whether with hypoxia or hypercapnia (6) HTN (hypertension) Qualifiers: Hypertension type: essential hypertension Qualified Code(s): I10 - Essential (primary) hypertension <Medina Almanzar - Last Filed: 06/16/18 11:46> (1) Respiratory failure, [id number] Qualifiers: Respiratory failure complication: unspecified whether with hypoxia or hypercapnia Qualified Code(s): J96.20 - Acute and chronic respiratory failure, unspecified whether with hypoxia or hypercapnia (6) HTN (hypertension) Qualifiers: Hypertension type: essential hypertension Qualified Code(s): I10 - Essential (primary) hypertension
[2018-06-16] MEDS: *HR* OxyCODONE Immed Rel 15 MG TABLET PO SCH ×4 (09:11→20:41)
[2018-06-16] MEDS: Loratadine 10 MG TABLET PO SCH (09:11)
[2018-06-16] MEDS: BuPROPion SR (12 HR) 150 MG TABLET PO SCH ×2 (09:12→20:41)
[2018-06-16] MEDS: tiZANidine 4 MG TABLET PO SCH ×3 (09:12→20:41)
[2018-06-16] MEDS: Aspirin Enteric Coated 325 MG Tablet PO SCH (09:12)
[2018-06-16] MEDS: Furosemide 40 MG TABLET PO SCH (12:22)
[2018-06-16] MEDS ORDERED: Azithromycin 250 MG in D5% in Water 250 ML IVPB SCH (13:00)
[2018-06-16] MEDS: Azithromycin 250 MG in D5% in Water 250 ML IVPB SCH (14:20)
[2018-06-16] MEDS: cefTRIAXone 2,000 MG in Water for inj. (sterile) 20 ML 20 ML IVP SCH (15:25)
[2018-06-17] MEDS: MethylPREDNISolone 40 MG/ML VIAL IVP SCH ×2 (00:08→16:47)
[2018-06-17] MEDS: *HR* Heparin 5,000 UNIT/ML VIAL SQ SCH ×2 (06:00→16:46)
[2018-06-17] MEDS: tiZANidine 4 MG TABLET PO SCH ×3 (09:10→20:08)
[2018-06-17] MEDS: *HR* OxyCODONE Immed Rel 15 MG TABLET PO SCH ×4 (09:10→20:08)
[2018-06-17] MEDS: Aspirin Enteric Coated 325 MG Tablet PO SCH (09:10)
[2018-06-17] MEDS: BuPROPion SR (12 HR) 150 MG TABLET PO SCH ×2 (09:10→20:08)
[2018-06-17] MEDS: Furosemide 40 MG TABLET PO SCH (09:10)
[2018-06-17] MEDS: Loratadine 10 MG TABLET PO SCH (09:10)
--- NOTE | 2018-06-17 12:06 | Internal Med Progress Note ---
<Medina Almanzar - Last Filed: 06/17/18 13:43> Hospitalist Progress Note - Encounter Date of Encounter: 06/17/18 Time of Encounter: 08:30 - Subjective Interval History: Patient seen and examined. No acute events overnight. Patient is sitting comfortably in bed. Patient states hes hoarse from coughing. States his breathing is better. States cough is better, but still having hard time bringing up mucus. Denies any other complaints. Denies chest pain. Denies abdominal pain. Denies nausea/vomiting. Denies swelling. - Exam Vitals: Temp Pulse Resp BP Pulse Ox 97.9 F 87 20 151/91 96 06/17/18 01:26 06/17/18 01:26 06/17/18 01:26 06/17/18 01:26 06/17/18 01:26 Exam: General: Normal body habitus. Alert and oriented x3. No acute distress. Head: atraumatic, normocephalic. Eye: pupils equal and round. Sclera anicteric. EOMI. Mouth: oral mucosa moist. Normal oropharynx. Neck: supple. Trachea midline. Lungs: CTAB. Decreased breath sounds. No rhonchi, rales, or wheezing. No respiratory distress. Dry cough. Cardiovascular: Normal S1 & S2. No rubs or gallops. No JVD. Pulse regular. Abdomen: Normal bowel sounds. Nontender. No guarding, no rigidity, no rebound. Extremities: No joint swelling, edema, or clubbing. Nontender. Skin: warm, dry, and intact. - Assessment and Plan (1) Acute exacerbation of chronic obstructive airways disease Current Visit: Yes Status: Acute Assessment and Plan: History of COPD, not on home oxygen. See above. (2) Multifocal pneumonia Current Visit: Yes Status: Acute Assessment and Plan: Patient has been experiencing diaphoresis, shortness of breath, and cough. Patient states that he has recently received his influenza and pneumonia shot in May. Legionella and Strep pneumonia antigens were negative. Respiratory panel was negative. Blood cultures drawn 06/13 x2 sets are NGTD. Sputum culture showed normal respiratory merry. CXR was negative. CTA showed multifocal airspace disease predominantly in the right middle lobe but also in the right lower lobe and left lower lobes suggesting multifocal pneumonia. No PE. Down to 2L oxygen nasal cannula. Titrate down as tolerated to maintain SaO2 greater than 88. Continue with breathing treatments. Continue steroids. Day 5 of Rocephin. Day 3 of azithromycin. (3) SIRS (systemic inflammatory response syndrome) Current Visit: Yes Status: Resolved Assessment and Plan: Met 3 SIRS criteria with tachycardia, tachypnea and leukocytosis. Source: multifocal pneumonia. Blood cultures drawn 06/13 x2 sets are NGTD. Sputum culture showed normal respiratory merry. Resolved. Continuous cardiac monitoring. Continue antibiotics as above. Monitor intake and output. (4) MADYSON (acute kidney injury) Current Visit: Yes Status: Resolved Assessment and Plan: On admission, creatinine elevated at 1.32. Suspect related to infectious process, decreased oral intake, and Lasix. Patient was given IV fluids. Resolved. Avoid nephrotoxins. Monitor intake and output. Daily weights. (5) HTN (hypertension) Current Visit: Yes Status: Chronic Assessment and Plan: History of hypertension. Held Lasix due to MADYSON. Resume Lasix as MADYSON is resolved. Monitor blood pressure. Hydralazine as needed. (6) DVT prophylaxis Current Visit: Yes Status: Acute Assessment and Plan: Heparin subcutaneous (7) Acute respiratory failure Current Visit: Yes Status: Acute Assessment and Plan: Patient presented with respiratory distress utilizing accessory muscles. Oxygen saturations 94% on room air. Required BiPAP support. History of COPD, not on home oxygen. Likely secondary to pneumonia as well as COPD exacerbation. Improving. Down to 2L oxygen nasal cannula. Continue to titrate as tolerated. Patient does not require oxygen at home however he may need a 6 minute walk test to see if he qualifies for home oxygen prior to discharge. Continuous pulse ox as well as cardiac monitoring Continue bronchodilators. Continue IV steroids. Will titrate down today from 40mg q8h to q12h. - Time Spent with Patient Total time spent is greater than 50% in coordination of care (as documented) at patient's floor/unit and/or counseling patient: Internal Medicine: Result - Labs CBC & Chem 7: 06/16/18 04:01 06/16/18 04:01 Consult Discharge Plan - Plan Referrals: Naresh Webb MD [Primary Care Provider] - 06/21/18 3:30 pm <Danelle Patel - Last Filed: 06/17/18 14:46> Hospitalist Progress Note - Exam Vitals: Temp Pulse Resp BP Pulse Ox 97.9 F 87 20 151/91 96 06/17/18 01:26 06/17/18 01:26 06/17/18 12:26 06/17/18 01:26 06/17/18 12:26 - Assessment and Plan (1) Acute exacerbation of chronic obstructive airways disease Current Visit: Yes Status: Acute (2) Multifocal pneumonia Current Visit: Yes Status: Acute (3) SIRS (systemic inflammatory response syndrome) Current Visit: Yes Status: Resolved (4) MADYSON (acute kidney injury) Current Visit: Yes Status: Resolved (5) HTN (hypertension) Current Visit: Yes Status: Chronic (6) DVT prophylaxis Current Visit: Yes Status: Acute (7) Acute respiratory failure Current Visit: Yes Status: Acute - Time Spent with Patient Total time spent is greater than 50% in coordination of care (as documented) at patient's floor/unit and/or counseling patient: Internal Medicine: Result - Labs CBC & Chem 7: 06/16/18 04:01 06/16/18 04:01 - Attending Attestation I examined this patient and my medical decision-making was reviewed with the Resident Physician Dr Almanzar. I agree with the documented findings, disposition and treatment plan as described except to the extent set forth below/addl details below. Mr Jackson was admitted with multifocal pna identified on CTA chest and acute resp failure as evidenced by need for O2 without home use. He has addl hx copd and htn. Awake, alert, sob is improving. cont with dry hacking cough, no sputum, improved wheezing. denies fevers, chills, le edema, orthopnea, nausea or emesis. gen- alert, awake,appears stated age cv- reg rate and rhythm, normal s1,s2, no murmurs appreciated, no le edema lungs- ctabl, no wheezing, rhonchi or crackles but diminsihed throughout all álvarez, inormal resp effort on o2 nc abd- soft, non tender, non distended, + bs neuro- AAOx3 Acute Resp Failure 2/2 Pna + COPD Exacerbation bipap prn, treatment as below -may require 6 min walk prior to dc to assess for home o2 need Multifocal Pna as identified on CTA chest COPD EXacerbation CTA shows multifocal airspace disease predominantly in the right middle lobe but also in the right lower lobe and left lower lobes suggesting multifocal pneumonia -rocphein + azithro, cont IV steroids nebs prn and standing -sputum cx with gpc, rvp neg, legionella/strep neg MADYSON, resolved with IVF and holding of home lasix 40 mg po daily HTN,only on lasix for bp at home, BP variable thus far this admission no hx of CHF -resume home lasix and cont prn hydralazine -will require outpt fu for further management upon dc -will monitor for consistently high bps and add antihypertensive as needed <Medina Almanzar - Last Filed: 06/17/18 13:43> (5) HTN (hypertension) Qualifiers: Hypertension type: essential hypertension Qualified Code(s): I10 - Essential (primary) hypertension <Danelle Patel - Last Filed: 06/17/18 14:46> (5) HTN (hypertension) Qualifiers: Hypertension type: essential hypertension Qualified Code(s): I10 - Essential (primary) hypertension
[2018-06-17] MEDS: Ipratropium Neb 0.5 MG NEBULIZER IH SCH ×6 (12:24→23:04)
[2018-06-17] MEDS: Levalbuterol Neb 0.63 MG/3 ML IH SCH ×6 (12:24→23:04)
[2018-06-17] MEDS ORDERED: Levalbuterol Neb 0.63 MG/3 ML IH ONE ×2 (13:55)
[2018-06-17] MEDS ORDERED: Furosemide 40 MG TABLET PO ONE (13:55)
[2018-06-17] MEDS ORDERED: Aspirin Enteric Coated 325 MG Tablet PO ONE (13:55)
[2018-06-17] MEDS ORDERED: *HR* OxyCODONE Immed Rel 15 MG TABLET PO ONE (13:55)
[2018-06-17] MEDS ORDERED: *HR* Heparin 5,000 UNIT/ML VIAL IVP ONE (13:55)
[2018-06-17] MEDS ORDERED: BuPROPion SR (12 HR) 150 MG TABLET PO ONE (13:55)
[2018-06-17] MEDS ORDERED: tiZANidine 4 MG TABLET PO ONE (13:55)
[2018-06-17] MEDS ORDERED: MethylPREDNISolone 40 MG/ML VIAL IVP ONE (13:55)
[2018-06-17] MEDS ORDERED: Ipratropium Neb 0.5 MG NEBULIZER IH ONE ×2 (13:55)
[2018-06-17] MEDS ORDERED: Loratadine 10 MG TABLET PO ONE (13:55)
[2018-06-17] MEDS: cefTRIAXone 2,000 MG in Water for inj. (sterile) 20 ML 20 ML IVP SCH (14:15)
[2018-06-17] MEDS: Azithromycin 250 MG in D5% in Water 250 ML IVPB SCH (14:28)
[2018-06-17 15:11] LABS: BUN/Creatinine Ratio 24 (6-26); Blood Urea Nitrogen 23 mg/dL (8-23); Carbon Dioxide 30 mEq/L (23-29); Chloride 100 mEq/L (98-107); Glucose 147 mg/dL (70-105); Osmolality,Calculated 288 (280-300); Potassium 4.5 mEq/L (3.5-5.1); Sodium 136 mEq/L (136-145); eGFR For Non-African Americans > 60 (> 60)
[2018-06-17 16:20] LABS: Basophils # 0.1 K/mcL (0.0-0.2); Basophils % 0.6 %; Hematocrit 37.8 % (37.5-50.1); Hemoglobin 12.7 g/dL (12.9-16.9); Immature Platelets 2.9 % (1.1-6.1); Lymphocytes # 1.7 K/mcL (0.6-4.6); Lymphocytes % 11.2 %; Mean Corpuscular HGB Conc 33.6 g/dL (31.6-35.5); Mean Corpuscular Hemoglobin 32.1 pg (28.0-33.3); Mean Corpuscular Volume 95.5 fL (83.0-100.0); Mean Platelet Volume 9.3 fL (9.4-12.4); Monocytes # 1.2 K/mcL (0.0-1.3); Monocytes % 8.2 %; Platelet Count 329 K/mcL (140-400); Red Blood Count 3.96 M/mcL (4.19-5.50); Red Cell Distribution Width 13.2 % (11.5-14.5)
[2018-06-17 17:28] LABS: Reactive Lymphocytes Present (Not Present)
[2018-06-18] MEDS: Ipratropium Neb 0.5 MG NEBULIZER IH SCH ×6 (03:35→22:53)
[2018-06-18] MEDS: Levalbuterol Neb 0.63 MG/3 ML IH SCH ×6 (03:35→22:53)
[2018-06-18 04:32] LABS: Hematocrit 39.2 % (37.5-50.1); Hemoglobin 13.2 g/dL (12.9-16.9); Mean Corpuscular HGB Conc 33.7 g/dL (31.6-35.5); Mean Corpuscular Volume 95.1 fL (83.0-100.0); Mean Platelet Volume 9.2 fL (9.4-12.4); Nucleated Red Blood Cells 0.1 /100 WBC (0); Platelet Count 301 K/mcL (140-400); Red Blood Count 4.12 M/mcL (4.19-5.50); Red Cell Distribution Width 13.2 % (11.5-14.5)
[2018-06-18 04:51] LABS: BUN/Creatinine Ratio 30 (6-26); Blood Urea Nitrogen 29 mg/dL (8-23); Calcium 8.9 mg/dL (8.6-10.3); Carbon Dioxide 29 mEq/L (23-29); Chloride 100 mEq/L (98-107); Glucose 125 mg/dL (70-105); Osmolality,Calculated 285 (280-300); Potassium 4.4 mEq/L (3.5-5.1); Sodium 134 mEq/L (136-145); eGFR For Non-African Americans > 60 (> 60)
[2018-06-18] MEDS: MethylPREDNISolone 40 MG/ML VIAL IVP SCH (05:13)
[2018-06-18] MEDS: *HR* Heparin 5,000 UNIT/ML VIAL SQ SCH ×2 (05:13→16:46)
[2018-06-18 06:14] LABS: Monocytes # 1.9 K/mcL (0.0-1.3); Neutrophils # 12.3 K/mcL (1.6-8.9); Platelet Estimate Normal (Normal)
[2018-06-18] MEDS: Aspirin Enteric Coated 325 MG Tablet PO SCH (08:53)
[2018-06-18] MEDS: tiZANidine 4 MG TABLET PO SCH ×3 (08:53→20:30)
[2018-06-18] MEDS: *HR* OxyCODONE Immed Rel 15 MG TABLET PO SCH ×4 (08:53→20:30)
[2018-06-18] MEDS: Loratadine 10 MG TABLET PO SCH (08:53)
[2018-06-18] MEDS: BuPROPion SR (12 HR) 150 MG TABLET PO SCH ×2 (08:53→20:30)
[2018-06-18] MEDS: hydroCHLOROthiazide 25 MG TABLET PO SCH (10:05)
--- NOTE | 2018-06-18 10:10 | Discharge Summary ---
<Danelle Patel - Last Filed: 06/19/18 12:44> - Discharge Diagnosis (1) Acute exacerbation of chronic obstructive airways disease Status: Acute (2) Multifocal pneumonia Status: Acute (3) SIRS (systemic inflammatory response syndrome) Status: Resolved (4) MADYSON (acute kidney injury) Status: Resolved (5) HTN (hypertension) Status: Chronic Qualifiers: Hypertension type: essential hypertension Qualified Code(s): I10 - Essential (primary) hypertension (6) DVT prophylaxis Status: Acute (7) Acute respiratory failure Status: Acute Hospital course: Mr. Jackson is a 68 year old male - Time Spent with Patient Total time spent providing and/or coordinating discharge services: - Discharge Medications Prescriptions: Albuterol Neb [Proventil Neb] 2.5 mg IH TID #300 ml hydroCHLOROthiazide [Hydrochlorothiazide] 12.5 mg PO DAILY #30 tablet levoFLOXacin [Levaquin] 750 mg PO DAILY #3 tablet predniSONE [PredniSONE] See Taper PO DAILY #37 tablet Home Medications: BuPROPion SR (12 HR) [Wellbutrin SR] 150 mg PO BID 07/01/16 [History] Aspirin Enteric Coated [Aspirin EC] 325 mg PO DAILY 11/10/16 [History] Loratadine [Claritin] 10 mg PO DAILY 07/16/17 [History] Meloxicam [Mobic] 15 mg PO DAILY 07/16/17 [History] Omeprazole [PriLOSEC] 20 mg PO DAILY 09/10/17 [History] Albuterol Sulfate [Ventolin Hfa] 2 puff IH Q6H PRN 06/13/18 [History] Oxycodone HCl 15 mg PO QID PRN 06/13/18 [History] Simvastatin [Zocor] 40 mg PO DAILY 06/13/18 [History] Tizanidine HCl [Zanaflex] 4 mg PO TID 06/13/18 [History] hydroCHLOROthiazide [Hydrochlorothiazide] 12.5 mg PO DAILY #30 tablet 06/18/18 [Rx] levoFLOXacin [Levaquin] 750 mg PO DAILY #3 tablet 06/18/18 [Rx] predniSONE [PredniSONE] See Taper PO DAILY #37 tablet 06/18/18 [Rx] Albuterol Neb [Proventil Neb] 2.5 mg IH TID #300 ml 06/19/18 [Rx] Allergies/Adverse Reactions: Allergy/AdvReac Type Severity Reaction Status Date / Time duloxetine [From Cymbalta] Allergy Hives Verified 06/13/18 11:44 morphine Allergy See Verified 06/13/18 11:44 Comments diphenhydramine AdvReac Dizziness Verified 06/13/18 11:44 [From Benadryl] gabapentin AdvReac Confusion Verified 06/13/18 11:44 Oxycodone [From OxyContin] AdvReac Itching Verified 06/13/18 11:44 tapentadol [From Nucynta] AdvReac Weakness Verified 06/13/18 11:44 Date of admission: 06/13/18 17:45 Primary care physician: Naresh Webb MD Consults: 06/13/18 16:03 Consult to Tube Man [CONS] Routine Reason for SW Consult: POSSIBLE NEED FOR HH ON D/C, POSSIBLE NEED FOR HOME O2 - Constitutional Vitals: Temp Pulse Resp BP Pulse Ox 97.9 F 83 16 161/85 94 06/19/18 07:49 06/19/18 07:49 06/19/18 11:42 06/19/18 07:49 06/19/18 11:42 - Patient Status Disposition: Home, Self-Care Condition: Good - Discharge Instructions Instructions: Chest Pain (DC), Chronic Obstructive Pulmonary Disease (DC), Chronic Hypertension (DC), Pneumonia (DC), Cigarette Smoking and Your Health, [employer] Project [employer] (GEN) Follow Up With: Naresh Webb MD [Primary Care Provider] - 06/21/18 3:30 pm - Attending Attestation I examined this patient and my medical decision-making was reviewed with the Resident Physician Dr Almanzar. I agree with the documented findings, disposition and treatment plan as described except to the extent set forth below/addl details below. Mr Jackson was admitted with multifocal pna identified on CTA chest and acute resp failure as evidenced by need for O2 without home use. He has addl hx copd and htn. He has progressed to baseline with iv abx, breathing treatments and steroids. Awake, alert, on room air. he has no sob, wheezing, fevers or chills. He has cont cough, greatly improved. discussed dc plan to home nd answered all questions gen- alert, awake,appears stated age cv- reg rate and rhythm, normal s1,s2, no murmurs appreciated, no le edema lungs- ctabl, no wheezing, rhonchi or crackles, improved aeration throughout, , normal resp effort on room air neuro- AAOx3 Acute Resp Failure 2/2 Pna + COPD Exacerbation, resolved -did not meet qualification for home o2 Multifocal Pna as identified on CTA chest, improved COPD EXacerbation CTA shows multifocal airspace disease predominantly in the right middle lobe but also in the right lower lobe and left lower lobes suggesting multifocal pneumonia -rocphein + azithro inpt, complete course with levaquin po on dc, oral steroid taper on dc, cont home nebs HTN,only on lasix for bp at home, Bp not controlled with home lasix no hx of CHF -stopped lasix and began hctz this admit with good effect -will require outpt fu for further management upon dc Hx of intermittent night sweats at home- tsh wnl, afebrile here, pt will fu with pcp for further evaluation outpt <Medina Almanzar - Last Filed: 06/19/18 13:28> - NOTES TO OUTPATIENT PROVIDER Notes to Outpatient Provider: Discontinued lasix. Started HCTZ 12.5mg PO daily for elevated blood pressure. Please monitor. Orders not resulted at time of discharge: Pending orders 06/13/18 14:09 Culture,Blood [BC] Stat Date of Encounter: 06/19/18 Time of Encounter: 08:45 - Discharge Diagnosis (1) Acute respiratory failure Priority: Primary Status: Acute (2) Acute exacerbation of chronic obstructive airways disease Priority: Primary Status: Acute (3) Multifocal pneumonia Priority: Primary Status: Acute (4) SIRS (systemic inflammatory response syndrome) Priority: Primary Status: Resolved (5) MADYSON (acute kidney injury) Priority: Primary Status: Resolved (6) HTN (hypertension) Priority: Secondary Status: Chronic Qualifiers: Hypertension type: essential hypertension Qualified Code(s): I10 - Essential (primary) hypertension (7) DVT prophylaxis Priority: Secondary Status: Acute Hospital course: Mr. Jackson is a 68 year old male with past medical history of COPD not oxygen dependent, hyperlipidemia, hypertension. History of tobacco use, about 1 1/2 pack of cigarettes a day for more than 30 years. Quit 5 years ago after he was diagnosed with a DVT. He presented with increased shortness of breath. Patient was diaphoretic and tachycardic in respiratory distress with accessory muscle use. CBC with elevated white count of 17. Chemistry showed MADYSON. Lactic acid was elevated at 2.9. Trop and BNP were normal. Chest x-ray was obtained which did not show any acute process. CTA confirms multifocal pneumonia. He was admitted for further workup and management of pneumonia/COPD exacerbation. He was placed on BiPAP. He was given IV fluids with IV Solu-Medrol and breathing treatments. Blood cultures have been drawn, as well as Legionella and strep pneumonia, and respiratory infectious panel. All were negative. Sputum culture showed normal respiratory merry. Pneumonia was treated with rocephin and azithromycin. A repeat CXR showed atelectasis, no pneumonia. Symptoms are improved. No more difficulty breathing. Has been weaned down to room air. - Time Spent with Patient Total time spent providing and/or coordinating discharge services: Greater than 30 minutes (42 minutes) Date of admission: 06/13/18 17:45 Primary care physician: Naresh Webb MD Consults: 06/13/18 16:03 Consult to Tube Man [CONS] Routine Reason for SW Consult: POSSIBLE NEED FOR HH ON D/C, POSSIBLE NEED FOR HOME O2 Discharging clinician: Medina Almanzar Anticipated date of discharge: 06/19/18 - Constitutional Vitals: Temp Pulse Resp BP Pulse Ox 97.6 F 92 22 164/99 97 06/18/18 08:40 06/18/18 08:40 06/18/18 08:40 06/18/18 08:40 06/18/18 08:40 General appearance: Present: A&O X 3 Exam: General: Alert and oriented x3. No acute distress. Head: atraumatic, normocephalic. Eye: pupils equal and round. Sclera anicteric. EOMI. Mouth: oral mucosa moist. Normal oropharynx. Neck: supple. Trachea midline. Lungs: CTAB. No rhonchi, rales, or wheezing. No respiratory distress. Dry cough. Cardiovascular: Normal S1 & S2. No rubs or gallops. No JVD. Pulse regular. Abdomen: Normal bowel sounds. Diffusely tender to palpation. No guarding, no rigidity, no rebound. Extremities: No joint swelling, edema, or clubbing. Nontender. Skin: warm, dry, and intact. - Diet and Activity Activity: increase activity as tolerated Diet: low fat, low cholesterol, low salt diet Addendum entered and electronically signed by Danelle Patel DO 06/19/18 15:45: time spent discharging patient less than 30 minutes Addendum entered and electronically signed by Danelle Patel DO 06/19/18 15:45: of note, dc summary was started and pended 06/18, this dc summary was signed 06/19 and serves as documentation of evaluation on 06/19/18. He was discharged to home 06/19/18
--- NOTE | 2018-06-18 11:09 | Internal Med Progress Note ---
<Medina Almanzar - Last Filed: 06/18/18 12:11> Hospitalist Progress Note - Encounter Date of Encounter: 06/18/18 Time of Encounter: 09:00 - Subjective Interval History: Patient seen and examined. No acute events overnight. Patient is resting comfortably in bed watching TV. Patient reports he had profuse sweating last night and now he feels cold. Was afebrile. States his breathing is back to normal. States cough is unchanged from yesterday, not bringing up mucus. Denies any other complaints. Denies chest pain. Denies abdominal pain. Denies nausea/vomiting. Denies swelling. - Exam Vitals: Temp Pulse Resp BP Pulse Ox 97.6 F 92 20 164/99 94 06/18/18 08:40 06/18/18 08:40 06/18/18 11:01 06/18/18 08:40 06/18/18 11:01 Exam: General: Normal body habitus. Alert and oriented x3. No acute distress. Head: atraumatic, normocephalic. Eye: pupils equal and round. Sclera anicteric. EOMI. Mouth: oral mucosa moist. Normal oropharynx. Neck: supple. Trachea midline. Lungs: CTAB. No rhonchi, rales, or wheezing. No respiratory distress. Dry cough. Cardiovascular: Normal S1 & S2. No rubs or gallops. No JVD. Pulse regular. Abdomen: Normal bowel sounds. Diffusely tender to palpation. No guarding, no rigidity, no rebound. Extremities: No joint swelling, edema, or clubbing. Nontender. Skin: warm, dry, and intact. - Assessment and Plan (1) Acute exacerbation of chronic obstructive airways disease Current Visit: Yes Status: Acute Assessment and Plan: History of COPD, not on home oxygen. See above. (2) Multifocal pneumonia Current Visit: Yes Status: Acute Assessment and Plan: Patient has been experiencing diaphoresis, shortness of breath, and cough. Patient states that he has recently received his influenza and pneumonia shot in May. Legionella and Strep pneumonia antigens were negative. Respiratory panel was negative. Blood cultures drawn 06/13 x2 sets are NGTD. Sputum culture showed normal respiratory merry. CXR was negative. CTA showed multifocal airspace disease predominantly in the right middle lobe but also in the right lower lobe and left lower lobes suggesting multifocal pneumonia. No PE. Down to 2L oxygen nasal cannula. Titrate down as tolerated to maintain SaO2 g reater than 88. Continue with breathing treatments. Continue steroids. Day 6 of Rocephin. Day 4 of azithromycin. (3) SIRS (systemic inflammatory response syndrome) Current Visit: Yes Status: Resolved Assessment and Plan: Met 3 SIRS criteria with tachycardia, tachypnea and leukocytosis. Source: multifocal pneumonia. Blood cultures drawn 06/13 x2 sets are NGTD. Sputum culture showed normal respiratory merry. Resolved. Continuous cardiac monitoring. Continue antibiotics as above. Monitor intake and output. (4) MADYSON (acute kidney injury) Current Visit: Yes Status: Resolved Assessment and Plan: On admission, creatinine elevated at 1.32. Suspect related to infectious process, decreased oral intake, and Lasix. Patient was given IV fluids. Resolved. Avoid nephrotoxins. Monitor intake and output. Daily weights. (5) HTN (hypertension) Current Visit: Yes Status: Chronic Assessment and Plan: History of hypertension. Held Lasix due to MADYSON. Resumed Lasix as MADYSON is resolved. Blood pressure continues to be elevated. Discontinued Lasix and started HCTZ 12.5mg PO daily. Monitor BP. (6) DVT prophylaxis Current Visit: Yes Status: Acute Assessment and Plan: Heparin subcutaneous (7) Acute respiratory failure Current Visit: Yes Status: Acute Assessment and Plan: Patient presented with respiratory distress utilizing accessory muscles. Oxygen saturations 94% on room air. Required BiPAP support. History of COPD, not on home oxygen. Likely secondary to pneumonia as well as COPD exacerbation. Improving. Down to 2L oxygen nasal cannula. Continue to titrate as tolerated. Could not complete walk test to qualify for home oxygen due to difficulty with ambulation. Continuous pulse ox as well as cardiac monitoring Continue bronchodilators. Continue IV steroids. Titrated down today from 40mg q12h to q24h. - Time Spent with Patient Total time spent is greater than 50% in coordination of care (as documented) at patient's floor/unit and/or counseling patient: Internal Medicine: Result - Labs CBC & Chem 7: 06/18/18 04:16 06/18/18 04:16 Labs: Short CBC 06/17/18 06/18/18 Range/Units 10:55 04:16 WBC 15.0 H 15.8 H (4.3-11.1) K/mcL Hgb 12.7 L 13.2 (12.9-16.9) g/dL Hct 37.8 39.2 (37.5-50.1) % Plt Count 329 301 (140-400) K/mcL Neutrophils # 11.0 H 12.3 H (1.6-8.9) K/mcL BMP 06/17/18 06/18/18 10:55 04:16 Sodium 136 134 L Potassium 4.5 4.4 Chloride 100 100 Carbon Dioxide 30 H 29 BUN 23 29 H Creatinine 0.97 0.98 Glucose 147 H 125 H Calcium 9.0 8.9 - Impressions Impressions Chest X-Ray 06/17/18 18:38 IMPRESSION: Minimal right mid to lower lung airspace disease, likely atelectasis. D/ / Leonora Hines Cha, MD / Leonora Hines Cha, MD Interpreting Provider: Leonora Hines Cha, MD Consult Discharge Plan - Plan Instructions: Chest Pain (DC), Chronic Obstructive Pulmonary Disease (DC), Chronic Hypertension (DC), Pneumonia (DC), Cigarette Smoking and Your Health, [employer] (GEN) Referrals: Naresh Webb MD [Primary Care Provider] - 06/21/18 3:30 pm Prescriptions: hydroCHLOROthiazide [Hydrochlorothiazide] 12.5 mg PO DAILY #30 tablet levoFLOXacin [Levaquin] 750 mg PO DAILY #3 tablet predniSONE [PredniSONE] See Taper PO DAILY #37 tablet <Danelle Patel - Last Filed: 06/18/18 14:35> Hospitalist Progress Note - Exam Vitals: Temp Pulse Resp BP Pulse Ox 96.5 F L 81 18 136/83 99 06/18/18 11:10 06/18/18 11:10 06/18/18 11:10 06/18/18 11:10 06/18/18 11:10 - Assessment and Plan (1) Acute exacerbation of chronic obstructive airways disease Current Visit: Yes Status: Acute (2) Multifocal pneumonia Current Visit: Yes Status: Acute (3) SIRS (systemic inflammatory response syndrome) Current Visit: Yes Status: Resolved (4) MADYSON (acute kidney injury) Current Visit: Yes Status: Resolved (5) HTN (hypertension) Current Visit: Yes Status: Chronic (6) DVT prophylaxis Current Visit: Yes Status: Acute (7) Acute respiratory failure Current Visit: Yes Status: Acute - Time Spent with Patient Total time spent is greater than 50% in coordination of care (as documented) at patient's floor/unit and/or counseling patient: Internal Medicine: Result - Labs CBC & Chem 7: 06/18/18 04:16 06/18/18 04:16 Labs: Short CBC 06/17/18 06/18/18 Range/Units 10:55 04:16 WBC 15.0 H 15.8 H (4.3-11.1) K/mcL Hgb 12.7 L 13.2 (12.9-16.9) g/dL Hct 37.8 39.2 (37.5-50.1) % Plt Count 329 301 (140-400) K/mcL Neutrophils # 11.0 H 12.3 H (1.6-8.9) K/mcL BMP 06/17/18 06/18/18 10:55 04:16 Sodium 136 134 L Potassium 4.5 4.4 Chloride 100 100 Carbon Dioxide 30 H 29 BUN 23 29 H Creatinine 0.97 0.98 Glucose 147 H 125 H Calcium 9.0 8.9 - Impressions Impressions Chest X-Ray 06/17/18 18:38 IMPRESSION: Minimal right mid to lower lung airspace disease, likely atelectasis. D/ / Leonora Hines Cha, MD / Leonora Hines Cha, MD Interpreting Provider: Leonora Hines Cha, MD - Attending Attestation I examined this patient and my medical decision-making was reviewed with the Resident Physician Dr Almanzar. I agree with the documented findings, disposition and treatment plan as described except to the extent set forth below/addl details below. Mr Jackson was admitted with multifocal pna identified on CTA chest and acute resp failure as evidenced by need for O2 without home use. He has addl hx copd and htn. Awake, alert, sob continues to improve, persistent dry hacking cough now with some minimal sputum production. Had hot sweats overnight last night and felt "cold" this morning but no fever. Has had in past night sweats intermittently. Pt encouraged that he needs to follow up with pcp for further work up after discharge as this can sometimes indicate underlying medical conditions that can be serious. He verbalized good understanding and notes he will do this. He walked a limited distance with staff for 6 min walk and did not qualify for home o2. He has ambulatory dysfunction that limits his mobility however he is refusing pt/ot assessment or home health care. he does not feel back enough to baseline for safe dc today and plan is for likely dc to home in am gen- alert, awake,appears stated age cv- reg rate and rhythm, normal s1,s2, no murmurs appreciated, no le edema lungs- ctabl, no wheezing, rhonchi or crackles, improved aeration posteriorly today, normal resp effort on o2 nc neuro- AAOx3 Acute Resp Failure 2/2 Pna + COPD Exacerbation, improving bipap prn, treatment as below -did not meet qualification for home o2 Multifocal Pna as identified on CTA chest COPD EXacerbation CTA shows multifocal airspace disease predominantly in the right middle lobe but also in the right lower lobe and left lower lobes suggesting multifocal pneumonia -rocphein + azithro, cont IV steroids and tapering nebs prn and standing -sputum cx with gpc, rvp neg, legionella/strep neg -will dc on levaquin to complete course MADYSON, resolved with IVF and holding of home lasix 40 mg po daily HTN,only on lasix for bp at home, BP variable thus far this admission no hx of CHF -resume home lasix and no effect on bp, dc and begin hctz, cont to monitor -will require outpt fu for further management upon dc Hx of intermittent night sweats at home- tsh wnl, afebrile here, pt will fu with pcp for further evaluation outpt <Medina Almanzar - Last Filed: 06/18/18 12:11> (5) HTN (hypertension) Qualifiers: Hypertension type: essential hypertension Qualified Code(s): I10 - Essential (primary) hypertension <Danelle Patel - Last Filed: 06/18/18 14:35> (5) HTN (hypertension) Qualifiers: Hypertension type: essential hypertension Qualified Code(s): I10 - Essential (primary) hypertension
[2018-06-18] MEDS: Azithromycin 250 MG in D5% in Water 250 ML IVPB SCH (12:33)
[2018-06-18] MEDS: cefTRIAXone 2,000 MG in Water for inj. (sterile) 20 ML 20 ML IVP SCH (16:47)
[2018-06-19] MEDS: Ipratropium Neb 0.5 MG NEBULIZER IH SCH ×3 (04:31→11:40)
[2018-06-19] MEDS: Levalbuterol Neb 0.63 MG/3 ML IH SCH ×3 (04:31→11:40)
[2018-06-19] MEDS: *HR* Heparin 5,000 UNIT/ML VIAL SQ SCH (05:56)
[2018-06-19 07:50] VITALS: BP 161/85
[2018-06-19] MEDS: hydroCHLOROthiazide 25 MG TABLET PO SCH (08:25)
[2018-06-19] MEDS: *HR* OxyCODONE Immed Rel 15 MG TABLET PO SCH ×2 (08:25→12:55)
[2018-06-19] MEDS: Aspirin Enteric Coated 325 MG Tablet PO SCH (08:25)
[2018-06-19] MEDS: tiZANidine 4 MG TABLET PO SCH (08:25)
[2018-06-19] MEDS: BuPROPion SR (12 HR) 150 MG TABLET PO SCH (08:25)
[2018-06-19] MEDS: Loratadine 10 MG TABLET PO SCH (08:25)
[2018-06-19] MEDS ORDERED: MethylPREDNISolone 40 MG/ML VIAL IVP SCH (09:00)
[2018-06-19] MEDS: Azithromycin 250 MG in D5% in Water 250 ML IVPB SCH (12:54)
== END 2018-06-19 13:56 | disposition home or self-care (01) | DRG 720 ==
LOC: 2NENU 11:40 → EMEROOARM 11:40 → 2NENU 15:39 → SUATTDRO 17:45
PROVIDERS: ADMIT Internal Medicine; ATTEND Internal Medicine

== ENCOUNTER 2018-07-15 10:12 | Inpatient (IN) ==
[2018-07-15] MEDS: 0.9 % Sodium Chloride 1,000 ML IVC SCH ×2 (10:30→14:01)
[2018-07-15] MEDS ORDERED: Ipratropium/Albuterol Neb 3 ML IH ONE (10:50)
[2018-07-15 11:09] LABS: Basophils # 0.1 K/mcL (0.0-0.2); Basophils % 0.3 %; Eosinophils % 0.1 %; Hematocrit 38.8 % (37.5-50.1); Hemoglobin 13.3 g/dL (12.9-16.9); Lymphocytes # 1.7 K/mcL (0.6-4.6); Lymphocytes % 8.1 %; Mean Corpuscular HGB Conc 34.3 g/dL (31.6-35.5); Mean Corpuscular Hemoglobin 32.4 pg (28.0-33.3); Mean Corpuscular Volume 94.4 fL (83.0-100.0); Mean Platelet Volume 9.4 fL (9.4-12.4); Monocytes # 1.5 K/mcL (0.0-1.3); Monocytes % 7.2 %; Neutrophils # 17.2 K/mcL (1.6-8.9); Platelet Count 207 K/mcL (140-400); Red Blood Count 4.11 M/mcL (4.19-5.50); Red Cell Distribution Width 13.2 % (11.5-14.5); Segmented Neutrophils % 83.3 %
--- NOTE | 2018-07-15 11:13 | Emergency Department Note ---
Disposition Clinical Impression: Multifocal pneumonia Disposition: Admitted As Inpatient Condition: Fair Referrals: Naresh Webb MD [Primary Care Provider] - Forms: ED Satisfaction Letter, Work/School Release Time of Disposition: 13:35 General Adult HPI - General Chief complaint: ED Abdominal Pain Stated complaint: ABD Pain / VLADIMIR Time Seen by Provider: 07/15/18 10:17 Source: patient Limitations: no limitations Nursing Notes Reviewed: Yes Vital Signs Reviewed: Yes - History of Present Illness HPI Narrative: 68-year-old male appears older than stated age presents for evaluation of multiple complaints. He complains of 3-4 days worth of generalized abdominal distention, discomfort, and constipation. He does state that this morning, he had to use an enema. He states that he did have a small bowel movement after the enema but it was not a normal bowel movement for him. He also complains of epigastric pain that radiates into the substernal region. He complains of progressively worsening shortness of breath that began today. The patient does have a history of COPD however is not oxygen dependent. He complains of subjective chills at home but denies any nausea, vomiting, or overt fevers. He complains of a reductive cough that produces yellow/white colored sputum. He denies any hemoptysis. He was recently admitted to this facility on 06/13/18 after findings of multifocal pneumonia. He was discharged home on azithromycin at that time. He was again seen at this facility on 07/01/18 for similar symptoms of shortness of breath and productive cough. Again, he was discharged home with a prescription for azithromycin and Augmentin. Onset (ago): day(s) Location: chest, abdomen Radiation: back Pain Scale: 10 Quality: aching Consistency: constant Improves with: nothing Worsens with: other (Exertion) Associated symptoms: Reports: chest pain, fever/chills (Subjective chills but no fever), shortness of breath. Denies: diaphoresis, nausea/vomiting Treatments Prior to Arrival: other ("Breathing treatments at home" without improvement) - Related Data Home Medications Medication Instructions Recorded Confirmed BuPROPion SR (12 HR) [Wellbutrin 150 mg PO BID 07/01/16 07/15/18 SR] Aspirin Enteric Coated [Aspirin EC] 325 mg PO DAILY 11/10/16 07/15/18 Loratadine [Claritin] 10 mg PO DAILY 07/16/17 07/15/18 Meloxicam [Mobic] 15 mg PO DAILY 07/16/17 07/15/18 Omeprazole [PriLOSEC] 20 mg PO DAILY 09/10/17 07/15/18 Albuterol Sulfate [Ventolin Hfa] 2 puff IH Q6H PRN 06/13/18 07/15/18 Oxycodone HCl 15 mg PO QID PRN 06/13/18 07/15/18 Simvastatin [Zocor] 40 mg PO DAILY 06/13/18 07/15/18 Tizanidine HCl [Zanaflex] 4 mg PO TID 06/13/18 07/15/18 FLUoxetine HCl [PROzac] 20 mg PO DAILY 07/01/18 07/15/18 Furosemide [Lasix] 40 mg PO DAILY 07/01/18 07/15/18 Potassium Chloride [K-Tab ER] 20 meq PO DAILY 07/01/18 07/15/18 Fluticasone Propionate Nasal 2 spr NS DAILY PRN 07/15/18 07/15/18 [Flonase] Previous Rx's Medication Instructions Recorded Albuterol Neb [Proventil Neb] 2.5 mg IH TID #300 ml 06/19/18 Allergies Allergy/AdvReac Type Severity Reaction Status Date / Time duloxetine [From Cymbalta] Allergy Hives Verified 07/15/18 13:49 morphine Allergy Difficulty Verified 07/15/18 13:49 Breathing diphenhydramine AdvReac Dizziness Verified 07/15/18 13:49 [From Benadryl] gabapentin AdvReac Confusion Verified 07/15/18 13:49 Oxycodone [From OxyContin] AdvReac Itching Verified 07/15/18 13:49 tapentadol [From Nucynta] AdvReac Weakness Verified 07/15/18 13:49 All systems ED: reviewed and negative except as stated. Review of Systems: As Per HPI Constitutional: Denies: fever, chills, weakness, weight change Eyes: Denies: eye pain, eye discharge, vision change ENT ED: Denies: ear pain, throat pain, dental pain, hearing loss, epistaxis, congestion, dysphagia Cardiovascular: Reports: as per HPI, chest pain, dyspnea on exertion. Denies: palpitations, edema, syncope Respiratory: Reports: as per HPI, cough, dyspnea, sputum production. Denies: w heezes, hemoptysis, stridor Gastrointestinal: Reports: as per HPI, abdominal pain, constipation. Denies: nausea, vomiting, diarrhea, hematemesis, melena, hematochezia Genitourinary: Denies: urgency, dysuria, frequency, hematuria Musculoskeletal: Denies: back pain, neck pain, arthralgia, myalgia Integumentary: Denies: rash, abrasion, lesions Neurological: Denies: headache, weakness, numbness, paresthesias, confusion, abnormal gait, vertigo Psychiatric: Denies: anxiety, depression, suicidal thoughts, homicidal thoughts, auditory hallucinations, visual hallucinations Endocrine: Denies: fatigue Hematological/Lymphatic: Denies: easy bleeding, easy bruising Allergic/Immunologic: Denies: facial swelling, urticaria Past Medical History - Past Medical History Attestation: Yes The following information was validated with the patient. Source: patient, nursing notes reviewed Medical history: Reports: asthma, COPD, hyperlipidemia, hypertension, other Surgical history: Reports: orthopedic, other Psychiatric history: Reports: depression - Social History Smoking Status: Former smoker Smokeless Tobacco Status: No Alcohol use: Reports: occasionally Drug use: Reports: none Physical Exam - General Limitations: no limitations General appearance: alert, in no apparent distress - Head Head exam: atraumatic, normocephalic, normal inspection - Eye Eye exam: Present: normal appearance, PERRL, EOMI. Absent: nystagmus - ENT ENT exam: mucous membranes moist - Neck Neck exam: Present: normal inspection, full ROM, trachea midline - Chest Chest inspection: Present: normal inspection, symmetric chest wall rise - Respiratory Respiratory exam: Present: respiratory distress (Mild to moderate), accessory muscle use, other (Lungs sounds coarse to auscultation throughout the p eriphery). Absent: wheezes, prolonged expiratory phase - Expanded Respiratory Exam Location: rhonchi: Right, Lower - Cardiovascular Cardiovascular exam: Present: normal rhythm, tachycardia, normal heart sounds - Abdominal Exam Abdominal exam: Present: tenderness, distention (Mild, patient states this is a normal finding for him.), normal bowel sounds. Absent: guarding, rebound, rigidity Abdominal tenderness: Present: RUQ, LUQ, epigastrium, moderate - Extremities Exam Extremities exam: Present: normal inspection, full ROM. Absent: tenderness - Neurological Exam Neurological exam: Present: alert, oriented X3 - Psychiatric Psychiatric exam: Present: normal affect, normal mood - Skin Skin exam: Present: warm, dry Course Course Narrative: [id number]: I spoke with Dr. Rosales of the Hospital services accepted patient for permission to the hospitalist care for further management of CT findings of multifocal pneumonia. I discussed this plan with Dr. Hernandez. Dr. Hernandez has had a [id number] evaluation with patient and agrees with this plan. Vital Signs Temperature 99.8 F H 07/15/18 10:15 Pulse Rate 118 07/15/18 10:15 Respiratory Rate 22 07/15/18 10:15 Blood Pressure 118/67 07/15/18 10:15 O2 Sat by Pulse Oximetry 95 07/15/18 10:15 Temperature 99.8 F H 07/15/18 10:42 Pulse Rate 114 07/15/18 13:55 Respiratory Rate 18 07/15/18 13:55 Blood Pressure 135/68 07/15/18 13:55 O2 Sat by Pulse Oximetry 99 07/15/18 13:55 Oxygen Delivery Oxygen Delivery Nasal Cannula Medical Decision Making - MDM Narrative Medical decision making narrative: Please and placed on BiPAP for symptomatic relief. He presented to With moderate respiratory distress. Accessory muscle use evident. Per slit breathing also evident. Patient has a leukocytosis of 20.7. Lactic acid 3.0. Chest x-ray shows no acute cardiopulmonary findings however there is concern for an occult pneumonia, especially given the patient's recent admission for multifocal pneumonia. He will be started on IV antibiotics empirically for a potential healthcare associated pneumonia. CTA of the chest and CT of the abdomen and pelvis pending prior to admission to the hospital service. - Medical Records Medical records reviewed: Yes I reviewed the patient's medical records. - Lab Data Lab results reviewed: Yes I reviewed the patient's lab results. Lab results narrative: Lab Results 07/15/18 07/15/18 07/15/18 Range/Units 10:49 10:49 10:49 WBC 20.7 H (4.3-11.1) K/mcL RBC 4.11 L (4.19-5.50) M/mcL Hgb 13.3 (12.9-16.9) g/dL Hct 38.8 (37.5-50.1) % MCV 94.4 (83.0-100.0) fL MCH 32.4 (28.0-33.3) pg MCHC 34.3 (31.6-35.5) g/dL RDW 13.2 (11.5-14.5) % Plt Count 207 (140-400) K/mcL MPV 9.4 (9.4-12.4) fL Immature Gran % 1.0 (0-4) % Seg Neutrophils % 83.3 % Lymphocytes % 8.1 % Monocytes % 7.2 % Eosinophils % 0.1 % Basophils % 0.3 % Neutrophils # 17.2 H (1.6-8.9) K/mcL Lymphocytes # 1.7 (0.6-4.6) K/mcL Monocytes # 1.5 H (0.0-1.3) K/mcL Eosinophils # 0.0 (0.0-0.6) K/mcL Basophils # 0.1 (0.0-0.2) K/mcL PT 10.7 (9.4-12.1) Seconds INR 1.0 APTT 29.6 (26.0-36.0) Seconds Sodium 137 (136-145) mEq/L Potassium 4.0 (3.5-5.1) mEq/L Chloride 103 (98-107) mEq/L Carbon Dioxide 24 (23-29) mEq/L BUN 16 (8-23) mg/dL Creatinine 1.18 (0.70-1.30) mg/dL Est GFR ( Amer) > 60 (> 60) Est GFR (Non-Af Amer) > 60 (> 60) BUN/Creatinine Ratio 14 (6-26) Glucose 98 (70-105) mg/dL Calculated Osmolality 285 (280-300) Lactic Acid (0.5-2.2) mmol/L Calcium 8.9 (8.6-10.3) mg/dL Total Bilirubin 0.9 (0.3-1.0) mg/dL Direct Bilirubin 0.2 (0.0-0.2) mg/dL Indirect Bilirubin 0.7 (0.0-1.2) mg/dL AST 19 (13-39) Units/L ALT 18 (7-52) Units/L Alkaline Phosphatase 78 (34-104) Units/L Troponin I < 0.03 (< 0.04) ng/mL B-Natriuretic Peptide (Less than 100) pg/mL Serum Total Protein 6.7 (6.4-8.9) g/dL Albumin 4.1 (3.5-5.7) g/dL Globulin 2.6 (2.4-3.5) g/dL Albumin/Globulin Ratio 1.6 (1.1-2.2) 07/15/18 07/15/18 Range/Units 10:49 10:49 WBC (4.3-11.1) K/mcL RBC (4.19-5.50) M/mcL Hgb (12.9-16.9) g/dL Hct (37.5-50.1) % MCV (83.0-100.0) fL MCH (28.0-33.3) pg MCHC (31.6-35.5) g/dL RDW (11.5-14.5) % Plt Count (140-400) K/mcL MPV (9.4-12.4) fL Immature Gran % (0-4) % Seg Neutrophils % % Lymphocytes % % Monocytes % % Eosinophils % % Basophils % % Neutrophils # (1.6-8.9) K/mcL Lymphocytes # (0.6-4.6) K/mcL Monocytes # (0.0-1.3) K/mcL Eosinophils # (0.0-0.6) K/mcL Basophils # (0.0-0.2) K/mcL PT (9.4-12.1) Seconds INR APTT (26.0-36.0) Seconds Sodium (136-145) mEq/L Potassium (3.5-5.1) mEq/L Chloride (98-107) mEq/L Carbon Dioxide (23-29) mEq/L BUN (8-23) mg/dL Creatinine (0.70-1.30) mg/dL Est GFR ( Amer) (> 60) Est GFR (Non-Af Amer) (> 60) BUN/Creatinine Ratio (6-26) Glucose (70-105) mg/dL Calculated Osmolality (280-300) Lactic Acid 3.0 H (0.5-2.2) mmol/L Calcium (8.6-10.3) mg/dL Total Bilirubin (0.3-1.0) mg/dL Direct Bilirubin (0.0-0.2) mg/dL Indirect Bilirubin (0.0-1.2) mg/dL AST (13-39) Units/L ALT (7-52) Units/L Alkaline Phosphatase (34-104) Units/L Troponin I (< 0.04) ng/mL B-Natriuretic Peptide 36 (Less than 100) pg/mL Serum Total Protein (6.4-8.9) g/dL Albumin (3.5-5.7) g/dL Globulin (2.4-3.5) g/dL Albumin/Globulin Ratio (1.1-2.2) Result diagrams: 07/15/18 10:49 07/15/18 10:49 Lab Results 07/15/18 07/15/18 07/15/18 Range/Units 10:49 10:49 10:49 WBC 20.7 H (4.3-11.1) K/mcL RBC 4.11 L (4.19-5.50) M/mcL Hgb 13.3 (12.9-16.9) g/dL Hct 38.8 (37.5-50.1) % MCV 94.4 (83.0-100.0) fL MCH 32.4 (28.0-33.3) pg MCHC 34.3 (31.6-35.5) g/dL RDW 13.2 (11.5-14.5) % Plt Count 207 (140-400) K/mcL MPV 9.4 (9.4-12.4) fL Immature Gran % 1.0 (0-4) % Seg Neutrophils % 83.3 % Lymphocytes % 8.1 % Monocytes % 7.2 % Eosinophils % 0.1 % Basophils % 0.3 % Neutrophils # 17.2 H (1.6-8.9) K/mcL Lymphocytes # 1.7 (0.6-4.6) K/mcL Monocytes # 1.5 H (0.0-1.3) K/mcL Eosinophils # 0.0 (0.0-0.6) K/mcL Basophils # 0.1 (0.0-0.2) K/mcL PT 10.7 (9.4-12.1) Seconds INR 1.0 APTT 29.6 (26.0-36.0) Seconds Sodium 137 (136-145) mEq/L Potassium 4.0 (3.5-5.1) mEq/L Chloride 103 (98-107) mEq/L Carbon Dioxide 24 (23-29) mEq/L BUN 16 (8-23) mg/dL Creatinine 1.18 (0.70-1.30) mg/dL Est GFR ( Amer) > 60 (> 60) Est GFR (Non-Af Amer) > 60 (> 60) BUN/Creatinine Ratio 14 (6-26) Glucose 98 (70-105) mg/dL Calculated Osmolality 285 (280-300) Lactic Acid (0.5-2.2) mmol/L Calcium 8.9 (8.6-10.3) mg/dL Total Bilirubin 0.9 (0.3-1.0) mg/dL Direct Bilirubin 0.2 (0.0-0.2) mg/dL Indirect Bilirubin 0.7 (0.0-1.2) mg/dL AST 19 (13-39) Units/L ALT 18 (7-52) Units/L Alkaline Phosphatase 78 (34-104) Units/L Troponin I < 0.03 (< 0.04) ng/mL B-Natriuretic Peptide (Less than 100) pg/mL Serum Total Protein 6.7 (6.4-8.9) g/dL Albumin 4.1 (3.5-5.7) g/dL Globulin 2.6 (2.4-3.5) g/dL Albumin/Globulin Ratio 1.6 (1.1-2.2) 07/15/18 07/15/18 Range/Units 10:49 10:49 WBC (4.3-11.1) K/mcL RBC (4.19-5.50) M/mcL Hgb (12.9-16.9) g/dL Hct (37.5-50.1) % MCV (83.0-100.0) fL MCH (28.0-33.3) pg MCHC (31.6-35.5) g/dL RDW (11.5-14.5) % Plt Count (140-400) K/mcL MPV (9.4-12.4) fL Immature Gran % (0-4) % Seg Neutrophils % % Lymphocytes % % Monocytes % % Eosinophils % % Basophils % % Neutrophils # (1.6-8.9) K/mcL Lymphocytes # (0.6-4.6) K/mcL Monocytes # (0.0-1.3) K/mcL Eosinophils # (0.0-0.6) K/mcL Basophils # (0.0-0.2) K/mcL PT (9.4-12.1) Seconds INR APTT (26.0-36.0) Seconds Sodium (136-145) mEq/L Potassium (3.5-5.1) mEq/L Chloride (98-107) mEq/L Carbon Dioxide (23-29) mEq/L BUN (8-23) mg/dL Creatinine (0.70-1.30) mg/dL Est GFR ( Amer) (> 60) Est GFR (Non-Af Amer) (> 60) BUN/Creatinine Ratio (6-26) Glucose (70-105) mg/dL Calculated Osmolality (280-300) Lactic Acid 3.0 H (0.5-2.2) mmol/L Calcium (8.6-10.3) mg/dL Total Bilirubin (0.3-1.0) mg/dL Direct Bilirubin (0.0-0.2) mg/dL Indirect Bilirubin (0.0-1.2) mg/dL AST (13-39) Units/L ALT (7-52) Units/L Alkaline Phosphatase (34-104) Units/L Troponin I (< 0.04) ng/mL B-Natriuretic Peptide 36 (Less than 100) pg/mL Serum Total Protein (6.4-8.9) g/dL Albumin (3.5-5.7) g/dL Globulin (2.4-3.5) g/dL Albumin/Globulin Ratio (1.1-2.2) - Radiology Data Radiology results reviewed: Yes I reviewed the patient's radiology results. Chest X-Ray 07/15/18 10:19 IMPRESSION: 1. Emphysema. No superimposed acute pulmonary abnormality to account for patient's shortness of breath. D/ / Eldon Krishna MD / Eldon Krishna MD Interpreting Provider: Eldon Krishna MD Abdomen/Pelvis CT 07/15/18 11:37 IMPRESSION: 1. The airspace disease in the medial segment right middle lobe, lingula of the left upper lobe and in the left lower lobe, progressed or recurrent compared with prior study concerning for pneumonia. 2. No pulmonary embolism. 3. Probable motion artifact along the medial aspect of the ascending thoracic aorta versus ulcerative plaque. No aortic dissection or aneurysm. 4. Hepatic steatosis. 5. Appears to be slightly increased left perinephric stranding comparing to the right, however there is no enhancement abnormality of the kidney ureter or renal pelvis to suggest nephritis or ureteritis. Correlate with urinalysis. 6. Diverticulosis coli without CT evidence of acute diverticulitis. D/ / Rito Kerr / Rito Kerr Interpreting Provider: Rito Kerr Chest CTA 07/15/18 11:37 IMPRESSION: 1. The airspace disease in the medial segment right middle lobe, lingula of the left upper lobe and in the left lower lobe, progressed or recurrent compared with prior study concerning for pneumonia. 2. No pulmonary embolism. 3. Probable motion artifact along the medial aspect of the ascending thoracic aorta versus ulcerative plaque. No aortic dissection or aneurysm. 4. Hepatic steatosis. 5. Appears to be slightly increased left perinephric stranding comparing to the right, however there is no enhancement abnormality of the kidney ureter or renal pelvis to suggest nephritis or ureteritis. Correlate with urinalysis. 6. Diverticulosis coli without CT evidence of acute diverticulitis. D/ / Rito Kerr / Rito Kerr Interpreting Provider: Rito Kerr - EKG Data EKG #1 EKG attestation: Yes I reviewed and interpreted this EKG. EKG results narrative: EKG reviewed by Dr. Hernandez as well. EKG shows a sinus tachycardia at a rate of 121 bpm. NV interval 137, QRS duration 81, QT/QTc interval 327/464. No ST elevations. No significant changes in morphology when compared to an EKG dated from 07/01/18. Attestation Statement - Attestation Attestation: I, Anthony Hernandez DO have provided [id number] time during the care of this patient. Detailed review the presentation, symptoms, medical history were discussed and reviewed with the advanced practice provider Robbin Pickard PA-C/BERNA. Medical intervention labs and imaging studies were reviewed in detail. See full documentation of physical exam and course of care in the advanced practice provider's note. I agree with the determined course of care, medical intervention and disposition put forth by the advanced practice provider. See below documentation for changes or alterations in documentation.
[2018-07-15 11:18] LABS: Prothrombin Time 10.7 Seconds (9.4-12.1)
[2018-07-15 11:21] LABS: Activated Partial Thrombo Time 29.6 Seconds (26.0-36.0)
[2018-07-15 11:28] LABS: Troponin I < 0.03 ng/mL (< 0.04)
[2018-07-15 11:34] LABS: Alanine Aminotransferase 18 Units/L (7-52); Albumin 4.1 g/dL (3.5-5.7); Albumin/Globulin Ratio 1.6 (1.1-2.2); Alkaline Phosphatase 78 Units/L (34-104); Aspartate Amino Transferase 19 Units/L (13-39); BUN/Creatinine Ratio 14 (6-26); Bilirubin,Direct 0.2 mg/dL (0.0-0.2); Bilirubin,Indirect 0.7 mg/dL (0.0-1.2); Bilirubin,Total 0.9 mg/dL (0.3-1.0); Blood Urea Nitrogen 16 mg/dL (8-23); Calcium 8.9 mg/dL (8.6-10.3); Carbon Dioxide 24 mEq/L (23-29); Chloride 103 mEq/L (98-107); Globulin 2.6 g/dL (2.4-3.5); Glucose 98 mg/dL (70-105); Osmolality,Calculated 285 (280-300); Sodium 137 mEq/L (136-145); Total Protein 6.7 g/dL (6.4-8.9); eGFR For Non-African Americans > 60 (> 60)
[2018-07-15] MEDS ORDERED: *HR* LORazepam 2 MG/ML VIAL IVP ONE (11:36)
[2018-07-15] MEDS ORDERED: Isovue-370 500 ML INFUS..BTL IV ONE (11:37)
[2018-07-15] MEDS ORDERED: Aspirin 325 MG TABLET PO ONE (11:39)
[2018-07-15] MEDS ORDERED: Levofloxacin 750 MG/150 ML 750 MG/150 ML BAG IVPB ONE (11:50)
[2018-07-15] MEDS ORDERED: Piperacillin/Tazobactam 3.375 GM in 0.9 % Sodium Chloride Mini Bag 100 ML IVPB ONE (11:50)
--- NOTE | 2018-07-15 12:40 | Emergency Department Note ---
Disposition Clinical Impression: Multifocal pneumonia, Sepsis, Tachycardia, Tachypnea Disposition: Admitted As Inpatient Condition: Fair Referrals: Naresh Webb MD [Primary Care Provider] - Forms: ED Satisfaction Letter, Work/School Release Time of Disposition: 14:33 General Adult HPI - General Chief complaint: ED Abdominal Pain Stated complaint: ABD Pain / VLADIMIR Time Seen by Provider: 07/15/18 10:17 Source: patient Limitations: no limitations - History of Present Illness Location: chest, abdomen Pain Scale: 10 Quality: aching Improves with: nothing Worsens with: other (Exertion) Associated symptoms: Reports: chest pain, fever/chills (Subjective chills but no fever), shortness of breath. Denies: diaphoresis, nausea/vomiting Treatments Prior to Arrival: other ("Breathing treatments at home" without improvement) - Related Data Home Medications Medication Instructions Recorded Confirmed BuPROPion SR (12 HR) [Wellbutrin 150 mg PO BID 07/01/16 07/15/18 SR] Aspirin Enteric Coated [Aspirin EC] 325 mg PO DAILY 11/10/16 07/15/18 Loratadine [Claritin] 10 mg PO DAILY 07/16/17 07/15/18 Meloxicam [Mobic] 15 mg PO DAILY 07/16/17 07/15/18 Omeprazole [PriLOSEC] 20 mg PO DAILY 09/10/17 07/15/18 Albuterol Sulfate [Ventolin Hfa] 2 puff IH Q6H PRN 06/13/18 07/15/18 Oxycodone HCl 15 mg PO QID PRN 06/13/18 07/15/18 Simvastatin [Zocor] 40 mg PO DAILY 06/13/18 07/15/18 Tizanidine HCl [Zanaflex] 4 mg PO TID 06/13/18 07/15/18 FLUoxetine HCl [PROzac] 20 mg PO DAILY 07/01/18 07/15/18 Furosemide [Lasix] 40 mg PO DAILY 07/01/18 07/15/18 Potassium Chloride [K-Tab ER] 20 meq PO DAILY 07/01/18 07/15/18 Fluticasone Propionate Nasal 2 spr NS DAILY PRN 07/15/18 07/15/18 [Flonase] Previous Rx's Medication Instructions Recorded Albuterol Neb [Proventil Neb] 2.5 mg IH TID #300 ml 06/19/18 Allergies Allergy/AdvReac Type Severity Reaction Status Date / Time duloxetine [From Cymbalta] Allergy Hives Verified 07/15/18 13:49 morphine Allergy Difficulty Verified 07/15/18 13:49 Breathing diphenhydramine AdvReac Dizziness Verified 07/15/18 13:49 [From Benadryl] gabapentin AdvReac Confusion Verified 07/15/18 13:49 Oxycodone [From OxyContin] AdvReac Itching Verified 07/15/18 13:49 tapentadol [From Nucynta] AdvReac Weakness Verified 07/15/18 13:49 Constitutional: Denies: fever, chills, weakness, weight change Eyes: Denies: eye pain, eye discharge, vision change ENT ED: Denies: ear pain, throat pain, dental pain, hearing loss, epistaxis, congestion, dysphagia Cardiovascular: Reports: as per HPI, chest pain, dyspnea on exertion. Denies: palpitations, edema, syncope Respiratory: Reports: as per HPI, cough, dyspnea, sputum production. Denies: wheezes, hemoptysis, stridor Gastrointestinal: Reports: as per HPI, abdominal pain, constipation. Denies: nausea, vomiting, diarrhea, hematemesis, melena, hematochezia Genitourinary: Denies: urgency, dysuria, frequency, hematuria Musculoskeletal: Denies: back pain, neck pain, arthralgia, myalgia Integumentary: Denies: rash, abrasion, lesions Neurological: Denies: headache, weakness, numbness, paresthesias, confusion, abnormal gait, vertigo Psychiatric: Denies: anxiety, depression, suicidal thoughts, homicidal thoughts, auditory hallucinations, visual hallucinations Endocrine: Denies: fatigue Hematological/Lymphatic: Denies: easy bleeding, easy bruising Allergic/Immunologic: Denies: facial swelling, urticaria Past Medical History - Past Medical History Medical history: Reports: asthma, COPD, hyperlipidemia, hypertension, other Surgical history: Reports: orthopedic, other Psychiatric history: Reports: depression - Social History Smoking Status: Former smoker Smokeless Tobacco Status: No Alcohol use: Reports: occasionally Drug use: Reports: none Physical Exam - General Limitations: no limitations General appearance: alert, in no apparent distress Course Vital Signs Temperature 99.8 F H 07/15/18 10:15 Pulse Rate 118 07/15/18 10:15 Respiratory Rate 22 07/15/18 10:15 Blood Pressure 118/67 07/15/18 10:15 O2 Sat by Pulse Oximetry 95 07/15/18 10:15 Temperature 99.8 F H 07/15/18 10:42 Pulse Rate 114 07/15/18 13:55 Respiratory Rate 18 07/15/18 13:55 Blood Pressure 135/68 07/15/18 13:55 O2 Sat by Pulse Oximetry 99 07/15/18 13:55 Oxygen Delivery Oxygen Delivery Nasal Cannula Medical Decision Making - Lab Data Result diagrams: 07/15/18 10:49 07/15/18 10:49 Lab Results 07/15/18 07/15/18 07/15/18 Range/Units 10:49 10:49 10:49 WBC 20.7 H (4.3-11.1) K/mcL RBC 4.11 L (4.19-5.50) M/mcL Hgb 13.3 (12.9-16.9) g/dL Hct 38.8 (37.5-50.1) % MCV 94.4 (83.0-100.0) fL MCH 32.4 (28.0-33.3) pg MCHC 34.3 (31.6-35.5) g/dL RDW 13.2 (11.5-14.5) % Plt Count 207 (140-400) K/mcL MPV 9.4 (9.4-12.4) fL Immature Gran % 1.0 (0-4) % Seg Neutrophils % 83.3 % Lymphocytes % 8.1 % Monocytes % 7.2 % Eosinophils % 0.1 % Basophils % 0.3 % Neutrophils # 17.2 H (1.6-8.9) K/mcL Lymphocytes # 1.7 (0.6-4.6) K/mcL Monocytes # 1.5 H (0.0-1.3) K/mcL Eosinophils # 0.0 (0.0-0.6) K/mcL Basophils # 0.1 (0.0-0.2) K/mcL PT 10.7 (9.4-12.1) Seconds INR 1.0 APTT 29.6 (26.0-36.0) Seconds Sodium 137 (136-145) mEq/L Potassium 4.0 (3.5-5.1) mEq/L Chloride 103 (98-107) mEq/L Carbon Dioxide 24 (23-29) mEq/L BUN 16 (8-23) mg/dL Creatinine 1.18 (0.70-1.30) mg/dL Est GFR ( Amer) > 60 (> 60) Est GFR (Non-Af Amer) > 60 (> 60) BUN/Creatinine Ratio 14 (6-26) Glucose 98 (70-105) mg/dL Calculated Osmolality 285 (280-300) Lactic Acid (0.5-2.2) mmol/L Calcium 8.9 (8.6-10.3) mg/dL Total Bilirubin 0.9 (0.3-1.0) mg/dL Direct Bilirubin 0.2 (0.0-0.2) mg/dL Indirect Bilirubin 0.7 (0.0-1.2) mg/dL AST 19 (13-39) Units/L ALT 18 (7-52) Units/L Alkaline Phosphatase 78 (34-104) Units/L Troponin I < 0.03 (< 0.04) ng/mL B-Natriuretic Peptide (Less than 100) pg/mL Serum Total Protein 6.7 (6.4-8.9) g/dL Albumin 4.1 (3.5-5.7) g/dL Globulin 2.6 (2.4-3.5) g/dL Albumin/Globulin Ratio 1.6 (1.1-2.2) 07/15/18 07/15/18 Range/Units 10:49 10:49 WBC (4.3-11.1) K/mcL RBC (4.19-5.50) M/mcL Hgb (12.9-16.9) g/dL Hct (37.5-50.1) % MCV (83.0-100.0) fL MCH (28.0-33.3) pg MCHC (31.6-35.5) g/dL RDW (11.5-14.5) % Plt Count (140-400) K/mcL MPV (9.4-12.4) fL Immature Gran % (0-4) % Seg Neutrophils % % Lymphocytes % % Monocytes % % Eosinophils % % Basophils % % Neutrophils # (1.6-8.9) K/mcL Lymphocytes # (0.6-4.6) K/mcL Monocytes # (0.0-1.3) K/mcL Eosinophils # (0.0-0.6) K/mcL Basophils # (0.0-0.2) K/mcL PT (9.4-12.1) Seconds INR APTT (26.0-36.0) Seconds Sodium (136-145) mEq/L Potassium (3.5-5.1) mEq/L Chloride (98-107) mEq/L Carbon Dioxide (23-29) mEq/L BUN (8-23) mg/dL Creatinine (0.70-1.30) mg/dL Est GFR ( Amer) (> 60) Est GFR (Non-Af Amer) (> 60) BUN/Creatinine Ratio (6-26) Glucose (70-105) mg/dL Calculated Osmolality (280-300) Lactic Acid 3.0 H (0.5-2.2) mmol/L Calcium (8.6-10.3) mg/dL Total Bilirubin (0.3-1.0) mg/dL Direct Bilirubin (0.0-0.2) mg/dL Indirect Bilirubin (0.0-1.2) mg/dL AST (13-39) Units/L ALT (7-52) Units/L Alkaline Phosphatase (34-104) Units/L Troponin I (< 0.04) ng/mL B-Natriuretic Peptide 36 (Less than 100) pg/mL Serum Total Protein (6.4-8.9) g/dL Albumin (3.5-5.7) g/dL Globulin (2.4-3.5) g/dL Albumin/Globulin Ratio (1.1-2.2) Attestation Statement - Attestation Attestation: I, Anthony Hernandez DO have provided [id number] time during the care of this patient. Detailed review the presentation, symptoms, medical history were discussed and reviewed with the advanced practice provider Robbin Pickard PA-C/[employer]IC. Medical intervention labs and imaging studies were reviewed in detail. See full documentation of physical exam and course of care in the advanced practice provider's note. I agree with the determined course of care, medical intervention and disposition put forth by the advanced practice provider. See below documentation for changes or alterations in documentation. 68-year-old male presents to the emergency room for evaluation of increased work of breathing, productive cough, generalized malaise and fever. Patient has been seen and evaluated and treated several different times here in the emergency room as well as in the hospital setting. Vital signs do show significant tachypnea and tachycardia initially. The gentleman is in some moderate respiratory distress. Breathing treatments and steroids to be ordered along wi th blood cultures CBC chemistry chest x-ray and EKG. The previous evaluation was found based on CT imaging of the chest. This will be determined once the full workup and evaluation have been established. Patient is resting in the bed but does have increased work of breathing. He has bilateral coarse breath sounds noted. His heart is regular but tachycardic. Abdomen is firm and tender to palpation. He is been having normal bowel movements. He describes this is a chronic issue these have for almost 7-8 years. Lactic acid will be added on along with liver function testing and lipase. Antibiotics will be started once a definitive source has been determined if need be. Patient symptoms will be controlled and disposition will be determined. Unfortunately, the patient may require an admission again at this time for symptomatic control and further evaluation with pulmonology. No other acute issues at this time. Disposition pending the full workup and treatment course. See detailed documentation of the physical exam, medical intervention, medical decision-making and disposition in the advanced practice provider note. No critical care applied the patient's treatment course at this time. 1135 Chest x-ray is unremarkable at this point. Patient does have a significantly elevated white blood cell count and an elevated lactic acid. Vancomycin and Zosyn along with Levaquin will be added on for possible H. CT angiography the chest will be ordered secondary to the tachycardia persistent symptoms as well as CT with IV contrast of the abdomen secondary to the persistent pain as well as distention. Disposition will be admission once the workup and treatment course have been completed. We will continue to monitor closely. Sepsis is suspected at this time. [address] angiography the chest does not show any acute signs of pulmonary emboli but patient does have multifocal pneumonia again that is similar presentation not worst. CT the abdomen does not show any acute etiology but the patient does have perinephric stranding on the right side. Urinalysis is still pending. Patient will be admitted for continuation of care what appears to be refractory healthcare acquired pneumonia at this time. Further pulmonology evaluation will be recommended at the time of admission. 1415 Patient was accepted by the hospitalist Dr. Rosales. Patient does not meet cr iteria for severe sepsis at this point but is concerning for septic-like presentation secondary to the tachycardia tachypnea and a known focal source by CT imaging of the lungs. Patient was provided with antibiotics early on in the treatment course. Fluid resuscitation has been provided appropriately for symptomatic control. Admission process to be established at this point. Patient will be observed here in the emergency room until admission process has been established.
[2018-07-15] MEDS ORDERED: Ondansetron 4 MG/2 ML VIAL IVP PRN (15:13)
[2018-07-15] MEDS ORDERED: Naloxone 0.4 MG/ML INJ IVP PRN ×2 (15:13)
--- NOTE | 2018-07-15 15:20 | Internal Med History&Physical ---
Date of Encounter: 07/15/18 Time of Encounter: 15:18 Internal Medicine - H&P: HPI Chief complaint: I cannot breathe Admitted From: Home Plans for Post Hospital Care: Home History of present illness: Mr. Jackson is a 68 year old male with medical history of COPD, hyperlipidemia, hypertension was recently admitted and discharged from multifocal pneumonia but presented to the ER with complaints of worsening shortness of breath. He reports he was in his usual state of health since last discharge but developed sudden onset chest pain associated with worsening shortness of breath, subjective fevers and chills at home, cough productive for whitish sputum, and abdominal distention. Chest pain is worse with cough, associated generalized Thursday, denies nausea or vomiting, denies diaphoresis, denies dizziness or palpitations. Symptoms have been going on for the past 3-4 days. The patient reports that he used an enema this morning and has started having small bowel movements, he denies any abdominal pain. On presentation to the emergency room, he is tachypneic, tachycardic afebrile, infiltrates to severe respiratory distress requiring BiPAP, significant leukocytosis with left shift, lactic acidosis with CT angiogram of the chest and abdomen revealing bilateral multifocal progressive and recurrent pneumonia, no pulmonary embolism, no dissection or aneurysm and mild left perinephric stranding, diverticulosis without diverticulitis. Urine analysis is pending as well as anterior blood gas On my evaluation, the patient is in moderate severe distress and desaturated rapidly without BiPAP he is full code and is very high risk for invasive mechanical ventilation due to multifocal pneumonia rule out influenza pneumonia. Past Med Surg Social Fam HX - Past Medical History Medical history: asthma, COPD, hyperlipidemia, hypertension, other Additional medical history: RLS Psychiatric history: depression - Past Surgical History Surgical History: orthopedic, other Additional surgical history: neck surgery - Social History Smoking Status: Former smoker Smokeless Tobacco Status: No Alcohol use: occasionally Drug use: none - Family History Mother Living Status: Hx Family Cardiac Disorders: Yes Hx Family Respiratory Disorders: Yes Hx Family Cancer: No Hx Family Endocrine Disorder: Yes Father Living Status: Hx Family Cardiac Disorders: Yes Hx Family Respiratory Disorders: Yes Hx Family Endocrine Disorder: Yes Internal Medicine - H&P: Meds BuPROPion SR (12 HR) [Wellbutrin SR] 150 mg PO BID 07/01/16 [History] Aspirin Enteric Coated [Aspirin EC] 325 mg PO DAILY 11/10/16 [History] Loratadine [Claritin] 10 mg PO DAILY 07/16/17 [History] Meloxicam [Mobic] 15 mg PO DAILY 07/16/17 [History] Omeprazole [PriLOSEC] 20 mg PO DAILY 09/10/17 [History] Albuterol Sulfate [Ventolin Hfa] 2 puff IH Q6H PRN 06/13/18 [History] Oxycodone HCl 15 mg PO QID PRN 06/13/18 [History] Simvastatin [Zocor] 40 mg PO DAILY 06/13/18 [History] Tizanidine HCl [Zanaflex] 4 mg PO TID 06/13/18 [History] Albuterol Neb [Proventil Neb] 2.5 mg IH TID #300 ml 06/19/18 [Rx] FLUoxetine HCl [PROzac] 20 mg PO DAILY 07/01/18 [History] Furosemide [Lasix] 40 mg PO DAILY 07/01/18 [History] Potassium Chloride [K-Tab ER] 20 meq PO DAILY 07/01/18 [History] Fluticasone Propionate Nasal [Flonase] 2 spr NS DAILY PRN 07/15/18 [History] Allergy/AdvReac Type Severity Reaction Status Date / Time duloxetine [From Cymbalta] Allergy Hives Verified 07/15/18 13:49 morphine Allergy Difficulty Verified 07/15/18 13:49 Breathing diphenhydramine AdvReac Dizziness Verified 07/15/18 13:49 [From Benadryl] gabapentin AdvReac Confusion Verified 07/15/18 13:49 Oxycodone [From OxyContin] AdvReac Itching Verified 07/15/18 13:49 tapentadol [From Nucynta] AdvReac Weakness Verified 07/15/18 13:49 All Systems PM: A 10-system review of systems was performed and is negative for pertinent findings except as documented above in the HPI. - Constitutional Constitutional: as per HPI - EENT Eyes: as per HPI Ears: as per HPI Nose, mouth and throat: as per HPI - Cardiovascular Cardiovascular ROS IM: as per HPI - Respiratory Respiratory: as per HPI - Gastrointestinal Gastrointestinal: as per HPI - Musculoskeletal Musculoskeletal ROS IM: as per HPI - Integumentary Integumentary IM: as per HPI - Neurological Neurological ROS: as per HPI - Hematologic/Lymphatic Hematologic/Lymphatic: as per HPI - Constitutional Vitals: Temp Pulse Resp BP Pulse Ox 99.8 F H 117 14 124/70 98 07/15/18 10:42 07/15/18 14:42 07/15/18 14:42 07/15/18 14:42 07/15/18 14:42 VSS, tachycardic, tachypneic, hypoxic on room air but stable on BiPAP Gen: Disheveled, in moderate respiratory distress, speaks full sentences HEENT: Moist oral mucosa, sclera anicteric, not pale Chest: Equal chest movement bilaterally REsp: Diffuse coarse breath sounds, no wheezing, bilateral rhonchi at the lung bases Heart: S1, S2, only, tachycardic ,no m/g/r Abdomen: Obese, soft, not tender, BS present in all quadrants Extremities: Joint inspection is WNL, no pedal edema, pulses present bilaterally Neuro: AAOX3, no speech deficits, moves all extremities equally, no facial paralysis Psych: Affect is appropriate Exam: See above Internal Med - H&P Results - Labs CBC & Chem 7: 07/15/18 10:49 07/15/18 10:49 Labs: Short CBC 07/15/18 Range/Units 10:49 WBC 20.7 H (4.3-11.1) K/mcL Hgb 13.3 (12.9-16.9) g/dL Hct 38.8 (37.5-50.1) % Plt Count 207 (140-400) K/mcL Neutrophils # 17.2 H (1.6-8.9) K/mcL BMP 07/15/18 10:49 Sodium 137 Potassium 4.0 Chloride 103 Carbon Dioxide 24 BUN 16 Creatinine 1.18 Glucose 98 Calcium 8.9 Cardiac Enzymes 07/15/18 Range/Units 10:49 Troponin I < 0.03 (< 0.04) ng/mL Liver Function 07/15/18 Range/Units 10:49 Total Bilirubin 0.9 (0.3-1.0) mg/dL Direct Bilirubin 0.2 (0.0-0.2) mg/dL AST 19 (13-39) Units/L ALT 18 (7-52) Units/L Alkaline Phosphatase 78 (34-104) Units/L Albumin 4.1 (3.5-5.7) g/dL - Impressions ITS Impressions Chest X-Ray 07/15/18 10:19 IMPRESSION: 1. Emphysema. No superimposed acute pulmonary abnormality to account for patient's shortness of breath. D/ / Eldon Krishna MD / Eldon Krishna MD Interpreting Provider: Eldon Krishna MD Abdomen/Pelvis CT 07/15/18 11:37 IMPRESSION: 1. The airspace disease in the medial segment right middle lobe, lingula of the left upper lobe and in the left lower lobe, progressed or recurrent compared with prior study concerning for pneumonia. 2. No pulmonary embolism. 3. Probable motion artifact along the medial aspect of the ascending thoracic aorta versus ulcerative plaque. No aortic dissection or aneurysm. 4. Hepatic steatosis. 5. Appears to be slightly increased left perinephric stranding comparing to the right, however there is no enhancement abnormality of the kidney ureter or renal pelvis to suggest nephritis or ureteritis. Correlate with urinalysis. 6. Diverticulosis coli without CT evidence of acute diverticulitis. D/ / Rito Kerr / Rito Kerr Interpreting Provider: Riot Kerr Chest CTA 07/15/18 11:37 IMPRESSION: 1. The airspace disease in the medial segment right middle lobe, lingula of the left upper lobe and in the left lower lobe, progressed or recurrent compared with prior study concerning for pneumonia. 2. No pulmonary embolism. 3. Probable motion artifact along the medial aspect of the ascending thoracic aorta versus ulcerative plaque. No aortic dissection or aneurysm. 4. Hepatic steatosis. 5. Appears to be slightly increased left perinephric stranding comparing to the right, however there is no enhancement abnormality of the kidney ureter or renal pelvis to suggest nephritis or ureteritis. Correlate with urinalysis. 6. Diverticulosis coli without CT evidence of acute diverticulitis. D/ / Rito Kerr / Rito Kerr Interpreting Provider: Rito Kerr - Assessment and plan (1) Multifocal pneumonia Current Visit: Yes Status: Acute Assessment and plan: Recurrent and progressive bilateral multifocal pneumonia Organism unknown Send blood culture, sputum culture, Legionella antigen, streptococcal antigen, respiratory infectious panel Continue broad-spectrum antibioticsvancomycin, Zosyn and Levaquin Follow final cultures Rapid influenza antigen ordered (2) Sepsis Current Visit: Yes Status: Acute Assessment and plan: Patient may sepsis criteria with fever and tachycardia leukocytosis and multifocal pneumonia He has lactic acidosis of 3.09 admission, improved to 2.4 with treatment Blood and sputum cultures have been requested Source of sepsis at this time is multifocal pneumonia Also obtain urine analysis to rule out urinary source Continue vancomycin, Levaquin and Zosyn Continue respiratory support with BiPAP We will hold off IV fluid hydration at this time, she takes Lasix at home Obtain echocardiogram Follow final cultures patient is high risk of decompensation to septic shock and or worsening respiratory failure requiring invasive mechanical ventilation Qualifiers: Sepsis type: sepsis due to unspecified organism Qualified Code(s): A41.9 - Sepsis, unspecified organism (3) Acute exacerbation of chronic obstructive airways disease Current Visit: Yes Status: Acute Assessment and plan: Obtain stat arterial blood gas DuoNeb's every 4 scheduled Solu-Medrol 125 mg stat and 60 mg every 6 IV extent continue antibiotics as in sepsis Keep patient is stepdown unit Continue BiPAP and monitor serial blood gases Pressure for mechanical intubation patient is full code. (4) Acute respiratory failure Current Visit: Yes Status: Acute Assessment and plan: as above Qualifiers: Respiratory failure complication: hypoxia Qualified Code(s): J96.01 - Acute respiratory failure with hypoxia (5) DVT prophylaxis Current Visit: Yes Status: Acute Assessment and plan: Sq heparin (6) Essential hypertension Current Visit: Yes Status: Chronic Assessment and plan: resume home meds (7) Tobacco abuse Current Visit: Yes Status: Chronic Assessment and plan: encourage cessation (8) Lactic acidosis Current Visit: Yes Status: Acute Assessment and plan: Due to sepsis and hypoxia Admitting lactate 3.0 Rpt 2.4 Rpt in 4 hrs after 500cc gentle hydration - Time Spent With Patient Total time spent is greater than 50% in coordination of care (as documented) at patient's floor/unit and/or counseling patient:
[2018-07-15] MEDS ORDERED: Fluticasone Propionate Nasal 50 MCG/SPRAY BOTTLE NS PRN (15:49)
[2018-07-15] MEDS ORDERED: methylPREDNISolone 125 MG/2 ML VIAL IVP ONE (15:51)
[2018-07-15] MEDS: Ipratropium/Albuterol Neb 3 ML IH SCH ×3 (17:04→23:12)
[2018-07-15] MEDS: tiZANidine 4 MG TABLET PO SCH (20:18)
[2018-07-15] MEDS: BuPROPion SR (12 HR) 150 MG TABLET PO SCH (20:18)
[2018-07-15 21:35] LABS: Adenovirus Not Detected (Not Detect); Bordetella Pertussis Not Detected (Not Detect); Chlamydophila pneumoniae Not Detected (Not Detect); Coronavirus 229E Not Detected (Not Detect); Coronavirus HKU1 Not Detected (Not Detect); Coronavirus NL63 Not Detected (Not Detect); Coronavirus OC43 Not Detected (Not Detect); Human Metapneumovirus Not Detected (Not Detect); Human Rhinovirus/Enterovirus Not Detected (Not Detect); Influenza A Subtype 2009 H1 Not Detected (Not Detect); Influenza A Untypeable Not Detected (Not Detect); Influenza B Not Detected (Not Detect); Mycoplasma pneumoniae Not Detected (Not Detect); Parainfluenza Virus 1 Not Detected (Not Detect); Parainfluenza Virus 2 Not Detected (Not Detect); Parainfluenza Virus 3 Not Detected (Not Detect); Parainfluenza Virus 4 Not Detected (Not Detect); Respiratory Syncytial Virus Not Detected (Not Detect)
[2018-07-16] MEDS: Piperacillin/Tazobactam 3.375 GM in 0.9 % Sodium Chloride Mini Bag 100 ML IVPB SCH ×4 (00:17→23:51)
[2018-07-16] MEDS: methylPREDNISolone 125 MG/2 ML VIAL IVP SCH ×3 (00:17→12:03)
[2018-07-16] MEDS: Ipratropium/Albuterol Neb 3 ML IH SCH ×5 (04:08→20:30)
[2018-07-16] MEDS: *HR* Enoxaparin 40 MG/0.4 ML SYRINGE SQ SCH (05:07)
[2018-07-16 05:11] LABS: Bilirubin,Urine Negative (Negative); Blood,Urine Negative (Negative); Clarity,Urine Clear (Clear); Color,Urine Yellow (Yellow); Glucose,Urine (UA) Normal (Normal); Ketones,Urine Negative (Negative); Leukocyte Esterase,Urine Negative (Negative); Nitrite,Urine Negative (Negative); Protein,Urine 30 mg/dL (Neg-Trace); Specific Gravity,Urine 1.021 (1.010-1.025); Urobilinogen,Urine Normal (Normal)
[2018-07-16 05:13] LABS: Bacteria,Urine None Seen per hpf (None-Few); Hyaline Casts,Urine None Seen per lpf (None-Few); Squamous Epithelial Cell,Urine Moderate per lpf (None-Few); WBC,Urine 0-3 per hpf (0-3)
[2018-07-16 06:09] LABS: Basophils % 0.1 %; Hematocrit 34.6 % (37.5-50.1); Lymphocytes # 0.9 K/mcL (0.6-4.6); Lymphocytes % 6.2 %; Mean Corpuscular HGB Conc 33.5 g/dL (31.6-35.5); Mean Corpuscular Hemoglobin 32.1 pg (28.0-33.3); Mean Corpuscular Volume 95.8 fL (83.0-100.0); Mean Platelet Volume 9.7 fL (9.4-12.4); Monocytes # 0.3 K/mcL (0.0-1.3); Monocytes % 2.2 %; Neutrophils # 13.5 K/mcL (1.6-8.9); Platelet Count 166 K/mcL (140-400); Red Blood Count 3.61 M/mcL (4.19-5.50); Red Cell Distribution Width 13.7 % (11.5-14.5); Segmented Neutrophils % 89.5 %
[2018-07-16 06:14] LABS: Hemoglobin 11.6 g/dL (12.9-16.9)
[2018-07-16 06:37] LABS: BUN/Creatinine Ratio 22 (6-26); Blood Urea Nitrogen 24 mg/dL (8-23); Calcium 8.3 mg/dL (8.6-10.3); Carbon Dioxide 24 mEq/L (23-29); Chloride 107 mEq/L (98-107); Glucose 144 mg/dL (70-105); Osmolality,Calculated 295 (280-300); Potassium 3.7 mEq/L (3.5-5.1); Sodium 139 mEq/L (136-145); eGFR For Non-African Americans > 60 (> 60)
--- NOTE | 2018-07-16 08:53 | Electrocardiograph Report ---
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
[2018-07-16] MEDS: tiZANidine 4 MG TABLET PO SCH ×3 (09:54→20:15)
[2018-07-16] MEDS: Furosemide 40 MG TABLET PO SCH (09:54)
[2018-07-16] MEDS: Loratadine 10 MG TABLET PO SCH (09:54)
[2018-07-16] MEDS: BuPROPion SR (12 HR) 150 MG TABLET PO SCH ×2 (09:54→20:15)
[2018-07-16] MEDS: Aspirin Enteric Coated 325 MG Tablet PO SCH (09:54)
[2018-07-16] MEDS: FLUoxetine 20 MG CAPSULE PO SCH (09:54)
[2018-07-16] MEDS: Levofloxacin 750 MG/150 ML 750 MG/150 ML BAG IVPB SCH (09:56)
[2018-07-16] MEDS: Silver Sulfadiazine 50 GM TUBE TP SCH ×2 (11:54→20:16)
--- NOTE | 2018-07-16 15:56 | Internal Med Progress Note ---
Hospitalist Progress Note - Encounter Date of Encounter: 07/16/18 Time of Encounter: 15:54 - Subjective Interval History: I've seen and evaluated the patient at beside. He reports improvement in his shortness of breath. denies chest pain, palpitation, nausea or vomiting. - Exam Vitals: Temp Pulse Resp BP Pulse Ox 97.3 F L 100 18 109/63 96 07/16/18 13:03 07/16/18 13:03 07/16/18 15:42 07/16/18 13:03 07/16/18 15:42 Exam: Vitals: Reviewed. General: Alert and oriented x4. In mild distress due to shortness of breath. Skin: Normal color, no rash, no lesions. HEENT: EOM, pupils equal, round and reactive. Cardiovascular: RRR, Normal S1 & S2, no rubs, murmurs or gallops. Lungs: CTA bilaterally, no wheezes or crackles. Abdomen: Soft, non-tender, no rigidity. ventral hernia. Extremities: No deformity, no edema or tenderness, no joint swelling or clubbing. Neurological: Normal cognition and motor skills. Rest of the physical exam is non contributory - Assessment and Plan (1) Acute exacerbation of chronic obstructive airways disease Current Visit: Yes Status: Acute Assessment and Plan: Improving. Plan Continue Duo-nebs Q4RT scheduled decrease solu-medrol to 40mg/IV Q8HR stand by BiPap Being covered empirically with IV antibiotics (2) Essential hypertension Current Visit: Yes Status: Chronic Assessment and Plan: Blood pressure has been well controlled. Continue furosemide 40 mg by mouth daily. (3) Multifocal pneumonia Current Visit: Yes Status: Acute Assessment and Plan: HCAP Plan will continue dual antipseudomonal coverage for at least 24 more hours ON Levofloxacin 750mg/IV daily and Piperacillin/Tazobactam 3.375mg/IV Q8HRs on Vancomycin per pharmacy dosing Sputum culture sent Blood culture: no growth, pending final report. Urine atypical negative (4) Acute respiratory failure Current Visit: Yes Status: Resolved (5) Sepsis Current Visit: Yes Status: Resolved Assessment and Plan: septic picture on presentation resolved patient afebrile, normotensive, lactic acid back to normal will continue broad spectrum IV antibiotics (6) Lactic acidosis Current Visit: Yes Status: Resolved Assessment and Plan: due to sepsis (7) Tobacco abuse Current Visit: Yes Status: Chronic (8) Hyperlipidemia Current Visit: Yes Status: Chronic Assessment and Plan: Continue simvastatin 40 mg by mouth daily. (9) History of depression Current Visit: Yes Status: Chronic Assessment and Plan: No suicidal, or homicidal ideation. Continue bupropion 150 mg by mouth daily On fluoxetine 20mg/PO daily DVT Prophylaxis: On enoxaparin 40mg SubQ daily. - Summary of Assessment and Plan Summary of Assessment and Plan: Patient to remain in the hospital to continue IV broad spectrum antibiotics and IV Steroids. - Time Spent with Patient Total time spent is greater than 50% in coordination of care (as documented) at patient's floor/unit and/or counseling patient: Greater than 35 minutes (40) Plan of Care Discussed with: patient (and the nurse.) Internal Medicine: Result - Labs CBC & Chem 7: 07/16/18 05:20 07/16/18 05:20 Labs: Short CBC 07/16/18 Range/Units 05:20 WBC 15.1 H (4.3-11.1) K/mcL Hgb 11.6 L D (12.9-16.9) g/dL Hct 34.6 L (37.5-50.1) % Plt Count 166 (140-400) K/mcL Neutrophils # 13.5 H (1.6-8.9) K/mcL BMP 07/16/18 05:20 Sodium 139 Potassium 3.7 Chloride 107 Carbon Dioxide 24 BUN 24 H Creatinine 1.07 Glucose 144 H Calcium 8.3 L Urine 07/16/18 Range/Units 04:45 Urine Color Yellow (Yellow) Urine Clarity Clear (Clear) Urine pH 6.0 (5.0-8.0) pH Units Ur Specific [place] 1.021 (1.010-1.025) Urine Protein 30 H (Neg-Trace) mg/dL Urine Glucose (UA) Normal (Normal) mg/dL - ABG Interpretation ABG results: PT/INR, D-dimer PT 10.7 Seconds (9.4-12.1) 07/15/18 10:49 - Impressions Impressions Echocardiogram 07/15/18 15:19 Impressions: LVEF 60%. Mild left ventricular diastolic dysfunction. Normal right ventricular structure and function. No significant valvular dysfunction. No pulmonary hypertension. No evidence of PFO with agitated saline contrast. Left Ventricular Wall Motion: Rest Echo Findings All wall segments showed normal motion. Findings: Study Quality * Technically adequate exam. ECG Findings * Normal sinus rhythm. Left Ventricle * LVEF 60%. * Mild left ventricular diastolic dysfunction. * Normal LV chamber size, wall thickness and function. Right Ventricle * Normal right ventricular structure and function. Left Atrium * Normal left atrial size. Right Atrium * Normal right atrial size. Aortic Valve * No aortic regurgitation. * Trileaflet aortic valve. * No aortic stenosis. Mitral Valve * No mitral regurgitation. * Normal mitral valve structure. * No mitral stenosis. Tricuspid Valve * Tricuspid valve not well visualized. * Estimated RA pressure is 3 mmHg. * Estimated RVSP is 8 mmHg. * No pulmonary hypertension. Pulmonic Valve * Pulmonic valve is not well visualized. * No pulmonic stenosis. * No pulmonic regurgitation. Pulmonary Artery * Pulmonary artery not well visualized. Aorta * Normally sized aortic root. Pericardium * There is no pericardial effusion present. Interatrial Septum * No evidence of PFO by color Doppler. * No evidence of PFO with agitated saline contrast. IVC * Normal IVC dimensions and inspiratory collapse. Consult Discharge Plan - Plan Referrals: Naresh Webb MD [Primary Care Provider] - (4) Acute respiratory failure Qualifiers: Respiratory failure complication: hypoxia Qualified Code(s): J96.01 - Acute respiratory failure with hypoxia (5) Sepsis Qualifiers: Sepsis type: sepsis due to unspecified organism Qualified Code(s): A41.9 - Sepsis, unspecified organism (8) Hyperlipidemia Qualifiers: Hyperlipidemia type: unspecified Qualified Code(s): E78.5 - Hyperlipidemia, unspecified
[2018-07-16] MEDS: MethylPREDNISolone 40 MG/ML VIAL IVP SCH ×2 (17:24→23:51)
[2018-07-16] MEDS: *HR* OxyCODONE Immed Rel 15 MG TABLET PO PRN (20:36)
[2018-07-17] MEDS: Ipratropium/Albuterol Neb 3 ML IH SCH ×7 (00:08→23:33)
[2018-07-17 01:46] LABS: Basophils % 0.1 %; Hematocrit 31.7 % (37.5-50.1); Hemoglobin 10.7 g/dL (12.9-16.9); Immature Granulocytes % 1.6 % (0-4); Lymphocytes # 0.7 K/mcL (0.6-4.6); Lymphocytes % 4.5 %; Mean Corpuscular HGB Conc 33.8 g/dL (31.6-35.5); Mean Corpuscular Hemoglobin 32.4 pg (28.0-33.3); Mean Corpuscular Volume 96.1 fL (83.0-100.0); Mean Platelet Volume 9.5 fL (9.4-12.4); Monocytes # 0.7 K/mcL (0.0-1.3); Monocytes % 4.3 %; Neutrophils # 14.7 K/mcL (1.6-8.9); Platelet Count 175 K/mcL (140-400); Red Cell Distribution Width 13.9 % (11.5-14.5); Segmented Neutrophils % 89.5 %
[2018-07-17 02:00] LABS: BUN/Creatinine Ratio 26 (6-26); Blood Urea Nitrogen 34 mg/dL (8-23); Calcium 8.3 mg/dL (8.6-10.3); Carbon Dioxide 21 mEq/L (23-29); Chloride 108 mEq/L (98-107); Glucose 161 mg/dL (70-105); Magnesium 2.2 mg/dL (1.6-2.6); Osmolality,Calculated 293 (280-300); Phosphorous 1.9 mg/dL (2.7-4.5); Potassium 3.6 mEq/L (3.5-5.1); Sodium 136 mEq/L (136-145); eGFR For Non-African Americans 55 (> 60)
[2018-07-17] MEDS: *HR* Enoxaparin 40 MG/0.4 ML SYRINGE SQ SCH (05:02)
[2018-07-17] MEDS: Aspirin Enteric Coated 325 MG Tablet PO SCH (08:07)
[2018-07-17] MEDS: tiZANidine 4 MG TABLET PO SCH ×3 (08:07→20:06)
[2018-07-17] MEDS: BuPROPion SR (12 HR) 150 MG TABLET PO SCH ×2 (08:08→20:05)
[2018-07-17] MEDS: Furosemide 40 MG TABLET PO SCH (08:08)
[2018-07-17] MEDS: Loratadine 10 MG TABLET PO SCH (08:08)
[2018-07-17] MEDS: FLUoxetine 20 MG CAPSULE PO SCH (08:08)
[2018-07-17] MEDS: *HR* OxyCODONE Immed Rel 15 MG TABLET PO PRN ×3 (08:17→20:10)
[2018-07-17] MEDS: Levofloxacin 750 MG/150 ML 750 MG/150 ML BAG IVPB SCH (08:18)
[2018-07-17] MEDS: MethylPREDNISolone 40 MG/ML VIAL IVP SCH ×2 (08:20→18:23)
[2018-07-17] MEDS: Silver Sulfadiazine 50 GM TUBE TP SCH ×2 (08:43→20:05)
[2018-07-17] MEDS: Piperacillin/Tazobactam 3.375 GM in 0.9 % Sodium Chloride Mini Bag 100 ML IVPB SCH ×3 (10:02→23:46)
[2018-07-17] MEDS ORDERED: *HR* LORazepam 2 MG/ML VIAL IVP PRN (12:10)
--- NOTE | 2018-07-17 12:10 | Internal Med Progress Note ---
Hospitalist Progress Note - Encounter Date of Encounter: 07/17/18 Time of Encounter: 12:08 - Subjective Interval History: I've seen and evaluated the patient at beside. Patient reports that his symptoms are improving but he is still short of breath and continues to have coughing spells. denies chest pain, light headedness, nausea or vomiting. reports int ermittent intentional tremors. denies visual or auditory hallucinations. - Exam Vitals: Temp Pulse Resp BP Pulse Ox 97.7 F 94 15 114/63 96 07/17/18 11:00 07/17/18 11:00 07/17/18 11:00 07/17/18 11:00 07/17/18 11:00 Exam: Vitals: Reviewed. General: Alert and oriented x4. still in mild distress due to shortness of breath. Skin: Normal color, no rash, no lesions. Cardiovascular: RRR, Normal S1 & S2, no rubs, murmurs or gallops. Lungs: Minimal scattered expiratory wheezing, no crackles. Abdomen: Soft, non-tender, no rigidity. ventral hernia. Extremities: No no edema in the lower extremity bilaterally. Neurological: Normal cognition. CN II-XII intact. Rest of the physical exam is non contributory - Assessment and Plan (1) Acute exacerbation of chronic obstructive airways disease Current Visit: Yes Status: Acute Assessment and Plan: improving. chest with minimal scattered expiratory wheezing. But reports still feeling short of breath Plan Decrease Solu-Medrol to 40 mg IV twice a day. Continue Duo-Nebs Q$RT scheduled Incentive spirometry. On empiric antibiotic coverage. (2) Multifocal pneumonia Current Visit: Yes Status: Acute Assessment and Plan: Blood cultures: No growth, pending final report We will de-escalate on antibiotic coverage Discontinue vancomycin, Discontinue levofloxacin Continue Piperacillin/Tazobactam 3.375mg/IV Q8HR (3) Essential hypertension Current Visit: Yes Status: Chronic Assessment and Plan: Blood pressure is well controlled. Continue furosemide 40 mg by mouth daily. (4) Acute respiratory failure Current Visit: Yes Status: Resolved Assessment and Plan: Acute hypoxemic respiratory failure on presentation resolved. Oxygen by nasal cannula when necessary. (5) Sepsis Current Visit: Yes Status: Resolved (6) Tobacco abuse Current Visit: Yes Status: Chronic (7) Hyperlipidemia Current Visit: Yes Status: Chronic Assessment and Plan: Continue simvastatin 40 mg by mouth daily. (8) History of depression Current Visit: Yes Status: Chronic Assessment and Plan: On bupropion 150 mg by mouth twice a day, and fluoxetine 20 mg by mouth daily. DVT Prophylaxis: On enoxaparin 40 mg subcutaneous daily - Summary of Assessment and Plan Summary of Assessment and Plan: Patient to remain in the hospital for at least 24 more hours. Due to CHF exacerbation which is improving. We will continue IV antibiotics, IV steroids and nebs as scheduled. - Time Spent with Patient Total time spent is greater than 50% in coordination of care (as documented) at patient's floor/unit and/or counseling patient: Greater than 35 minutes (40) Plan of Care Discussed with: patient (and the nurse.) Internal Medicine: Result - Labs CBC & Chem 7: 07/17/18 00:51 07/17/18 00:51 Labs: Short CBC 07/17/18 Range/Units 00:51 WBC 16.4 H (4.3-11.1) K/mcL Hgb 10.7 L (12.9-16.9) g/dL Hct 31.7 L (37.5-50.1) % Plt Count 175 (140-400) K/mcL Neutrophils # 14.7 H (1.6-8.9) K/mcL BMP 07/17/18 00:51 Sodium 136 Potassium 3.6 Chloride 108 H Carbon Dioxide 21 L BUN 34 H Creatinine 1.30 Glucose 161 H Calcium 8.3 L - ABG Interpretation ABG results: PT/INR, D-dimer PT 10.7 Seconds (9.4-12.1) 07/15/18 10:49 Consult Discharge Plan - Plan Referrals: Naresh Webb MD [Primary Care Provider] - (4) Acute respiratory failure Qualifiers: Respiratory failure complication: hypoxia Qualified Code(s): J96.01 - Acute respiratory failure with hypoxia (5) Sepsis Qualifiers: Sepsis type: sepsis due to unspecified organism Qualified Code(s): A41.9 - Sepsis, unspecified organism (7) Hyperlipidemia Qualifiers: Hyperlipidemia type: unspecified Qualified Code(s): E78.5 - Hyperlipidemia, unspecified
[2018-07-17] MEDS ORDERED: Aminoglycoside Consult 1 EACH MC ONE (15:10)
[2018-07-18] MEDS: Ipratropium/Albuterol Neb 3 ML IH SCH ×3 (03:57→11:38)
[2018-07-18] MEDS: *HR* Enoxaparin 40 MG/0.4 ML SYRINGE SQ SCH (06:19)
[2018-07-18] MEDS: MethylPREDNISolone 40 MG/ML VIAL IVP SCH (06:20)
[2018-07-18 06:58] LABS: Basophils % 0.1 %; Hematocrit 31.8 % (37.5-50.1); Hemoglobin 10.8 g/dL (12.9-16.9); Lymphocytes # 1.1 K/mcL (0.6-4.6); Lymphocytes % 9.1 %; Mean Corpuscular Volume 94.4 fL (83.0-100.0); Mean Platelet Volume 9.6 fL (9.4-12.4); Monocytes # 0.7 K/mcL (0.0-1.3); Monocytes % 5.5 %; Neutrophils # 10.3 K/mcL (1.6-8.9); Platelet Count 203 K/mcL (140-400); Red Blood Count 3.37 M/mcL (4.19-5.50); Red Cell Distribution Width 14.1 % (11.5-14.5); Segmented Neutrophils % 82.3 %
[2018-07-18 07:21] LABS: BUN/Creatinine Ratio 28 (6-26); Blood Urea Nitrogen 29 mg/dL (8-23); Calcium 8.6 mg/dL (8.6-10.3); Carbon Dioxide 22 mEq/L (23-29); Chloride 110 mEq/L (98-107); Glucose 134 mg/dL (70-105); Magnesium 2.1 mg/dL (1.6-2.6); Osmolality,Calculated 300 (280-300); Phosphorous 2.7 mg/dL (2.7-4.5); Potassium 3.8 mEq/L (3.5-5.1); Sodium 141 mEq/L (136-145); eGFR For Non-African Americans > 60 (> 60)
--- NOTE | 2018-07-18 09:37 | Discharge Summary ---
- NOTES TO OUTPATIENT PROVIDER Notes to Outpatient Provider: Follow with your PCP within 1-2 weeks of hospital discharge Orders not resulted at time of discharge: Pending orders 07/15/18 10:49 Culture,Blood [BC] Stat 07/16/18 10:22 Culture,Sputum with Gram Stain [RM] Stat Date of Encounter: 07/18/18 Time of Encounter: 09:34 - Discharge Diagnosis (1) Acute exacerbation of chronic obstructive airways disease Priority: Primary Status: Resolved (2) Multifocal pneumonia Priority: Secondary Status: Acute (3) Essential hypertension Priority: Secondary Status: Chronic (4) Acute respiratory failure Priority: Secondary Status: Resolved Qualifiers: Respiratory failure complication: hypoxia Qualified Code(s): J96.01 - Acute respiratory failure with hypoxia (5) Sepsis Priority: Secondary Status: Resolved Qualifiers: Sepsis type: sepsis due to unspecified organism Qualified Code(s): A41.9 - Sepsis, unspecified organism (6) Tobacco abuse Priority: Secondary Status: Chronic (7) Hyperlipidemia Priority: Secondary Status: Chronic Qualifiers: Hyperlipidemia type: unspecified Qualified Code(s): E78.5 - Hyperlipidemia, unspecified (8) History of depression Priority: Secondary Status: Chronic Hospital course: Mr. Jackson is a 68 year old male medical history of COPD, hyperlipidemia, hypertension was recently admitted and discharged from multifocal pneumonia but presented to the ER with complaints of worsening shortness of breath. A CT angiogram of the chest and abdomen done: bilateral multifocal progressive and recurrent pneumonia, no pulmonary embolism. Patient admitted to the hospital due to acute hypoxemic respiratory failure requiring BiPAP, multifocal pneumonia, and COPD exacerbation. Patient treated with broad-spectrum IV antibiotics, nebs, IV steroids and oxygen supplement. Patient acute symptoms resolved, and patient is hemodynamically stable to be discharged home. Being discharged home on by mouth antibiotics and a Medrol Dosepak. Recommended to follow-up with his primary care physician within a week of hospital discharge. - Time Spent with Patient Total time spent providing and/or coordinating discharge services: Greater than 30 minutes (40) - Discharge Medications Prescriptions: Levofloxacin [Levaquin] 750 mg PO DAILY 5 Days #5 tablet Home Medications: BuPROPion SR (12 HR) [Wellbutrin SR] 150 mg PO BID 07/01/16 [History] Aspirin Enteric Coated [Aspirin EC] 325 mg PO DAILY 11/10/16 [History] Loratadine [Claritin] 10 mg PO DAILY 07/16/17 [History] Meloxicam [Mobic] 15 mg PO DAILY 07/16/17 [History] Omeprazole [PriLOSEC] 20 mg PO DAILY 09/10/17 [History] Albuterol Sulfate [Ventolin Hfa] 2 puff IH Q6H PRN 06/13/18 [History] Oxycodone HCl 15 mg PO QID PRN 06/13/18 [History] Simvastatin [Zocor] 40 mg PO DAILY 06/13/18 [History] Tizanidine HCl [Zanaflex] 4 mg PO TID 06/13/18 [History] Albuterol Neb [Proventil Neb] 2.5 mg IH TID #300 ml 06/19/18 [Rx] FLUoxetine HCl [Prozac] 20 mg PO DAILY 07/01/18 [History] Furosemide [Lasix] 40 mg PO DAILY 07/01/18 [History] Potassium Chloride [K-Tab ER] 20 meq PO DAILY 07/01/18 [History] Fluticasone Propionate Nasal [Flonase] 2 spr NS DAILY PRN 07/15/18 [History] Levofloxacin [Levaquin] 750 mg PO DAILY 5 Days #5 tablet 07/18/18 [Rx] Allergies/Adverse Reactions: Allergy/AdvReac Type Severity Reaction Status Date / Time duloxetine [From Cymbalta] Allergy Hives Verified 07/15/18 13:49 morphine Allergy Difficulty Verified 07/15/18 13:49 Breathing diphenhydramine AdvReac Dizziness Verified 07/15/18 13:49 [From Benadryl] gabapentin AdvReac Confusion Verified 07/15/18 13:49 Oxycodone [From OxyContin] AdvReac Itching Verified 07/15/18 13:49 tapentadol [From Nucynta] AdvReac Weakness Verified 07/15/18 13:49 Date of admission: 07/15/18 15:49 Primary care physician: Naresh Webb MD - Constitutional Vitals: Temp Pulse Resp BP Pulse Ox 98.1 F 91 16 159/83 96 07/18/18 07:08 07/18/18 07:08 07/18/18 07:54 07/18/18 07:08 07/18/18 07:54 Exam: Vitals: Reviewed. General: Alert and oriented x4. In no acute distress. Skin: Normal color, no rash, no lesions. HEENT: EOM, pupils equal, round and reactive. Cardiovascular: RRR, Normal S1 & S2, no rubs, murmurs or gallops. Lungs: CTA bilaterally, no wheezes or crackles. Abdomen: Soft, non-tender, no rigidity. ventral hernia. Extremities: No deformity, no edema or tenderness, no joint swelling or clubbing. Neurological: Normal cognition and motor skills. Rest of the physical exam is non contributory - Patient Status Disposition: Home, Self-Care Condition: Good Functional capacity at discharge: independent ambulation Overall status at discharge: patient is back to baseline - Discharge Instructions Follow Up With: Naresh Webb MD [Primary Care Provider] - - Diet and Activity Activity: resume usual activities as tolerated Diet: advance to your usual diet
[2018-07-18] MEDS: Aspirin Enteric Coated 325 MG Tablet PO SCH (09:56)
[2018-07-18] MEDS: FLUoxetine 20 MG CAPSULE PO SCH (09:57)
[2018-07-18] MEDS: BuPROPion SR (12 HR) 150 MG TABLET PO SCH (09:57)
[2018-07-18] MEDS: tiZANidine 4 MG TABLET PO SCH (09:57)
[2018-07-18] MEDS: Loratadine 10 MG TABLET PO SCH (09:57)
[2018-07-18] MEDS: Furosemide 40 MG TABLET PO SCH (09:57)
[2018-07-18] MEDS: Piperacillin/Tazobactam 3.375 GM in 0.9 % Sodium Chloride Mini Bag 100 ML IVPB SCH (09:58)
[2018-07-18] MEDS: *HR* OxyCODONE Immed Rel 15 MG TABLET PO PRN (10:21)
[2018-07-18 11:04] VITALS: BP 150/85
== END 2018-07-18 15:11 | disposition home or self-care (01) | DRG 720 ==
LOC: 3BNU 10:12 → EMEROOARM 10:12 → 2NENU 15:04 → SUATTDRO 15:49
PROVIDERS: ADMIT Internal Medicine; ATTEND Internal Medicine

== ENCOUNTER 2020-06-08 19:05 | Inpatient (IN) ==
[2020-06-08 19:36] LABS: Basophils # 0.1 K/mcL (0.0-0.2); Basophils % 0.6 %; Eosinophils # 0.2 K/mcL (0.0-0.6); Eosinophils % 1.4 %; Hematocrit 41.8 % (37.5-50.1); Hemoglobin 14.2 g/dL (12.9-16.9); Immature Granulocytes % 0.6 % (0-4); Lymphocytes # 1.2 K/mcL (0.6-4.6); Lymphocytes % 10.7 %; Mean Corpuscular Hemoglobin 33.3 pg (28.0-33.3); Mean Corpuscular Volume 97.9 fL (83.0-100.0); Mean Platelet Volume 9.7 fL (9.4-12.4); Monocytes # 0.3 K/mcL (0.0-1.3); Monocytes % 2.5 %; Neutrophils # 9.1 K/mcL (1.6-8.9); Platelet Count 238 K/mcL (140-400); Red Blood Count 4.27 M/mcL (4.19-5.50); Red Cell Distribution Width 12.8 % (11.5-14.5); Segmented Neutrophils % 84.2 %; White Blood Count 10.8 K/mcL (4.3-11.1)
[2020-06-08 19:54] LABS: Prothrombin Time 11.2 Seconds (9.4-12.1)
[2020-06-08 19:55] LABS: BUN/Creatinine Ratio 13 (6-26); Blood Urea Nitrogen 16 mg/dL (8-23); Calcium 9.5 mg/dL (8.6-10.3); Carbon Dioxide 23 mEq/L (23-29); Chloride 102 mEq/L (98-107); Glucose 137 mg/dL (70-105); Lipase 22 Units/L (11-82); Osmolality,Calculated 287 (280-300); Potassium 4.2 mEq/L (3.5-5.1); Sodium 137 mEq/L (136-145); Troponin I < 0.03 ng/mL (< 0.04); eGFR For African Americans > 60 (> 60); eGFR For Non-African Americans 56 (> 60)
[2020-06-08 19:56] LABS: Activated Partial Thrombo Time 28.8 Seconds (26.0-36.0)
[2020-06-08] MEDS: Nitroglycerin 0.4 MG TAB.SUBL SL PRN ×3 (21:01→21:51)
[2020-06-08] MEDS ORDERED: Aspirin 325 MG TABLET PO ONE (22:07)
[2020-06-08] MEDS ORDERED: *HR* OxyCODONE/APAP 5/325 TABLET PO ONE (22:40)
[2020-06-08] MEDS ORDERED: Naloxone 0.4 MG/ML INJ IVP PRN (23:39)
[2020-06-09 03:16] LABS: Hematocrit 38.6 % (37.5-50.1); Hemoglobin 13.2 g/dL (12.9-16.9); Mean Corpuscular HGB Conc 34.2 g/dL (31.6-35.5); Mean Corpuscular Hemoglobin 34.5 pg (28.0-33.3); Mean Corpuscular Volume 100.8 fL (83.0-100.0); Mean Platelet Volume 9.9 fL (9.4-12.4); Platelet Count 225 K/mcL (140-400); Red Blood Count 3.83 M/mcL (4.19-5.50); Red Cell Distribution Width 12.9 % (11.5-14.5); White Blood Count 8.4 K/mcL (4.3-11.1)
[2020-06-09 03:34] LABS: Calcium 9.2 mg/dL (8.6-10.3); Potassium 4.4 mEq/L (3.5-5.1)
[2020-06-09] MEDS: Ipratropium/Albuterol Neb 3 ML IH SCH ×6 (04:30→23:22)
[2020-06-09] MEDS: MethylPREDNISolone 40 MG/ML VIAL IVP SCH ×2 (04:51→11:14)
[2020-06-09] MEDS: Azithromycin 500 MG in 0.9 % Sodium Chloride 250 ML IVPB SCH (04:51)
[2020-06-09] MEDS: *HR* Heparin 5,000 UNIT/ML VIAL SQ SCH ×3 (04:51→19:55)
[2020-06-09 04:52] LABS: Adenovirus Not Detected (Not Detect); Bordetella Pertussis Not Detected (Not Detect); Chlamydophila pneumoniae Not Detected (Not Detect); Coronavirus 229E Not Detected (Not Detect); Coronavirus HKU1 Not Detected (Not Detect); Coronavirus NL63 Not Detected (Not Detect); Coronavirus OC43 Not Detected (Not Detect); Human Metapneumovirus Not Detected (Not Detect); Human Rhinovirus/Enterovirus DETECTED (Not Detect); Influenza A Subtype 2009 H1 Not Detected (Not Detect); Influenza B Not Detected (Not Detect); Mycoplasma pneumoniae Not Detected (Not Detect); Parainfluenza Virus 1 Not Detected (Not Detect); Parainfluenza Virus 2 Not Detected (Not Detect); Parainfluenza Virus 3 Not Detected (Not Detect); Parainfluenza Virus 4 Not Detected (Not Detect); Respiratory Syncytial Virus Not Detected (Not Detect); SARS-CoV-2 Not Detected (Not Detect)
[2020-06-09] MEDS ORDERED: *HR* LORazepam 2 MG/ML VIAL IVP PRN (05:35)
[2020-06-09] MEDS ORDERED: Regadenoson 0.4 MG/5 ML SYRINGE IVP ONE (06:06)
[2020-06-09 06:41] LABS: Basophils % 0.4 %; Eosinophils % 0.2 %; Hemoglobin 12.9 g/dL (12.9-16.9); Immature Granulocytes % 0.7 % (0-4); Lymphocytes # 1.6 K/mcL (0.6-4.6); Lymphocytes % 16.9 %; Mean Corpuscular HGB Conc 33.1 g/dL (31.6-35.5); Mean Corpuscular Hemoglobin 32.9 pg (28.0-33.3); Mean Corpuscular Volume 99.5 fL (83.0-100.0); Mean Platelet Volume 9.7 fL (9.4-12.4); Monocytes # 0.7 K/mcL (0.0-1.3); Monocytes % 6.9 %; Platelet Count 228 K/mcL (140-400); Red Blood Count 3.92 M/mcL (4.19-5.50); Red Cell Distribution Width 12.9 % (11.5-14.5); Segmented Neutrophils % 74.9 %; White Blood Count 9.4 K/mcL (4.3-11.1)
[2020-06-09 07:00] LABS: Magnesium 2.2 mg/dL (1.6-2.6); Phosphorous 3.1 mg/dL (2.7-4.5)
[2020-06-09] MEDS: FLUoxetine 20 MG CAPSULE PO SCH (11:14)
[2020-06-09] MEDS: Cyanocobalamin (B-12) 1,000 MCG TABLET PO SCH (11:14)
[2020-06-09] MEDS: Thiamine (B-1) 100 MG TABLET PO SCH (11:14)
[2020-06-09] MEDS: Renal Vitamin 1 CAP CAPSULE PO SCH (11:14)
[2020-06-09] MEDS ORDERED: Fluticasone Propionate Nasal 50 MCG/SPRAY BOTTLE NS PRN (11:51)
[2020-06-09] MEDS ORDERED: 0.9 % Sodium Chloride 1,000 ML IVC SCH (12:00)
[2020-06-09] MEDS ORDERED: *HR* Heparin 5,000 UNIT/ML VIAL IVP PRN ×2 (17:50)
[2020-06-09] MEDS: Heparin 25,000UNIT/250ML 1/2NS 25,000 UNIT/250 ML IV.SOLN IVC SCH (18:38)
[2020-06-09 18:39] LABS: Hematocrit 38.2 % (37.5-50.1); INR 0.9; Mean Corpuscular Hemoglobin 34.2 pg (28.0-33.3); Mean Corpuscular Volume 100.5 fL (83.0-100.0); Mean Platelet Volume 9.8 fL (9.4-12.4); Platelet Count 233 K/mcL (140-400); Prothrombin Time 10.7 Seconds (9.4-12.1)
[2020-06-09 18:41] LABS: Heparin anti-factor XA UFH < 0.04 IU/mL (0.30-0.70)
[2020-06-09] MEDS: BuPROPion SR (12 HR) 150 MG TABLET PO SCH (19:49)
[2020-06-10 01:16] LABS: Hematocrit 37.3 % (37.5-50.1); Mean Corpuscular HGB Conc 32.2 g/dL (31.6-35.5); Mean Corpuscular Hemoglobin 32.8 pg (28.0-33.3); Mean Corpuscular Volume 101.9 fL (83.0-100.0); Mean Platelet Volume 9.8 fL (9.4-12.4); Platelet Count 209 K/mcL (140-400); Red Blood Count 3.66 M/mcL (4.19-5.50); Red Cell Distribution Width 13.1 % (11.5-14.5); White Blood Count 12.2 K/mcL (4.3-11.1)
[2020-06-10 01:37] LABS: BUN/Creatinine Ratio 21 (6-26); Blood Urea Nitrogen 27 mg/dL (8-23); Calcium 8.6 mg/dL (8.6-10.3); Carbon Dioxide 24 mEq/L (23-29); Chloride 106 mEq/L (98-107); Glucose 130 mg/dL (70-105); Osmolality,Calculated 293 (280-300); Potassium 3.8 mEq/L (3.5-5.1); Sodium 138 mEq/L (136-145); eGFR For African Americans > 60 (> 60); eGFR For Non-African Americans 55 (> 60)
[2020-06-10] MEDS: Ipratropium/Albuterol Neb 3 ML IH SCH ×6 (03:20→23:37)
[2020-06-10] MEDS: Azithromycin 500 MG in 0.9 % Sodium Chloride 250 ML IVPB SCH (05:10)
[2020-06-10] MEDS: *HR* Heparin 5,000 UNIT/ML VIAL SQ SCH (05:11)
[2020-06-10] MEDS: Aspirin 81 MG TAB.CHEW PO SCH (08:07)
[2020-06-10] MEDS: predniSONE 20 MG TABLET PO SCH (08:08)
[2020-06-10] MEDS: Loratadine 10 MG TABLET PO SCH (08:08)
[2020-06-10] MEDS: BuPROPion SR (12 HR) 150 MG TABLET PO SCH ×2 (08:08→19:39)
[2020-06-10] MEDS: Cyanocobalamin (B-12) 1,000 MCG TABLET PO SCH (08:08)
[2020-06-10] MEDS: Renal Vitamin 1 CAP CAPSULE PO SCH (08:08)
[2020-06-10] MEDS: Thiamine (B-1) 100 MG TABLET PO SCH (08:08)
[2020-06-10] MEDS: FLUoxetine 20 MG CAPSULE PO SCH (08:09)
[2020-06-10] MEDS ORDERED: Perflutren Lipid Microsphere 1.3 ML in 0.9 % Sodium Chloride 8.7 ML IVP PRN (09:42)
[2020-06-10] MEDS: Heparin 25,000UNIT/250ML 1/2NS 25,000 UNIT/250 ML IV.SOLN IVC SCH (17:15)
[2020-06-11 00:39] LABS: Basophils # 0.1 K/mcL (0.0-0.2); Basophils % 0.6 %; Eosinophils # 0.1 K/mcL (0.0-0.6); Hematocrit 37.6 % (37.5-50.1); Hemoglobin 11.9 g/dL (12.9-16.9); Lymphocytes # 2.5 K/mcL (0.6-4.6); Lymphocytes % 25.4 %; Mean Corpuscular HGB Conc 31.6 g/dL (31.6-35.5); Mean Corpuscular Volume 104.2 fL (83.0-100.0); Mean Platelet Volume 10.1 fL (9.4-12.4); Monocytes # 0.9 K/mcL (0.0-1.3); Monocytes % 8.8 %; Neutrophils # 6.3 K/mcL (1.6-8.9); Platelet Count 219 K/mcL (140-400); Red Blood Count 3.61 M/mcL (4.19-5.50); Red Cell Distribution Width 13.3 % (11.5-14.5); Segmented Neutrophils % 63.2 %
[2020-06-11 00:57] LABS: BUN/Creatinine Ratio 20 (6-26); Blood Urea Nitrogen 26 mg/dL (8-23); Calcium 8.9 mg/dL (8.6-10.3); Carbon Dioxide 23 mEq/L (23-29); Chloride 106 mEq/L (98-107); Glucose 118 mg/dL (70-105); Osmolality,Calculated 292 (280-300); Potassium 4.1 mEq/L (3.5-5.1); Sodium 138 mEq/L (136-145); eGFR For African Americans > 60 (> 60); eGFR For Non-African Americans 54 (> 60)
[2020-06-11] MEDS: Ipratropium/Albuterol Neb 3 ML IH SCH ×6 (03:40→23:35)
[2020-06-11] MEDS: Azithromycin 500 MG in 0.9 % Sodium Chloride 250 ML IVPB SCH (04:18)
[2020-06-11] MEDS ORDERED: 0.9 % Sodium Chloride 1,000 ML IVC SCH (07:45)
[2020-06-11] MEDS: Thiamine (B-1) 100 MG TABLET PO SCH (07:53)
[2020-06-11] MEDS: predniSONE 20 MG TABLET PO SCH (07:54)
[2020-06-11] MEDS: Aspirin 81 MG TAB.CHEW PO SCH (07:54)
[2020-06-11] MEDS: FLUoxetine 20 MG CAPSULE PO SCH (07:54)
[2020-06-11] MEDS: BuPROPion SR (12 HR) 150 MG TABLET PO SCH ×2 (07:54→21:42)
[2020-06-11] MEDS: Cyanocobalamin (B-12) 1,000 MCG TABLET PO SCH (07:55)
[2020-06-11] MEDS: Loratadine 10 MG TABLET PO SCH (07:55)
[2020-06-11] MEDS: Renal Vitamin 1 CAP CAPSULE PO SCH (07:55)
[2020-06-11] MEDS ORDERED: 0.9 % Sodium Chloride 1,000 ML ONE (08:00)
[2020-06-11] MEDS ORDERED: GuaiFENesin Liq 200 MG/10 ML UDC PO PRN (09:21)
[2020-06-11] MEDS: Isosorbide MONOnitrate (24 HR) 30 MG TAB.ER.24H PO SCH (10:17)
[2020-06-11] MEDS: Menthol 9.1 MG LOZENGE PO PRN (10:17)
[2020-06-11] MEDS: *HR* Heparin 5,000 UNIT/ML VIAL SQ SCH (17:34)
[2020-06-12] MEDS: Ipratropium/Albuterol Neb 3 ML IH SCH ×6 (03:41→23:24)
[2020-06-12] MEDS: Azithromycin 500 MG in 0.9 % Sodium Chloride 250 ML IVPB SCH (04:24)
[2020-06-12] MEDS: *HR* Heparin 5,000 UNIT/ML VIAL SQ SCH ×2 (05:33→19:09)
[2020-06-12 05:47] LABS: Hematocrit 38.8 % (37.5-50.1); Hemoglobin 12.5 g/dL (12.9-16.9); Mean Corpuscular HGB Conc 32.2 g/dL (31.6-35.5); Mean Corpuscular Hemoglobin 33.2 pg (28.0-33.3); Mean Corpuscular Volume 103.2 fL (83.0-100.0); Mean Platelet Volume 9.9 fL (9.4-12.4); Platelet Count 239 K/mcL (140-400); Red Blood Count 3.76 M/mcL (4.19-5.50); Red Cell Distribution Width 13.2 % (11.5-14.5); White Blood Count 9.8 K/mcL (4.3-11.1)
[2020-06-12 06:35] LABS: BUN/Creatinine Ratio 19 (6-26); Blood Urea Nitrogen 25 mg/dL (8-23); Calcium 8.9 mg/dL (8.6-10.3); Carbon Dioxide 26 mEq/L (23-29); Chloride 105 mEq/L (98-107); Glucose 82 mg/dL (70-105); Osmolality,Calculated 291 (280-300); Potassium 4.3 mEq/L (3.5-5.1); Sodium 139 mEq/L (136-145); eGFR For African Americans > 60 (> 60); eGFR For Non-African Americans 53 (> 60)
[2020-06-12] MEDS: Renal Vitamin 1 CAP CAPSULE PO SCH (09:33)
[2020-06-12] MEDS: Loratadine 10 MG TABLET PO SCH (09:33)
[2020-06-12] MEDS: Aspirin 81 MG TAB.CHEW PO SCH (09:33)
[2020-06-12] MEDS: Isosorbide MONOnitrate (24 HR) 30 MG TAB.ER.24H PO SCH (09:33)
[2020-06-12] MEDS: BuPROPion SR (12 HR) 150 MG TABLET PO SCH ×2 (09:33→19:52)
[2020-06-12] MEDS: predniSONE 20 MG TABLET PO SCH (09:33)
[2020-06-12] MEDS: Cyanocobalamin (B-12) 1,000 MCG TABLET PO SCH (09:33)
[2020-06-12] MEDS: FLUoxetine 20 MG CAPSULE PO SCH (09:33)
[2020-06-12] MEDS: Thiamine (B-1) 100 MG TABLET PO SCH (09:33)
[2020-06-12] MEDS ORDERED: 0.9 % Sodium Chloride 1,000 ML ONE (10:30)
[2020-06-12] MEDS ORDERED: *HR* Midazolam HCl 2 MG/2 ML VIAL ONE ×2 (10:30→12:34)
[2020-06-12] MEDS ORDERED: *HR* FentaNYL (PF) 100 MCG/2 ML VIAL ONE ×2 (10:30→12:35)
[2020-06-12] MEDS ORDERED: Heparin 1,000 UNITS/500 mL 500 ML ONE (10:30)
[2020-06-12] MEDS ORDERED: *HR* Heparin 10,000 UNIT/10 ML VIAL ONE (10:31)
[2020-06-12] MEDS ORDERED: Nitroglycerin 1,000 MCG/10 ML VIAL IV ONE (10:31)
[2020-06-12] MEDS ORDERED: ISOVUE-370 200 ML INFUS..BTL ONE ×2 (10:31→13:20)
[2020-06-12] MEDS ORDERED: *HR* Bivalirudin 250 MG VIAL IVC ONE ×2 (13:08→13:35)
[2020-06-12] MEDS ORDERED: *HR* Ticagrelor 90 MG TABLET ONE (13:35)
[2020-06-12] MEDS ORDERED: Nitroglycerin 0.4 MG TAB.SUBL SL PRN (13:43)
[2020-06-12] MEDS ORDERED: 0.9 % Sodium Chloride 1,000 ML IVC SCH (13:45)
[2020-06-13 02:28] LABS: Hematocrit 39.3 % (37.5-50.1); Hemoglobin 12.6 g/dL (12.9-16.9); Mean Corpuscular HGB Conc 32.1 g/dL (31.6-35.5); Mean Corpuscular Hemoglobin 32.8 pg (28.0-33.3); Mean Corpuscular Volume 102.3 fL (83.0-100.0); Mean Platelet Volume 9.7 fL (9.4-12.4); Platelet Count 228 K/mcL (140-400); Red Blood Count 3.84 M/mcL (4.19-5.50); Red Cell Distribution Width 13.2 % (11.5-14.5); White Blood Count 10.6 K/mcL (4.3-11.1)
[2020-06-13 02:47] LABS: Calcium 9.2 mg/dL (8.6-10.3); Potassium 4.2 mEq/L (3.5-5.1)
[2020-06-13] MEDS: Ipratropium/Albuterol Neb 3 ML IH SCH ×6 (03:53→23:31)
[2020-06-13] MEDS: Azithromycin 500 MG in 0.9 % Sodium Chloride 250 ML IVPB SCH (04:22)
[2020-06-13] MEDS: *HR* Heparin 5,000 UNIT/ML VIAL SQ SCH ×2 (05:34→20:16)
[2020-06-13] MEDS: Cyanocobalamin (B-12) 1,000 MCG TABLET PO SCH (08:25)
[2020-06-13] MEDS: Renal Vitamin 1 CAP CAPSULE PO SCH (08:25)
[2020-06-13] MEDS: Aspirin 81 MG TAB.CHEW PO SCH (08:26)
[2020-06-13] MEDS: FLUoxetine 20 MG CAPSULE PO SCH (08:26)
[2020-06-13] MEDS: BuPROPion SR (12 HR) 150 MG TABLET PO SCH ×2 (08:26→20:16)
[2020-06-13] MEDS: Thiamine (B-1) 100 MG TABLET PO SCH (08:26)
[2020-06-13] MEDS: Loratadine 10 MG TABLET PO SCH (08:26)
[2020-06-13] MEDS: predniSONE 20 MG TABLET PO SCH (08:26)
[2020-06-13] MEDS: Isosorbide MONOnitrate (24 HR) 30 MG TAB.ER.24H PO SCH (08:26)
[2020-06-13] MEDS ORDERED: *HR* Ticagrelor 90 MG TABLET PO SCH (09:00)
[2020-06-14] MEDS: Ipratropium/Albuterol Neb 3 ML IH SCH ×3 (03:24→11:30)
[2020-06-14] MEDS: *HR* Heparin 5,000 UNIT/ML VIAL SQ SCH (05:58)
[2020-06-14] MEDS: Menthol 9.1 MG LOZENGE PO PRN (06:28)
[2020-06-14] MEDS: Thiamine (B-1) 100 MG TABLET PO SCH (07:30)
[2020-06-14] MEDS: FLUoxetine 20 MG CAPSULE PO SCH (07:30)
[2020-06-14] MEDS: predniSONE 20 MG TABLET PO SCH (07:30)
[2020-06-14] MEDS: Cyanocobalamin (B-12) 1,000 MCG TABLET PO SCH (07:30)
[2020-06-14] MEDS: Renal Vitamin 1 CAP CAPSULE PO SCH (07:30)
[2020-06-14] MEDS: Aspirin 81 MG TAB.CHEW PO SCH (07:30)
[2020-06-14] MEDS: Loratadine 10 MG TABLET PO SCH (07:30)
[2020-06-14] MEDS: BuPROPion SR (12 HR) 150 MG TABLET PO SCH (07:30)
[2020-06-14] MEDS: Isosorbide MONOnitrate (24 HR) 30 MG TAB.ER.24H PO SCH (07:30)
[2020-06-14 07:44] LABS: Hematocrit 39.5 % (37.5-50.1); Hemoglobin 13.1 g/dL (12.9-16.9); Mean Corpuscular HGB Conc 33.2 g/dL (31.6-35.5); Mean Corpuscular Volume 102.6 fL (83.0-100.0); Mean Platelet Volume 10.1 fL (9.4-12.4); Platelet Count 237 K/mcL (140-400); Red Blood Count 3.85 M/mcL (4.19-5.50); Red Cell Distribution Width 13.2 % (11.5-14.5); White Blood Count 13.6 K/mcL (4.3-11.1)
[2020-06-14 08:30] LABS: Potassium 4.1 mEq/L (3.5-5.1)
[2020-06-14 08:36] LABS: Folate 15.5 ng/mL (3.0-16.0)
[2020-06-14 08:55] LABS: Calcium 8.9 mg/dL (8.6-10.3)
[2020-06-14 08:56] LABS: Magnesium 1.8 mg/dL (1.6-2.6); Phosphorous 3.5 mg/dL (2.7-4.5)
[2020-06-14 12:30] VITALS: BP 133/81
== END 2020-06-14 13:21 | disposition home or self-care (01) | DRG 175 ==
LOC: EMEROOARM 19:05 → 3BNU 19:05 → SUATTDRO 06-10 16:21 → 2ANU 06-12 17:06
PROVIDERS: ADMIT Internal Medicine; ATTEND Internal Medicine

== ENCOUNTER 2020-07-16 17:12 | Observation (INO) ==
[2020-07-16] MEDS ORDERED: Aspirin 81 MG TAB.CHEW PO STA (17:33)
[2020-07-16 17:53] LABS: Basophils # 0.1 K/mcL (0.0-0.2); Basophils % 0.8 %; Eosinophils # 0.3 K/mcL (0.0-0.6); Eosinophils % 3.1 %; Hematocrit 43.5 % (37.5-50.1); Immature Granulocytes % 0.5 % (0-4); Lymphocytes # 2.3 K/mcL (0.6-4.6); Lymphocytes % 27.8 %; Mean Corpuscular HGB Conc 34.5 g/dL (31.6-35.5); Mean Corpuscular Hemoglobin 33.6 pg (28.0-33.3); Mean Corpuscular Volume 97.5 fL (83.0-100.0); Mean Platelet Volume 9.8 fL (9.4-12.4); Monocytes # 0.6 K/mcL (0.0-1.3); Monocytes % 7.7 %; Platelet Count 246 K/mcL (140-400); Red Blood Count 4.46 M/mcL (4.19-5.50); Red Cell Distribution Width 12.8 % (11.5-14.5); Segmented Neutrophils % 60.1 %; White Blood Count 8.3 K/mcL (4.3-11.1)
[2020-07-16 18:13] LABS: BUN/Creatinine Ratio 10 (6-26); Blood Urea Nitrogen 14 mg/dL (8-23); Calcium 9.3 mg/dL (8.6-10.3); Carbon Dioxide 27 mEq/L (23-29); Chloride 103 mEq/L (98-107); Glucose 136 mg/dL (70-105); Osmolality,Calculated 287 (280-300); Potassium 3.7 mEq/L (3.5-5.1); Sodium 137 mEq/L (136-145); Troponin I < 0.03 ng/mL (< 0.04); eGFR For African Americans 60 (> 60); eGFR For Non-African Americans 49 (> 60)
[2020-07-16] MEDS ORDERED: Ipratropium/Albuterol Neb 3 ML IH ONE (18:22)
[2020-07-16] MEDS ORDERED: methylPREDNISolone 125 MG/2 ML VIAL IVP ONE (18:23)
[2020-07-16] MEDS ORDERED: Azithromycin 500 MG in 0.9 % Sodium Chloride 250 ML IVPB ONE (18:35)
[2020-07-16] MEDS ORDERED: *HR* FentaNYL (PF) 100 MCG/2 ML VIAL IVP ONE (18:36)
[2020-07-16] MEDS ORDERED: Naloxone 0.4 MG/ML INJ IVP PRN (20:05)
[2020-07-16] MEDS ORDERED: Acetaminophen 325 MG TABLET PO PRN (20:05)
[2020-07-16] MEDS ORDERED: Ondansetron 4 MG/2 ML VIAL IVP PRN (20:05)
[2020-07-16] MEDS ORDERED: *HR* LORazepam 2 MG/ML VIAL IVP PRN ×3 (20:46)
[2020-07-16] MEDS ORDERED: Ipratropium/Albuterol Neb 3 ML IH PRN (20:55)
[2020-07-16] MEDS: 0.9 % Sodium Chloride 1,000 ML IVC SCH (21:35)
[2020-07-16] MEDS: *HR* Heparin 5,000 UNIT/ML VIAL SQ SCH (21:37)
[2020-07-16] MEDS: Ranolazine 500 MG TAB.ER.12H PO SCH (21:37)
[2020-07-16] MEDS ORDERED: Acetaminophen IV 1,000 MG/100 ML INFUS..BTL IVPB ONE (22:00)
[2020-07-17 00:44] LABS: Basophils % 0.3 %; Hematocrit 38.6 % (37.5-50.1); Immature Granulocytes % 0.8 % (0-4); Lymphocytes # 0.5 K/mcL (0.6-4.6); Lymphocytes % 8.1 %; Mean Corpuscular HGB Conc 33.9 g/dL (31.6-35.5); Mean Corpuscular Hemoglobin 33.4 pg (28.0-33.3); Mean Corpuscular Volume 98.5 fL (83.0-100.0); Monocytes % 0.7 %; Neutrophils # 5.5 K/mcL (1.6-8.9); Platelet Count 197 K/mcL (140-400); Red Blood Count 3.92 M/mcL (4.19-5.50); Red Cell Distribution Width 12.9 % (11.5-14.5); Segmented Neutrophils % 90.1 %; White Blood Count 6.1 K/mcL (4.3-11.1)
[2020-07-17 00:46] LABS: Hemoglobin 13.1 g/dL (12.9-16.9)
[2020-07-17 01:05] LABS: Calcium 8.8 mg/dL (8.6-10.3); Chol/HDL Ratio 4.9 (0-4.9); Potassium 4.3 mEq/L (3.5-5.1)
[2020-07-17] MEDS: *HR* Heparin 5,000 UNIT/ML VIAL SQ SCH ×4 (04:38→21:30)
[2020-07-17] MEDS: Thiamine (B-1) 100 MG TABLET PO SCH (08:10)
[2020-07-17] MEDS: Folic Acid 1 MG TABLET PO SCH (08:10)
[2020-07-17] MEDS: Ranolazine 500 MG TAB.ER.12H PO SCH (08:10)
[2020-07-17] MEDS: Nicotine 21 MG PATCH.TD24 TD SCH (08:10)
[2020-07-17] MEDS: Aspirin 81 MG TAB.CHEW PO SCH (10:11)
[2020-07-17] MEDS: 0.9 % Sodium Chloride 1,000 ML IVC SCH (10:12)
[2020-07-17] MEDS: Isosorbide MONOnitrate (24 HR) 30 MG TAB.ER.24H PO SCH (10:12)
[2020-07-17 10:37] LABS: Estimated Average Glucose 114 mg/dl
[2020-07-17] MEDS ORDERED: Levalbuterol Neb 1.25 MG/3 ML ONE (11:29)
[2020-07-17] MEDS: Levalbuterol Neb 1.25 MG/3 ML IH SCH ×3 (11:35→22:57)
[2020-07-17] MEDS ORDERED: Fluticasone Propionate Nasal 50 MCG/SPRAY BOTTLE NS PRN (14:03)
[2020-07-17] MEDS: *HR* OxyCODONE Immed Rel 15 MG TABLET PO PRN ×2 (14:22→21:33)
[2020-07-17] MEDS: FLUoxetine 20 MG CAPSULE PO SCH (14:22)
[2020-07-17] MEDS ORDERED: Azithromycin 500 MG in 0.9 % Sodium Chloride 250 ML IVPB SCH (16:00)
[2020-07-17] MEDS ORDERED: cefTRIAXone 1,000 MG in Water for inj. (sterile) 10 ML IVP SCH (16:00)
[2020-07-17] MEDS: BuPROPion SR (12 HR) 150 MG TABLET PO SCH (21:30)
[2020-07-18] MEDS: 0.9 % Sodium Chloride 1,000 ML IVC SCH
[2020-07-18] MEDS: Levalbuterol Neb 1.25 MG/3 ML IH SCH ×2 (04:21→09:01)
[2020-07-18 05:01] LABS: Basophils % 0.4 %; Eosinophils % 1.5 %; Hematocrit 38.6 % (37.5-50.1); Hemoglobin 12.5 g/dL (12.9-16.9); Immature Granulocytes % 0.4 % (0-4); Lymphocytes # 2.7 K/mcL (0.6-4.6); Lymphocytes % 27.5 %; Mean Corpuscular HGB Conc 32.4 g/dL (31.6-35.5); Mean Corpuscular Hemoglobin 33.1 pg (28.0-33.3); Mean Corpuscular Volume 102.1 fL (83.0-100.0); Mean Platelet Volume 9.9 fL (9.4-12.4); Monocytes # 0.8 K/mcL (0.0-1.3); Monocytes % 8.2 %; Platelet Count 193 K/mcL (140-400); Red Blood Count 3.78 M/mcL (4.19-5.50); Red Cell Distribution Width 13.4 % (11.5-14.5)
[2020-07-18 05:03] LABS: Eosinophils # 0.2 K/mcL (0.0-0.6); White Blood Count 9.7 K/mcL (4.3-11.1)
[2020-07-18 05:17] LABS: BUN/Creatinine Ratio 17 (6-26); Blood Urea Nitrogen 23 mg/dL (8-23); Calcium 8.5 mg/dL (8.6-10.3); Carbon Dioxide 26 mEq/L (23-29); Chloride 108 mEq/L (98-107); Glucose 109 mg/dL (70-105); Osmolality,Calculated 294 (280-300); Potassium 4.3 mEq/L (3.5-5.1); Sodium 140 mEq/L (136-145); eGFR For African Americans > 60 (> 60); eGFR For Non-African Americans 53 (> 60)
[2020-07-18] MEDS: *HR* Heparin 5,000 UNIT/ML VIAL SQ SCH (05:23)
[2020-07-18 06:44] VITALS: BP 136/71
[2020-07-18] MEDS: Nicotine 21 MG PATCH.TD24 TD SCH (08:00)
[2020-07-18] MEDS: BuPROPion SR (12 HR) 150 MG TABLET PO SCH (08:00)
[2020-07-18] MEDS: Aspirin 81 MG TAB.CHEW PO SCH (08:01)
[2020-07-18] MEDS: Isosorbide MONOnitrate (24 HR) 30 MG TAB.ER.24H PO SCH (08:02)
[2020-07-18] MEDS: Thiamine (B-1) 100 MG TABLET PO SCH (08:02)
[2020-07-18] MEDS: FLUoxetine 20 MG CAPSULE PO SCH (08:02)
[2020-07-18] MEDS: Folic Acid 1 MG TABLET PO SCH (08:03)
[2020-07-18] MEDS: *HR* OxyCODONE Immed Rel 15 MG TABLET PO PRN (08:07)
[2020-07-18] MEDS ORDERED: Loratadine 10 MG TABLET PO SCH (09:00)
[2020-07-18] MEDS ORDERED: Cyanocobalamin (B-12) 1,000 MCG TABLET PO SCH (09:00)
[2020-07-18] MEDS ORDERED: Renal Vitamin 1 CAP CAPSULE PO SCH (09:00)
== END 2020-07-18 10:16 | disposition home or self-care (01) ==
LOC: EMEROOARM 17:12 → 3BNU 17:12 → SUATTDRO 20:00 → 3BNU 20:40
PROVIDERS: ADMIT Pharmacist; ATTEND Internal Medicine

== ENCOUNTER 2020-12-28 12:28 | Observation (INO) ==
[2020-12-28] MEDS ORDERED: Ipratropium/Albuterol Neb 3 ML IH ONE (12:46)
[2020-12-28] MEDS ORDERED: methylPREDNISolone 125 MG/2 ML VIAL IVP ONE (12:47)
[2020-12-28] MEDS ORDERED: Isovue-370 500 ML BOTTLE IVP ONE (12:47)
[2020-12-28 13:17] LABS: Basophils # 0.1 K/mcL (0.0-0.2); Eosinophils # 0.3 K/mcL (0.0-0.6); Eosinophils % 3.8 %; Hematocrit 41.3 % (37.5-50.1); Immature Granulocytes % 0.8 % (0-4); Lymphocytes # 1.9 K/mcL (0.6-4.6); Lymphocytes % 25.7 %; Mean Corpuscular HGB Conc 33.9 g/dL (31.6-35.5); Mean Corpuscular Hemoglobin 34.2 pg (28.0-33.3); Mean Platelet Volume 10.3 fL (9.4-12.4); Monocytes # 0.6 K/mcL (0.0-1.3); Monocytes % 7.6 %; Neutrophils # 4.5 K/mcL (1.6-8.9); Platelet Count 202 K/mcL (140-400); Red Blood Count 4.09 M/mcL (4.19-5.50); Red Cell Distribution Width 13.4 % (11.5-14.5); Segmented Neutrophils % 61.1 %; White Blood Count 7.4 K/mcL (4.3-11.1)
[2020-12-28] MEDS ORDERED: *HR* HYDROmorphone (PF) 1 MG/ML SYRINGE IVP ONE (13:30)
[2020-12-28 13:48] LABS: BUN/Creatinine Ratio 14 (6-26); Blood Urea Nitrogen 19 mg/dL (8-23); Calcium 8.9 mg/dL (8.6-10.3); Carbon Dioxide 25 mEq/L (23-29); Chloride 101 mEq/L (98-107); Glucose 119 mg/dL (70-105); Osmolality,Calculated 285 (280-300); Sodium 136 mEq/L (136-145); Troponin I < 0.03 ng/mL (< 0.04); eGFR For African Americans > 60 (> 60); eGFR For Non-African Americans 51 (> 60)
[2020-12-28] MEDS ORDERED: Aspirin 81 MG TAB.CHEW PO ONE (14:58)
[2020-12-28] MEDS ORDERED: Doxycycline 100 MG in 0.9 % Sodium Chloride Mini Bag 100 ML IVPB ONE (14:59)
[2020-12-28] MEDS ORDERED: Ondansetron 4 MG/2 ML VIAL IVP PRN (15:26)
[2020-12-28] MEDS ORDERED: Naloxone 0.4 MG/ML INJ IVP PRN (15:26)
[2020-12-28] MEDS: Albuterol 2.5 MG/3 ML NEBULIZER IH SCH ×3 (15:54→23:46)
[2020-12-28] MEDS ORDERED: Nitroglycerin 0.4 MG TAB.SUBL SL PRN (15:58)
[2020-12-28] MEDS: Budesonide/Formoterol 160/4.5 1 PUFF INH IH SCH (19:43)
[2020-12-28] MEDS: *HR* OxyCODONE Immed Rel 15 MG TABLET PO PRN (20:28)
[2020-12-28] MEDS: BuPROPion SR (12 HR) 150 MG TABLET PO SCH (20:28)
[2020-12-29] MEDS: Albuterol 2.5 MG/3 ML NEBULIZER IH SCH ×6 (03:51→23:18)
[2020-12-29 07:35] LABS: Basophils % 0.2 %; Hematocrit 37.9 % (37.5-50.1); Hemoglobin 12.7 g/dL (12.9-16.9); Lymphocytes # 1.1 K/mcL (0.6-4.6); Lymphocytes % 10.8 %; Mean Corpuscular HGB Conc 33.5 g/dL (31.6-35.5); Mean Corpuscular Hemoglobin 34.2 pg (28.0-33.3); Mean Corpuscular Volume 102.2 fL (83.0-100.0); Mean Platelet Volume 10.5 fL (9.4-12.4); Monocytes # 0.7 K/mcL (0.0-1.3); Monocytes % 6.8 %; Neutrophils # 7.9 K/mcL (1.6-8.9); Platelet Count 179 K/mcL (140-400); Red Blood Count 3.71 M/mcL (4.19-5.50); Red Cell Distribution Width 13.6 % (11.5-14.5); Segmented Neutrophils % 81.2 %; White Blood Count 9.8 K/mcL (4.3-11.1)
[2020-12-29] MEDS: Isosorbide MONOnitrate (24 HR) 30 MG TAB.ER.24H PO SCH (07:40)
[2020-12-29] MEDS: Azithromycin 250 MG TABLET PO SCH (07:40)
[2020-12-29] MEDS: BuPROPion SR (12 HR) 150 MG TABLET PO SCH ×2 (07:40→20:08)
[2020-12-29] MEDS: Aspirin 81 MG TAB.CHEW PO SCH (07:40)
[2020-12-29] MEDS: Loratadine 10 MG TABLET PO SCH (07:40)
[2020-12-29] MEDS: Cyanocobalamin (B-12) 1,000 MCG TABLET PO SCH (07:40)
[2020-12-29] MEDS: Furosemide 40 MG TABLET PO SCH (07:41)
[2020-12-29] MEDS: FLUoxetine 20 MG CAPSULE PO SCH (07:41)
[2020-12-29 07:44] LABS: BUN/Creatinine Ratio 17 (6-26); Blood Urea Nitrogen 24 mg/dL (8-23); Carbon Dioxide 25 mEq/L (23-29); Chloride 103 mEq/L (98-107); Glucose 162 mg/dL (70-105); Magnesium 2.2 mg/dL (1.6-2.6); Osmolality,Calculated 290 (280-300); Potassium 4.1 mEq/L (3.5-5.1); Sodium 136 mEq/L (136-145); eGFR For African Americans > 60 (> 60); eGFR For Non-African Americans 50 (> 60)
[2020-12-29] MEDS: *HR* OxyCODONE Immed Rel 15 MG TABLET PO PRN ×2 (07:50→18:15)
[2020-12-29] MEDS: Budesonide/Formoterol 160/4.5 1 PUFF INH IH SCH ×2 (08:28→20:28)
[2020-12-29] MEDS ORDERED: MethylPREDNISolone 40 MG/ML VIAL IVP SCH (09:00)
[2020-12-30 03:48] LABS: Basophils % 0.4 %; Eosinophils # 0.1 K/mcL (0.0-0.6); Eosinophils % 0.4 %; Hematocrit 37.6 % (37.5-50.1); Hemoglobin 12.4 g/dL (12.9-16.9); Immature Granulocytes % 0.9 % (0-4); Lymphocytes # 1.8 K/mcL (0.6-4.6); Lymphocytes % 15.7 %; Mean Corpuscular Hemoglobin 34.1 pg (28.0-33.3); Mean Corpuscular Volume 103.3 fL (83.0-100.0); Mean Platelet Volume 10.8 fL (9.4-12.4); Monocytes % 8.7 %; Neutrophils # 8.3 K/mcL (1.6-8.9); Platelet Count 189 K/mcL (140-400); Red Blood Count 3.64 M/mcL (4.19-5.50); Segmented Neutrophils % 73.9 %; White Blood Count 11.3 K/mcL (4.3-11.1)
[2020-12-30 04:03] LABS: BUN/Creatinine Ratio 23 (6-26); Blood Urea Nitrogen 28 mg/dL (8-23); Calcium 8.6 mg/dL (8.6-10.3); Carbon Dioxide 23 mEq/L (23-29); Chloride 109 mEq/L (98-107); Glucose 142 mg/dL (70-105); Osmolality,Calculated 298 (280-300); Potassium 4.2 mEq/L (3.5-5.1); Sodium 140 mEq/L (136-145); eGFR For African Americans > 60 (> 60); eGFR For Non-African Americans 59 (> 60)
[2020-12-30] MEDS: Albuterol 2.5 MG/3 ML NEBULIZER IH SCH ×6 (04:10→23:03)
[2020-12-30] MEDS: Budesonide/Formoterol 160/4.5 1 PUFF INH IH SCH ×2 (07:29→20:26)
[2020-12-30] MEDS: BuPROPion SR (12 HR) 150 MG TABLET PO SCH ×2 (07:56→21:19)
[2020-12-30] MEDS: Azithromycin 250 MG TABLET PO SCH (07:56)
[2020-12-30] MEDS: Loratadine 10 MG TABLET PO SCH (07:57)
[2020-12-30] MEDS: FLUoxetine 20 MG CAPSULE PO SCH (07:57)
[2020-12-30] MEDS: *HR* OxyCODONE Immed Rel 15 MG TABLET PO PRN ×2 (07:57→21:19)
[2020-12-30] MEDS: predniSONE 20 MG TABLET PO SCH (07:57)
[2020-12-30] MEDS: Aspirin 81 MG TAB.CHEW PO SCH (07:57)
[2020-12-30] MEDS: Cyanocobalamin (B-12) 1,000 MCG TABLET PO SCH (07:58)
[2020-12-30] MEDS: Isosorbide MONOnitrate (24 HR) 30 MG TAB.ER.24H PO SCH (07:58)
[2020-12-30] MEDS: Furosemide 40 MG TABLET PO SCH (07:58)
[2020-12-31] MEDS: Albuterol 2.5 MG/3 ML NEBULIZER IH SCH ×2 (03:48→07:29)
[2020-12-31 06:49] VITALS: BP 153/82
[2020-12-31] MEDS: Budesonide/Formoterol 160/4.5 1 PUFF INH IH SCH (07:29)
[2020-12-31] MEDS: Isosorbide MONOnitrate (24 HR) 30 MG TAB.ER.24H PO SCH (07:37)
[2020-12-31] MEDS: Aspirin 81 MG TAB.CHEW PO SCH (07:37)
[2020-12-31] MEDS: Azithromycin 250 MG TABLET PO SCH (07:38)
[2020-12-31] MEDS: Furosemide 40 MG TABLET PO SCH (07:38)
[2020-12-31] MEDS: BuPROPion SR (12 HR) 150 MG TABLET PO SCH (07:38)
[2020-12-31] MEDS: FLUoxetine 20 MG CAPSULE PO SCH (07:39)
[2020-12-31] MEDS: predniSONE 20 MG TABLET PO SCH (07:39)
[2020-12-31] MEDS: Loratadine 10 MG TABLET PO SCH (07:39)
[2020-12-31] MEDS: Cyanocobalamin (B-12) 1,000 MCG TABLET PO SCH (07:40)
== END 2020-12-31 11:13 | disposition home or self-care (01) ==
LOC: 3BNU 12:28 → EMEROOARM 12:28 → SUATTDRO 15:20 → 3BNU 16:29
PROVIDERS: ADMIT Internal Medicine; ATTEND Internal Medicine

== ENCOUNTER 2021-01-21 12:12 | Observation (INO) ==
[2021-01-21 12:43] LABS: Basophils # 0.1 K/mcL (0.0-0.2); Basophils % 1.1 %; Eosinophils # 0.3 K/mcL (0.0-0.6); Eosinophils % 3.6 %; Hematocrit 41.3 % (37.5-50.1); Hemoglobin 13.8 g/dL (12.9-16.9); Immature Granulocytes % 1.2 % (0-4); Lymphocytes # 2.4 K/mcL (0.6-4.6); Lymphocytes % 27.6 %; Mean Corpuscular HGB Conc 33.4 g/dL (31.6-35.5); Mean Corpuscular Hemoglobin 33.6 pg (28.0-33.3); Mean Corpuscular Volume 100.5 fL (83.0-100.0); Mean Platelet Volume 9.6 fL (9.4-12.4); Monocytes # 0.9 K/mcL (0.0-1.3); Monocytes % 10.4 %; Neutrophils # 4.9 K/mcL (1.6-8.9); Platelet Count 216 K/mcL (140-400); Red Blood Count 4.11 M/mcL (4.19-5.50); Red Cell Distribution Width 13.4 % (11.5-14.5); Segmented Neutrophils % 56.1 %; White Blood Count 8.8 K/mcL (4.3-11.1)
[2021-01-21 12:49] LABS: Activated Partial Thrombo Time 26.5 Seconds (26.0-36.0)
[2021-01-21 13:05] LABS: BUN/Creatinine Ratio 14 (6-26); Blood Urea Nitrogen 20 mg/dL (8-23); Carbon Dioxide 24 mEq/L (23-29); Chloride 104 mEq/L (98-107); Glucose 100 mg/dL (70-105); Osmolality,Calculated 289 (280-300); Potassium 4.2 mEq/L (3.5-5.1); Sodium 138 mEq/L (136-145); Troponin I < 0.03 ng/mL (< 0.04); eGFR For African Americans > 60 (> 60); eGFR For Non-African Americans 51 (> 60)
[2021-01-21] MEDS ORDERED: Isovue-370 500 ML BOTTLE IVP ONE (13:21)
[2021-01-21] MEDS ORDERED: *HR* FentaNYL (PF) 100 MCG/2 ML VIAL IVP ONE (15:05)
[2021-01-21] MEDS ORDERED: Aspirin 325 MG TABLET PO ONE (16:05)
[2021-01-21] MEDS ORDERED: Ondansetron 4 MG/2 ML VIAL IVP PRN (16:34)
[2021-01-21] MEDS ORDERED: Nitroglycerin 0.4 MG TAB.SUBL SL PRN (16:34)
[2021-01-21] MEDS ORDERED: Perflutren Lipid Microsphere 1.3 ML in 0.9 % Sodium Chloride 8.7 ML IVP PRN (16:34)
[2021-01-21] MEDS ORDERED: Mag Hydrox/Al Hydrox/Simeth 30 ML UDC PO PRN (16:35)
[2021-01-21] MEDS ORDERED: Naloxone 0.4 MG/ML INJ IVP PRN (16:35)
[2021-01-21] MEDS ORDERED: Melatonin 3 MG TABLET PO PRN (16:35)
[2021-01-21] MEDS ORDERED: Acetaminophen 325 MG TABLET PO PRN (16:35)
[2021-01-21] MEDS: Budesonide/Formoterol 160/4.5 1 PUFF INH IH SCH (20:37)
[2021-01-21] MEDS: BuPROPion SR (12 HR) 150 MG TABLET PO SCH (21:09)
[2021-01-21] MEDS ORDERED: *HR* OxyCODONE Immed Rel 5 MG TABLET PO ONE (21:26)
[2021-01-22] MEDS: *HR* Heparin 5,000 UNIT/ML VIAL SQ SCH ×4 (00:27→20:54)
[2021-01-22 01:03] LABS: Basophils % 0.7 %; Eosinophils # 0.3 K/mcL (0.0-0.6); Eosinophils % 4.5 %; Hemoglobin 12.9 g/dL (12.9-16.9); Immature Granulocytes % 1.3 % (0-4); Lymphocytes # 1.9 K/mcL (0.6-4.6); Lymphocytes % 31.4 %; Mean Corpuscular HGB Conc 33.9 g/dL (31.6-35.5); Mean Corpuscular Hemoglobin 34.7 pg (28.0-33.3); Mean Corpuscular Volume 102.2 fL (83.0-100.0); Mean Platelet Volume 9.9 fL (9.4-12.4); Monocytes # 0.6 K/mcL (0.0-1.3); Monocytes % 10.5 %; Neutrophils # 3.1 K/mcL (1.6-8.9); Platelet Count 171 K/mcL (140-400); Red Blood Count 3.72 M/mcL (4.19-5.50); Red Cell Distribution Width 13.5 % (11.5-14.5); Segmented Neutrophils % 51.6 %
[2021-01-22 01:10] LABS: INR 0.9; Prothrombin Time 10.9 Seconds (9.4-12.1)
[2021-01-22 01:22] LABS: Albumin 3.7 g/dL (3.5-5.7); Albumin/Globulin Ratio 1.5 (1.1-2.2); Bilirubin,Total 0.5 mg/dL (0.3-1.0); Calcium 8.6 mg/dL (8.6-10.3); Globulin 2.4 g/dL (2.4-3.5); Magnesium 2.2 mg/dL (1.6-2.6); Potassium 3.7 mEq/L (3.5-5.1); Total Protein 6.1 g/dL (6.4-8.9)
[2021-01-22 01:33] LABS: Platelet Estimate Normal (Normal); Reactive Lymphocytes Present (Not Present)
[2021-01-22] MEDS ORDERED: Tiotropium 10 INH DOSE IH SCH (09:00)
[2021-01-22] MEDS ORDERED: Albuterol 2.5 MG/3 ML NEBULIZER ONE ×2 (10:15→10:19)
[2021-01-22] MEDS: Albuterol 2.5 MG/3 ML NEBULIZER IH SCH ×3 (10:32→22:55)
[2021-01-22] MEDS: Budesonide/Formoterol 160/4.5 1 PUFF INH IH SCH ×2 (11:35→22:54)
[2021-01-22] MEDS: Furosemide 40 MG TABLET PO SCH (11:44)
[2021-01-22] MEDS: FLUoxetine 20 MG CAPSULE PO SCH (11:44)
[2021-01-22] MEDS: BuPROPion SR (12 HR) 150 MG TABLET PO SCH ×2 (11:44→20:54)
[2021-01-22] MEDS: Aspirin 81 MG TAB.CHEW PO SCH (11:44)
[2021-01-22] MEDS: Isosorbide MONOnitrate (24 HR) 30 MG TAB.ER.24H PO SCH (11:44)
[2021-01-22] MEDS: Cyanocobalamin (B-12) 1,000 MCG TABLET PO SCH (11:44)
[2021-01-22] MEDS: *HR* OxyCODONE Immed Rel 15 MG TABLET PO PRN ×2 (12:12→20:57)
[2021-01-23] MEDS: Albuterol 2.5 MG/3 ML NEBULIZER IH SCH (04:06)
[2021-01-23] MEDS: *HR* Heparin 5,000 UNIT/ML VIAL SQ SCH (05:09)
[2021-01-23 07:24] VITALS: BP 156/77
[2021-01-23] MEDS: Aspirin 81 MG TAB.CHEW PO SCH (08:03)
[2021-01-23] MEDS: Isosorbide MONOnitrate (24 HR) 30 MG TAB.ER.24H PO SCH (08:03)
[2021-01-23] MEDS: *HR* OxyCODONE Immed Rel 15 MG TABLET PO PRN (08:03)
[2021-01-23] MEDS: BuPROPion SR (12 HR) 150 MG TABLET PO SCH (08:03)
[2021-01-23] MEDS: Furosemide 40 MG TABLET PO SCH (08:03)
[2021-01-23] MEDS: FLUoxetine 20 MG CAPSULE PO SCH (08:03)
[2021-01-23] MEDS: Cyanocobalamin (B-12) 1,000 MCG TABLET PO SCH (08:04)
== END 2021-01-23 10:35 | disposition home or self-care (01) ==
LOC: 3BNU 12:12 → EMEROOARM 12:12 → SUATTDRO 16:40 → 3BNU 17:22
PROVIDERS: ADMIT Internal Medicine; ATTEND Internal Medicine

== ENCOUNTER 2021-04-20 12:52 | Observation (INO) ==
[2021-04-20] MEDS ORDERED: Nitroglycerin 0.4 MG TAB.SUBL SL PRN ×2 (13:09→15:28)
[2021-04-20 13:37] LABS: Basophils # 0.1 K/mcL (0.0-0.2); Basophils % 0.8 %; Eosinophils # 0.3 K/mcL (0.0-0.6); Eosinophils % 3.2 %; Hematocrit 42.3 % (37.5-50.1); Hemoglobin 14.5 g/dL (12.9-16.9); Immature Granulocytes % 1.1 % (0-4); Lymphocytes # 1.8 K/mcL (0.6-4.6); Mean Corpuscular HGB Conc 34.3 g/dL (31.6-35.5); Mean Corpuscular Hemoglobin 34.3 pg (28.0-33.3); Mean Platelet Volume 10.1 fL (9.4-12.4); Monocytes # 0.9 K/mcL (0.0-1.3); Monocytes % 10.9 %; Neutrophils # 5.3 K/mcL (1.6-8.9); Platelet Count 231 K/mcL (140-400); Red Blood Count 4.23 M/mcL (4.19-5.50); Red Cell Distribution Width 12.9 % (11.5-14.5); White Blood Count 8.4 K/mcL (4.3-11.1)
[2021-04-20 13:44] LABS: INR 0.9; Prothrombin Time 10.7 Seconds (9.4-12.1)
[2021-04-20 13:47] LABS: Activated Partial Thrombo Time 29.7 Seconds (26.0-36.0)
[2021-04-20 13:59] LABS: BUN/Creatinine Ratio 9 (6-26); Blood Urea Nitrogen 12 mg/dL (8-23); Calcium 9.2 mg/dL (8.6-10.3); Carbon Dioxide 27 mEq/L (23-29); Chloride 105 mEq/L (98-107); Glucose 81 mg/dL (70-105); Osmolality,Calculated 289 (280-300); Potassium 4.2 mEq/L (3.5-5.1); Sodium 140 mEq/L (136-145); eGFR For African Americans > 60 (> 60); eGFR For Non-African Americans 54 (> 60)
[2021-04-20 14:06] LABS: Troponin I < 0.03 ng/mL (< 0.04)
[2021-04-20] MEDS ORDERED: Ondansetron 4 MG/2 ML VIAL IVP PRN (15:28)
[2021-04-20] MEDS ORDERED: Naloxone 0.4 MG/ML INJ IVP PRN (15:28)
[2021-04-20] MEDS ORDERED: Acetaminophen 325 MG TABLET PO PRN (15:28)
[2021-04-20] MEDS ORDERED: Perflutren Lipid Microsphere 1.3 ML in 0.9 % Sodium Chloride 8.7 ML IVP PRN (16:11)
[2021-04-20] MEDS: *HR* Heparin 5,000 UNIT/ML VIAL SQ SCH ×2 (17:38→20:42)
[2021-04-20] MEDS: *HR* OxyCODONE Immed Rel 15 MG TABLET PO SCH ×2 (17:38→20:41)
[2021-04-20] MEDS: Budesonide/Formoterol 160/4.5 1 PUFF INH IH SCH (19:09)
[2021-04-20] MEDS: BuPROPion SR (12 HR) 150 MG TABLET PO SCH (20:41)
[2021-04-21] MEDS: BuPROPion SR (12 HR) 150 MG TABLET PO SCH ×2 (08:32→20:00)
[2021-04-21] MEDS: Loratadine 10 MG TABLET PO SCH (08:32)
[2021-04-21] MEDS: Isosorbide MONOnitrate (24 HR) 30 MG TAB.ER.24H PO SCH (08:32)
[2021-04-21] MEDS: Aspirin 81 MG TAB.CHEW PO SCH (08:32)
[2021-04-21] MEDS: FLUoxetine 20 MG CAPSULE PO SCH (08:32)
[2021-04-21] MEDS: Furosemide 40 MG TABLET PO SCH (08:32)
[2021-04-21] MEDS: *HR* OxyCODONE Immed Rel 15 MG TABLET PO SCH ×4 (08:32→19:59)
[2021-04-21] MEDS: Cyanocobalamin (B-12) 1,000 MCG TABLET PO SCH (08:32)
[2021-04-21] MEDS: Tiotropium 10 INH DOSE IH SCH (10:09)
[2021-04-21] MEDS: Budesonide/Formoterol 160/4.5 1 PUFF INH IH SCH ×2 (10:09→21:43)
[2021-04-21] MEDS ORDERED: Isovue-370 500 ML BOTTLE IVP ONE (11:18)
[2021-04-21] MEDS: *HR* Heparin 5,000 UNIT/ML VIAL SQ SCH ×2 (16:41→20:00)
[2021-04-22 03:24] LABS: Basophils # 0.1 K/mcL (0.0-0.2); Basophils % 0.8 %; Eosinophils # 0.3 K/mcL (0.0-0.6); Eosinophils % 5.1 %; Hematocrit 40.4 % (37.5-50.1); Hemoglobin 13.7 g/dL (12.9-16.9); Lymphocytes # 1.5 K/mcL (0.6-4.6); Lymphocytes % 23.8 %; Mean Corpuscular HGB Conc 33.9 g/dL (31.6-35.5); Mean Corpuscular Volume 103.3 fL (83.0-100.0); Mean Platelet Volume 10.1 fL (9.4-12.4); Monocytes # 0.7 K/mcL (0.0-1.3); Monocytes % 10.8 %; Neutrophils # 3.6 K/mcL (1.6-8.9); Platelet Count 196 K/mcL (140-400); Red Blood Count 3.91 M/mcL (4.19-5.50); Red Cell Distribution Width 13.1 % (11.5-14.5); Segmented Neutrophils % 58.5 %; White Blood Count 6.2 K/mcL (4.3-11.1)
[2021-04-22 03:41] LABS: BUN/Creatinine Ratio 15 (6-26); Blood Urea Nitrogen 20 mg/dL (8-23); Calcium 8.7 mg/dL (8.6-10.3); Carbon Dioxide 27 mEq/L (23-29); Chloride 105 mEq/L (98-107); Glucose 97 mg/dL (70-105); Osmolality,Calculated 291 (280-300); Potassium 3.9 mEq/L (3.5-5.1); Sodium 139 mEq/L (136-145); eGFR For African Americans > 60 (> 60); eGFR For Non-African Americans 52 (> 60)
[2021-04-22] MEDS: Budesonide/Formoterol 160/4.5 1 PUFF INH IH SCH (08:04)
[2021-04-22] MEDS: Tiotropium 10 INH DOSE IH SCH (08:05)
[2021-04-22] MEDS: Loratadine 10 MG TABLET PO SCH (08:56)
[2021-04-22] MEDS: Cyanocobalamin (B-12) 1,000 MCG TABLET PO SCH (08:56)
[2021-04-22] MEDS: Aspirin 81 MG TAB.CHEW PO SCH (08:56)
[2021-04-22] MEDS: BuPROPion SR (12 HR) 150 MG TABLET PO SCH (08:56)
[2021-04-22] MEDS: Furosemide 40 MG TABLET PO SCH (08:56)
[2021-04-22] MEDS: Isosorbide MONOnitrate (24 HR) 30 MG TAB.ER.24H PO SCH (08:56)
[2021-04-22] MEDS: FLUoxetine 20 MG CAPSULE PO SCH (08:56)
[2021-04-22] MEDS: *HR* OxyCODONE Immed Rel 15 MG TABLET PO SCH ×2 (08:56→13:19)
[2021-04-22] MEDS ORDERED: predniSONE 20 MG TABLET PO SCH (10:00)
[2021-04-22 10:34] VITALS: BP 146/81; PULSE 67; TEMP 98.1; O2SAT 97
== END 2021-04-22 13:54 | disposition home or self-care (01) ==
LOC: 3BNU 12:52 → EMEROOARM 12:52 → SUATTDRO 14:44 → 3BNU 16:30
PROVIDERS: ADMIT Family Medicine; ATTEND Internal Medicine

== ENCOUNTER 2021-05-20 22:13 | Inpatient (IN) ==
[2021-05-21] MEDS ORDERED: Ondansetron 4 MG/2 ML VIAL IVP PRN (01:08)
[2021-05-21] MEDS ORDERED: Naloxone 0.4 MG/ML INJ IVP PRN (01:08)
[2021-05-21 02:14] LABS: Hematocrit 38.8 % (37.5-50.1); Hemoglobin 13.4 g/dL (12.9-16.9); Mean Corpuscular HGB Conc 34.5 g/dL (31.6-35.5); Mean Corpuscular Volume 98.5 fL (83.0-100.0); Mean Platelet Volume 12.1 fL (9.4-12.4); Platelet Count 153 K/mcL (140-400); Red Blood Count 3.94 M/mcL (4.19-5.50); Red Cell Distribution Width 13.4 % (11.5-14.5)
[2021-05-21 02:34] LABS: Albumin 3.2 g/dL (3.5-5.7); Albumin/Globulin Ratio 0.8 (1.1-2.2); Bilirubin,Total 0.9 mg/dL (0.3-1.0); Calcium 8.8 mg/dL (8.6-10.3); Globulin 3.8 g/dL (2.4-3.5); Potassium 3.2 mEq/L (3.5-5.1)
[2021-05-21] MEDS ORDERED: *HR* Heparin 5,000 UNIT/ML VIAL IVP PRN ×2 (02:54)
[2021-05-21] MEDS ORDERED: *HR* Heparin 5,000 UNIT/ML VIAL IVP ONE (02:54)
[2021-05-21] MEDS ORDERED: Heparin 25,000UNIT/250ML 1/2NS 25,000 UNIT/250 ML IV.SOLN IVC SCH (03:00)
[2021-05-21 03:29] LABS: Lymphocytes # 0.5 K/mcL (0.6-4.6); Monocytes # 0.5 K/mcL (0.0-1.3); Toxic Granulation Present (Not Present)
[2021-05-21 03:30] LABS: Platelet Estimate Normal (Normal)
[2021-05-21] MEDS ORDERED: Isovue-370 500 ML BOTTLE IVP ONE (03:58)
[2021-05-21] MEDS ORDERED: Potassium Chloride 40 MEQ, Lidocaine 1% 2 ML in 0.9 % Sodium Chloride 500 ML IVPB ONE (04:00)
[2021-05-21] MEDS: Ipratropium 1 PUFF INHALER IH SCH ×5 (04:20→20:36)
[2021-05-21 04:26] LABS: ABG Base Excess 1 mEq/L (-2 to 3); ABG HCO3 23 mEq/L (21-27); ABG Oxygen Saturation 95 % (95-98); ABG PCO2 27 mmHg (35-45); ABG PH 7.52 pH Units (7.32-7.45); ABG PO2 66 mmHg (85-104); ABG TCO2 23 mEq/L (20-26)
[2021-05-21 04:49] LABS: Troponin I 0.21 ng/mL (< 0.04)
[2021-05-21] MEDS: Vancomycin 1,500 MG/265 ML IV.SOLN IVPB SCH (05:43)
[2021-05-21] MEDS: GuaiFENesin Liq 200 MG/10 ML UDC PO PRN (06:19)
[2021-05-21] MEDS: Cefepime HCl 2,000 MG in 0.9 % Sodium Chloride Mini Bag 100 ML IVPB SCH ×2 (06:39→17:27)
[2021-05-21] MEDS ORDERED: Azithromycin 500 MG in 0.9 % Sodium Chloride 250 ML IVPB SCH (13:00)
[2021-05-21] MEDS ORDERED: cefTRIAXone 1,000 MG in Water for inj. (sterile) 10 ML IVP SCH (13:00)
[2021-05-21] MEDS: *HR* OxyCODONE Immed Rel 15 MG TABLET PO PRN (23:59)
[2021-05-22] MEDS: Ipratropium 1 PUFF INHALER IH SCH ×5 (00:01→21:54)
[2021-05-22] MEDS: Vancomycin 1,500 MG/265 ML IV.SOLN IVPB SCH (04:32)
[2021-05-22] MEDS: Cefepime HCl 2,000 MG in 0.9 % Sodium Chloride Mini Bag 100 ML IVPB SCH ×2 (05:00→17:29)
[2021-05-22 08:30] LABS: BUN/Creatinine Ratio 28 (6-26); Blood Urea Nitrogen 33 mg/dL (8-23); Calcium 8.8 mg/dL (8.6-10.3); Carbon Dioxide 22 mEq/L (23-29); Chloride 104 mEq/L (98-107); Glucose 249 mg/dL (70-105); Osmolality,Calculated 296 (280-300); Potassium 3.6 mEq/L (3.5-5.1); Sodium 135 mEq/L (136-145); eGFR For African Americans > 60 (> 60); eGFR For Non-African Americans > 60 (> 60)
[2021-05-22 08:40] LABS: Mean Corpuscular Volume 99.7 fL (83.0-100.0); Mean Platelet Volume 11.5 fL (9.4-12.4); Monocytes % 3.7 %
[2021-05-22 08:42] LABS: Basophils % 0.1 %; Hematocrit 35.4 % (37.5-50.1); Hemoglobin 11.8 g/dL (12.9-16.9); Immature Platelets 9.1 % (1.1-6.1); Lymphocytes # 0.4 K/mcL (0.6-4.6); Lymphocytes % 3.2 %; Mean Corpuscular HGB Conc 33.3 g/dL (31.6-35.5); Mean Corpuscular Hemoglobin 33.2 pg (28.0-33.3); Monocytes # 0.5 K/mcL (0.0-1.3); Neutrophils # 11.9 K/mcL (1.6-8.9); Nucleated Red Blood Cells 0.2 /100 WBC (0); Platelet Count 207 K/mcL (140-400); Red Blood Count 3.55 M/mcL (4.19-5.50); Red Cell Distribution Width 13.5 % (11.5-14.5); White Blood Count 12.9 K/mcL (4.3-11.1)
[2021-05-22 11:18] LABS: C-Reactive Protein 145 mg/L (Less than 10)
[2021-05-22] MEDS: *HR* OxyCODONE Immed Rel 15 MG TABLET PO PRN (12:34)
[2021-05-22] MEDS ORDERED: Nitroglycerin 0.4 MG TAB.SUBL SL PRN (14:49)
[2021-05-22] MEDS: BuPROPion SR (12 HR) 150 MG TABLET PO SCH (20:45)
[2021-05-22] MEDS: Budesonide/Formoterol 160/4.5 1 PUFF INH IH SCH (21:56)
[2021-05-23] MEDS: Cefepime HCl 2,000 MG in 0.9 % Sodium Chloride Mini Bag 100 ML IVPB SCH ×3 (01:22→18:43)
[2021-05-23] MEDS: Ipratropium 1 PUFF INHALER IH SCH ×4 (04:07→22:05)
[2021-05-23 04:43] LABS: Basophils % 0.1 %; Hematocrit 37.9 % (37.5-50.1); Hemoglobin 12.9 g/dL (12.9-16.9); Immature Granulocytes % 1.5 % (0-4); Lymphocytes # 0.7 K/mcL (0.6-4.6); Lymphocytes % 4.5 %; Mean Corpuscular Hemoglobin 33.5 pg (28.0-33.3); Mean Corpuscular Volume 98.4 fL (83.0-100.0); Mean Platelet Volume 11.4 fL (9.4-12.4); Monocytes # 0.6 K/mcL (0.0-1.3); Monocytes % 3.9 %; Neutrophils # 13.2 K/mcL (1.6-8.9); Platelet Count 295 K/mcL (140-400); Red Blood Count 3.85 M/mcL (4.19-5.50); Red Cell Distribution Width 13.7 % (11.5-14.5); White Blood Count 14.6 K/mcL (4.3-11.1)
[2021-05-23 04:57] LABS: Alanine Aminotransferase 49 Units/L (7-52); Albumin 2.9 g/dL (3.5-5.7); Albumin/Globulin Ratio 0.7 (1.1-2.2); Alkaline Phosphatase 80 Units/L (34-104); Aspartate Amino Transferase 64 Units/L (13-39); BUN/Creatinine Ratio 30 (6-26); Blood Urea Nitrogen 29 mg/dL (8-23); Carbon Dioxide 23 mEq/L (23-29); Chloride 103 mEq/L (98-107); Globulin 4.2 g/dL (2.4-3.5); Glucose 130 mg/dL (70-105); Osmolality,Calculated 290 (280-300); Potassium 3.9 mEq/L (3.5-5.1); Sodium 136 mEq/L (136-145); Total Protein 7.1 g/dL (6.4-8.9); eGFR For African Americans > 60 (> 60); eGFR For Non-African Americans > 60 (> 60)
[2021-05-23] MEDS: Vancomycin 1,500 MG/265 ML IV.SOLN IVPB SCH ×3 (05:01→18:43)
[2021-05-23] MEDS: Aspirin 81 MG TAB.CHEW PO SCH (10:06)
[2021-05-23] MEDS: BuPROPion SR (12 HR) 150 MG TABLET PO SCH ×2 (10:06→21:30)
[2021-05-23] MEDS: Loratadine 10 MG TABLET PO SCH (10:07)
[2021-05-23] MEDS: Cyanocobalamin (B-12) 1,000 MCG TABLET PO SCH (10:07)
[2021-05-23] MEDS: Isosorbide MONOnitrate (24 HR) 30 MG TAB.ER.24H PO SCH (10:09)
[2021-05-23] MEDS: Budesonide/Formoterol 160/4.5 1 PUFF INH IH SCH ×2 (12:05→22:05)
[2021-05-23] MEDS: Dexmedetomidine HCl 400 MCG/100 ML MLS IVC SCH ×2 (13:12→21:37)
[2021-05-23] MEDS ORDERED: Isovue-370 500 ML BOTTLE IVP ONE (13:48)
[2021-05-23] MEDS ORDERED: *HR* Enoxaparin 60 MG/0.6 ML SYRINGE SQ ONE (13:51)
[2021-05-23 16:16] LABS: ABG Base Excess 2 mEq/L (-2 to 3); ABG HCO3 25 mEq/L (21-27); ABG Oxygen Saturation 96 % (95-98); ABG PCO2 32 mmHg (35-45); ABG PH 7.51 pH Units (7.32-7.45); ABG PO2 72 mmHg (85-104); ABG TCO2 26 mEq/L (20-26)
[2021-05-23] MEDS ORDERED: *HR* Enoxaparin 100 MG/ML SYRINGE SQ SCH (20:00)
[2021-05-23] MEDS: *HR* Enoxaparin 100 MG/ML SYRINGE SQ SCH (21:30)
[2021-05-24] MEDS: Cefepime HCl 2,000 MG in 0.9 % Sodium Chloride Mini Bag 100 ML IVPB SCH ×3 (00:47→18:21)
[2021-05-24] MEDS: *HR* OxyCODONE Immed Rel 15 MG TABLET PO PRN (03:05)
[2021-05-24] MEDS: Dexmedetomidine HCl 400 MCG/100 ML MLS IVC SCH ×3 (03:06→18:20)
[2021-05-24 03:11] LABS: Eosinophils % 0.1 %; Hematocrit 35.4 % (37.5-50.1); Hemoglobin 12.3 g/dL (12.9-16.9); Immature Granulocytes % 1.3 % (0-4); Lymphocytes # 0.5 K/mcL (0.6-4.6); Mean Corpuscular HGB Conc 34.7 g/dL (31.6-35.5); Mean Corpuscular Hemoglobin 34.2 pg (28.0-33.3); Mean Corpuscular Volume 98.3 fL (83.0-100.0); Mean Platelet Volume 11.3 fL (9.4-12.4); Monocytes # 0.3 K/mcL (0.0-1.3); Monocytes % 3.4 %; Platelet Count 232 K/mcL (140-400); Red Cell Distribution Width 13.4 % (11.5-14.5); Segmented Neutrophils % 89.2 %; White Blood Count 8.5 K/mcL (4.3-11.1)
[2021-05-24 03:12] LABS: Neutrophils # 7.6 K/mcL (1.6-8.9)
[2021-05-24 03:33] LABS: Alanine Aminotransferase 38 Units/L (7-52); Albumin 2.6 g/dL (3.5-5.7); Albumin/Globulin Ratio 0.7 (1.1-2.2); Alkaline Phosphatase 74 Units/L (34-104); Aspartate Amino Transferase 44 Units/L (13-39); BUN/Creatinine Ratio 32 (6-26); Bilirubin,Total 0.9 mg/dL (0.3-1.0); Blood Urea Nitrogen 25 mg/dL (8-23); Calcium 8.6 mg/dL (8.6-10.3); Carbon Dioxide 26 mEq/L (23-29); Chloride 102 mEq/L (98-107); Glucose 173 mg/dL (70-105); Osmolality,Calculated 285 (280-300); Sodium 133 mEq/L (136-145); Total Protein 6.6 g/dL (6.4-8.9); eGFR For African Americans > 60 (> 60); eGFR For Non-African Americans > 60 (> 60)
[2021-05-24] MEDS: Ipratropium 1 PUFF INHALER IH SCH ×4 (03:43→20:11)
[2021-05-24 03:45] LABS: Platelet Estimate Normal (Normal)
[2021-05-24] MEDS: Vancomycin 1,500 MG/265 ML IV.SOLN IVPB SCH (06:53)
[2021-05-24] MEDS ORDERED: *HR* Enoxaparin 40 MG/0.4 ML SYRINGE SQ SCH (07:00)
[2021-05-24] MEDS: Aspirin 81 MG TAB.CHEW PO SCH (08:09)
[2021-05-24] MEDS: *HR* Enoxaparin 100 MG/ML SYRINGE SQ SCH ×2 (08:10→20:47)
[2021-05-24] MEDS: Loratadine 10 MG TABLET PO SCH (08:11)
[2021-05-24] MEDS: Cyanocobalamin (B-12) 1,000 MCG TABLET PO SCH (08:12)
[2021-05-24] MEDS: BuPROPion SR (12 HR) 150 MG TABLET PO SCH ×2 (08:12→20:47)
[2021-05-24] MEDS: Isosorbide MONOnitrate (24 HR) 30 MG TAB.ER.24H PO SCH (09:56)
[2021-05-24] MEDS: Budesonide/Formoterol 160/4.5 1 PUFF INH IH SCH ×2 (10:45→20:11)
[2021-05-25] MEDS: Vancomycin 1,500 MG/265 ML IV.SOLN IVPB SCH (00:02)
[2021-05-25] MEDS: Dexmedetomidine HCl 400 MCG/100 ML MLS IVC SCH (02:20)
[2021-05-25] MEDS: Cefepime HCl 2,000 MG in 0.9 % Sodium Chloride Mini Bag 100 ML IVPB SCH ×3 (02:33→16:12)
[2021-05-25] MEDS: Ipratropium 1 PUFF INHALER IH SCH ×4 (03:19→21:17)
[2021-05-25 05:26] LABS: Basophils % 0.2 %; Eosinophils # 0.1 K/mcL (0.0-0.6); Eosinophils % 0.8 %; Hematocrit 36.3 % (37.5-50.1); Hemoglobin 12.3 g/dL (12.9-16.9); Immature Granulocytes % 2.8 % (0-4); Lymphocytes # 0.7 K/mcL (0.6-4.6); Lymphocytes % 6.3 %; Mean Corpuscular HGB Conc 33.9 g/dL (31.6-35.5); Mean Corpuscular Hemoglobin 33.3 pg (28.0-33.3); Mean Corpuscular Volume 98.4 fL (83.0-100.0); Mean Platelet Volume 11.7 fL (9.4-12.4); Monocytes # 0.3 K/mcL (0.0-1.3); Monocytes % 3.2 %; Neutrophils # 8.9 K/mcL (1.6-8.9); Platelet Count 256 K/mcL (140-400); Red Blood Count 3.69 M/mcL (4.19-5.50); Red Cell Distribution Width 13.4 % (11.5-14.5); Segmented Neutrophils % 86.7 %; White Blood Count 10.2 K/mcL (4.3-11.1)
[2021-05-25 05:57] LABS: D-Dimer 3985 ng/mLFEU (0-500); Fibrinogen 930 mg/dL (169-393)
[2021-05-25 06:08] LABS: Alanine Aminotransferase 39 Units/L (7-52); Albumin 2.6 g/dL (3.5-5.7); Albumin/Globulin Ratio 0.7 (1.1-2.2); Alkaline Phosphatase 75 Units/L (34-104); Aspartate Amino Transferase 56 Units/L (13-39); BUN/Creatinine Ratio 29 (6-26); Bilirubin,Total 0.6 mg/dL (0.3-1.0); Blood Urea Nitrogen 26 mg/dL (8-23); Calcium 8.5 mg/dL (8.6-10.3); Carbon Dioxide 21 mEq/L (23-29); Chloride 101 mEq/L (98-107); Ferritin 1183 ng/mL (20-250); Globulin 3.9 g/dL (2.4-3.5); Glucose 151 mg/dL (70-105); Lactate Dehydrogenase 297 Units/L (140-271); Osmolality,Calculated 284 (280-300); Sodium 133 mEq/L (136-145); Total Protein 6.5 g/dL (6.4-8.9); eGFR For African Americans > 60 (> 60); eGFR For Non-African Americans > 60 (> 60)
[2021-05-25] MEDS: Budesonide/Formoterol 160/4.5 1 PUFF INH IH SCH ×2 (07:55→21:17)
[2021-05-25] MEDS: Isosorbide MONOnitrate (24 HR) 30 MG TAB.ER.24H PO SCH (08:02)
[2021-05-25] MEDS: Loratadine 10 MG TABLET PO SCH (08:02)
[2021-05-25] MEDS: BuPROPion SR (12 HR) 150 MG TABLET PO SCH ×2 (08:02→21:36)
[2021-05-25] MEDS: *HR* Enoxaparin 100 MG/ML SYRINGE SQ SCH ×2 (08:03→21:35)
[2021-05-25] MEDS: Aspirin 81 MG TAB.CHEW PO SCH (08:03)
[2021-05-25] MEDS: Cyanocobalamin (B-12) 1,000 MCG TABLET PO SCH (08:04)
[2021-05-25] MEDS: *HR* OxyCODONE Immed Rel 15 MG TABLET PO PRN (12:38)
[2021-05-25] MEDS: GuaiFENesin Liq 200 MG/10 ML UDC PO PRN (12:38)
[2021-05-25 19:36] LABS: C-Reactive Protein 97 mg/L (Less than 10)
[2021-05-26] MEDS: Cefepime HCl 2,000 MG in 0.9 % Sodium Chloride Mini Bag 100 ML IVPB SCH ×3 (01:30→16:13)
[2021-05-26] MEDS: Ipratropium 1 PUFF INHALER IH SCH ×4 (03:16→20:47)
[2021-05-26] MEDS: Aspirin 81 MG TAB.CHEW PO SCH (08:38)
[2021-05-26] MEDS: Cyanocobalamin (B-12) 1,000 MCG TABLET PO SCH (08:40)
[2021-05-26] MEDS: BuPROPion SR (12 HR) 150 MG TABLET PO SCH ×2 (08:40→19:48)
[2021-05-26] MEDS: Dexamethasone Sodium Phos/PF 10 MG/ML VIAL IVP SCH (08:40)
[2021-05-26] MEDS: Loratadine 10 MG TABLET PO SCH (08:40)
[2021-05-26] MEDS: Isosorbide MONOnitrate (24 HR) 30 MG TAB.ER.24H PO SCH (08:41)
[2021-05-26] MEDS: *HR* Enoxaparin 100 MG/ML SYRINGE SQ SCH ×2 (08:41→19:47)
[2021-05-26] MEDS: Budesonide/Formoterol 160/4.5 1 PUFF INH IH SCH ×2 (10:43→20:47)
[2021-05-26] MEDS: *HR* OxyCODONE Immed Rel 15 MG TABLET PO PRN (19:55)
[2021-05-27] MEDS: Cefepime HCl 2,000 MG in 0.9 % Sodium Chloride Mini Bag 100 ML IVPB SCH ×2 (01:05→08:10)
[2021-05-27] MEDS: Ipratropium 1 PUFF INHALER IH SCH ×4 (03:08→20:24)
[2021-05-27] MEDS: Isosorbide MONOnitrate (24 HR) 30 MG TAB.ER.24H PO SCH (08:11)
[2021-05-27] MEDS: Loratadine 10 MG TABLET PO SCH (08:11)
[2021-05-27] MEDS: Cyanocobalamin (B-12) 1,000 MCG TABLET PO SCH (08:11)
[2021-05-27] MEDS: Aspirin 81 MG TAB.CHEW PO SCH (08:12)
[2021-05-27] MEDS: Dexamethasone Sodium Phos/PF 10 MG/ML VIAL IVP SCH (08:12)
[2021-05-27] MEDS: BuPROPion SR (12 HR) 150 MG TABLET PO SCH ×2 (08:12→20:16)
[2021-05-27] MEDS: *HR* Enoxaparin 100 MG/ML SYRINGE SQ SCH (08:13)
[2021-05-27] MEDS: Budesonide/Formoterol 160/4.5 1 PUFF INH IH SCH ×2 (09:36→20:25)
[2021-05-27] MEDS: *HR* OxyCODONE Immed Rel 15 MG TABLET PO PRN ×2 (09:49→16:00)
[2021-05-27] MEDS ORDERED: Benzocaine 20% 12 APPL GEL..GRAM. TP PRN (10:13)
[2021-05-27] MEDS: Furosemide 20 MG/2 ML VIAL IVP SCH (14:06)
[2021-05-27 14:27] LABS: Hematocrit 34.9 % (37.5-50.1); Hemoglobin 11.8 g/dL (12.9-16.9); Mean Corpuscular HGB Conc 33.8 g/dL (31.6-35.5); Mean Corpuscular Hemoglobin 34.4 pg (28.0-33.3); Mean Corpuscular Volume 101.7 fL (83.0-100.0); Mean Platelet Volume 11.5 fL (9.4-12.4); Platelet Count 376 K/mcL (140-400); Red Blood Count 3.43 M/mcL (4.19-5.50); Red Cell Distribution Width 13.7 % (11.5-14.5)
[2021-05-27 14:57] LABS: D-Dimer 1942 ng/mLFEU (0-500)
[2021-05-27 14:59] LABS: Fibrinogen 832 mg/dL (169-393)
[2021-05-27 15:04] LABS: White Blood Count 15.7 K/mcL (4.3-11.1)
[2021-05-27 15:11] LABS: Alanine Aminotransferase 53 Units/L (7-52); Albumin 2.6 g/dL (3.5-5.7); Albumin/Globulin Ratio 0.6 (1.1-2.2); Alkaline Phosphatase 72 Units/L (34-104); Aspartate Amino Transferase 55 Units/L (13-39); BUN/Creatinine Ratio 32 (6-26); Bilirubin,Total 0.7 mg/dL (0.3-1.0); Blood Urea Nitrogen 35 mg/dL (8-23); C-Reactive Protein 84 mg/L (Less than 10); Calcium 8.7 mg/dL (8.6-10.3); Carbon Dioxide 22 mEq/L (23-29); Chloride 103 mEq/L (98-107); Ferritin 1023 ng/mL (20-250); Globulin 4.4 g/dL (2.4-3.5); Glucose 166 mg/dL (70-105); Lactate Dehydrogenase 277 Units/L (140-271); Osmolality,Calculated 286 (280-300); Sodium 132 mEq/L (136-145); eGFR For African Americans > 60 (> 60); eGFR For Non-African Americans > 60 (> 60)
[2021-05-27] MEDS ORDERED: Isovue-370 500 ML BOTTLE IVP ONE ×2 (15:31→15:54)
[2021-05-27 16:21] LABS: Large Platelets Present (Not Present); Lymphocytes # 1.3 K/mcL (0.6-4.6); Neutrophils # 12.9 K/mcL (1.6-8.9)
[2021-05-27] MEDS: Piperacillin/Tazobactam 3.375 GM in 0.9 % Sodium Chloride Mini Bag 100 ML IVPB SCH ×2 (16:59→23:47)
[2021-05-27 19:46] LABS: Hematocrit 33.2 % (37.5-50.1); Mean Corpuscular HGB Conc 33.1 g/dL (31.6-35.5); Mean Corpuscular Hemoglobin 33.7 pg (28.0-33.3); Mean Corpuscular Volume 101.8 fL (83.0-100.0); Mean Platelet Volume 11.2 fL (9.4-12.4); Platelet Count 362 K/mcL (140-400); Red Blood Count 3.26 M/mcL (4.19-5.50); Red Cell Distribution Width 13.7 % (11.5-14.5); White Blood Count 16.7 K/mcL (4.3-11.1)
[2021-05-27 20:00] LABS: Amylase 71 Units/L (29-103); Lipase 89 Units/L (11-82)
[2021-05-27 20:09] LABS: Lymphocytes # 2.3 K/mcL (0.6-4.6); Monocytes # 0.3 K/mcL (0.0-1.3); Neutrophils # 13.7 K/mcL (1.6-8.9)
[2021-05-27 20:11] LABS: Large Platelets Present (Not Present)
[2021-05-28] MEDS: Melatonin 3 MG TABLET PO PRN (00:03)
[2021-05-28] MEDS: *HR* OxyCODONE Immed Rel 15 MG TABLET PO PRN ×3 (00:04→19:24)
[2021-05-28] MEDS: Ipratropium 1 PUFF INHALER IH SCH ×4 (03:22→21:58)
[2021-05-28] MEDS ORDERED: *HR* Enoxaparin 40 MG/0.4 ML SYRINGE SQ SCH (06:00)
[2021-05-28 08:22] LABS: Basophils % 0.2 %; Eosinophils # 0.1 K/mcL (0.0-0.6); Eosinophils % 1.1 %; Hematocrit 28.2 % (37.5-50.1); Hemoglobin 9.5 g/dL (12.9-16.9); Immature Granulocytes % 5.9 % (0-4); Lymphocytes # 1.1 K/mcL (0.6-4.6); Mean Corpuscular HGB Conc 33.7 g/dL (31.6-35.5); Mean Corpuscular Hemoglobin 34.2 pg (28.0-33.3); Mean Corpuscular Volume 101.4 fL (83.0-100.0); Mean Platelet Volume 10.7 fL (9.4-12.4); Monocytes # 0.5 K/mcL (0.0-1.3); Monocytes % 3.7 %; Platelet Count 266 K/mcL (140-400); Red Blood Count 2.78 M/mcL (4.19-5.50); Red Cell Distribution Width 13.7 % (11.5-14.5); Segmented Neutrophils % 80.1 %; White Blood Count 12.4 K/mcL (4.3-11.1)
[2021-05-28 08:29] LABS: Neutrophils # 9.9 K/mcL (1.6-8.9)
[2021-05-28 08:40] LABS: Alanine Aminotransferase 43 Units/L (7-52); Albumin 2.3 g/dL (3.5-5.7); Albumin/Globulin Ratio 0.7 (1.1-2.2); Alkaline Phosphatase 63 Units/L (34-104); Aspartate Amino Transferase 41 Units/L (13-39); BUN/Creatinine Ratio 33 (6-26); Bilirubin,Total 0.5 mg/dL (0.3-1.0); Blood Urea Nitrogen 39 mg/dL (8-23); Calcium 8.3 mg/dL (8.6-10.3); Carbon Dioxide 23 mEq/L (23-29); Chloride 106 mEq/L (98-107); Globulin 3.4 g/dL (2.4-3.5); Glucose 136 mg/dL (70-105); Osmolality,Calculated 289 (280-300); Potassium 4.3 mEq/L (3.5-5.1); Sodium 134 mEq/L (136-145); Total Protein 5.7 g/dL (6.4-8.9); eGFR For African Americans > 60 (> 60); eGFR For Non-African Americans > 60 (> 60)
[2021-05-28 08:43] LABS: Platelet Estimate Normal (Normal)
[2021-05-28] MEDS: Budesonide/Formoterol 160/4.5 1 PUFF INH IH SCH ×2 (09:53→21:59)
[2021-05-28] MEDS: Piperacillin/Tazobactam 3.375 GM in 0.9 % Sodium Chloride Mini Bag 100 ML IVPB SCH ×2 (10:28→16:03)
[2021-05-28] MEDS: BuPROPion SR (12 HR) 150 MG TABLET PO SCH ×2 (10:28→20:44)
[2021-05-28] MEDS: Cyanocobalamin (B-12) 1,000 MCG TABLET PO SCH (10:28)
[2021-05-28] MEDS: Loratadine 10 MG TABLET PO SCH (10:29)
[2021-05-28] MEDS: Aspirin 81 MG TAB.CHEW PO SCH (10:29)
[2021-05-28] MEDS: Isosorbide MONOnitrate (24 HR) 30 MG TAB.ER.24H PO SCH (10:29)
[2021-05-28] MEDS: Dexamethasone Sodium Phos/PF 10 MG/ML VIAL IVP SCH (10:29)
[2021-05-28] MEDS: Furosemide 20 MG/2 ML VIAL IVP SCH (10:29)
[2021-05-28 14:09] LABS: Hemoglobin 9.5 g/dL (12.9-16.9)
[2021-05-28 19:53] LABS: Hematocrit 27.8 % (37.5-50.1); Hemoglobin 9.4 g/dL (12.9-16.9)
[2021-05-29] MEDS: Piperacillin/Tazobactam 3.375 GM in 0.9 % Sodium Chloride Mini Bag 100 ML IVPB SCH ×3 (01:24→16:49)
[2021-05-29] MEDS: Ipratropium 1 PUFF INHALER IH SCH ×4 (03:55→20:31)
[2021-05-29] MEDS: *HR* OxyCODONE Immed Rel 15 MG TABLET PO PRN ×2 (05:29→20:35)
[2021-05-29] MEDS: Furosemide 20 MG/2 ML VIAL IVP SCH (10:18)
[2021-05-29] MEDS: Dexamethasone Sodium Phos/PF 10 MG/ML VIAL IVP SCH (10:19)
[2021-05-29] MEDS: Budesonide/Formoterol 160/4.5 1 PUFF INH IH SCH ×2 (10:52→20:32)
[2021-05-29 11:11] LABS: Alanine Aminotransferase 48 Units/L (7-52); Albumin 2.6 g/dL (3.5-5.7); Albumin/Globulin Ratio 0.7 (1.1-2.2); Alkaline Phosphatase 68 Units/L (34-104); Aspartate Amino Transferase 49 Units/L (13-39); BUN/Creatinine Ratio 31 (6-26); Bilirubin,Total 0.6 mg/dL (0.3-1.0); Blood Urea Nitrogen 33 mg/dL (8-23); C-Reactive Protein 67 mg/L (Less than 10); Calcium 8.1 mg/dL (8.6-10.3); Carbon Dioxide 23 mEq/L (23-29); Chloride 103 mEq/L (98-107); Ferritin 715 ng/mL (20-250); Globulin 3.9 g/dL (2.4-3.5); Glucose 87 mg/dL (70-105); Lactate Dehydrogenase 344 Units/L (140-271); Osmolality,Calculated 279 (280-300); Potassium 4.3 mEq/L (3.5-5.1); Sodium 131 mEq/L (136-145); Total Protein 6.5 g/dL (6.4-8.9); eGFR For African Americans > 60 (> 60); eGFR For Non-African Americans > 60 (> 60)
[2021-05-29] MEDS: Aspirin 81 MG TAB.CHEW PO SCH (11:48)
[2021-05-29] MEDS: Isosorbide MONOnitrate (24 HR) 30 MG TAB.ER.24H PO SCH (11:48)
[2021-05-29] MEDS: Loratadine 10 MG TABLET PO SCH (11:48)
[2021-05-29] MEDS: BuPROPion SR (12 HR) 150 MG TABLET PO SCH ×2 (11:50→20:36)
[2021-05-29] MEDS: Cyanocobalamin (B-12) 1,000 MCG TABLET PO SCH (11:50)
[2021-05-29] MEDS ORDERED: Lidocaine -MPF 1% 5 ML AMPUL INFILT ONE (15:36)
[2021-05-29 15:46] LABS: Hematocrit 29.3 % (37.5-50.1); Hemoglobin 9.6 g/dL (12.9-16.9); Mean Corpuscular HGB Conc 32.8 g/dL (31.6-35.5); Mean Corpuscular Hemoglobin 32.9 pg (28.0-33.3); Mean Corpuscular Volume 100.3 fL (83.0-100.0); Platelet Count 297 K/mcL (140-400); Red Blood Count 2.92 M/mcL (4.19-5.50); Red Cell Distribution Width 13.4 % (11.5-14.5); White Blood Count 12.1 K/mcL (4.3-11.1)
[2021-05-29 16:28] LABS: D-Dimer 2082 ng/mLFEU (0-500)
[2021-05-29 16:30] LABS: Fibrinogen 776 mg/dL (169-393)
[2021-05-29 16:32] LABS: Monocytes # 0.7 K/mcL (0.0-1.3); Neutrophils # 10.2 K/mcL (1.6-8.9)
[2021-05-29 16:33] LABS: Platelet Estimate Normal (Normal)
[2021-05-29 19:48] LABS: Bilirubin,Urine Negative (Negative); Blood,Urine Small (Negative); Clarity,Urine Clear (Clear); Color,Urine Light-Yellow (Yellow); Glucose,Urine (UA) 300 mg/dL (Normal); Ketones,Urine Negative (Negative); Leukocyte Esterase,Urine Negative (Negative); Nitrite,Urine Negative (Negative); Protein,Urine 70 mg/dL (Neg-Trace); Specific Gravity,Urine 1.026 (1.010-1.025); Urobilinogen,Urine Normal (Normal)
[2021-05-29] MEDS: Melatonin 3 MG TABLET PO PRN (20:36)
[2021-05-30] MEDS: Piperacillin/Tazobactam 3.375 GM in 0.9 % Sodium Chloride Mini Bag 100 ML IVPB SCH ×3 (00:41→16:18)
[2021-05-30] MEDS: Ipratropium 1 PUFF INHALER IH SCH ×4 (04:00→20:09)
[2021-05-30] MEDS: *HR* OxyCODONE Immed Rel 15 MG TABLET PO PRN ×2 (04:32→19:41)
[2021-05-30 04:54] LABS: VBG HCO3 26 mEq/L (21-27); VBG PCO2 41 mmHg (41-51); VBG PO2 69 mmHg (25-50)
[2021-05-30 04:56] LABS: Hematocrit 27.1 % (37.5-50.1); Hemoglobin 9.1 g/dL (12.9-16.9); Mean Corpuscular HGB Conc 33.6 g/dL (31.6-35.5); Mean Corpuscular Hemoglobin 33.7 pg (28.0-33.3); Mean Corpuscular Volume 100.4 fL (83.0-100.0); Mean Platelet Volume 10.6 fL (9.4-12.4); Platelet Count 280 K/mcL (140-400); Red Cell Distribution Width 13.5 % (11.5-14.5); White Blood Count 14.2 K/mcL (4.3-11.1)
[2021-05-30 05:27] LABS: BUN/Creatinine Ratio 27 (6-26); Blood Urea Nitrogen 27 mg/dL (8-23); Calcium 7.9 mg/dL (8.6-10.3); Carbon Dioxide 28 mEq/L (23-29); Chloride 100 mEq/L (98-107); Glucose 120 mg/dL (70-105); Magnesium 2.1 mg/dL (1.6-2.6); Osmolality,Calculated 280 (280-300); Phosphorous 2.8 mg/dL (2.7-4.5); Potassium 4.3 mEq/L (3.5-5.1); Sodium 132 mEq/L (136-145); eGFR For African Americans > 60 (> 60); eGFR For Non-African Americans > 60 (> 60)
[2021-05-30] MEDS: Budesonide/Formoterol 160/4.5 1 PUFF INH IH SCH ×2 (07:52→20:09)
[2021-05-30] MEDS: BuPROPion SR (12 HR) 150 MG TABLET PO SCH ×2 (08:29→19:41)
[2021-05-30] MEDS: Isosorbide MONOnitrate (24 HR) 30 MG TAB.ER.24H PO SCH (08:29)
[2021-05-30] MEDS: Cyanocobalamin (B-12) 1,000 MCG TABLET PO SCH (08:30)
[2021-05-30] MEDS: Loratadine 10 MG TABLET PO SCH (08:30)
[2021-05-30] MEDS: Dexamethasone Sodium Phos/PF 10 MG/ML VIAL IVP SCH (08:31)
[2021-05-30] MEDS: Furosemide 20 MG/2 ML VIAL IVP SCH (08:31)
[2021-05-30] MEDS: Aspirin 81 MG TAB.CHEW PO SCH (09:28)
[2021-05-30] MEDS: hydrOXYzine pamoate 25 MG CAPSULE PO PRN (19:41)
[2021-05-31] MEDS: Piperacillin/Tazobactam 3.375 GM in 0.9 % Sodium Chloride Mini Bag 100 ML IVPB SCH ×2 (00:45→07:52)
[2021-05-31] MEDS: Ipratropium 1 PUFF INHALER IH SCH ×4 (03:51→21:29)
[2021-05-31] MEDS: *HR* OxyCODONE Immed Rel 15 MG TABLET PO PRN ×2 (04:56→17:38)
[2021-05-31 05:51] LABS: BUN/Creatinine Ratio 28 (6-26); Blood Urea Nitrogen 27 mg/dL (8-23); Carbon Dioxide 26 mEq/L (23-29); Chloride 104 mEq/L (98-107); Glucose 156 mg/dL (70-105); Osmolality,Calculated 288 (280-300); Potassium 4.1 mEq/L (3.5-5.1); Sodium 135 mEq/L (136-145); eGFR For African Americans > 60 (> 60); eGFR For Non-African Americans > 60 (> 60)
[2021-05-31 06:07] LABS: Hematocrit 27.2 % (37.5-50.1); Mean Corpuscular HGB Conc 33.1 g/dL (31.6-35.5); Mean Corpuscular Hemoglobin 33.8 pg (28.0-33.3); Mean Corpuscular Volume 102.3 fL (83.0-100.0); Mean Platelet Volume 10.7 fL (9.4-12.4); Platelet Count 279 K/mcL (140-400); Red Blood Count 2.66 M/mcL (4.19-5.50); Red Cell Distribution Width 13.4 % (11.5-14.5); White Blood Count 13.1 K/mcL (4.3-11.1)
[2021-05-31] MEDS: Aspirin 81 MG TAB.CHEW PO SCH (07:51)
[2021-05-31] MEDS: Furosemide 20 MG/2 ML VIAL IVP SCH (07:51)
[2021-05-31] MEDS: BuPROPion SR (12 HR) 150 MG TABLET PO SCH ×2 (07:51→22:25)
[2021-05-31] MEDS: Loratadine 10 MG TABLET PO SCH (07:52)
[2021-05-31] MEDS: Cyanocobalamin (B-12) 1,000 MCG TABLET PO SCH (07:52)
[2021-05-31] MEDS: Isosorbide MONOnitrate (24 HR) 30 MG TAB.ER.24H PO SCH (07:52)
[2021-05-31] MEDS: Budesonide/Formoterol 160/4.5 1 PUFF INH IH SCH ×2 (10:05→21:30)
[2021-05-31] MEDS: GuaiFENesin Liq 200 MG/10 ML UDC PO PRN (17:38)
[2021-05-31] MEDS: hydrOXYzine pamoate 25 MG CAPSULE PO PRN (22:25)
[2021-05-31] MEDS: Melatonin 3 MG TABLET PO PRN (22:25)
[2021-06-01] MEDS: *HR* OxyCODONE Immed Rel 15 MG TABLET PO PRN ×3 (01:04→15:53)
[2021-06-01] MEDS: Ipratropium 1 PUFF INHALER IH SCH ×4 (03:27→21:26)
[2021-06-01] MEDS: Budesonide/Formoterol 160/4.5 1 PUFF INH IH SCH ×2 (07:54→21:26)
[2021-06-01] MEDS: Loratadine 10 MG TABLET PO SCH (09:35)
[2021-06-01] MEDS: Furosemide 20 MG/2 ML VIAL IVP SCH (09:35)
[2021-06-01] MEDS: Aspirin 81 MG TAB.CHEW PO SCH (09:36)
[2021-06-01] MEDS: Isosorbide MONOnitrate (24 HR) 30 MG TAB.ER.24H PO SCH (09:36)
[2021-06-01] MEDS: BuPROPion SR (12 HR) 150 MG TABLET PO SCH ×2 (09:36→20:16)
[2021-06-01] MEDS: Cyanocobalamin (B-12) 1,000 MCG TABLET PO SCH (09:37)
[2021-06-01] MEDS: Acetaminophen 325 MG TABLET PO PRN (20:16)
[2021-06-01] MEDS: hydrOXYzine pamoate 25 MG CAPSULE PO PRN (20:16)
[2021-06-02] MEDS: *HR* OxyCODONE Immed Rel 15 MG TABLET PO PRN ×3 (00:33→21:23)
[2021-06-02] MEDS: Melatonin 3 MG TABLET PO PRN (00:33)
[2021-06-02] MEDS: Ipratropium 1 PUFF INHALER IH SCH ×4 (03:33→20:29)
[2021-06-02 04:17] LABS: Hematocrit 28.8 % (37.5-50.1); Hemoglobin 9.4 g/dL (12.9-16.9); Mean Corpuscular HGB Conc 32.6 g/dL (31.6-35.5); Mean Corpuscular Hemoglobin 33.1 pg (28.0-33.3); Mean Corpuscular Volume 101.4 fL (83.0-100.0); Mean Platelet Volume 9.9 fL (9.4-12.4); Platelet Count 271 K/mcL (140-400); Red Blood Count 2.84 M/mcL (4.19-5.50); Red Cell Distribution Width 13.6 % (11.5-14.5); White Blood Count 11.7 K/mcL (4.3-11.1)
[2021-06-02 04:25] LABS: BUN/Creatinine Ratio 30 (6-26); Blood Urea Nitrogen 29 mg/dL (8-23); Calcium 8.5 mg/dL (8.6-10.3); Carbon Dioxide 28 mEq/L (23-29); Chloride 103 mEq/L (98-107); Glucose 108 mg/dL (70-105); Osmolality,Calculated 286 (280-300); Phosphorous 4.1 mg/dL (2.7-4.5); Potassium 4.4 mEq/L (3.5-5.1); Sodium 135 mEq/L (136-145); eGFR For African Americans > 60 (> 60); eGFR For Non-African Americans > 60 (> 60)
[2021-06-02] MEDS: Isosorbide MONOnitrate (24 HR) 30 MG TAB.ER.24H PO SCH (08:14)
[2021-06-02] MEDS: Cyanocobalamin (B-12) 1,000 MCG TABLET PO SCH (08:14)
[2021-06-02] MEDS: Aspirin 81 MG TAB.CHEW PO SCH (08:14)
[2021-06-02] MEDS: BuPROPion SR (12 HR) 150 MG TABLET PO SCH ×2 (08:14→21:23)
[2021-06-02] MEDS: Loratadine 10 MG TABLET PO SCH (08:15)
[2021-06-02] MEDS: Budesonide/Formoterol 160/4.5 1 PUFF INH IH SCH ×2 (08:15→20:30)
[2021-06-02] MEDS: Furosemide 20 MG/2 ML VIAL IVP SCH (08:15)
[2021-06-02] MEDS: Sennosides/Docusate Sodium TABLET PO SCH ×2 (10:43→21:22)
[2021-06-02] MEDS: polyethylene glycoL 3350 17 GM POWD.PACK PO SCH (10:43)
[2021-06-02] MEDS: hydrOXYzine pamoate 25 MG CAPSULE PO PRN (21:22)
[2021-06-03] MEDS: Ipratropium 1 PUFF INHALER IH SCH ×4 (04:23→19:58)
[2021-06-03] MEDS: Sennosides/Docusate Sodium TABLET PO SCH ×2 (09:27→20:24)
[2021-06-03] MEDS: Furosemide 20 MG/2 ML VIAL IVP SCH (09:27)
[2021-06-03] MEDS: Loratadine 10 MG TABLET PO SCH (09:27)
[2021-06-03] MEDS: polyethylene glycoL 3350 17 GM POWD.PACK PO SCH (09:27)
[2021-06-03] MEDS: Isosorbide MONOnitrate (24 HR) 30 MG TAB.ER.24H PO SCH (09:27)
[2021-06-03] MEDS: BuPROPion SR (12 HR) 150 MG TABLET PO SCH ×2 (09:27→20:24)
[2021-06-03] MEDS: Aspirin 81 MG TAB.CHEW PO SCH (09:27)
[2021-06-03] MEDS: Cyanocobalamin (B-12) 1,000 MCG TABLET PO SCH (09:27)
[2021-06-03] MEDS: Budesonide/Formoterol 160/4.5 1 PUFF INH IH SCH ×2 (10:34→19:59)
[2021-06-04] MEDS: Ipratropium 1 PUFF INHALER IH SCH ×4 (03:59→20:40)
[2021-06-04 06:22] LABS: Hematocrit 26.4 % (37.5-50.1); Hemoglobin 8.6 g/dL (12.9-16.9); Mean Corpuscular HGB Conc 32.6 g/dL (31.6-35.5); Mean Corpuscular Hemoglobin 32.2 pg (28.0-33.3); Mean Corpuscular Volume 98.9 fL (83.0-100.0); Platelet Count 210 K/mcL (140-400); Red Blood Count 2.67 M/mcL (4.19-5.50); Red Cell Distribution Width 13.4 % (11.5-14.5); White Blood Count 14.6 K/mcL (4.3-11.1)
[2021-06-04 06:41] LABS: BUN/Creatinine Ratio 23 (6-26); Blood Urea Nitrogen 21 mg/dL (8-23); Calcium 8.1 mg/dL (8.6-10.3); Carbon Dioxide 26 mEq/L (23-29); Chloride 100 mEq/L (98-107); Glucose 120 mg/dL (70-105); Magnesium 1.8 mg/dL (1.6-2.6); Osmolality,Calculated 276 (280-300); Potassium 4.2 mEq/L (3.5-5.1); Sodium 131 mEq/L (136-145); eGFR For African Americans > 60 (> 60); eGFR For Non-African Americans > 60 (> 60)
[2021-06-04] MEDS: Budesonide/Formoterol 160/4.5 1 PUFF INH IH SCH ×2 (08:55→20:41)
[2021-06-04] MEDS: Aspirin 81 MG TAB.CHEW PO SCH (09:49)
[2021-06-04] MEDS: BuPROPion SR (12 HR) 150 MG TABLET PO SCH ×2 (09:49→20:01)
[2021-06-04] MEDS: Isosorbide MONOnitrate (24 HR) 30 MG TAB.ER.24H PO SCH (09:50)
[2021-06-04] MEDS: Furosemide 20 MG/2 ML VIAL IVP SCH (09:50)
[2021-06-04] MEDS: Loratadine 10 MG TABLET PO SCH (09:50)
[2021-06-04] MEDS: Sennosides/Docusate Sodium TABLET PO SCH ×2 (09:50→20:01)
[2021-06-04] MEDS: Cyanocobalamin (B-12) 1,000 MCG TABLET PO SCH (09:50)
[2021-06-04] MEDS: polyethylene glycoL 3350 17 GM POWD.PACK PO SCH (09:51)
[2021-06-04] MEDS: *HR* OxyCODONE Immed Rel 15 MG TABLET PO PRN (15:23)
[2021-06-05] MEDS: Ipratropium 1 PUFF INHALER IH SCH ×4 (03:24→20:32)
[2021-06-05] MEDS: Furosemide 20 MG/2 ML VIAL IVP SCH (09:53)
[2021-06-05] MEDS: Isosorbide MONOnitrate (24 HR) 30 MG TAB.ER.24H PO SCH (10:07)
[2021-06-05] MEDS: Aspirin 81 MG TAB.CHEW PO SCH (10:07)
[2021-06-05] MEDS: Cyanocobalamin (B-12) 1,000 MCG TABLET PO SCH (10:07)
[2021-06-05] MEDS: polyethylene glycoL 3350 17 GM POWD.PACK PO SCH (10:07)
[2021-06-05] MEDS: BuPROPion SR (12 HR) 150 MG TABLET PO SCH ×2 (10:07→20:14)
[2021-06-05] MEDS: Sennosides/Docusate Sodium TABLET PO SCH ×2 (10:07→20:14)
[2021-06-05] MEDS: Loratadine 10 MG TABLET PO SCH (10:07)
[2021-06-05] MEDS: Budesonide/Formoterol 160/4.5 1 PUFF INH IH SCH ×2 (10:22→20:32)
[2021-06-05] MEDS ORDERED: methylPREDNISolone 125 MG/2 ML VIAL ONE (10:30)
[2021-06-05] MEDS ORDERED: Dexmedetomidine HCl 400 MCG/100 ML MLS IVC ONE (10:31)
[2021-06-05] MEDS ORDERED: methylPREDNISolone 125 MG/2 ML VIAL IVP ONE (10:33)
[2021-06-05 10:53] LABS: ABG Base Excess 0 mEq/L (-2 to 3); ABG HCO3 23 mEq/L (21-27); ABG Oxygen Saturation 93 % (95-98); ABG PCO2 30 mmHg (35-45); ABG PH 7.49 pH Units (7.32-7.45); ABG PO2 61 mmHg (85-104); ABG TCO2 24 mEq/L (20-26); Blood Gas VT 450 cc
[2021-06-05] MEDS: Dexmedetomidine HCl 400 MCG/100 ML MLS IVC SCH (10:53)
[2021-06-06] MEDS: *HR* OxyCODONE Immed Rel 15 MG TABLET PO PRN ×2 (00:56→18:43)
[2021-06-06] MEDS: Dexmedetomidine HCl 400 MCG/100 ML MLS IVC SCH ×4 (03:52→22:42)
[2021-06-06] MEDS: Ipratropium 1 PUFF INHALER IH SCH ×4 (04:11→21:23)
[2021-06-06 05:12] LABS: Hematocrit 24.6 % (37.5-50.1); Hemoglobin 8.2 g/dL (12.9-16.9); Mean Corpuscular HGB Conc 33.3 g/dL (31.6-35.5); Mean Corpuscular Hemoglobin 32.3 pg (28.0-33.3); Mean Corpuscular Volume 96.9 fL (83.0-100.0); Mean Platelet Volume 10.2 fL (9.4-12.4); Platelet Count 200 K/mcL (140-400); Red Blood Count 2.54 M/mcL (4.19-5.50); Red Cell Distribution Width 13.3 % (11.5-14.5); White Blood Count 12.1 K/mcL (4.3-11.1)
[2021-06-06 05:34] LABS: BUN/Creatinine Ratio 34 (6-26); Blood Urea Nitrogen 33 mg/dL (8-23); Calcium 8.1 mg/dL (8.6-10.3); Carbon Dioxide 24 mEq/L (23-29); Chloride 101 mEq/L (98-107); Glucose 152 mg/dL (70-105); Magnesium 2.2 mg/dL (1.6-2.6); Osmolality,Calculated 284 (280-300); Potassium 4.2 mEq/L (3.5-5.1); Sodium 132 mEq/L (136-145); eGFR For African Americans > 60 (> 60); eGFR For Non-African Americans > 60 (> 60)
[2021-06-06] MEDS: Budesonide/Formoterol 160/4.5 1 PUFF INH IH SCH ×2 (08:05→21:23)
[2021-06-06] MEDS: Furosemide 20 MG/2 ML VIAL IVP SCH (11:35)
[2021-06-06] MEDS ORDERED: Furosemide 20 MG/2 ML VIAL IVP ONE ×2 (11:47→11:55)
[2021-06-06] MEDS: Isosorbide MONOnitrate (24 HR) 30 MG TAB.ER.24H PO SCH (13:26)
[2021-06-06] MEDS: Aspirin 81 MG TAB.CHEW PO SCH (13:26)
[2021-06-06] MEDS: Loratadine 10 MG TABLET PO SCH (13:26)
[2021-06-06] MEDS: polyethylene glycoL 3350 17 GM POWD.PACK PO SCH (13:26)
[2021-06-06] MEDS: Sennosides/Docusate Sodium TABLET PO SCH ×2 (13:27→21:10)
[2021-06-06] MEDS: BuPROPion SR (12 HR) 150 MG TABLET PO SCH ×2 (13:27→21:11)
[2021-06-06] MEDS: Cyanocobalamin (B-12) 1,000 MCG TABLET PO SCH (13:27)
[2021-06-06] MEDS: *HR* Heparin 5,000 UNIT/ML VIAL SQ SCH (21:11)
[2021-06-07] MEDS: Dexmedetomidine HCl 400 MCG/100 ML MLS IVC SCH ×5 (03:41→21:41)
[2021-06-07 04:40] LABS: Alanine Aminotransferase 33 Units/L (7-52); Albumin 2.4 g/dL (3.5-5.7); Albumin/Globulin Ratio 0.5 (1.1-2.2); Alkaline Phosphatase 104 Units/L (34-104); Aspartate Amino Transferase 35 Units/L (13-39); Bilirubin,Total 0.6 mg/dL (0.3-1.0); Blood Urea Nitrogen 37 mg/dL (8-23); Calcium 8.2 mg/dL (8.6-10.3); Carbon Dioxide 25 mEq/L (23-29); Chloride 99 mEq/L (98-107); Globulin 4.4 g/dL (2.4-3.5); Glucose 136 mg/dL (70-105); Magnesium 2.1 mg/dL (1.6-2.6); Osmolality,Calculated 285 (280-300); Phosphorous 4.5 mg/dL (2.7-4.5); Potassium 4.4 mEq/L (3.5-5.1); Sodium 132 mEq/L (136-145); Total Protein 6.8 g/dL (6.4-8.9)
[2021-06-07] MEDS: Ipratropium 1 PUFF INHALER IH SCH (04:55)
[2021-06-07] MEDS: Ipratropium/Albuterol Neb 3 ML IH SCH ×4 (04:58→19:57)
[2021-06-07 05:08] LABS: ABG Base Excess 3 mEq/L (-2 to 3); ABG HCO3 25 mEq/L (21-27); ABG Oxygen Saturation 87 % (95-98); ABG PCO2 27 mmHg (35-45); ABG PH 7.56 pH Units (7.32-7.45); ABG PO2 44 mmHg (85-104); ABG TCO2 26 mEq/L (20-26); Blood Gas Modality OFOT
[2021-06-07 05:31] LABS: BUN/Creatinine Ratio 33 (6-26); eGFR For African Americans > 60 (> 60); eGFR For Non-African Americans > 60 (> 60)
[2021-06-07 05:56] LABS: Hematocrit 26.5 % (37.5-50.1); Hemoglobin 8.7 g/dL (12.9-16.9); Mean Corpuscular HGB Conc 32.8 g/dL (31.6-35.5); Mean Corpuscular Volume 97.4 fL (83.0-100.0); Platelet Count 185 K/mcL (140-400); Red Blood Count 2.72 M/mcL (4.19-5.50); Red Cell Distribution Width 13.5 % (11.5-14.5); White Blood Count 10.6 K/mcL (4.3-11.1)
[2021-06-07] MEDS: *HR* Heparin 5,000 UNIT/ML VIAL SQ SCH ×3 (06:39→21:42)
[2021-06-07] MEDS: Budesonide/Formoterol 160/4.5 1 PUFF INH IH SCH ×2 (07:50→19:57)
[2021-06-07] MEDS ORDERED: Furosemide 20 MG/2 ML VIAL IVP SCH (09:00)
[2021-06-07] MEDS: Aspirin 81 MG TAB.CHEW PO SCH (09:05)
[2021-06-07] MEDS: Isosorbide MONOnitrate (24 HR) 30 MG TAB.ER.24H PO SCH (09:12)
[2021-06-07] MEDS: BuPROPion SR (12 HR) 150 MG TABLET PO SCH ×2 (09:18→21:12)
[2021-06-07] MEDS: Loratadine 10 MG TABLET PO SCH (09:37)
[2021-06-07] MEDS: polyethylene glycoL 3350 17 GM POWD.PACK PO SCH (09:37)
[2021-06-07] MEDS: Sennosides/Docusate Sodium TABLET PO SCH ×2 (09:38→21:12)
[2021-06-07] MEDS: Cyanocobalamin (B-12) 1,000 MCG TABLET PO SCH (09:38)
[2021-06-07] MEDS: Cholecalciferol (D-3) 1,000 UNIT (25MCG) TABLET PO SCH (09:40)
[2021-06-07 22:10] LABS: ABG Base Excess 2 mEq/L (-2 to 3); ABG HCO3 23 mEq/L (21-27); ABG Oxygen Saturation 90 % (95-98); ABG PCO2 26 mmHg (35-45); ABG PH 7.55 pH Units (7.32-7.45); ABG PO2 49 mmHg (85-104); ABG TCO2 24 mEq/L (20-26)
[2021-06-08] MEDS: Dexmedetomidine HCl 400 MCG/100 ML MLS IVC SCH ×6 (00:52→18:07)
[2021-06-08] MEDS: Ipratropium/Albuterol Neb 3 ML IH SCH ×4 (03:35→21:40)
[2021-06-08 04:12] LABS: BUN/Creatinine Ratio 37 (6-26); Basophils % 0.1 %; Blood Urea Nitrogen 38 mg/dL (8-23); Carbon Dioxide 25 mEq/L (23-29); Chloride 99 mEq/L (98-107); Eosinophils # 0.2 K/mcL (0.0-0.6); Glucose 122 mg/dL (70-105); Hematocrit 25.5 % (37.5-50.1); Hemoglobin 8.5 g/dL (12.9-16.9); Immature Granulocytes % 0.9 % (0-4); Lymphocytes # 0.9 K/mcL (0.6-4.6); Magnesium 2.2 mg/dL (1.6-2.6); Mean Corpuscular HGB Conc 33.3 g/dL (31.6-35.5); Mean Corpuscular Hemoglobin 31.7 pg (28.0-33.3); Mean Corpuscular Volume 95.1 fL (83.0-100.0); Mean Platelet Volume 10.3 fL (9.4-12.4); Monocytes # 0.3 K/mcL (0.0-1.3); Monocytes % 2.4 %; Neutrophils # 9.8 K/mcL (1.6-8.9); Osmolality,Calculated 284 (280-300); Platelet Count 234 K/mcL (140-400); Potassium 3.9 mEq/L (3.5-5.1); Red Blood Count 2.68 M/mcL (4.19-5.50); Red Cell Distribution Width 13.9 % (11.5-14.5); Segmented Neutrophils % 86.6 %; Sodium 132 mEq/L (136-145); White Blood Count 11.3 K/mcL (4.3-11.1); eGFR For African Americans > 60 (> 60); eGFR For Non-African Americans > 60 (> 60)
[2021-06-08] MEDS: *HR* Heparin 5,000 UNIT/ML VIAL SQ SCH ×3 (05:36→21:17)
[2021-06-08] MEDS ORDERED: Furosemide 40 MG/4 ML VIAL IVP ONE (07:27)
[2021-06-08] MEDS: polyethylene glycoL 3350 17 GM POWD.PACK PO SCH (07:43)
[2021-06-08] MEDS: Loratadine 10 MG TABLET PO SCH (07:43)
[2021-06-08] MEDS: Sennosides/Docusate Sodium TABLET PO SCH ×2 (07:44→20:02)
[2021-06-08] MEDS: Cholecalciferol (D-3) 1,000 UNIT (25MCG) TABLET PO SCH (07:44)
[2021-06-08] MEDS: Cyanocobalamin (B-12) 1,000 MCG TABLET PO SCH (07:44)
[2021-06-08] MEDS: BuPROPion SR (12 HR) 150 MG TABLET PO SCH ×2 (08:38→22:24)
[2021-06-08] MEDS: Isosorbide MONOnitrate (24 HR) 30 MG TAB.ER.24H PO SCH (08:38)
[2021-06-08] MEDS: Aspirin 81 MG TAB.CHEW PO SCH (08:38)
[2021-06-08] MEDS: Budesonide/Formoterol 160/4.5 1 PUFF INH IH SCH ×2 (10:20→21:41)
[2021-06-08] MEDS ORDERED: Furosemide 40 MG/4 ML VIAL IVP SCH (12:15)
[2021-06-08] MEDS: *HR* OxyCODONE Immed Rel 15 MG TABLET PO PRN (15:41)
[2021-06-08] MEDS: Acetaminophen 325 MG TABLET PO PRN (15:41)
[2021-06-08] MEDS: hydrOXYzine pamoate 25 MG CAPSULE PO PRN (15:42)
[2021-06-08] MEDS ORDERED: *HR* Midazolam HCl 5 MG/5 ML VIAL IVP ONE (15:54)
[2021-06-08] MEDS ORDERED: *HR* Etomidate 20 MG/10 ML AMPUL IVP ONE (15:54)
[2021-06-08] MEDS ORDERED: *HR* LORazepam 2 MG/ML VIAL IVP ONE (18:04)
[2021-06-08] MEDS ORDERED: Artificial Tears SOLN 15 ML BOTTLE BOTH EYES PRN (20:16)
[2021-06-08] MEDS ORDERED: 0.9 % Sodium Chloride 1,000 ML ONE (20:27)
[2021-06-08] MEDS: Midazolam HCl 50 MG/100 ML IV.SOLN IVC SCH (21:16)
[2021-06-08] MEDS: Cisatracurium 200 MG in 0.9 % Sodium Chloride 180 ML IVC SCH (21:16)
[2021-06-08] MEDS: FentaNYL (PF) 1,000 MCG/100 ML IV.SOLN IVC SCH (21:17)
[2021-06-08] MEDS: Chlorhexidine Rinse 15 ML MOUTHWASH MM SCH (21:22)
[2021-06-08 21:53] LABS: ABG Base Excess 0 mEq/L (-2 to 3); ABG HCO3 28 mEq/L (21-27); ABG Oxygen Saturation 91 % (95-98); ABG PCO2 61 mmHg (35-45); ABG PH 7.27 pH Units (7.32-7.45); ABG PO2 69 mmHg (85-104); ABG TCO2 30 mEq/L (20-26); Blood Gas VT 450 cc
[2021-06-08] MEDS: Norepinephrine 4 MG/254 ML IV.SOLN IVC SCH (22:24)
[2021-06-08] MEDS: Artificial Tears SOLN 15 ML BOTTLE BOTH EYES SCH (23:52)
[2021-06-09] MEDS: Artificial Tears SOLN 15 ML BOTTLE BOTH EYES SCH ×6 (03:16→23:28)
[2021-06-09] MEDS: Ipratropium/Albuterol Neb 3 ML IH SCH ×4 (03:22→21:47)
[2021-06-09 03:50] LABS: Basophils % 0.1 %; Eosinophils % 0.1 %; Hematocrit 26.2 % (37.5-50.1); Hemoglobin 8.7 g/dL (12.9-16.9); Immature Granulocytes % 2.5 % (0-4); Lymphocytes % 6.2 %; Mean Corpuscular HGB Conc 33.2 g/dL (31.6-35.5); Mean Corpuscular Hemoglobin 33.5 pg (28.0-33.3); Mean Corpuscular Volume 100.8 fL (83.0-100.0); Mean Platelet Volume 10.9 fL (9.4-12.4); Monocytes # 0.5 K/mcL (0.0-1.3); Neutrophils # 14.3 K/mcL (1.6-8.9); Platelet Count 278 K/mcL (140-400); Red Cell Distribution Width 14.2 % (11.5-14.5); Segmented Neutrophils % 88.1 %; White Blood Count 16.3 K/mcL (4.3-11.1)
[2021-06-09 04:09] LABS: BUN/Creatinine Ratio 44 (6-26); Blood Urea Nitrogen 45 mg/dL (8-23); Calcium 7.5 mg/dL (8.6-10.3); Carbon Dioxide 24 mEq/L (23-29); Chloride 98 mEq/L (98-107); Glucose 136 mg/dL (70-105); Magnesium 2.3 mg/dL (1.6-2.6); Osmolality,Calculated 284 (280-300); Phosphorous 8.4 mg/dL (2.7-4.5); Sodium 130 mEq/L (136-145); eGFR For African Americans > 60 (> 60); eGFR For Non-African Americans > 60 (> 60)
[2021-06-09] MEDS: Norepinephrine 4 MG/254 ML IV.SOLN IVC SCH ×3 (04:21→20:08)
[2021-06-09 05:33] LABS: ABG Base Excess -1 mEq/L (-2 to 3); ABG HCO3 30 mEq/L (21-27); ABG Oxygen Saturation 88 % (95-98); ABG PCO2 82 mmHg (35-45); ABG PH 7.16 pH Units (7.32-7.45); ABG PO2 72 mmHg (85-104); ABG TCO2 32 mEq/L (20-26); Blood Gas VT 450 cc
[2021-06-09] MEDS: Cisatracurium 200 MG in 0.9 % Sodium Chloride 180 ML IVC SCH ×2 (05:47→16:07)
[2021-06-09] MEDS: *HR* Heparin 5,000 UNIT/ML VIAL SQ SCH ×3 (06:17→23:34)
[2021-06-09] MEDS: Budesonide/Formoterol 160/4.5 1 PUFF INH IH SCH ×2 (08:09→21:46)
[2021-06-09] MEDS: Cholecalciferol (D-3) 1,000 UNIT (25MCG) TABLET PO SCH (08:29)
[2021-06-09] MEDS: Chlorhexidine Rinse 15 ML MOUTHWASH MM SCH ×2 (08:29→20:07)
[2021-06-09] MEDS: polyethylene glycoL 3350 17 GM POWD.PACK PO SCH (08:30)
[2021-06-09] MEDS: Pantoprazole 40 MG VIAL IVP SCH (08:30)
[2021-06-09] MEDS: Sennosides/Docusate Sodium TABLET PO SCH ×2 (08:31→20:08)
[2021-06-09] MEDS: Cyanocobalamin (B-12) 1,000 MCG TABLET PO SCH (08:31)
[2021-06-09] MEDS: Loratadine 10 MG TABLET PO SCH (08:31)
[2021-06-09] MEDS: Isosorbide MONOnitrate (24 HR) 30 MG TAB.ER.24H PO SCH (08:32)
[2021-06-09] MEDS: BuPROPion SR (12 HR) 150 MG TABLET PO SCH ×2 (08:33→20:08)
[2021-06-09 08:56] LABS: ABG Base Excess 1 mEq/L (-2 to 3); ABG HCO3 28 mEq/L (21-27); ABG Oxygen Saturation 89 % (95-98); ABG PCO2 55 mmHg (35-45); ABG PH 7.31 pH Units (7.32-7.45); ABG PO2 63 mmHg (85-104); ABG TCO2 29 mEq/L (20-26); Blood Gas Modality AF; Blood Gas VT 420 cc
[2021-06-09] MEDS: Midazolam HCl 50 MG/100 ML IV.SOLN IVC SCH ×2 (09:40→16:58)
[2021-06-09] MEDS: FentaNYL (PF) 1,000 MCG/100 ML IV.SOLN IVC SCH ×2 (10:15→16:50)
[2021-06-09] MEDS: Piperacillin/Tazobactam 3.375 GM in 0.9 % Sodium Chloride Mini Bag 100 ML IVPB SCH ×2 (15:22→23:34)
[2021-06-09] MEDS: Vancomycin 1,250 MG/262.5 ML IV.SOLN IVPB SCH (17:12)
[2021-06-10] MEDS: Cisatracurium 200 MG in 0.9 % Sodium Chloride 180 ML IVC SCH ×3 (02:15→17:11)
[2021-06-10] MEDS: FentaNYL (PF) 1,000 MCG/100 ML IV.SOLN IVC SCH ×4 (02:15→20:31)
[2021-06-10] MEDS: Ipratropium/Albuterol Neb 3 ML IH SCH ×4 (03:34→21:32)
[2021-06-10] MEDS: Artificial Tears SOLN 15 ML BOTTLE BOTH EYES SCH ×6 (03:54→23:17)
[2021-06-10] MEDS: Midazolam HCl 50 MG/100 ML IV.SOLN IVC SCH ×3 (03:54→23:10)
[2021-06-10] MEDS: Vancomycin 1,250 MG/262.5 ML IV.SOLN IVPB SCH (04:04)
[2021-06-10 04:18] LABS: Basophils % 0.1 %; Eosinophils # 0.2 K/mcL (0.0-0.6); Hematocrit 23.8 % (37.5-50.1); Immature Granulocytes % 2.4 % (0-4); Lymphocytes # 1.3 K/mcL (0.6-4.6); Mean Corpuscular HGB Conc 33.6 g/dL (31.6-35.5); Mean Corpuscular Hemoglobin 33.8 pg (28.0-33.3); Mean Corpuscular Volume 100.4 fL (83.0-100.0); Mean Platelet Volume 10.4 fL (9.4-12.4); Monocytes # 0.5 K/mcL (0.0-1.3); Monocytes % 6.4 %; Neutrophils # 6.2 K/mcL (1.6-8.9); Platelet Count 279 K/mcL (140-400); Red Blood Count 2.37 M/mcL (4.19-5.50); Red Cell Distribution Width 14.7 % (11.5-14.5); Segmented Neutrophils % 74.1 %; White Blood Count 8.4 K/mcL (4.3-11.1)
[2021-06-10 04:38] LABS: Alanine Aminotransferase 28 Units/L (7-52); Albumin/Globulin Ratio 0.5 (1.1-2.2); Alkaline Phosphatase 100 Units/L (34-104); Aspartate Amino Transferase 43 Units/L (13-39); BUN/Creatinine Ratio 48 (6-26); Bilirubin,Total 0.5 mg/dL (0.3-1.0); Blood Urea Nitrogen 61 mg/dL (8-23); Calcium 7.2 mg/dL (8.6-10.3); Carbon Dioxide 24 mEq/L (23-29); Chloride 105 mEq/L (98-107); Globulin 3.9 g/dL (2.4-3.5); Glucose 90 mg/dL (70-105); Osmolality,Calculated 299 (280-300); Potassium 3.7 mEq/L (3.5-5.1); Sodium 136 mEq/L (136-145); Total Protein 5.9 g/dL (6.4-8.9); eGFR For African Americans > 60 (> 60); eGFR For Non-African Americans 56 (> 60)
[2021-06-10 04:50] LABS: ABG Base Excess 2 mEq/L (-2 to 3); ABG HCO3 29 mEq/L (21-27); ABG Oxygen Saturation 93 % (95-98); ABG PCO2 55 mmHg (35-45); ABG PH 7.33 pH Units (7.32-7.45); ABG PO2 73 mmHg (85-104); ABG TCO2 31 mEq/L (20-26); Blood Gas VT 420 cc
[2021-06-10] MEDS: *HR* Heparin 5,000 UNIT/ML VIAL SQ SCH ×3 (05:03→21:04)
[2021-06-10] MEDS: Neosporin OINT 15 GM TUBE TP SCH ×3 (07:38→21:06)
[2021-06-10] MEDS: Norepinephrine 4 MG/254 ML IV.SOLN IVC SCH ×2 (07:38→14:34)
[2021-06-10] MEDS: BuPROPion SR (12 HR) 150 MG TABLET PO SCH (07:39)
[2021-06-10] MEDS: Isosorbide MONOnitrate (24 HR) 30 MG TAB.ER.24H PO SCH (07:39)
[2021-06-10] MEDS: polyethylene glycoL 3350 17 GM POWD.PACK PO SCH (07:40)
[2021-06-10] MEDS: Loratadine 10 MG TABLET PO SCH (07:42)
[2021-06-10] MEDS: Cholecalciferol (D-3) 1,000 UNIT (25MCG) TABLET PO SCH (07:46)
[2021-06-10] MEDS: Sennosides/Docusate Sodium TABLET PO SCH (07:46)
[2021-06-10] MEDS: Cyanocobalamin (B-12) 1,000 MCG TABLET PO SCH (07:46)
[2021-06-10] MEDS: Piperacillin/Tazobactam 3.375 GM in 0.9 % Sodium Chloride Mini Bag 100 ML IVPB SCH ×3 (07:47→23:38)
[2021-06-10] MEDS: Chlorhexidine Rinse 15 ML MOUTHWASH MM SCH ×2 (07:47→21:04)
[2021-06-10] MEDS: Pantoprazole 40 MG VIAL IVP SCH (07:55)
[2021-06-10] MEDS: Budesonide/Formoterol 160/4.5 1 PUFF INH IH SCH ×2 (10:30→21:32)
[2021-06-10] MEDS: Docusate Oral Soln 100 MG/10 ML UDC GTUBE SCH ×2 (11:28→21:03)
[2021-06-10] MEDS: polyethylene glycoL 3350 17 GM POWD.PACK GTUBE SCH (11:28)
[2021-06-10] MEDS ORDERED: Dextrose Gel 15 GM/37.5 ML TUBE PO PRN ×2 (16:28)
[2021-06-10] MEDS ORDERED: D5% in Water 1,000 ML IVC PRN (16:28)
[2021-06-10] MEDS ORDERED: *HR* Dextrose 50 % in Water (Syg) 50 ML SYRINGE IVP PRN (16:28)
[2021-06-10 16:38] LABS: Hematocrit 28.4 % (37.5-50.1)
[2021-06-10] MEDS: Insulin LISPRO 300 UNITS/3 ML VIAL SUBQ SCH ×2 (20:33→23:38)
[2021-06-11] MEDS: Cisatracurium 200 MG in 0.9 % Sodium Chloride 180 ML IVC SCH (01:52)
[2021-06-11] MEDS: FentaNYL (PF) 1,000 MCG/100 ML IV.SOLN IVC SCH ×3 (02:28→18:13)
[2021-06-11] MEDS: Artificial Tears SOLN 15 ML BOTTLE BOTH EYES SCH ×6 (03:11→23:15)
[2021-06-11 03:29] LABS: Hematocrit 29.4 % (37.5-50.1); Hemoglobin 8.9 g/dL (12.9-16.9); Mean Corpuscular HGB Conc 30.3 g/dL (31.6-35.5); Mean Corpuscular Volume 102.4 fL (83.0-100.0); Mean Platelet Volume 9.9 fL (9.4-12.4); Platelet Count 350 K/mcL (140-400); Red Blood Count 2.87 M/mcL (4.19-5.50); Red Cell Distribution Width 14.9 % (11.5-14.5); White Blood Count 10.5 K/mcL (4.3-11.1)
[2021-06-11 03:30] LABS: VBG Ionized Calcium 1.13 mmol/L (1.15-1.35)
[2021-06-11 03:44] LABS: Alanine Aminotransferase 32 Units/L (7-52); Albumin 2.2 g/dL (3.5-5.7); Albumin/Globulin Ratio 0.4 (1.1-2.2); Alkaline Phosphatase 119 Units/L (34-104); Aspartate Amino Transferase 40 Units/L (13-39); BUN/Creatinine Ratio 50 (6-26); Bilirubin,Direct 0.2 mg/dL (0.0-0.2); Bilirubin,Indirect 0.3 mg/dL (0.0-1.0); Bilirubin,Total 0.5 mg/dL (0.3-1.0); Blood Urea Nitrogen 68 mg/dL (8-23); Calcium 8.1 mg/dL (8.6-10.3); Carbon Dioxide 28 mEq/L (23-29); Chloride 107 mEq/L (98-107); Globulin 5.1 g/dL (2.4-3.5); Glucose 154 mg/dL (70-105); Magnesium 3.2 mg/dL (1.6-2.6); Osmolality,Calculated 313 (280-300); Phosphorous 4.8 mg/dL (2.7-4.5); Potassium 4.2 mEq/L (3.5-5.1); Sodium 140 mEq/L (136-145); Total Protein 7.3 g/dL (6.4-8.9); eGFR For African Americans > 60 (> 60); eGFR For Non-African Americans 52 (> 60)
[2021-06-11 03:55] LABS: Anisocytosis 1+ (Not Present); Lymphocytes # 1.9 K/mcL (0.6-4.6); Monocytes # 0.4 K/mcL (0.0-1.3); Platelet Estimate Normal (Normal)
[2021-06-11] MEDS: Ipratropium/Albuterol Neb 3 ML IH SCH ×4 (04:20→21:41)
[2021-06-11 04:40] LABS: ABG Base Excess 1 mEq/L (-2 to 3); ABG HCO3 30 mEq/L (21-27); ABG Oxygen Saturation 89 % (95-98); ABG PCO2 73 mmHg (35-45); ABG PH 7.22 pH Units (7.32-7.45); ABG PO2 69 mmHg (85-104); ABG TCO2 33 mEq/L (20-26); Blood Gas VT 420 cc
[2021-06-11] MEDS: Insulin LISPRO 300 UNITS/3 ML VIAL SUBQ SCH ×6 (04:56→23:38)
[2021-06-11] MEDS: Midazolam HCl 50 MG/100 ML IV.SOLN IVC SCH ×2 (05:41→12:45)
[2021-06-11] MEDS: *HR* Heparin 5,000 UNIT/ML VIAL SQ SCH ×3 (05:42→23:21)
[2021-06-11 07:37] LABS: Bilirubin,Urine Negative (Negative); Blood,Urine Negative (Negative); Clarity,Urine Turbid (Clear); Color,Urine Yellow (Yellow); Glucose,Urine (UA) Normal (Normal); Hyaline Casts,Urine Few per lpf (None Seen); Ketones,Urine Negative (Negative); Leukocyte Esterase,Urine Negative (Negative); Nitrite,Urine Negative (Negative); PH,Urine 5.5 pH Units (5.0-8.0); Protein,Urine Trace mg/dL (Neg-Trace); Specific Gravity,Urine 1.024 (1.010-1.025); Uric Acid Crystals,Urine Present per hpf; Urobilinogen,Urine Normal (Normal)
[2021-06-11] MEDS ORDERED: Furosemide 40 MG/4 ML VIAL IVP SCH (09:00)
[2021-06-11] MEDS: Piperacillin/Tazobactam 3.375 GM in 0.9 % Sodium Chloride Mini Bag 100 ML IVPB SCH ×3 (09:16→23:21)
[2021-06-11] MEDS: Chlorhexidine Rinse 15 ML MOUTHWASH MM SCH ×2 (09:19→20:19)
[2021-06-11] MEDS: Docusate Oral Soln 100 MG/10 ML UDC GTUBE SCH ×2 (09:19→20:21)
[2021-06-11] MEDS: polyethylene glycoL 3350 17 GM POWD.PACK GTUBE SCH (09:20)
[2021-06-11] MEDS: Neosporin OINT 15 GM TUBE TP SCH ×2 (09:22→20:26)
[2021-06-11] MEDS: Pantoprazole 40 MG VIAL IVP SCH (09:22)
[2021-06-11] MEDS: Budesonide/Formoterol 160/4.5 1 PUFF INH IH SCH ×2 (09:26→21:42)
[2021-06-11] MEDS: Aspirin 81 MG TAB.CHEW GTUBE SCH (09:47)
[2021-06-11] MEDS: Furosemide 20 MG/2 ML VIAL IVP SCH (09:47)
[2021-06-11] MEDS: Dexmedetomidine HCl 400 MCG/100 ML MLS IVC SCH (23:14)
[2021-06-11] MEDS: Norepinephrine 4 MG/254 ML IV.SOLN IVC SCH ×2 (23:14→23:23)
[2021-06-12] MEDS: FentaNYL (PF) 1,000 MCG/100 ML IV.SOLN IVC SCH ×4 (01:15→22:30)
[2021-06-12] MEDS: Midazolam HCl 50 MG/100 ML IV.SOLN IVC SCH ×3 (01:27→17:20)
[2021-06-12] MEDS: Ipratropium/Albuterol Neb 3 ML IH SCH ×4 (03:03→22:24)
[2021-06-12] MEDS: Artificial Tears SOLN 15 ML BOTTLE BOTH EYES SCH ×6 (03:48→23:24)
[2021-06-12] MEDS: Insulin LISPRO 300 UNITS/3 ML VIAL SUBQ SCH ×6 (03:48→23:48)
[2021-06-12 04:21] LABS: VBG Ionized Calcium 1.13 mmol/L (1.15-1.35)
[2021-06-12 04:25] LABS: Hematocrit 28.3 % (37.5-50.1); Hemoglobin 8.7 g/dL (12.9-16.9); Mean Corpuscular HGB Conc 30.7 g/dL (31.6-35.5); Mean Corpuscular Hemoglobin 31.6 pg (28.0-33.3); Mean Corpuscular Volume 102.9 fL (83.0-100.0); Nucleated Red Blood Cells 0.2 /100 WBC (0); Platelet Count 384 K/mcL (140-400); Red Blood Count 2.75 M/mcL (4.19-5.50); Red Cell Distribution Width 15.2 % (11.5-14.5); White Blood Count 11.5 K/mcL (4.3-11.1)
[2021-06-12 04:37] LABS: ABG Base Excess 3 mEq/L (-2 to 3); ABG HCO3 31 mEq/L (21-27); ABG Oxygen Saturation 91 % (95-98); ABG PCO2 63 mmHg (35-45); ABG PO2 70 mmHg (85-104); ABG TCO2 33 mEq/L (20-26); Blood Gas Modality ASSIST CONTROL; Blood Gas VT 420 cc
[2021-06-12 04:46] LABS: Alanine Aminotransferase 24 Units/L (7-52); Albumin 2.2 g/dL (3.5-5.7); Albumin/Globulin Ratio 0.5 (1.1-2.2); Alkaline Phosphatase 96 Units/L (34-104); Aspartate Amino Transferase 29 Units/L (13-39); BUN/Creatinine Ratio 53 (6-26); Bilirubin,Direct 0.2 mg/dL (0.0-0.2); Bilirubin,Indirect 0.2 mg/dL (0.0-1.0); Bilirubin,Total 0.4 mg/dL (0.3-1.0); Blood Urea Nitrogen 71 mg/dL (8-23); Calcium 7.9 mg/dL (8.6-10.3); Carbon Dioxide 32 mEq/L (23-29); Chloride 109 mEq/L (98-107); Globulin 4.6 g/dL (2.4-3.5); Glucose 147 mg/dL (70-105); Magnesium 3.1 mg/dL (1.6-2.6); Osmolality,Calculated 320 (280-300); Phosphorous 2.8 mg/dL (2.7-4.5); Potassium 4.5 mEq/L (3.5-5.1); Sodium 143 mEq/L (136-145); Total Protein 6.8 g/dL (6.4-8.9); eGFR For African Americans > 60 (> 60); eGFR For Non-African Americans 53 (> 60)
[2021-06-12 04:56] LABS: Anisocytosis 1+ (Not Present); Eosinophils # 0.2 K/mcL (0.0-0.6); Lymphocytes # 1.4 K/mcL (0.6-4.6); Monocytes # 0.5 K/mcL (0.0-1.3); Neutrophils # 8.5 K/mcL (1.6-8.9); Platelet Estimate Normal (Normal)
[2021-06-12] MEDS: *HR* Heparin 5,000 UNIT/ML VIAL SQ SCH ×3 (05:13→23:24)
[2021-06-12] MEDS: polyethylene glycoL 3350 17 GM POWD.PACK GTUBE SCH (07:51)
[2021-06-12] MEDS: Docusate Oral Soln 100 MG/10 ML UDC GTUBE SCH ×2 (07:51→19:59)
[2021-06-12] MEDS: Chlorhexidine Rinse 15 ML MOUTHWASH MM SCH ×2 (07:51→19:59)
[2021-06-12] MEDS: Pantoprazole 40 MG VIAL IVP SCH (07:52)
[2021-06-12] MEDS: Aspirin 81 MG TAB.CHEW GTUBE SCH (07:52)
[2021-06-12] MEDS: Piperacillin/Tazobactam 3.375 GM in 0.9 % Sodium Chloride Mini Bag 100 ML IVPB SCH ×3 (07:52→23:25)
[2021-06-12] MEDS: Furosemide 20 MG/2 ML VIAL IVP SCH (07:52)
[2021-06-12] MEDS ORDERED: *HR* Metoprolol 5 MG/5 ML VIAL IVP ONE ×2 (08:11→08:13)
[2021-06-12] MEDS: Neosporin OINT 15 GM TUBE TP SCH ×2 (08:28→20:10)
[2021-06-12] MEDS: Budesonide/Formoterol 160/4.5 1 PUFF INH IH SCH ×2 (09:35→22:24)
[2021-06-12] MEDS ORDERED: Bisacodyl 10 MG RECTAL SUPPOSITORY RC PRN (12:10)
[2021-06-12] MEDS ORDERED: Bisacodyl 10 MG RECTAL SUPPOSITORY RC ONE (14:00)
[2021-06-12] MEDS: Norepinephrine 4 MG/254 ML IV.SOLN IVC SCH (14:16)
[2021-06-12] MEDS: *HR* Metoprolol 5 MG/5 ML VIAL IVP PRN (18:50)
[2021-06-12] MEDS: Dexmedetomidine HCl 400 MCG/100 ML MLS IVC SCH (20:09)
[2021-06-13] MEDS: Ipratropium/Albuterol Neb 3 ML IH SCH ×4 (03:15→21:34)
[2021-06-13 03:40] LABS: Hematocrit 25.6 % (37.5-50.1); Hemoglobin 7.8 g/dL (12.9-16.9); Mean Corpuscular HGB Conc 30.5 g/dL (31.6-35.5); Mean Corpuscular Hemoglobin 30.8 pg (28.0-33.3); Mean Corpuscular Volume 101.2 fL (83.0-100.0); Mean Platelet Volume 9.8 fL (9.4-12.4); Platelet Count 312 K/mcL (140-400); Red Blood Count 2.53 M/mcL (4.19-5.50); Red Cell Distribution Width 15.2 % (11.5-14.5); White Blood Count 9.4 K/mcL (4.3-11.1)
[2021-06-13 03:43] LABS: VBG Ionized Calcium 1.14 mmol/L (1.15-1.35)
[2021-06-13 03:53] LABS: ABG Base Excess 9 mEq/L (-2 to 3); ABG HCO3 35 mEq/L (21-27); ABG Oxygen Saturation 89 % (95-98); ABG PCO2 56 mmHg (35-45); ABG PO2 58 mmHg (85-104); ABG TCO2 36 mEq/L (20-26); Blood Gas Modality AF; Blood Gas VT 420 cc
[2021-06-13 04:00] LABS: Alanine Aminotransferase 21 Units/L (7-52); Albumin 2.1 g/dL (3.5-5.7); Albumin/Globulin Ratio 0.5 (1.1-2.2); Alkaline Phosphatase 74 Units/L (34-104); Aspartate Amino Transferase 37 Units/L (13-39); BUN/Creatinine Ratio 69 (6-26); Bilirubin,Direct 0.1 mg/dL (0.0-0.2); Bilirubin,Indirect 0.3 mg/dL (0.0-1.0); Bilirubin,Total 0.4 mg/dL (0.3-1.0); Blood Urea Nitrogen 60 mg/dL (8-23); Calcium 7.8 mg/dL (8.6-10.3); Carbon Dioxide 33 mEq/L (23-29); Chloride 112 mEq/L (98-107); Globulin 4.6 g/dL (2.4-3.5); Glucose 127 mg/dL (70-105); Magnesium 2.9 mg/dL (1.6-2.6); Osmolality,Calculated 320 (280-300); Phosphorous 2.4 mg/dL (2.7-4.5); Potassium 4.7 mEq/L (3.5-5.1); Sodium 146 mEq/L (136-145); Total Protein 6.7 g/dL (6.4-8.9); eGFR For African Americans > 60 (> 60); eGFR For Non-African Americans > 60 (> 60)
[2021-06-13 04:20] LABS: Anisocytosis 1+ (Not Present); Lymphocytes # 2.4 K/mcL (0.6-4.6); Monocytes # 0.8 K/mcL (0.0-1.3); Neutrophils # 5.6 K/mcL (1.6-8.9); Platelet Estimate Normal (Normal); Reactive Lymphocytes Present (Not Present); Smudge Cells Present (Not Present)
[2021-06-13] MEDS: *HR* Metoprolol 5 MG/5 ML VIAL IVP PRN (05:05)
[2021-06-13] MEDS: Artificial Tears SOLN 15 ML BOTTLE BOTH EYES SCH ×5 (05:11→20:28)
[2021-06-13] MEDS: Insulin LISPRO 300 UNITS/3 ML VIAL SUBQ SCH ×5 (05:12→20:30)
[2021-06-13] MEDS: FentaNYL (PF) 1,000 MCG/100 ML IV.SOLN IVC SCH ×4 (05:54→22:50)
[2021-06-13] MEDS: *HR* Heparin 5,000 UNIT/ML VIAL SQ SCH ×3 (06:04→22:30)
[2021-06-13] MEDS ORDERED: *HR* Metoprolol 5 MG/5 ML VIAL IVP ONE (06:41)
[2021-06-13] MEDS: Budesonide/Formoterol 160/4.5 1 PUFF INH IH SCH ×2 (07:29→21:34)
[2021-06-13] MEDS: Piperacillin/Tazobactam 3.375 GM in 0.9 % Sodium Chloride Mini Bag 100 ML IVPB SCH ×2 (07:57→16:13)
[2021-06-13] MEDS: Furosemide 20 MG/2 ML VIAL IVP SCH (07:58)
[2021-06-13] MEDS: Pantoprazole 40 MG VIAL IVP SCH (07:58)
[2021-06-13] MEDS: Aspirin 81 MG TAB.CHEW GTUBE SCH (07:59)
[2021-06-13] MEDS: DilTIAZem 50 MG in 0.9 % Sodium Chloride 40 ML IVC SCH ×2 (08:00→10:55)
[2021-06-13] MEDS: polyethylene glycoL 3350 17 GM POWD.PACK GTUBE SCH (08:03)
[2021-06-13] MEDS: Chlorhexidine Rinse 15 ML MOUTHWASH MM SCH ×2 (08:03→20:28)
[2021-06-13] MEDS: Docusate Oral Soln 100 MG/10 ML UDC GTUBE SCH ×2 (08:03→20:28)
[2021-06-13] MEDS: Neosporin OINT 15 GM TUBE TP SCH ×2 (08:04→20:29)
[2021-06-13] MEDS: Phenylephrine 10 MG in 0.9 % Sodium Chloride 250 ML IVC SCH (08:34)
[2021-06-13] MEDS: Midazolam HCl 50 MG/100 ML IV.SOLN IVC SCH (22:10)
[2021-06-14] MEDS: Piperacillin/Tazobactam 3.375 GM in 0.9 % Sodium Chloride Mini Bag 100 ML IVPB SCH ×4 (00:39→23:17)
[2021-06-14] MEDS: Artificial Tears SOLN 15 ML BOTTLE BOTH EYES SCH ×7 (00:43→23:18)
[2021-06-14] MEDS: Insulin LISPRO 300 UNITS/3 ML VIAL SUBQ SCH ×7 (00:44→23:18)
[2021-06-14] MEDS: Ipratropium/Albuterol Neb 3 ML IH SCH ×4 (03:26→21:54)
[2021-06-14 04:05] LABS: VBG Ionized Calcium 1.17 mmol/L (1.15-1.35)
[2021-06-14 04:10] LABS: Hematocrit 27.1 % (37.5-50.1); Hemoglobin 8.4 g/dL (12.9-16.9); Mean Corpuscular Hemoglobin 31.8 pg (28.0-33.3); Mean Corpuscular Volume 102.7 fL (83.0-100.0); Mean Platelet Volume 10.3 fL (9.4-12.4); Monocytes # 0.8 K/mcL (0.0-1.3); Neutrophils # 5.4 K/mcL (1.6-8.9); Nucleated Red Blood Cells 0.5 /100 WBC (0); Platelet Count 325 K/mcL (140-400); Red Blood Count 2.64 M/mcL (4.19-5.50); Red Cell Distribution Width 15.5 % (11.5-14.5); White Blood Count 9.8 K/mcL (4.3-11.1)
[2021-06-14 04:24] LABS: Alanine Aminotransferase 22 Units/L (7-52); Albumin 2.1 g/dL (3.5-5.7); Albumin/Globulin Ratio 0.4 (1.1-2.2); Alkaline Phosphatase 69 Units/L (34-104); Aspartate Amino Transferase 38 Units/L (13-39); BUN/Creatinine Ratio 68 (6-26); Bilirubin,Direct 0.1 mg/dL (0.0-0.2); Bilirubin,Indirect 0.3 mg/dL (0.0-1.0); Bilirubin,Total 0.4 mg/dL (0.3-1.0); Blood Urea Nitrogen 63 mg/dL (8-23); Calcium 7.9 mg/dL (8.6-10.3); Carbon Dioxide 34 mEq/L (23-29); Chloride 112 mEq/L (98-107); Globulin 4.7 g/dL (2.4-3.5); Glucose 150 mg/dL (70-105); Magnesium 2.6 mg/dL (1.6-2.6); Osmolality,Calculated 323 (280-300); Phosphorous 2.5 mg/dL (2.7-4.5); Potassium 5.3 mEq/L (3.5-5.1); Sodium 146 mEq/L (136-145); Total Protein 6.8 g/dL (6.4-8.9); eGFR For African Americans > 60 (> 60); eGFR For Non-African Americans > 60 (> 60)
[2021-06-14 04:42] LABS: ABG Base Excess 6 mEq/L (-2 to 3); ABG HCO3 32 mEq/L (21-27); ABG Oxygen Saturation 89 % (95-98); ABG PCO2 54 mmHg (35-45); ABG PH 7.38 pH Units (7.32-7.45); ABG PO2 59 mmHg (85-104); ABG TCO2 34 mEq/L (20-26); Blood Gas VT 420 cc
[2021-06-14] MEDS: *HR* Heparin 5,000 UNIT/ML VIAL SQ SCH ×3 (04:53→21:00)
[2021-06-14] MEDS: FentaNYL (PF) 1,000 MCG/100 ML IV.SOLN IVC SCH ×3 (05:30→18:55)
[2021-06-14 06:06] LABS: Eosinophils # 0.3 K/mcL (0.0-0.6); Lymphocytes # 3.3 K/mcL (0.6-4.6); Platelet Estimate Normal (Normal)
[2021-06-14 06:07] LABS: Reactive Lymphocytes Present (Not Present)
[2021-06-14] MEDS: Budesonide/Formoterol 160/4.5 1 PUFF INH IH SCH ×2 (07:40→21:56)
[2021-06-14] MEDS: Aspirin 81 MG TAB.CHEW GTUBE SCH (08:24)
[2021-06-14] MEDS: Furosemide 20 MG/2 ML VIAL IVP SCH (08:25)
[2021-06-14] MEDS: Docusate Oral Soln 100 MG/10 ML UDC GTUBE SCH ×2 (08:26→20:54)
[2021-06-14] MEDS: Chlorhexidine Rinse 15 ML MOUTHWASH MM SCH ×2 (08:26→20:54)
[2021-06-14] MEDS: Pantoprazole 40 MG VIAL IVP SCH (08:26)
[2021-06-14] MEDS: polyethylene glycoL 3350 17 GM POWD.PACK GTUBE SCH (08:26)
[2021-06-14] MEDS: Neosporin OINT 15 GM TUBE TP SCH ×2 (08:27→20:55)
[2021-06-14] MEDS ORDERED: *HR* Digoxin 0.5 MG/2 ML AMPUL IVP ONE (10:00)
[2021-06-14] MEDS: Midazolam HCl 50 MG/100 ML IV.SOLN IVC SCH (11:51)
[2021-06-14] MEDS ORDERED: *HR* Digoxin 0.5 MG/2 ML AMPUL IVP SCH ×2 (16:00)
[2021-06-14] MEDS: Dexmedetomidine HCl 400 MCG/100 ML MLS IVC SCH ×2 (20:48→20:49)
[2021-06-14] MEDS: Phenylephrine 10 MG in 0.9 % Sodium Chloride 250 ML IVC SCH ×2 (20:48→20:54)
[2021-06-14] MEDS: Cisatracurium 200 MG in 0.9 % Sodium Chloride 180 ML IVC SCH (20:49)
[2021-06-15] MEDS: FentaNYL (PF) 1,000 MCG/100 ML IV.SOLN IVC SCH ×3 (01:54→16:42)
[2021-06-15] MEDS: Artificial Tears SOLN 15 ML BOTTLE BOTH EYES SCH ×6 (03:12→23:11)
[2021-06-15] MEDS: Insulin LISPRO 300 UNITS/3 ML VIAL SUBQ SCH ×6 (03:18→23:33)
[2021-06-15 03:55] LABS: VBG Ionized Calcium 1.21 mmol/L (1.15-1.35)
[2021-06-15 03:57] LABS: Hematocrit 28.7 % (37.5-50.1); Hemoglobin 8.6 g/dL (12.9-16.9); Mean Corpuscular Hemoglobin 31.3 pg (28.0-33.3); Mean Corpuscular Volume 104.4 fL (83.0-100.0); Nucleated Red Blood Cells 0.8 /100 WBC (0); Platelet Count 322 K/mcL (140-400); Red Blood Count 2.75 M/mcL (4.19-5.50); Red Cell Distribution Width 15.9 % (11.5-14.5); White Blood Count 10.2 K/mcL (4.3-11.1)
[2021-06-15 04:18] LABS: Alanine Aminotransferase 19 Units/L (7-52); Albumin 2.2 g/dL (3.5-5.7); Albumin/Globulin Ratio 0.5 (1.1-2.2); Alkaline Phosphatase 66 Units/L (34-104); Aspartate Amino Transferase 29 Units/L (13-39); BUN/Creatinine Ratio 73 (6-26); Bilirubin,Direct 0.1 mg/dL (0.0-0.2); Bilirubin,Indirect 0.3 mg/dL (0.0-1.0); Bilirubin,Total 0.4 mg/dL (0.3-1.0); Blood Urea Nitrogen 56 mg/dL (8-23); Calcium 8.1 mg/dL (8.6-10.3); Carbon Dioxide 34 mEq/L (23-29); Chloride 113 mEq/L (98-107); Globulin 4.4 g/dL (2.4-3.5); Glucose 190 mg/dL (70-105); Magnesium 2.4 mg/dL (1.6-2.6); Osmolality,Calculated 329 (280-300); Phosphorous 2.5 mg/dL (2.7-4.5); Potassium 5.1 mEq/L (3.5-5.1); Sodium 149 mEq/L (136-145); Total Protein 6.6 g/dL (6.4-8.9); eGFR For African Americans > 60 (> 60); eGFR For Non-African Americans > 60 (> 60)
[2021-06-15] MEDS: Ipratropium/Albuterol Neb 3 ML IH SCH ×4 (04:20→21:23)
[2021-06-15 04:48] LABS: Lymphocytes # 1.6 K/mcL (0.6-4.6); Monocytes # 0.4 K/mcL (0.0-1.3); Neutrophils # 7.3 K/mcL (1.6-8.9); Platelet Estimate Normal (Normal); Reactive Lymphocytes Present (Not Present)
[2021-06-15] MEDS: *HR* Heparin 5,000 UNIT/ML VIAL SQ SCH ×3 (05:11→23:13)
[2021-06-15 05:16] LABS: ABG Base Excess 10 mEq/L (-2 to 3); ABG HCO3 38 mEq/L (21-27); ABG Oxygen Saturation 83 % (95-98); ABG PCO2 68 mmHg (35-45); ABG PH 7.36 pH Units (7.32-7.45); ABG PO2 52 mmHg (85-104); ABG TCO2 40 mEq/L (20-26); Blood Gas Modality ASSIST CONTROL; Blood Gas VT 420 cc
[2021-06-15] MEDS: Budesonide/Formoterol 160/4.5 1 PUFF INH IH SCH ×2 (07:45→21:23)
[2021-06-15] MEDS: Aspirin 81 MG TAB.CHEW GTUBE SCH (08:35)
[2021-06-15] MEDS: Piperacillin/Tazobactam 3.375 GM in 0.9 % Sodium Chloride Mini Bag 100 ML IVPB SCH ×2 (08:35→16:44)
[2021-06-15] MEDS: Chlorhexidine Rinse 15 ML MOUTHWASH MM SCH ×2 (08:36→19:32)
[2021-06-15] MEDS: Pantoprazole 40 MG VIAL IVP SCH (08:36)
[2021-06-15] MEDS: Docusate Oral Soln 100 MG/10 ML UDC GTUBE SCH ×2 (08:36→19:33)
[2021-06-15] MEDS: Neosporin OINT 15 GM TUBE TP SCH ×2 (08:38→19:33)
[2021-06-15] MEDS: polyethylene glycoL 3350 17 GM POWD.PACK GTUBE SCH (09:58)
[2021-06-15] MEDS: Phenylephrine 10 MG in 0.9 % Sodium Chloride 250 ML IVC SCH (19:33)
[2021-06-15] MEDS: Cisatracurium 200 MG in 0.9 % Sodium Chloride 180 ML IVC SCH (19:33)
[2021-06-15] MEDS: Dexmedetomidine HCl 400 MCG/100 ML MLS IVC SCH (19:33)
[2021-06-16] MEDS: FentaNYL (PF) 1,000 MCG/100 ML IV.SOLN IVC SCH ×4 (00:07→22:50)
[2021-06-16] MEDS: Artificial Tears SOLN 15 ML BOTTLE BOTH EYES SCH ×5 (03:15→20:57)
[2021-06-16] MEDS: *HR* Metoprolol 5 MG/5 ML VIAL IVP PRN (03:15)
[2021-06-16 03:38] LABS: Basophils # 0.1 K/mcL (0.0-0.2); Basophils % 0.6 %; Hematocrit 30.8 % (37.5-50.1); Hemoglobin 9.1 g/dL (12.9-16.9); Immature Granulocytes % 8.3 % (0-4); Lymphocytes # 2.4 K/mcL (0.6-4.6); Lymphocytes % 17.5 %; Mean Corpuscular HGB Conc 29.5 g/dL (31.6-35.5); Mean Corpuscular Hemoglobin 31.4 pg (28.0-33.3); Mean Corpuscular Volume 106.2 fL (83.0-100.0); Mean Platelet Volume 10.3 fL (9.4-12.4); Monocytes # 1.1 K/mcL (0.0-1.3); Neutrophils # 8.9 K/mcL (1.6-8.9); Nucleated Red Blood Cells 0.6 /100 WBC (0); Platelet Count 352 K/mcL (140-400); Red Cell Distribution Width 15.9 % (11.5-14.5); Segmented Neutrophils % 65.6 %; White Blood Count 13.6 K/mcL (4.3-11.1)
[2021-06-16] MEDS: Ipratropium/Albuterol Neb 3 ML IH SCH ×4 (03:44→20:52)
[2021-06-16 03:49] LABS: VBG Ionized Calcium 1.25 mmol/L (1.15-1.35)
[2021-06-16 04:01] LABS: Alanine Aminotransferase 26 Units/L (7-52); Albumin 2.3 g/dL (3.5-5.7); Albumin/Globulin Ratio 0.5 (1.1-2.2); Alkaline Phosphatase 70 Units/L (34-104); Aspartate Amino Transferase 31 Units/L (13-39); BUN/Creatinine Ratio 76 (6-26); Bilirubin,Direct 0.1 mg/dL (0.0-0.2); Bilirubin,Indirect 0.2 mg/dL (0.0-1.0); Bilirubin,Total 0.3 mg/dL (0.3-1.0); Blood Urea Nitrogen 53 mg/dL (8-23); Calcium 8.8 mg/dL (8.6-10.3); Carbon Dioxide 38 mEq/L (23-29); Chloride 113 mEq/L (98-107); Globulin 4.5 g/dL (2.4-3.5); Glucose 200 mg/dL (70-105); Magnesium 2.3 mg/dL (1.6-2.6); Osmolality,Calculated 334 (280-300); Phosphorous 3.7 mg/dL (2.7-4.5); Potassium 5.6 mEq/L (3.5-5.1); Sodium 152 mEq/L (136-145); Total Protein 6.8 g/dL (6.4-8.9); eGFR For African Americans > 60 (> 60); eGFR For Non-African Americans > 60 (> 60)
[2021-06-16] MEDS: Insulin LISPRO 300 UNITS/3 ML VIAL SUBQ SCH ×5 (04:06→20:57)
[2021-06-16 04:15] LABS: Platelet Estimate Normal (Normal); Reactive Lymphocytes Present (Not Present)
[2021-06-16 04:53] LABS: ABG Base Excess 10 mEq/L (-2 to 3); ABG HCO3 37 mEq/L (21-27); ABG Oxygen Saturation 95 % (95-98); ABG PCO2 63 mmHg (35-45); ABG PH 7.37 pH Units (7.32-7.45); ABG PO2 78 mmHg (85-104); ABG TCO2 39 mEq/L (20-26); Blood Gas VT 420 cc
[2021-06-16] MEDS: *HR* Heparin 5,000 UNIT/ML VIAL SQ SCH ×3 (05:43→22:03)
[2021-06-16] MEDS: Budesonide/Formoterol 160/4.5 1 PUFF INH IH SCH ×2 (07:20→20:52)
[2021-06-16] MEDS: Aspirin 81 MG TAB.CHEW GTUBE SCH (07:42)
[2021-06-16] MEDS: Docusate Oral Soln 100 MG/10 ML UDC GTUBE SCH ×2 (07:43→20:57)
[2021-06-16] MEDS: Chlorhexidine Rinse 15 ML MOUTHWASH MM SCH ×2 (07:43→20:57)
[2021-06-16] MEDS: Neosporin OINT 15 GM TUBE TP SCH ×2 (07:44→20:58)
[2021-06-16] MEDS: polyethylene glycoL 3350 17 GM POWD.PACK GTUBE SCH (07:44)
[2021-06-16] MEDS: Pantoprazole 40 MG VIAL IVP SCH (07:44)
[2021-06-16] MEDS ORDERED: SODIUM ZIRCONIUM CYCLOSILICATE 5 GM POWD.PACK PO ONE (09:08)
[2021-06-16] MEDS: Dexmedetomidine HCl 400 MCG/100 ML MLS IVC SCH ×2 (09:46→21:14)
[2021-06-16 15:51] LABS: BUN/Creatinine Ratio 72 (6-26); Blood Urea Nitrogen 49 mg/dL (8-23); Calcium 8.2 mg/dL (8.6-10.3); Carbon Dioxide 37 mEq/L (23-29); Chloride 108 mEq/L (98-107); Glucose 187 mg/dL (70-105); Osmolality,Calculated 320 (280-300); Potassium 4.9 mEq/L (3.5-5.1); Sodium 146 mEq/L (136-145); eGFR For African Americans > 60 (> 60); eGFR For Non-African Americans > 60 (> 60)
[2021-06-16] MEDS: Phenylephrine 10 MG in 0.9 % Sodium Chloride 250 ML IVC SCH (18:07)
[2021-06-16] MEDS: Cisatracurium 200 MG in 0.9 % Sodium Chloride 180 ML IVC SCH (20:58)
[2021-06-16] MEDS: Midazolam HCl 50 MG/100 ML IV.SOLN IVC SCH (20:58)
[2021-06-17] MEDS: Artificial Tears SOLN 15 ML BOTTLE BOTH EYES SCH ×6 (00:18→20:48)
[2021-06-17] MEDS: Insulin LISPRO 300 UNITS/3 ML VIAL SUBQ SCH ×6 (00:18→20:49)
[2021-06-17] MEDS: Ipratropium/Albuterol Neb 3 ML IH SCH ×4 (03:21→19:56)
[2021-06-17 03:27] LABS: Hematocrit 29.1 % (37.5-50.1); Hemoglobin 8.9 g/dL (12.9-16.9); Mean Corpuscular HGB Conc 30.6 g/dL (31.6-35.5); Mean Corpuscular Hemoglobin 31.6 pg (28.0-33.3); Mean Corpuscular Volume 103.2 fL (83.0-100.0); Mean Platelet Volume 10.4 fL (9.4-12.4); Nucleated Red Blood Cells 0.5 /100 WBC (0); Platelet Count 297 K/mcL (140-400); Red Blood Count 2.82 M/mcL (4.19-5.50); White Blood Count 14.7 K/mcL (4.3-11.1)
[2021-06-17 03:36] LABS: VBG Ionized Calcium 1.19 mmol/L (1.15-1.35)
[2021-06-17 03:46] LABS: Alanine Aminotransferase 35 Units/L (7-52); Albumin 2.1 g/dL (3.5-5.7); Albumin/Globulin Ratio 0.5 (1.1-2.2); Alkaline Phosphatase 72 Units/L (34-104); Aspartate Amino Transferase 39 Units/L (13-39); BUN/Creatinine Ratio 72 (6-26); Bilirubin,Direct 0.2 mg/dL (0.0-0.2); Bilirubin,Indirect 0.3 mg/dL (0.0-1.0); Bilirubin,Total 0.5 mg/dL (0.3-1.0); Blood Urea Nitrogen 51 mg/dL (8-23); Calcium 8.6 mg/dL (8.6-10.3); Carbon Dioxide 37 mEq/L (23-29); Chloride 109 mEq/L (98-107); Globulin 3.9 g/dL (2.4-3.5); Glucose 190 mg/dL (70-105); Magnesium 1.9 mg/dL (1.6-2.6); Osmolality,Calculated 327 (280-300); Phosphorous 3.3 mg/dL (2.7-4.5); Potassium 4.2 mEq/L (3.5-5.1); Sodium 149 mEq/L (136-145); eGFR For African Americans > 60 (> 60); eGFR For Non-African Americans > 60 (> 60)
[2021-06-17 03:53] LABS: Lymphocytes # 1.5 K/mcL (0.6-4.6); Monocytes # 0.3 K/mcL (0.0-1.3); Neutrophils # 12.6 K/mcL (1.6-8.9)
[2021-06-17 03:54] LABS: Basophilic Stippling 1+ (Not Present); Platelet Estimate Normal (Normal); Polychromasia 1+ (Not Present)
[2021-06-17 03:55] LABS: Reactive Lymphocytes Present (Not Present)
[2021-06-17 04:55] LABS: ABG Base Excess 9 mEq/L (-2 to 3); ABG HCO3 35 mEq/L (21-27); ABG Oxygen Saturation 89 % (95-98); ABG PCO2 52 mmHg (35-45); ABG PH 7.43 pH Units (7.32-7.45); ABG PO2 57 mmHg (85-104); ABG TCO2 36 mEq/L (20-26); Blood Gas VT 420 cc
[2021-06-17] MEDS: *HR* Heparin 5,000 UNIT/ML VIAL SQ SCH ×3 (05:09→21:08)
[2021-06-17] MEDS: *HR* Metoprolol 5 MG/5 ML VIAL IVP PRN (06:04)
[2021-06-17] MEDS: Dexmedetomidine HCl 400 MCG/100 ML MLS IVC SCH ×3 (06:21→19:58)
[2021-06-17] MEDS: Budesonide/Formoterol 160/4.5 1 PUFF INH IH SCH ×2 (07:27→19:56)
[2021-06-17] MEDS: Pantoprazole 40 MG VIAL IVP SCH (07:36)
[2021-06-17] MEDS: Docusate Oral Soln 100 MG/10 ML UDC GTUBE SCH ×2 (07:37→20:50)
[2021-06-17] MEDS: Chlorhexidine Rinse 15 ML MOUTHWASH MM SCH ×2 (07:37→20:50)
[2021-06-17] MEDS: Aspirin 81 MG TAB.CHEW GTUBE SCH (07:37)
[2021-06-17] MEDS: polyethylene glycoL 3350 17 GM POWD.PACK GTUBE SCH (07:37)
[2021-06-17] MEDS: Neosporin OINT 15 GM TUBE TP SCH ×2 (07:40→20:50)
[2021-06-17] MEDS: FentaNYL (PF) 1,000 MCG/100 ML IV.SOLN IVC SCH (08:30)
[2021-06-17] MEDS: Phenylephrine 10 MG in 0.9 % Sodium Chloride 250 ML IVC SCH (18:11)
[2021-06-17] MEDS: Cisatracurium 200 MG in 0.9 % Sodium Chloride 180 ML IVC SCH (20:49)
[2021-06-17] MEDS: Midazolam HCl 50 MG/100 ML IV.SOLN IVC SCH (20:50)
[2021-06-18] MEDS: Insulin LISPRO 300 UNITS/3 ML VIAL SUBQ SCH ×5 (00:33→16:50)
[2021-06-18] MEDS: Artificial Tears SOLN 15 ML BOTTLE BOTH EYES SCH ×5 (00:33→16:43)
[2021-06-18] MEDS: Dexmedetomidine HCl 400 MCG/100 ML MLS IVC SCH ×4 (02:26→16:43)
[2021-06-18] MEDS: *HR* Metoprolol 5 MG/5 ML VIAL IVP PRN (03:10)
[2021-06-18 03:12] LABS: Basophils % 0.2 %; Eosinophils # 0.1 K/mcL (0.0-0.6); Eosinophils % 0.6 %; Hematocrit 30.2 % (37.5-50.1); Hemoglobin 9.3 g/dL (12.9-16.9); Immature Granulocytes % 3.3 % (0-4); Lymphocytes # 2.6 K/mcL (0.6-4.6); Mean Corpuscular HGB Conc 30.8 g/dL (31.6-35.5); Mean Corpuscular Volume 103.8 fL (83.0-100.0); Mean Platelet Volume 10.5 fL (9.4-12.4); Monocytes % 5.6 %; Neutrophils # 13.1 K/mcL (1.6-8.9); Nucleated Red Blood Cells 0.2 /100 WBC (0); Platelet Count 272 K/mcL (140-400); Red Blood Count 2.91 M/mcL (4.19-5.50); Red Cell Distribution Width 16.6 % (11.5-14.5); Segmented Neutrophils % 75.3 %; White Blood Count 17.4 K/mcL (4.3-11.1)
[2021-06-18 03:31] LABS: VBG Ionized Calcium 1.24 mmol/L (1.15-1.35)
[2021-06-18] MEDS: Ipratropium/Albuterol Neb 3 ML IH SCH ×3 (03:52→15:59)
[2021-06-18 03:57] LABS: Alanine Aminotransferase 34 Units/L (7-52); Albumin 2.2 g/dL (3.5-5.7); Albumin/Globulin Ratio 0.6 (1.1-2.2); Alkaline Phosphatase 86 Units/L (34-104); Aspartate Amino Transferase 30 Units/L (13-39); BUN/Creatinine Ratio 71 (6-26); Bilirubin,Direct 0.3 mg/dL (0.0-0.2); Bilirubin,Indirect 0.3 mg/dL (0.0-1.0); Bilirubin,Total 0.6 mg/dL (0.3-1.0); Blood Urea Nitrogen 44 mg/dL (8-23); Calcium 8.5 mg/dL (8.6-10.3); Carbon Dioxide 38 mEq/L (23-29); Chloride 106 mEq/L (98-107); Globulin 3.9 g/dL (2.4-3.5); Glucose 178 mg/dL (70-105); Magnesium 1.9 mg/dL (1.6-2.6); Osmolality,Calculated 316 (280-300); Phosphorous 4.1 mg/dL (2.7-4.5); Potassium 4.5 mEq/L (3.5-5.1); Sodium 145 mEq/L (136-145); Total Protein 6.1 g/dL (6.4-8.9); eGFR For African Americans > 60 (> 60); eGFR For Non-African Americans > 60 (> 60)
[2021-06-18 05:08] LABS: ABG Base Excess 7 mEq/L (-2 to 3); ABG HCO3 34 mEq/L (21-27); ABG Oxygen Saturation 86 % (95-98); ABG PCO2 62 mmHg (35-45); ABG PH 7.34 pH Units (7.32-7.45); ABG PO2 56 mmHg (85-104); ABG TCO2 36 mEq/L (20-26); Blood Gas VT 420 cc
[2021-06-18] MEDS: *HR* Heparin 5,000 UNIT/ML VIAL SQ SCH ×2 (05:18→14:01)
[2021-06-18] MEDS: Aspirin 81 MG TAB.CHEW GTUBE SCH (07:43)
[2021-06-18] MEDS: polyethylene glycoL 3350 17 GM POWD.PACK GTUBE SCH (07:44)
[2021-06-18] MEDS: Chlorhexidine Rinse 15 ML MOUTHWASH MM SCH (07:44)
[2021-06-18] MEDS: Pantoprazole 40 MG VIAL IVP SCH (07:44)
[2021-06-18] MEDS: Docusate Oral Soln 100 MG/10 ML UDC GTUBE SCH (07:44)
[2021-06-18] MEDS: Neosporin OINT 15 GM TUBE TP SCH (07:58)
[2021-06-18] MEDS: Budesonide/Formoterol 160/4.5 1 PUFF INH IH SCH (08:25)
[2021-06-18] MEDS: Ampicillin/Sulbactam 3,000 MG in 0.9 % Sodium Chloride Mini Bag 100 ML IVPB SCH ×2 (12:01→16:42)
[2021-06-18] MEDS ORDERED: Isovue-370 500 ML BOTTLE IVP ONE (12:02)
[2021-06-18] MEDS: Acetaminophen 325 MG TABLET PO PRN (12:10)
[2021-06-18] MEDS ORDERED: Norepinephrine 4 MG/254 ML IV.SOLN IVC SCH (12:30)
[2021-06-18] MEDS ORDERED: Perflutren Lipid Microsphere 1.3 ML in 0.9 % Sodium Chloride 8.7 ML IVP PRN (13:16)
[2021-06-18] MEDS ORDERED: Vasopressin 40 UNIT in D5% in Water 100 ML IVC SCH (15:30)
[2021-06-18 16:52] VITALS: BP 56/35; PULSE 135; TEMP 102.8; O2SAT 85
[2021-06-18] MEDS ORDERED: *HR* LORazepam 2 MG/ML VIAL IVP PRN (17:00)
[2021-06-18] MEDS ORDERED: *HR* FentaNYL (PF) 100 MCG/2 ML VIAL IVP PRN (17:00)
== END 2021-06-18 18:05 | disposition expired | DRG 720 ==
LOC: 3NENU → SUATTDRO 05-21 13:15 → ICNU 06-06 11:25
PROVIDERS: ADMIT Family Medicine; ATTEND Internal Medicine